=== PATIENT | female | born 1950 | race Caucasian/White ===

== ENCOUNTER 2024-12-21 11:19 | Inpatient (IN) | payer MEDICARE, OTHER, SELFPAY ==
[2024-12-21] VITALS (7 sets, daily range): BP systolic 125–137; BP diastolic 61–104; PULSE 77
--- NOTE | 2024-12-21 11:45 | PTCARENOTE ---
Received the patient from [facility] in a stretcher. The patient is aaox3. However, her responses are slow with mild aphasia noted. Afib is noted on the monitor, HR 70. Transferred the patient to her bed by slide sheet x 3 assist. Lungs are clear with a
barrel chest. HR is irregular with a murmur. Left leg has a +1-2 non pitting edema and a bandaid is note at the lateral left knee. A small scab is noted on her lutz and measures 0.7 cm round. Her leg BL are brown in color. NIHSS is scored a 7 due to
mild aphasia, mild dysarthria, left arm weakness, and right leg weakness. I removed her left wrist IV due to redness and tenderness at the site. She has a left midline in place.
--- NOTE | 2024-12-21 12:27 | HPS.HSE ---
Family Physician
-
Family Physician: Cady Sherwood
Chief Complaint
-
Change in mental status
History of Present Illness
74-year-old female, followed by Dr. Bharath Michele (PCP) for aortic stenosis (severe per recent office visit note) was admitted to [facility] on 12/17/2024 with confusion, lethargy, headache, and chills. EMS was notified by
patient's son who found the patient on floor when she had not showed up for work that morning. Patient is completely independent with ADLs and continues to work and had been in good health up until this event. Patient febrile on admission (Tmax
101.8F) and able to move all extremities.
Noncontrast CT of head on 12/17 reported 2 foci of decreased density in the right cerebral hemisphere consistent with acute infarct, 1 in the cerebellum and 1 in the high frontal lobe. CT of the chest, abdomen and pelvis revealed no significant
abnormality.
CTA head/neck on 12/17/24 reported no evidence of large vessel occlusion, critical stenosis, or aneurysm.
Urinalysis is unremarkable. Blood cultures identified MSSA and the patient was started on Cefepime. Seen by cardiology for new onset atrial fibrillation with rapid ventricular response which was treated with IV heparin and amiodarone.
TTE on 12/18 reported an EF of 55 to 60%, concentric remodeling of left ventricle, normal RV size and function. Severely dilated left atrium and normal right atrium. Moderate to severe aortic stenosis with trace AI. AV gradients 52/32 mmHg. Severe
MAC with severe mitral regurgitation mild tricuspid regurgitation. Rapid response was called on 12/19/2024 for new right facial droop and right upper/right lower extremity weakness.
CT head on 12/19 reported less than 50% bilateral ICA stenosis. No large vessel occlusion or dissection. Patient was seen by orthopedic surgery for complaint of left knee pain and area aspirated on 12/20 and the final report is pending. Patient was
cleared for regular diet and medications with thin liquids. 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
Patient is awake, alert, and oriented on exam. She has mild expressive aphasia with word finding difficulty and has good bilateral handgrips and able to bend legs at the knee. Her only complaint is some left knee pain.
Medical History
Past Medical History
Past Medical History: Reports Hypothyroidism and Other (lupus, class I obesity)
Past Surgical History: Reports Other (Thyroidectomy)
Social History
Tobacco: Former Smoker (Quit 40 years ago)
Alcohol: Occasional
Drug: None
Personal:
Living: Alone
Employment: Employed
Family History
Family History: Not pertinent
Allergies / Home Medications
Allergies
Allergy/AdvReac Type Severity Reaction Status Date / Time
No Known Allergies Allergy Verified 12/21/24 13:23
Allergy/Medication List:
Allergies
Allergy/AdvReac Type Severity Reaction Status Date / Time
No Known Allergies Allergy Verified 12/21/24 13:23
Review of Systems
-
History Source: Patient and Transfer Record
Constitutional: Reports See HPI
EENT: Reports See HPI
Respiratory: Reports See HPI
Cardiac: Reports See HPI
Abdomen/GI: Reports No Symptoms
: Reports Incontinence (diaper soaked on admission)
Musculoskeletal: Reports Joint Pain (left knee pain)
Skin: Reports No Symptoms
Neurological: Reports Other (expressive aphasia)
Endocrine: Reports No Symptoms
Hematologic/Lymphatic: Reports No Symptoms
Psych: Reports No Symptoms
Physical Exam
Vital Signs
Vital Signs
Temp Pulse Resp BP Pulse Ox
98.6 F 70 24 131/86 94
12/21/24 11:29 12/21/24 11:30 12/21/24 11:29 12/21/24 11:30 12/21/24 11:29
Physical Exam
General: Obese
HEENT: NormoCephalic, Anicteric, Moist mucous membranes and PERRLA
Respiratory: Clear
Cardiac: S1/S2, Regular Rhythm (currently SR on telemetry) and Murmur (II/ crescendo-decrescendo murmur right sternal border second intercostal space and radiates throughout precordium. II/ holosystolic murmur left sternal border right ICS
radiates to axilla)
GI: Normal Bowel Sounds and No Hepatosplenomegaly
Rectal: Deferred by Provider
Genito-urinary: Other (Diapered and incontinent on admission)
Musculoskeletal: No Clubbing, No Cyanosis and No Edema
Skin: Warm, Dry and Other (Bilateral lower extremity PVD discoloration)
Neuro: AO x 3 and Other (Expressive aphasia, word finding difficulty)
Hematologic/Lymphatic: No Lymphadenopathy
Psych: Calm
Data Reviewed
-
Diagnostic Radiology: Report Reviewed by me and Discussed with Physician
CT Scan: Report Reviewed by me and Discussed with Physician
Ultrasound: Report Reviewed by me and Discussed with Physician
Lab Data: Labs Reviewed by me and Discussed with Physician
Impression/Plan
-
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
PLAN:
# MSSA bacteremia with /MR and suspected endocarditis
- Consult to [facility] cardiology, infectious disease
- continue Cefepime
- Blood cultures x 2
- MARY per cardiology discretion
# embolic CVA (cerebellar/frontal) with expressive aphasia
- consult neurology, PT/OT, speech therapy
- Aspirin only as anticoagulant per [place] notes
# left knee pain
- Follow-up on left knee aspirate culture from [facility]
# Reji AF
- currently SR on telemetry
- convert Amio infusion (since 12/17) to Amio 200mg BID
# Hx hypothyroidism
-continue home Levothyroxine 250mcg daily
- TSH 2.2 @ [facility]
# Lupus
- continue hydroxychloroquine 200mg alternating with 400mg daily
--- NOTE | 2024-12-21 12:49 | CON.CAR ---
Addendum entered and electronically signed by Foreign Benavides MD 12/21/24 16:39:
Primary manpower development manager Dr. Michele
Patient presents as transfer from [facility]
I saw and examined the patient.
The [employer] ANDRO[employer] DEVELOPER's note was reviewed and I agree with the note.
74-year-old woman with a history of severe aortic stenosis, lupus, thyroid disease who presented with confusion on 12/17/2024 after being found on the floor by her son. Patient with MSSA bacteremia. A-fib diagnosed during hospitalization initially
treated with IV heparin and amiodarone. Echo with ejection fraction 45%, moderate to severe aortic stenosis and moderate mitral regurgitation. Patient is also diagnosed with CVA during her hospitalization. In addition patient had pain of left
knee and underwent aspiration. Concern raised for endocarditis. Patient now transferred to [facility].
-MSSA - bacteremia
- suspected endocarditis
- continue abx
- monitor cultures
=MARY
.
afib - noted at [facility]. Currently in sinus
- not on anticoaguation with recent CVA and concern for endocarditis
- ID consult
.
mod to severe - mean gradient 32mmHg with EF 45%
CM - EF 45%. Montior for HF
- CXR
Original Note:
Consultation
Consultation Request
Date/Time Consultation Requested: 12/21/2024 11:00
Date/Time Consultation Performed: 12/21/2024 12:50
Requesting Provider: ISRAEL Ny
Performing Provider: ISRAEL Abarca for Dr. Benavides
Reason for Consultation: Endocarditis, new
Medical History
-
Chief Complaint: MSSA endocarditis
History of Present Illness:
Yazmin Montana is a 74-year-old female (known to Dr. Peguero) transferred from [facility] for cardiac surgery evaluation. Ms. Montana has a past medical history of severe aortic stenosis, hypothyroidism, lupus, and former smoker. She presents from
[facility] for cardiac surgery evaluation. Cardiology has been consulted for atrial fibrillation which she developed at [facility]. She has no chest pain. She is not sure if she is short of breath.
[facility] summary: Yazmin was admitted 12/17/2024 with confusion. She was found on the floor by her son after she did not show up for work. 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 She presented febrile. Blood cultures demonstrated MSSA and she
was started on cefepime. CT of chest/abdomen/pelvis did not show definitive source. She was found to be in atrial fibrillation with rapid ventricular response with incomplete right bundle branch block. She was started on intravenous heparin and
amiodarone. On 12/19/2024 a stroke alert was called for right sided facial droop in addition to right upper and lower extremity weakness. Her heparin drip was stopped due to concern for stroke. CT noncontrast on admission showed 2 foci of decreased
density in the right cerebral hemisphere consistent with acute infarct, one in the cerebellum and one in the high frontal lobe. MRI was pending and not completed prior to transfer. She was found to have pain and erythema of the left knee. On
12/21/2024 orthopedic surgery aspirated her knee. Notable labs during her admission included D-dimer of 16.3, HgbA1c 5.0%, troponin T fifth GEN peaked at 315, and CPK 1191.
Past Medical History
Past Medical History: Hypothyroidism and Other (Lupus)
Social History
Tobacco: Former Smoker
Alcohol: Occasional
Drug: None
Personal:
Living: Alone
Employment: Employed
Family History
Family History: Reviewed & Not Pertinent
Allergies / Home Medications
�Medication �Instructions �Recorded �Confirmed �Type
gabapentin 300 mg PO HS 12/21/24 12/21/24 History
hydroxychloroquine 200 mg PO Q OTHER DAY 12/21/24 History
levothyroxine 250 mcg DAILY 12/21/24 12/21/24 History
Review of Systems
-
History Source: Patient
All other systems: Negative unless noted
Constitutional: Fatigue
EENT: No Symptoms
Respiratory: No Symptoms
Cardiac: No Symptoms
Abdomen/GI: No Symptoms
: No Symptoms
Musculoskeletal: Joint Pain (left knee)
Skin: No Symptoms
Neurological: Weakness
Endocrine: No Symptoms
Hematologic/Lymphatic: No Symptoms
Physical Exam
Vital Signs
Temp Pulse Resp BP Pulse Ox
98.6 F 70 24 131/86 94
12/21/24 11:29 12/21/24 11:30 12/21/24 11:29 12/21/24 11:30 12/21/24 11:29
Physical Exam
General: Well Developed, Well Nourished, No Apparent Distress and Comfortable
HEENT: Normocephalic, Anicteric and Moist Mucous Membranes
Respiratory: Clear and Non Labored Respirations
Cardiac: S1/S2, Regular Rhythm and Murmur (12/16)
Breast: Deferred by me
GI: Soft, Non Tender, Non Distended and Normal Bowel Sounds
Rectal: Deferred by Provider
Musculoskeletal: No Clubbing and No Cyanosis
Skin: Warm and Dry
Neuro: AO x 3
Hematologic/Lymphatic: No Lymphadenopathy
Psych: Calm
Impression / Plan
-
I/P: 74F with severe aortic stenosis hypothyroidism, lupus, and former smoker. She presents from [facility] for cardiac surgery evaluation. Cardiology has been consulted for atrial fibrillation which she presented with at [facility].
Primary manpower development manager: Yunior Peguero
MSSA bacteremia
-Blood cultures + 12/17/2024 and 12/18/2024, NGTD from 12/19/2024
-Knee aspiration is pending
-Suspected aortic and mitral valve endocarditis
-Aortic valve gradients 52/32 mmHg with severe MAC and severe MR (severe precedes bacteremia)
-Evaluation per CT surgery
-MARY in a.m, NPO after midnight
CVA, embolic versus septic
-Expressive aphasia and word finding difficulty on exam, oriented
Paroxysmal atrial fibrillation
-New diagnosis at [facility], started on amiodarone, converted to PO
-Maintaining sinus rhythm
-Oral Anticoagulation: None [employer] MEMBER
-[id number]: Score at least 4 prior to CVA (HTN, age 75 or more, female gender)
Thrombocytopenia, platelets 98 this morning, labs pending
Hypothyroidism, on levothyroxine
Lupus
Former smoker, continued cessation recommended
SUBJECTIVE:
As above.
BACKGROUND:
Yazmin was admitted 12/17/2024 with confusion. She was found on the floor by her son after she did not show up for work. 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 She presented febrile. Blood cultures demonstrated MSSA and she was started on
cefepime. CT of chest/abdomen/pelvis did not show definitive source. She was found to be in atrial fibrillation with rapid ventricular response with incomplete right bundle branch block. She was started on intravenous heparin and amiodarone. On
12/19/2024 a stroke alert was called for right sided facial droop in addition to right upper and lower extremity weakness. Her heparin drip was stopped due to concern for stroke. CT noncontrast on admission showed 2 foci of decreased density in the
right cerebral hemisphere consistent with acute infarct, one in the cerebellum and one in the high frontal lobe. MRI was pending and not completed prior to transfer. She was found to have pain and erythema of the left knee. On 12/20/2024
orthopedic surgery aspirated her knee. Notable labs during her admission included D-dimer of 16.3, HgbA1c 5.0%, troponin T fifth GEN peaked at 315, and CPK 1191.
DATA:
Transthoracic echocardiogram, 12/18/2024 ([facility]):
LVEF 45%. Severely dilated LA. Moderate to severe aortic stenosis (peak/mean 52.6/32.3 mmHg).
Severe thickening of the anterior and posterior leaflets of the mitral valve.
Severe mitral annular calcification. Moderate mitral valve regurgitation with centrally directed jet.
Data Reviewed
-
Old Records: Requested and Reviewed
--- NOTE | 2024-12-21 13:04 | CON.ID ---
Consultation
-
Date/Time Consultation Requested: 12/21/24 11:47
Date/Time Consultation Performed: 12/21/24 13:07
Requesting Provider: Aroldo LANCE
Performing Provider: Dr Toney
Reason for Consultation: Aortic and mitral valve endocarditis s/p CVA
Chief Complaint / Past History
Chief Complaint
transferred for endocarditis
History of Present Illness
Ms Montana is a 74 year old female with history of lupus on plaquenil, severe who was admitted to [facility] on 12/17/2024 with confusion, lethargy, headache, fever (101.8) and chills after she was found down by son when she did not
attend work that morning, she was last seen well at about 11am the day before. She was hypotensive at that time. 12/[address] of head significant for 2 suspected acute infarction, 1 in the cerebellum and 1 in the right frontal lobe. CTA
head/neck on 12/17/24 reported no evidence of large vessel occlusion, critical stenosis, or aneurysm. CK was 519. examining providers noted rigors. She was initially started on cefepime then when blood cultures resulted with cefazolin she was
transitioned to vancomycin, cefepime and metronidazole. TTE on 12/18 EF of 55 to 60%, and moderate to severe aortic stenosis with trace AI, no definitive vegetation seen. Then 12/19 a Rapid response was called for new right facial droop & right
upper/right lower extremity weakness. CT head same day Additionally she was was seen by orthopedic surgery for left knee pain, swelling and decreased range of motion and underwent arthrocentesis on 12/20 15 ccs of bloody fluid aspirated, specimen
sent for culture, the procedure report does not indicate samples being sent for cell count, differential or crystals . 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 MARY
was planned but not yet done, it will be done here tomorrow. She does complain of increased thoracic spinal pain from her baseline, no changes in vision. Beyond the L knee, no other joint swelling.
Since arrival here she has been afebrile, bp stable, wbc 7.1, hgb 14, plt 129, L shift is noted, na 130, cr 0.6, K 3.1, t bili 0.4, ast 54, alt 31, alk phos 67, a single blood culture has been done thus far,
Past History
Additional Past Medical History:
hypothyrodism
lupus
Additional Past Surgical History:
thyroidectomy
Allergy History:
No Known Allergies Allergy (Unverified 12/21/24 12:59)
Medications Reviewed: Yes
Social History
Tobacco: Former Smoker
Alcohol: Occasional
Drug: None
Family History
Family History: Not Pertinent
Review of Systems
Review of Systems
General: Fever and Chills
All systems: All other systems were reviewed and were negative
Vital Signs
Temp Pulse Resp BP Pulse Ox
98.6 F 70 24 131/86 94
12/21/24 11:29 12/21/24 11:30 12/21/24 11:29 12/21/24 11:30 12/21/24 11:29
Physical Exam
Physical Exam
Constitutional: No Acute Distress
Cardiovascular: Regular Rate and S1/S2; Negative Murmur or Rub
Pulmonary: Clear and Symmetric; Negative Wheezes, Rales or Rhonchi
Gastrointestinal: Soft, Non Tender, Non Distended and Normal Bowel Sounds
Musculoskeletal: Joint Effusion (L knee swollen, warm, quite tender), Spinal Tenderness (thoracic spine) and Other (L knee is warm swollen and quite tender)
Skin: Warm and Dry; Negative Rash or Jaundice
Microbiology Results
Micro:
12/21/24 12:56 Blood Culture - Pending
Blood/Venous
Assessment / Plan
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
MSSA bacteremia
CVA possible septic infarctions
- MSSA bacteremia at [facility] 12/17 and 12/18; 12/19 cultures at [facility] no growth to date
- repeat blood cultures x2 now and q48 hours until persistently clear
- L knee arthrocentesis culture: NGTD; I did not see results for cell count, culture or crystals in the provided documentation]
- will follow up with lab periodically
- follow up MARY planned for tomorrow
- restart cefazolin
Possible septic joint - L Knee
- left knee quite tender, remains swollen and warm
- L knee arthrocentesis culture at [facility]: NGTD; I did not see results for cell count, culture or crystals in the provided documentation
- will follow up with lab periodically
- will consult orthopedics in the AM, serial arthrocenteses may be a consideration
[2024-12-21 14:01] LABS: % Basophils 0.4 % (0-2); % Eosinophils 0.8 % (0-6); % Immature Granulocytes 1.5 % (0-0.5); % Lymphocytes 8.9 % (20.5-51.1); % Monocytes 9.3 % (1.7-9.3); % Neutrophils 79.1 % (42.2-75.2); Absolute Eosinophils 0.1 10^3/uL (0-0.7); Absolute Immature Granulocytes 0.1 10^3/uL (0-0.05); Absolute Lymphocytes 0.6 10^3/uL (1.2-3.4); Absolute Monocytes 0.7 10^3/uL (0.1-0.6); Absolute Neutrophils 5.6 10^3/uL (1.4-6.5); Hematocrit 39.7 % (37.0-47.0); Mean Corp Hgb Conc. 35.3 g/dL (33.0-37.0); Mean Corpuscular Hgb 29.5 pg (27.0-31.0); Mean Corpuscular Volume 83.6 fL (81.0-99.0); Mean Platelet Volume 10.7 fL (7.4-10.4); Nucleated Red Blood Cells % 0 %; Platelet Count 129 10^3/uL (130-400); Red Blood Cell Count 4.75 10^6/uL (4.20-5.40); Red Cell Dist. Width 13.4 % (11.5-14.5); White Blood Cell Count 7.1 10^3/uL (4.8-10.8)
[2024-12-21 14:10] LABS: ALT (SGPT) 31 U/L (0-35); AST (SGOT) 54 U/L (14-36); Albumin 2.5 g/dl (3.5-5.0); Alkaline Phosphatase 67 U/L (38-126); Blood Urea Nitrogen 8 mg/dl (7-17); Calcium 7.8 mg/dl (8.4-10.2); Carbon Dioxide 24 mmol/L (22-30); Chloride 102 mmol/L (98-107); Glucose 98 mg/dl (70-99); Potassium 3.1 mmol/L (3.5-5.1); Sodium 130 mmol/L (135-145); Total Bilirubin 0.4 mg/dl (0.2-1.3); Total Protein 5.3 g/dl (6.3-8.2); eGFR > 60.00
[2024-12-21] MEDS: ANCEF 10 IV ×2 (14:41→22:04)
--- NOTE | 2024-12-21 16:37 | CON.NEURO ---
Neuro Assessment/Plan
Assessment
septic emboli - Head CT images reviewed with patient. 2 small strokes left frontal; one in the right frontal; and a moderate sized wedge in the right cerebellum
thankfully the strokes are relatively small there is no cortical involvement, so less prone to hemorrhagic transformation. ok for blood thinners if needed;
I'm hopeful for a good recovery, but nothing I can do about this.
Consultation
Order
Date of Consultation: 12/21/24
Requesting Provider: Chloe Kendrick
Reason for Consult: stroke
Subjective/Objective
Subjective Data
Date of Service: December 21, 2024
She is a 74 year old woman admitted to [facility] on 12/17/2024 with confusion, lethargy, headache, and chills. Patient is completely independent with ADLs and continues to work and had been in good health up until this event. Patient
febrile on admission (Tmax 101.8F) and able to move all extremities.
CTA head/neck on 12/17/24 reported no evidence of large vessel occlusion, critical stenosis, or aneurysm.
Found to have MSSA bacteremia, endocarditis, started on cefepime. Seen by cardiology for new onset atrial fibrillation with rapid ventricular response which was treated with IV heparin and amiodarone.
Objective Data
Vital Signs
Temp Pulse Resp BP Pulse Ox
37.0 C 70 24 131/86 94
12/21/24 11:29 12/21/24 11:30 12/21/24 11:29 12/21/24 11:30 12/21/24 12:15
Lab Results
12/21/24 13:36
12/21/24 13:36
Sodium 130 mmol/L (135-145) L 12/21/24 13:36
Potassium 3.1 mmol/L (3.5-5.1) L 12/21/24 13:36
BUN 8 mg/dl (7-17) 12/21/24 13:36
Glucose 98 mg/dl (70-99) 12/21/24 13:36
Calcium 7.8 mg/dl (8.4-10.2) L 12/21/24 13:36
Patient Allergies
No Known Allergies Allergy (Verified 12/21/24 13:23)
Physical Exam
-
AAOx3, speech clear, mild expressive aphasia
VFF, EOMI, left nasolabial flattening
RUE full strength, LUE 4/5, b/l LE 3-/5 some effort against gravity
Medications
-
Active Medications
Generic Name Dose Route Start Last Admin
Trade Name Freq PRN Reason Stop Dose Admin
Amiodarone HCl 200 mg 12/21/24 20:00
Amiodarone 200 Mg Tablet PO 01/18/25 19:59
BID OLEG
Aspirin 81 mg 12/22/24 08:00
Aspirin 81 Mg Chewable Tablet PO 01/19/25 07:59
DAILY OLEG
Atorvastatin Calcium 40 mg 12/21/24 18:00
Atorvastatin (Lipitor) 40 Mg Tablet PO 01/18/25 17:59
QPM OLEG
Bisacodyl 10 mg 12/21/24 10:47
Bisacodyl 10 Mg Rectal Suppository RECTAL 01/18/25 10:46
[id number] PRN
constipation
Gabapentin 300 mg 12/21/24 22:00
Gabapentin 300 Mg Capsule PO 01/18/25 21:59
HS OLEG
Hydroxychloroquine Sulfate 200 mg 12/22/24 08:00
Hydroxychloroquine 200 Mg Tablet PO 01/19/25 07:59
Q48H OLEG
Hydroxychloroquine Sulfate 400 mg 12/23/24 08:00
Hydroxychloroquine 200 Mg Tablet PO 01/20/25 07:59
Q48H OLEG
Cefazolin Sodium 2 grams in 10 mls @ 120 mls/hr 12/21/24 14:00 12/21/24 14:41
Ancef IV 10 mls
Q8H OLEG Administration
Levothyroxine Sodium 250 mcg 12/22/24 06:00
Levothyroxine 125 Mcg Tablet PO 01/19/25 05:59
DAILY @ 0600 OLEG
Polyethylene Glycol 17 grams 12/21/24 10:47
Polyethylene Glycol Powder 17 Grams Packet PO 01/18/25 10:46
DAILYPRN PRN
constipation
Senna/Docusate Sodium 1 tablet 12/21/24 10:47
Docusate W/Senna (Kaylan-Colace) Tablet PO 01/18/25 10:46
BIDPRN PRN
constipation
Home Medications
�Medication �Instructions �Recorded
gabapentin 300 mg PO HS 12/21/24
hydroxychloroquine 200 mg PO Q OTHER DAY 12/21/24
hydroxychloroquine 400 mg PO Q OTHER DAY 12/21/24
levothyroxine 250 mcg DAILY 12/21/24
--- NOTE | 2024-12-21 16:56 | CM ---
spoke to pt in room, shelives alone in a 1 story home with a ramp to enter. she denies dme's. she has new expressive aphasia which she says is improving. she is being eval for ct surgery/endocarditis. cm to follow for dc planning needs.
--- NOTE | 2024-12-21 16:57 | PTCARENOTE ---
The patient passed her swallowing exam. She had a chopped diet at [facility]. I observed the patient eating her lunch of a burger and mash potatoes. The patient feed herself with no aspiration was noted.
[2024-12-21] MEDS: LIPITOR 40 MG PO (17:20)
[2024-12-21] MEDS: KCL 40 MEQ PO (20:04)
[2024-12-21] MEDS: PACERONE 200 MG PO (20:05)
--- NOTE | 2024-12-21 21:44 | PTCARENOTE ---
Received patient at change of shift. A&Ox3. Sitting with family bedside. Vitals stable. Neuro check stable. Discussed plan of care. Understands NPO @ midnight. Patient verbalized understanding. Call garay within reach.
[2024-12-21] MEDS: NEURONTIN 300 MG PO (22:04)
[2024-12-22 04:16] VITALS: BP 126/78
[2024-12-22 05:03] LABS: APTT 31.6 Sec (23.4-35.0); PT 18.3 Sec (11.4-14.6)
[2024-12-22 05:14] LABS: ALT (SGPT) 32 U/L (0-35); AST (SGOT) 59 U/L (14-36); Albumin 2.4 g/dl (3.5-5.0); Alkaline Phosphatase 71 U/L (38-126); Blood Urea Nitrogen 11 mg/dl (7-17); Calcium 7.7 mg/dl (8.4-10.2); Carbon Dioxide 22 mmol/L (22-30); Chloride 103 mmol/L (98-107); Glucose 93 mg/dl (70-99); Magnesium 1.8 mg/dl (1.6-2.3); Potassium 3.4 mmol/L (3.5-5.1); Sodium 131 mmol/L (135-145); Total Bilirubin 0.6 mg/dl (0.2-1.3); Total Protein 5.2 g/dl (6.3-8.2); eGFR > 60.00
[2024-12-22] MEDS: ANCEF 10 IV ×3 (05:32→21:40)
[2024-12-22] MEDS: SYNTHROID PO (05:44)
[2024-12-22 07:26] VITALS: BP 125/82
--- NOTE | 2024-12-22 08:47 | CON.HOSP ---
Family Physician
-
Family Physician: Cady Sherwood
Chief Complaint
-
Transfer to medicine service
History of Present Illness
74-year-old female with past medical history of hypothyroidism, aortic stenosis, and lupus on Plaquenil who was transferred from [facility] on 12/21/2024 to the CTS service for concerns of bacterial endocarditis with vegetations requiring
surgical intervention. Patient initially presented to [facility] on 12/21/2024 with fever, and confusion. Workup at [facility] showed MSSA bacteremia and new onset rapid atrial fibrillation. She also was found to have acute stroke,
from septic emboli.
Currently, she feels tired. She denies chest pain, shortness of breath, palpitations. No fever, no headache. No nausea, no vomiting. She does have a cough.
Medical History
Past Medical History
Past Medical History: Reports Other
Additional Past Medical History:
Aortic stenosis, hypothyroidism, lupus, atrial fibrillation, stroke from septic emboli, endocarditis, bacteremia
Past Surgical History: Reports Other
Additional Past Surgical History:
Thyroidectomy
Social History
Tobacco: Former Smoker
Alcohol: Occasional
Drug: None
Family History
Family History: Reviewed & Not Pertinent
Allergies / Home Medications
Allergies reflects when Allergies were last updated in [facility].
Home Medications with original date entered in [facility]
Allergy/Medication List:
Allergies
Allergy/AdvReac Type Severity Reaction Status Date / Time
No Known Allergies Allergy Verified 12/21/24 13:23
Home Medications Table - record
�Medication �Instructions �Recorded �Confirmed
gabapentin 300 mg PO HS 12/21/24 12/21/24
hydroxychloroquine 200 mg PO Q OTHER DAY 12/21/24 12/21/24
hydroxychloroquine 400 mg PO Q OTHER DAY 12/21/24 12/21/24
levothyroxine 250 mcg DAILY 12/21/24 12/21/24
Review of Systems
-
A 12 point Review of Systems was completed except as noted: Yes
Physical Exam
Vital Signs
Vital Signs
Temp Pulse Resp BP Pulse Ox
98.4 F 71 20 126/78 93
12/22/24 04:19 12/22/24 05:00 12/22/24 04:19 12/22/24 04:16 12/22/24 04:19
Physical Exam
General: No Apparent Distress
HEENT: Normocephalic, Anicteric and Moist Mucous Membranes
Respiratory: Clear
Cardiac: Regular Rhythm and Murmur
GI: Soft, Non Tender, Non Distended and Normal Bowel Sounds
Musculoskeletal: No Clubbing, No Cyanosis and No Edema
Neuro: Awake, Alert and Oriented
Psych: Calm
Laboratory Results
-
Laboratory Results
12/21/24 13:36
12/22/24 04:26
PT 18.3 Sec (11.4-14.6) H 12/22/24 04:26
INR 1.50 12/22/24 04:26
APTT 31.6 Sec (23.4-35.0) 12/22/24 04:26
Total Bilirubin 0.6 mg/dl (0.2-1.3) 12/22/24 04:26
AST 59 U/L (14-36) H 12/22/24 04:26
ALT 32 U/L (0-35) 12/22/24 04:26
Alkaline Phosphatase 71 U/L (38-126) 12/22/24 04:26
Impression / Plan
-
74-year-old female with past medical history of hypothyroidism, aortic stenosis, and lupus on Plaquenil who was transferred from [facility] on 12/21/2024 to the CTS service for concerns of bacterial endocarditis with vegetations requiring
surgical intervention. Patient initially presented to [facility] on 12/21/2024 with fever, and confusion. Workup at [facility] showed MSSA bacteremia and new onset rapid atrial fibrillation. She also was found to have acute stroke,
from septic emboli.
#Aortic and mitral valve endocarditis
#MSSA bacteremia
12/22 MARY with large mobile vegetations on mitral valve, also with severe aortic stenosis. No thrombus detected
Appreciate cardiology and CT surgery input, patient will need surgical intervention. Cardiac catheterization planned for 12/23
Appreciate ID input, continue IV Ancef, vancomycin restarted
12/19 blood cultures at [facility] remain no growth to date
#Paroxysmal atrial fibrillation
Appreciate cardiology input, continue amiodarone
#Stroke from septic emboli
Appreciate neurology input, strokes are small, no cortical involvement
Neurology states okay for blood thinners if needed
#Hypothyroidism
TSH 14.6
Would continue current dose of levothyroxine 250 mcg daily, repeat thyroid function test in 4-6 weeks
#Lupus
Continue Plaquenil
#Left knee effusion
X-rays show small joint effusion, degenerative joint disease
Appreciate orthopedic surgery input, status post aspiration 12/22, follow-up on fluid cultures
#Hypokalemia
Replete, recheck a.m. labs
DVT prophylaxis�subcu Lovenox
Full code
Thank you for the consult. We will accept the patient onto the hospitalist service.
Total time spent to see the patient on the floor, examine the patient, review data and lab results, discuss treatment plan with patient, nursing staff around 78 minutes.
--- NOTE | 2024-12-22 09:20 | W.PN.ID1 ---
Date of Service
Date of Service: December 22, 2024
Today's Communication
- MARY with large, mobile vegetations on MV, also with severe ; jim with Dr Ramírez's recommendation for valve replacements PHILIP
- c/w cefazolin - will continue until bacteremia definitively cleared
- restart vancomycin
- requested orthopedics consultation with consideration for serial aspirations, and that cell count/crystals be done today.
Assessment / Plan
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
MSSA bacteremia
CVA possible septic infarctions
- MSSA bacteremia at [facility] 12/17 and 12/18; 12/19 blood cultures at [facility] remain no growth to date - discussed with their lab today 12/22
- will follow up with lab periodically
- repeat blood cultures x2 done on 12/21 and q48 hours until persistently clear
- L knee arthrocentesis culture 12/19: NGTD; I did not see results for cell count, culture or crystals in the provided documentation - spoke with [facility] lab 12/22 and they confirmed these tests were not done
- MARY with large, mobile vegetations on MV, also with severe ; jim with Dr Ramírez's recommendation for valve replacements PHILIP
- routine MRI of the thoracic spine (where she is also quite tender) when feasible
- c/w cefazolin - will continue until bacteremia definitively cleared
- restart vancomycin
Possible septic joint - L Knee
- left knee quite tender, remains swollen and warm with decreased range of motion
- L knee arthrocentesis culture at [facility]: NGTD; I did not see results for cell count, culture or crystals in the provided documentation and [facility] lab confirms they were not done.
- will follow up with lab periodically
- requested orthopedics consultation with consideration for serial aspirations, and that cell count/crystals be done today.
Chief Complaint
-: Bacteremia and Other (endocarditis, cva)
Subjective / Review of Systems
afebrile
bp stable
no events overnight
MARY with large aortic vegetation
less L knee pain post arthrocentesis
Vital Signs / Physical Exam
Vital Signs
Vital Signs
Temp Pulse Resp BP Pulse Ox
98.4 F 71 20 126/78 93
12/22/24 04:19 12/22/24 05:00 12/22/24 04:19 12/22/24 04:16 12/22/24 04:19
Physical Exam
Constitutional: No Acute Distress
Cardiovascular: Regular Rate and S1/S2; Negative Murmur or Rub
Pulmonary: Clear and Symmetric; Negative Wheezes or Rales
Gastrointestinal: Soft, Non Tender, Non Distended and Normal Bowel Sounds
Musculoskeletal: Joint Effusion (L knee, warmth; much less swollen and tender post arthrocentesis)
Skin: Warm and Dry; Negative Rash or Jaundice
Objective Data
Lab Data
Lab Results
12/21/24 13:36
12/22/24 04:26
PT 18.3 Sec (11.4-14.6) H 12/22/24 04:26
INR 1.50 12/22/24 04:26
APTT 31.6 Sec (23.4-35.0) 12/22/24 04:26
Total Bilirubin 0.6 mg/dl (0.2-1.3) 12/22/24 04:26
AST 59 U/L (14-36) H 12/22/24 04:26
ALT 32 U/L (0-35) 12/22/24 04:26
Alkaline Phosphatase 71 U/L (38-126) 12/22/24 04:26
Most recent labs reviewed.
Micro Results:
12/21/24 18:00 Blood Culture - Pending
Blood/Venous
12/21/24 17:55 MRSA Screen - Pending
Nose
12/21/24 12:56 Blood Culture - Pending
Blood/Venous
Care Review
Plan reviewed with: Physician (Dr Mak - possible septic joint)
[2024-12-22] MEDS: PACERONE 200 MG PO ×2 (09:27→19:53)
[2024-12-22] MEDS: LOW STRENGTH ASPIRIN 81 MG PO (09:28)
--- NOTE | 2024-12-22 11:13 | W.PN.CD ---
Today's Communication / Plan
-
-Large vegetation (~1.5 x 2.5 cm) on mitral valve on MARY this a.m. with at least moderate mitral regurgitation; smaller vegetation(s) noted as well.
-CT Surgery made aware.
-Patient will undergo cardiac catheterization tomorrow for coronary assessment.
-Made NPO after MN.
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
-No thrombus detected in PAMELA appendage; good velocities.
Impression / Plan
-
I/P: 74F with severe aortic stenosis hypothyroidism, lupus, and former smoker. She presents from [facility] for cardiac surgery evaluation. Cardiology has been consulted for atrial fibrillation which she presented with at [facility].
Primary bulk sealer: Yunior Peguero
MSSA bacteremia
-Blood cultures + 12/17/2024 and 12/18/2024, NGTD from 12/19/2024
-Knee aspiration is pending
-Large vegetation (~1.5 x 2.5 cm) on mitral valve on MARY this a.m. with at least moderate mitral regurgitation; smaller vegetation(s) noted as well.
-TTE: Aortic valve gradients 52/32 mmHg with severe MAC and severe MR (severe precedes bacteremia)
-CT Surgery made aware.
-Patient will undergo cardiac catheterization tomorrow for coronary assessment.
-Made NPO after MN.
CVA, embolic versus septic
-Expressive aphasia and word finding difficulty on exam, oriented
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
Paroxysmal atrial fibrillation
-New diagnosis at [facility], started on amiodarone, converted to PO
-Maintaining sinus rhythm
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
-[id number]: Score at least 4 prior to CVA (HTN, age 75 or more, female gender)
-No thrombus detected in PAMELA appendage; good velocities.
Thrombocytopenia - platelets relatively stable at 129.
Hypothyroidism, on levothyroxine; TSH = 14.6.
-Management as per primary team.
Lupus
Former smoker, continued cessation recommended
BACKGROUND:
Yazmin was admitted 12/17/2024 with confusion. She was found on the floor by her son after she did not show up for work. 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 She presented febrile. Blood cultures demonstrated MSSA and she was started on
cefepime. CT of chest/abdomen/pelvis did not show definitive source. She was found to be in atrial fibrillation with rapid ventricular response with incomplete right bundle branch block. She was started on intravenous heparin and amiodarone. On
12/19/2024 a stroke alert was called for right sided facial droop in addition to right upper and lower extremity weakness. Her heparin drip was stopped due to concern for stroke. CT noncontrast on admission showed 2 foci of decreased density in the
right cerebral hemisphere consistent with acute infarct, one in the cerebellum and one in the high frontal lobe. MRI was pending and not completed prior to transfer. She was found to have pain and erythema of the left knee. On 12/20/2024
orthopedic surgery aspirated her knee. Notable labs during her admission included D-dimer of 16.3, HgbA1c 5.0%, troponin T fifth GEN peaked at 315, and CPK 1191.
DATA:
Transthoracic echocardiogram, 12/18/2024 ([facility]):
LVEF 45%. Severely dilated LA. Moderate to severe aortic stenosis (peak/mean 52.6/32.3 mmHg).
Severe thickening of the anterior and posterior leaflets of the mitral valve.
Severe mitral annular calcification. Moderate mitral valve regurgitation with centrally directed jet.
Physical Exam
Vital Signs/Labs
Vital Signs
Temp Pulse Resp BP Pulse Ox
98.2 F 79 16 125/82 97
12/22/24 07:30 12/22/24 09:16 12/22/24 07:30 12/22/24 07:26 12/22/24 08:00
12/21/24 13:36
12/22/24 04:26
PT 18.3 Sec (11.4-14.6) H 12/22/24 04:26
INR 1.50 12/22/24 04:26
APTT 31.6 Sec (23.4-35.0) 12/22/24 04:26
Magnesium 1.8 mg/dl (1.6-2.3) 12/22/24 04:26
TSH 14.60 uIU/ml (0.47-4.68) H 12/22/24 04:26
Physical Exam
Constitutional: No acute distress and Comfortable
EENT: Anicteric
Cardiovascular: Rhythm & rate is regular, Pedal edema is absent, Systolic murmur present (2/) and S1S2 is normal
Respiratory: Respiratory effort normal and Rhonchi Present (bibasilar)
GI: Soft
Neuro/Psych: AO x 3
Other: Skin (warm)
Data Reviewed
-
Date of Service: December 22, 2024
Echo: Tracing Personally Visualized and interpreted (MARY: Large mitral valve vegetation)
Medical Tests (PFT, Pathology etc): Discussed with Physician (CT Surgery team, ID, Neurology) and Discussed with Patient
Labs: Labs Reviewed by me
Old Records: Reviewed
[2024-12-22] MEDS: PLAQUENIL 200 MG PO (12:45)
[2024-12-22 12:50] VITALS: BMI 32.3
[2024-12-22] MEDS: LASIX 40 MG IV (12:52)
--- NOTE | 2024-12-22 13:18 | CON.ORTHO ---
Consultation
-
Date/Time Consultation Requested: 12/22/2024; time unknown
Date/Time Consultation Performed: 12/22/2024; 1230
Requesting Provider: Unknown
Performing Provider: Danni Parker PA-C for Dr. Jacob Mak
Reason for Consultation: Left knee pain and swelling
Consultation - Orthopedics
History
Ms. Montana is a 74-year-old woman with a history of severe aortic stenosis, lupus, thyroid disease who presented with confusion on 12/17/2024 after being found on the floor by her son. She was initially being treated at [facility], but
was transferred to [facility] yesterday for continued management. She was found to have MSSA bacteremia. She also was found to have left knee pain and swelling. Cultures from knee aspirate at [place] are negative to date. She had been
started on antibiotics prior to aspiration of her knee. She denies any pain in the knee at rest, but does endorse some tenderness about the knee. She has not needed any medications for pain control of her knee. She reports a history of pain in her
knee, she is unsure of any diagnosis, but she did utilize a knee brace for a time. She also reports a history of Lupus associated with polyarthralgia.
Allergies / Home Medications
Allergy/AdvReac Type Severity Reaction Status Date / Time
No Known Allergies Allergy Verified 12/21/24 13:23
�Medication �Instructions �Recorded
gabapentin 300 mg PO HS Neurological Condition 12/21/24
hydroxychloroquine 200 mg PO Q OTHER DAY Autoimmune 12/21/24
Disorder
hydroxychloroquine 400 mg PO Q OTHER DAY Autoimmune 12/21/24
Disorder
levothyroxine 250 mcg DAILY Thyroid 12/21/24
Vital Signs / Lab Results
Temp Pulse Resp BP Pulse Ox
98.2 F 79 16 125/82 97
12/22/24 07:30 12/22/24 09:16 12/22/24 07:30 12/22/24 07:26 12/22/24 08:00
12/21/24 13:36
12/22/24 04:26
ESR and CRP pending.
2 views of the left knee taken today and independently interpreted by me reveal no signs of fracture, dislocation or lesions. Minimal degenerative changes.
Directed exam of the left knee reveals mild effusion about the left knee. No significant erythema about the knee today, but there is some ecchymosis around prior aspiration site. Tenderness along the medial joint line. No pain with passive ROM of
the knee. Neurovascularly intact distally.
Assessment / Plan
Left knee pain and swelling
--Yazmin has experienced several days of left knee pain and swelling in the setting of MSSA bacteremia. She does have an effusion on exam today, but there is no significant erythema or pain with ROM of the knee. This lowers my suspicion for septic
joint, but this is difficult to assess given her treatment with antibiotics. I did aspirate the knee at the bedside today for 9 cc of bloody fluid. This was not obviously purulent. This was sent to the lab for further testing. I requested cell
count, crystals, gram stain and culture. Will continue to follow.
--Patient may be weight bearing as tolerated. Assistive device may be indicated once patient well enough to ambulate. May perform ROM as tolerated.
--Pain control prn.
--- NOTE | 2024-12-22 13:22 | PHA.VAN.IN ---
Assessment
- Assessment
Renal Function: Appears similar to baseline
Concomitant Antimicrobials: cefazolin
AUC Dosing Plan
- Dosing Variables
Dosing Weight (kg): 88
Dosing CrCl (ml/min): 89
Vd coefficient (L/kg): 0.7
- Empiric Dosing
Initial / Loading Dose: 1500mg - administration pending
Maintenance Regimen: Vanc 1250mg Q12H starting 12/23 599
Estimated AUC (mcg*h/mL): 549
Estimated Peak (mcg*h/mL): 33.3
Estimated Trough (mcg/ml): 14.6
Estimated Half Life (H): 8.9
Patient reportedly received vanco at [place] but unclear of last dosing or any levels. Will give partial load.
Patient did not receive 1g dose this AM - order cancelled and changed to 1500mg load
Will defer starting scheduled dose until 12/23 599
- Monitoring
No levels ordered at this time: consider levels in next few days
Pharmacokinetics Vancomycin I
- -
Patient Age: 74
Patient Sex: Female
Vancomycin Day #: 1
Indication: Sodium Chlorite Operator Infection
Requesting Provider: Dr. Toney
Pertinent Antimicrobial Allergies:
NKDA
Height / Weight:
Height 5 ft 5 in
Actual Weight 88 kg
Pertinent Past Medical History: BMI ~32
- Vital Signs / Lab Results
Temp Pulse Resp BP Pulse Ox
98.2 F 79 16 125/82 97
12/22/24 07:30 12/22/24 09:16 12/22/24 07:30 12/22/24 07:26 12/22/24 08:00
Lab Results - Hematology
12/21/24
13:36
WBC 7.1
Lab Results - Chemistry
12/21/24 12/22/24
13:36 04:26
BUN 8 11
Creatinine 0.6 0.6
Albumin 2.5 L 2.4 L
Microbiology Results
12/21/24 12:56 Blood Culture - Preliminary
Blood/Venous No Growth in 24 hours- Final report to follow
[2024-12-22] MEDS: VANCOCIN 530 MG IV (14:16)
[2024-12-22] MEDS: KCL 40 MEQ PO ×2 (14:26→21:24)
[2024-12-22 14:31] LABS: Erythrocyte Sed Rate 25 mm/hour (0-20)
--- NOTE | 2024-12-22 14:44 | CM ---
Addendum entered by HOLDEN Villanueva 12/22/24 16:14:
Met w/ patient at bedside.
Pt. is anticipating CT Surg on 12/24.
Will plan to meet w/ patient on 12/23 for pre-op teaching.
Will follow.
Original Note:
CM following for DC planning needs.
Attempted to meet w/ patient at bedside but patient was not in her room.
Reviewed initial assessment. Pt. resides alone in a private, 1 story home w/ ramp access.
Pt. is functionally indep. at baseline w/ ADLs, mobility.
Goal is for home once stable for DC.
CM will cont. to follow.
[2024-12-22 15:21] LABS: Body Fluid Mononuclear 21.3 %; Body Fluid Polymorphonuclear 78.7 %; Body Fluid WBC 3881 /CUMM
[2024-12-22 15:24] VITALS: BP 123/71
[2024-12-22 15:40] LABS: Body Fluid Second Tech EYM
--- NOTE | 2024-12-22 16:47 | PTCARENOTE ---
Pt received this am alert and oriented. Mild expressive aphasia noted.Denies any pain or discomfort. Pt sent for MARY, MRI and xray of left knee today. Room air sat 97%. SR, rate in the 70's to 80's.
--- NOTE | 2024-12-22 16:51 | PTOTSP ---
SULFURIC ACID PLANT SUPERVISOR Evaluations
Quick Aphasia Battery Form 1 QAB overall = 7.96, mild range, mixed expressive/receptive aphasia.
Mild dysphonia and dysarthria.
No dysphagia.
Recommendations:
1. Regular, Thin Liquids
2. Medications as best tolerated
3. General aspiration precautions
4. SULFURIC AC[employer] PLANT SUPERVISOR f/u at the acute care level and after D/C for speech/language/cognitive evaluation/tx.
[2024-12-22] MEDS: LIPITOR 40 MG PO (17:02)
[2024-12-22] MEDS: LOVENOX 40 MG SC (17:08)
--- NOTE | 2024-12-22 17:40 | W.PN.UPDATE ---
Update Note
Progress Note Update
I met with Mrs. Montana at the bedside and also reviewed all of her studies. She has severe MAC and heavy calcification of the aorta into the aortomitral curtain. In additional, her CT chest revealed severe LM calcification and RCA disease...I
would not be surprised if she had significant CAD on [facility] tomorrow requiring revascularization. She also has concomitant Mv endocarditis with a very large mobile vegetation and recent embolic strokes. We discussed her surgical plan, which would be
AVR (bio), MVR (bio), MAZE, PAMELA Clip, likely CABG. The extent of her surgery is massive and I quoted her a 10-15% mortality risk, particularly with her MAC. I will re-visit her again tomorrow to discuss and make sure she understands the magnitude of
her intervention. With her infection, there really is not suitable transcatheter procedure to offer.
[2024-12-22 18:40] LABS: Blood Urea Nitrogen 11 mg/dl (7-17); Calcium 7.9 mg/dl (8.4-10.2); Carbon Dioxide 26 mmol/L (22-30); Chloride 99 mmol/L (98-107); Estimated Creatinine Clearance 89 ml/min; Glucose 153 mg/dl (70-99); Potassium 3.2 mmol/L (3.5-5.1); Sodium 132 mmol/L (135-145); eGFR > 60.00
[2024-12-22 19:52] VITALS: BP 116/67
[2024-12-22] MEDS: NEURONTIN 300 MG PO (21:24)
[2024-12-22] MEDS: FLUSH (NSS) 1 FLUSH IV (21:40)
[2024-12-22 22:41] VITALS: BP 115/75
[2024-12-23] VITALS (16 sets, daily range): BP systolic 115–153; BP diastolic 54–79; BMI 31.4
--- NOTE | 2024-12-23 01:27 | PTCARENOTE ---
Received patient at change of shift. A&Ox3. Family bedside. Vitals stable. Discussed being NPO @ midnight. Pt verbalized understanding. Call garay within reach.
--- NOTE | 2024-12-23 02:00 | PTCARENOTE ---
When administering Pt's IV ancef-- pt complained of pain in forearm lower to midline. Forearm red and tender to touch. Notified IV team-- ICU nurse was unable to remove midline. Placed new peripheral line until IV team can assess in morning.
[2024-12-23 05:01] LABS: Blood Urea Nitrogen 12 mg/dl (7-17); Calcium 7.7 mg/dl (8.4-10.2); Carbon Dioxide 25 mmol/L (22-30); Chloride 102 mmol/L (98-107); Estimated Creatinine Clearance 88 ml/min; Glucose 92 mg/dl (70-99); Hematocrit 37.1 % (37.0-47.0); Mean Corpuscular Hgb 29.4 pg (27.0-31.0); Mean Corpuscular Volume 83.9 fL (81.0-99.0); Mean Platelet Volume 10.4 fL (7.4-10.4); Platelet Count 229 10^3/uL (130-400); Potassium 4.3 mmol/L (3.5-5.1); Red Blood Cell Count 4.42 10^6/uL (4.20-5.40); Red Cell Dist. Width 13.5 % (11.5-14.5); Sodium 133 mmol/L (135-145); White Blood Cell Count 6.4 10^3/uL (4.8-10.8); eGFR > 60.00
[2024-12-23] MEDS: SYNTHROID 250 MCG PO (05:33)
[2024-12-23] MEDS: ANCEF 10 IV ×3 (05:33→21:30)
[2024-12-23] MEDS: VANCOCIN 275 MG IV (05:34)
--- NOTE | 2024-12-23 08:06 | W.PN.UPDATE ---
Update Note
Progress Note Update
Orthopedic follow-up:
Dx: Left knee pain
Plan: Patient this morning says that her left knee pain is about the same. Low-grade temp noted. Left knee trace effusion. Generalized warmth about the knee. Passive motion 0-90 degrees without pain. No gross signs of instability.
Tenderness primarily over the medial tibial plateau. Cell count from yesterday's knee aspiration showed WBCs 3881, polys 78.7, no crystals, Gram stain with few WBCs and no bacteria and culture no growth preliminarily. Orthopedics will continue to
follow.
[2024-12-23] MEDS: LOW STRENGTH ASPIRIN 81 MG PO (08:54)
[2024-12-23] MEDS: PACERONE 200 MG PO ×2 (08:54→21:31)
--- NOTE | 2024-12-23 09:16 | W.PN.CD ---
Today's Communication / Plan
-
Cardiac catheterization today.
Impression / Plan
-
Impression/Plan: 74F with severe aortic stenosis hypothyroidism, lupus, and former smoker transferred from [facility] after being admitted for sepsis/MSSA bacteremia, new atrial fibrillation and CVA during that hospitalization, found to have infectious
mitral valve endocarditis.
#MSSA infectious endoarditis
-Acute.
-Blood cultures + on 12/17/2024 and 12/18/2024, NGTD from 12/19/2024.
-Knee aspiration is shows inflammatory substrate, Cx shows NGTD.
-MARY shows large vegetation (~1.5 x 2.5 cm) on mitral valve with at least moderate mitral regurgitation; smaller vegetation(s) noted as well.
-TTE: Aortic valve gradients 52/32 mmHg with severe MAC and severe MR (severe precedes bacteremia).
-CT surgery consulted.
-Cardiac catheterization today as a preamble to AVR/MVR - presumably tomorrow.
#CVA
-Acute, embolic versus septic.
-Expressive aphasia and word finding difficulty on exam, oriented.
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
-Anticoagulation on hold.
#Paroxysmal atrial fibrillation
-New diagnosis at [facility]
-Rate/rhythm control on amiodarone, converted to PO.
-Maintaining sinus rhythm.
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
-[id number]: Score at least 4 prior to CVA (HTN, age 75 or more, female gender).
-No thrombus detected in PAMELA appendage; good velocities.
#Left knee effusion
-Acute.
-Aspirated by orthopedics.
-Cytology is inflammatory.
-Cx data negative to date, but patient has been on antibiotics.
#Thrombocytopenia
-New diagnosis.
-Platelets improved to 250k.
#Hypothyroidism
-Chronic.
-On levothyroxine; TSH = 14.6.
-Management as per primary team.
#Lupus
#Former smoker,
Primary actionscript developer: Yunior Peguero
Subjective/Interval History:
No acute events.
CT surgery consulted.
DATA:
Transthoracic echocardiogram, 12/18/2024 ([facility]):
LVEF 45%. Severely dilated LA. Moderate to severe aortic stenosis (peak/mean 52.6/32.3 mmHg).
Severe thickening of the anterior and posterior leaflets of the mitral valve.
Severe mitral annular calcification. Moderate mitral valve regurgitation with centrally directed jet.
Transesophageal Echocardiogram, 12/22/2024:
CONCLUSIONS
-Left ventricular ejection fraction is 60-65%. Normal regional wall motion.
-Normal right ventricular size and function.
-No thrombus detected in the left atrial appendage.
-Thickened mitral valve leaflets and mitral annular calcification with a large,
partially mobile vegetation on the P3 segment of the posterior mitral valve
leaflet measuring approximately 1.5 x 2.5 cm (see below images). There was also
a smaller, highly mobile vegetation on the P1 segment of the mitral valve
leaflet. There also appears to be a small vegetation in the annular region of
the anterior mitral valve leaflet. Mitral valve opens normally.
-Moderate mitral regurgitation (multiple jets).
-Thickened/calcified trileaflet aortic valve with severely reduced leaflet
excursion. Likely severe aortic stenosis; gradients were not obtained.
BACKGROUND:
Yazmin was admitted 12/17/2024 with confusion. She was found on the floor by her son after she did not show up for work. 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 She presented febrile. Blood cultures demonstrated MSSA and she was started on
cefepime. CT of chest/abdomen/pelvis did not show definitive source. She was found to be in atrial fibrillation with rapid ventricular response with incomplete right bundle branch block. She was started on intravenous heparin and amiodarone. On
12/19/2024 a stroke alert was called for right sided facial droop in addition to right upper and lower extremity weakness. Her heparin drip was stopped due to concern for stroke. CT noncontrast on admission showed 2 foci of decreased density in the
right cerebral hemisphere consistent with acute infarct, one in the cerebellum and one in the high frontal lobe. MRI was pending and not completed prior to transfer. She was found to have pain and erythema of the left knee. On 12/20/2024
orthopedic surgery aspirated her knee. Notable labs during her admission included D-dimer of 16.3, HgbA1c 5.0%, troponin T fifth GEN peaked at 315, and CPK 1191.
Physical Exam
Vital Signs/Labs
Vital Signs
Temp Pulse Resp BP Pulse Ox
37.2 C 80 20 122/70 93
12/23/24 07:51 12/23/24 08:54 12/23/24 07:51 12/23/24 08:54 12/23/24 07:51
12/21/24 12/22/24 12/23/24
11:59 11:59 11:59
Actual Weight 85.6 kg
12/23/24 03:54
12/23/24 03:54
PT 18.3 Sec (11.4-14.6) H 12/22/24 04:26
INR 1.50 12/22/24 04:26
APTT 31.6 Sec (23.4-35.0) 12/22/24 04:26
Magnesium 1.8 mg/dl (1.6-2.3) 12/22/24 04:26
TSH 14.60 uIU/ml (0.47-4.68) H 12/22/24 04:26
Physical Exam
Constitutional: No acute distress and Comfortable
EENT: Anicteric and Moist mucous membranes
Cardiovascular: Rhythm & rate is regular, Pedal edema is absent, JVD pressure is normal, Systolic murmur present and S1S2 is normal
Respiratory: Respiratory effort normal, Lungs clear to auscul., Wheeze Absent, Crackles Absent and Rhonchi Absent
GI: Soft, Distention absent, Flat, Non tender and Normal bowel sounds
Neuro/Psych: AO x 3
Data Reviewed
-
Date of Service: December 23, 2024
Medical Decision Making: Reviewed Test Results, Independent Historian Assessment, Test Interpretation and Review of Case with other Provider
EKG: Tracing Personally Visualized and interpreted and Report Reviewed by me
Echo: Tracing Personally Visualized and interpreted and Report Reviewed by me
X-Ray/CT/US/MRI/NUC/PET: Image Personally Visualized and interpreted and Report Reviewed by me
Labs: Labs Reviewed by me
Old Records: Reviewed
[2024-12-23 09:20] LABS: Glycohemoglobin (HgbA1c) 5.2 % (4.0-5.6)
--- NOTE | 2024-12-23 09:46 | W.PN.ID1 ---
Date of Service
Date of Service: December 23, 2024
Today's Communication
- c/w cefazolin - increased dose to 2gm q6 hrs for BD SPECIAL EDUCATION TEACHER
Assessment / Plan
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
MSSA bacteremia -sustained
CVA possible septic infarctions
- MSSA bacteremia at [facility] 12/17 and 12/18; 12/19 blood cultures at [facility] in progress
- will follow up with lab periodically
- repeat blood cultures x2 done here on 12/21 are no growth to date
- MARY with large, mobile vegetations on MV, also with severe
- for LHC today and possible AVR (bio), MVR (bio), MAZE, PAMELA Clip, likely CABG the next day
- c/w cefazolin - increased dose to 2gm q6 hrs for BD SPECIAL EDUCATION TEACHER
Ruled Out Septic Joint
- L knee arthrocentesis culture 12/19 at [facility] - will follow up periodically
- out cell count and gram stain from 12/22 are not consistent with septic joint, 12/22 culture no growth to date
Chief Complaint
-: Bacteremia and Other (endocarditis, cva)
Subjective / Review of Systems
afebrile
bp stable
Vital Signs / Physical Exam
Vital Signs
Vital Signs
Temp Pulse Resp BP Pulse Ox
99 F 80 20 122/70 93
12/23/24 07:51 12/23/24 08:54 12/23/24 07:51 12/23/24 08:54 12/23/24 07:51
Physical Exam
Constitutional: Non-toxic
Cardiovascular: Regular Rate and S1/S2; Negative Murmur or Rub
Pulmonary: Clear and Symmetric; Negative Wheezes or Rales
Gastrointestinal: Soft, Non Tender, Non Distended and Normal Bowel Sounds
Skin: Warm and Dry; Negative Rash or Jaundice
Objective Data
Lab Data
Lab Results
12/23/24 03:54
12/23/24 03:54
ESR 25 mm/hour (0-20) H 12/22/24 13:18
PT 18.3 Sec (11.4-14.6) H 12/22/24 04:26
INR 1.50 12/22/24 04:26
APTT 31.6 Sec (23.4-35.0) 12/22/24 04:26
Estimated Creat Clear 88 ml/min 12/23/24 03:54
Total Bilirubin 0.6 mg/dl (0.2-1.3) 12/22/24 04:26
AST 59 U/L (14-36) H 12/22/24 04:26
ALT 32 U/L (0-35) 12/22/24 04:26
Alkaline Phosphatase 71 U/L (38-126) 12/22/24 04:26
C-Reactive Protein 133.00 mg/L (0.0-10.00) H 12/22/24 13:18
Most recent labs reviewed.
Micro Results:
12/21/24 17:55 MRSA Screen - Final
Nose No Methicillin Resistant Staphylococcus aureus isolated.
12/22/24 12:50 Wound Culture - Preliminary
Knee - Left No growth
Gram Stain - Preliminary
12/23/24 04:29 Blood Culture - Pending
Blood/Venous
12/23/24 03:54 Blood Culture - Pending
Blood/Venous
12/21/24 18:00 Blood Culture - Preliminary
Blood/Venous No Growth in 24 hours- Final report to follow
12/21/24 12:56 Blood Culture - Preliminary
Blood/Venous No Growth in 24 hours- Final report to follow
Care Review
Plan reviewed with: Physician (Dr Bullock - surgery plans) and Other (clinical pharmacist - Vernon Chaves)
--- NOTE | 2024-12-23 11:02 | ITS.CL.CATH ---
Cofounder - Catheterization
Cardiac Catheterization
Procedure Report:
CARDIAC CATHETERIZATION REPORT
Date of Procedure: 12/23/2024
Referring: Jignesh Ramírez M.D.
INDICATION: Bacterial endocarditis, multi valvular disease, preoperative assessment.
PROCEDURE:
1. Coronary angiography.
A total of 17 minutes of procedural/moderate sedation was utilized. An independent biomedical technician was present to assist with and help manage the patient's level of consciousness and physiologic status.
ACCESS:
1. 6 [place] right rate artery using a modified Seldinger technique.
CATHETERS:
1. 5 [place] JR4.
2. 5 [place] JL 3.5.
HEMODYNAMIC DATA
Weight (kg): 85.3
AO (s/d/x, mmHg): 107/69/87
LV (s/x mmHg): Not obtained.
LEFT VENTRICULOGRAPHY: Not performed.
CORONARY ANGIOGRAPHY
Dominance: Right.
Left Main: Normal size, trifurcating vessel. There is no coronary artery disease.
LAD: Normal size vessel giving rise to 2 significant diagonals. There is dense external calcification with minor luminal irregularities in the body of the vessel.
Ramus: Medium size vessel supplying a significant portion of the anterolateral wall. There is no coronary artery disease.
Circumflex: Large size, nondominant vessel giving rise to 1 medium sized obtuse marginal before terminating as a large left posterolateral branch. There is no coronary artery disease.
RCA: Normal size, dominant vessel. There is no coronary artery disease.
INTERVENTION(S)
None
Closure Device: Vascular band.
Radiation (mGy): 367.62
DAP (cm2.Gy): 22.7613
Fluoroscopy time (minutes): 2.0
CONCLUSIONS
1. Right dominant circulation with dense external calcification of the proximal LAD but luminal irregularities of the vessel lumen.
2. Known infectious endocarditis of the mitral valve and moderate to severe aortic valve stenosis.
RECOMMENDATIONS:
1. Expectant management after cardiac catheterization via right radial approach.
2. Limited weight bearing on the right wrist for one week.
3. Continue preoperative evaluation. No role for coronary revascularization.
Copy to: Valdez Bullock M.D., Jignesh Ramírez M.D., Foreign Benavides M.D., Cady Sherwood M.D., PhD
Toan Kellogg DO, FACC, FACP
[2024-12-23] MEDS: PLAQUENIL 400 MG PO (11:19)
--- NOTE | 2024-12-23 12:03 | VATNOTE ---
Called by pt's primary RN to assess L arm midline. Midline was placed at [facility] and no prior measurements to compare her arm now to what it was measuring before the midline. L arm slightly swollen and pt c/o of pain in L arm overnight. Spoke to
hospitalist and U/S ordered. Will continue to monitor.
--- NOTE | 2024-12-23 12:30 | PTCARENOTE ---
Rec'd pt from environmental laboratory technician. R wrist w/ hemostasis band on. No bleeding/hematoma noted. Reviewed activity restrictions w/ pt. Verbalizes understanding. VSS. On assessment, L arm w/ midline noted to be red and warm. Pt reports having pain overnight in L
arm. IV team called and at bedside. Dr. Aragon aware and order for upper extremity ultrasound placed. Updated pt and son on plan of care. Currently in bed; call tanisha w/in reach.
--- NOTE | 2024-12-23 12:46 | W.PN.HOSP.TC ---
Today's Communication/Plan
-
see bold
Assessment / Plan
Assessment / Plan
74-year-old female with past medical history of hypothyroidism, aortic stenosis, and lupus on Plaquenil who was transferred from [facility] on 12/21/2024 to the CTS service for concerns of bacterial endocarditis with vegetations requiring
surgical intervention. Patient initially presented to [facility] on 12/21/2024 with fever, and confusion. Workup at [facility] showed MSSA bacteremia and new onset rapid atrial fibrillation. She also was found to have acute stroke,
from septic emboli.
#Aortic and mitral valve endocarditis
#MSSA bacteremia
12/22 MARY with large mobile vegetations on mitral valve, also with severe aortic stenosis. No thrombus detected
12/23 Cardiac catheterization external calcification of the LAD, no coronary revascularization needed
Appreciate cardiology and CT surgery input, patient will need surgical intervention - possibly 12/24
Appreciate ID input, continue IV Ancef
12/19 blood cultures at [facility] remain no growth to date
#Paroxysmal atrial fibrillation
Currently in normal sinus rhythm
Appreciate cardiology input, continue amiodarone and aspirin
#Stroke from septic emboli
Appreciate neurology input, strokes are small, no cortical involvement
Neurology states okay for blood thinners if needed
#Hyponatremia
Continue fluid restriction, trend sodium
#Hypothyroidism
TSH 14.6
Would continue current dose of levothyroxine 250 mcg daily, repeat thyroid function test in 4-6 weeks
#Lupus
Continue Plaquenil
#Left knee effusion
X-rays show small joint effusion, degenerative joint disease
Appreciate orthopedic surgery input, status post aspiration 12/22, Gram stain shows few white blood cells, no organisms, culture negative to date
#Hypokalemia
Repleted and resolved
#Obesity due to excess calories
Affects all aspects of care
DVT prophylaxis�subcu Lovenox
Full code
Total time spent to see the patient on the floor, examine the patient, review data and lab results, discuss treatment plan with patient, nursing staff around 50 minutes.
Physical Exam
General: Obese, no acute distress
HEENT: Normocephalic, Atraumatic, EOMI, MMM
Respiratory: Clear to Auscultation bilaterally
Cardiac: Normal S1/S2, Regular Rate and Rhythm
GI: Soft, Nontender, Nondistended, Normal Bowel Sounds
Extremities: No Clubbing, Cyanosis
Neuro: Nonfocal/Grossly Intact
Anticipated Discharge: > 48 hours
Subjective/Interval History
-
Date of Service: December 23, 2024
Patient denies left knee pain without palpation. Does report some left knee tenderness with palpation. No chest pain, no shortness of breath. No fever, no vomiting.
Objective Data
-
Labs:
Laboratory Results
12/23/24
03:54
WBC 6.4
Hgb 13.0
Hct 37.1
Plt Count 229 D
Sodium 133 L
Potassium 4.3 D
Chloride 102
Carbon Dioxide 25
BUN 12
Creatinine 0.5 L
Glucose 92
Calcium 7.7 L
Vital Signs:
Vital Signs
Temp Pulse Resp BP Pulse Ox
99 F 84 20 116/73 93
12/23/24 07:51 12/23/24 04:00 12/23/24 07:51 12/23/24 03:39 12/23/24 07:51
I&O
12/22/24 12/23/24 12/24/24
06:59 06:59 06:59
Output Total 1800 / 1800
Balance -1800 / -1800
--- NOTE | 2024-12-23 13:42 | PHA.VAN.FU ---
Vancomycin Assessment / Plan
- Assessment
Renal Function: Stable
WBC's are: WNL
In the past 24 hrs, patient has been: Afebrile
Concomitant Antimicrobials: cefazolin
- Dosing Plan
Continue: Vanc 1250mg Q12H
- Monitoring Plan
No level(s) ordered at this time: consider levels in next few days
Monitoring Comments: CVOR scheduled for tomorrow
- Follow Up
Pharmacy will continue to follow.
Vancomycin Follow UP
- -
Patient Age: 74
Patient Sex: Female
Vancomycin Day #: 2
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
Requesting Provider: Dr. Toney
Pertinent Antimicrobial Allergies:
NKDA
Height / Weight:
Height 5 ft 5 in
Actual Weight 85.6 kg
Pertinent Past Medical History: BMI ~32
- Vital Signs / Lab Results
Temp Pulse Resp BP Pulse Ox
97.7 F 80 18 149/75 96
12/23/24 11:00 12/23/24 12:30 12/23/24 11:00 12/23/24 12:30 12/23/24 11:00
Lab Results - Hematology
12/21/24 12/23/24
13:36 03:54
WBC 7.1 6.4
Lab Results - Chemistry
12/21/24 12/22/24 12/22/24
13:36 04:26 18:11
BUN 8 11 11
Creatinine 0.6 0.6 0.6
Estimated Creat Clear 89
Albumin 2.5 L 2.4 L
12/23/24
03:54
BUN 12
Creatinine 0.5 L
Estimated Creat Clear 88
Albumin
Microbiology Results
12/21/24 12:56 Blood Culture - Preliminary
Blood/Venous No Growth in 48 hours- Final report to follow
12/21/24 17:55 MRSA Screen - Final
Nose No Methicillin Resistant Staphylococcus aureus isolated.
12/22/24 12:50 Wound Culture - Preliminary
Knee - Left No growth
Gram Stain - Preliminary
12/21/24 18:00 Blood Culture - Preliminary
Blood/Venous No Growth in 24 hours- Final report to follow
Therapeutic Drug Monitoring
Random Vancomycin Cancelled 12/22/24 09:39
--- NOTE | 2024-12-23 14:08 | PN.CDI ---
CDI
- -
CDI:
Physician Documentation Request
Admit Date: 12/21/24 11:19
Dear Doctor Do,
Please review the following and provide your response in the progress notes.
Clinical Indicators:
Pt admitted with endocarditis and CVA.
Laboratory Tests
12/21/24 12/22/24 12/22/24
13:36 04:26 18:11
Sodium 130 L 131 L 132 L
Based on the above, could you clarify in the progress notes, the appropriate diagnosis, if significant, that supports the above abnormalities and additional evaluation, monitoring and/or treatment rendered:
Hyponatremia
Insignificant abnormal lab values
Other
Use of terms such as suspected, likely, concern for, or probable (associated with a specific diagnosis that is being evaluated, monitored, or treated as if it exists) are acceptable and can be coded in the inpatient setting, when documented at the
time of discharge.
Thank you,
Claire Waddell RN, BSN
CDI Specialist
[place] [facility]
Please use your independent medical judgment in providing your response.
--- NOTE | 2024-12-23 14:30 | W.CVOR.SURPR ---
CVOR Surgeon Immed Pre Op
-
I have examined this patient prior to performance of the scheduled procedure.
The patient's condition is unchanged from the time of the dictated/written History and
Physical and the patient is able to undergo the scheduled procedure.
I had a long discussion with Mrs. Montana and her son present. We discussed her pathology and the plan of care. I quoted them a 10-15% mortality risk given the extensive MAC and root calcification. Plan will be to perform AVR/MVR/MAZE/PAMELA Clip,
possible Commando procedure. There is real risk for AV groove disruption here, and both the patient and son understand that this is possibly fatal. All questions were answered to the best of my abilities. Mrs. Montana has decided to move forward.
--- NOTE | 2024-12-23 15:01 | CM ---
CM following for DC planning needs.
Met w/ patient and son, Ed at bedside (c: [phone]) to complete pre-op teaching.
Confirmed initial assessment. Pt. resides in a private, 1 st home w/ ramp access. She resides alone. Pt. is functionally indep. at baseline w/ ADLs, mobility.
Pt. has sons, who reside closeby. Post operatively, son is planning to reside w/ her temporarily.
We reviewed pre and post op routines.
Provided Cardiac Surgery booklet.
We reviewed post op MD appointments, Cardiac Rehab and visit from CT Transitional Care RN. Pt. agreeable to this.
We discussed post op restrictions to include lifting, driving, flying and sternal precautions.
Goal for DC plan is for home w/ CT Transitional Care RN; son will stay with her temporarily.
Will need to assess mobility status post operatively, however, for necessity of rehab stay. Goal is home.
--- NOTE | 2024-12-23 17:35 | W.PN.UPDATE ---
Update Note
Progress Note Update
Patient seen and examined. Agree with orthopedic notes prior. Aspiration negative for organisms. Knee without effusion. Tender over medial tibial plateau. No increased warmth of the knee. Nontender ROM. No erythema. Xray with osteopenia.
Patient did sustain a fall in the recent past. Possible stress fracture medial tibial plateau but low index of suspicion for septic knee joint. MRI ordered to rule out stress fracture if it can be sone prior to cardiac surgery. Will follow.
[2024-12-23] MEDS: LOVENOX 40 MG SC (18:05)
[2024-12-23] MEDS: LIPITOR 40 MG PO (18:05)
--- NOTE | 2024-12-23 18:37 | PTCARENOTE ---
Aubree CARMONA at bedside and orders placed for MRI of L knee. Dr. Moo CARMONA aware of need to come off school bus monitor for MRI and gave OK to come off monitor for duration of MRI via TT.
[2024-12-23] MEDS: NEURONTIN 300 MG PO (21:30)
[2024-12-24] VITALS (20 sets, daily range): BP systolic 96–129; BP diastolic 60–74; BMI 30.4
[2024-12-24] MEDS: ANCEF 10 IV ×5 (02:37→20:44)
[2024-12-24 05:23] LABS: Hematocrit 37.5 % (37.0-47.0); Hemoglobin 13.1 g/dL (12.0-16.0); Mean Corp Hgb Conc. 34.9 g/dL (33.0-37.0); Mean Corpuscular Hgb 29.4 pg (27.0-31.0); Mean Corpuscular Volume 84.3 fL (81.0-99.0); Mean Platelet Volume 9.5 fL (7.4-10.4); Platelet Count 255 10^3/uL (130-400); Red Blood Cell Count 4.45 10^6/uL (4.20-5.40); Red Cell Dist. Width 13.6 % (11.5-14.5)
[2024-12-24 05:46] LABS: Blood Urea Nitrogen 9 mg/dl (7-17); Calcium 7.9 mg/dl (8.4-10.2); Carbon Dioxide 24 mmol/L (22-30); Chloride 101 mmol/L (98-107); Estimated Creatinine Clearance 86 ml/min; Glucose 83 mg/dl (70-99); Potassium 3.7 mmol/L (3.5-5.1); Sodium 132 mmol/L (135-145); eGFR > 60.00
[2024-12-24] MEDS: SYNTHROID 250 MCG PO (06:01)
[2024-12-24] MEDS: BACTROBAN 2% OINTMENT 1 APPLIC NASAL ×2 (06:01→20:35)
[2024-12-24] MEDS: MAGNESIUM OXIDE 500 MG PO (06:01)
[2024-12-24] MEDS: LOPRESSOR 25 MG PO (06:02)
[2024-12-24] MEDS: PROTONIX 40 MG PO (06:02)
[2024-12-24 07:32] LABS: ACT+ - POC 129 Seconds (82-134)
[2024-12-24 08:20] LABS: ACT+ - POC 506 Seconds (82-134)
[2024-12-24 08:32] LABS: Urine Albumin Negative (Neg - Trace); Urine Bilirubin Negative (Negative); Urine Character Clear (Clear); Urine Color Yellow; Urine Glucose Negative (Negative); Urine Ketone 1+ (Negative); Urine Leukocyte Negative (Negative); Urine Nitrite Negative (Negative); Urine Occult Blood Negative (Negative); Urine Urobilinogen Negative (Neg - 1+)
[2024-12-24 08:36] LABS: B.E. - POC 1.1 mmol/L; Glucose - POC 84 mg/dl (70-99); HCO3 - POC 24 mmol/L (21-28); Hematocrit - POC 34 % PCV (37-47); Hemodilution- POC No; Hemoglobin Calculated - POC 11.7; Ionized Calcium - POC 1.07 mmol/L (1.15-1.33); Lactate - POC 0.56 mmol/L (0.36-0.75); O2 Saturation %Calculated-POC 99.7 % (94-98); PCO2 - POC 31 mmHg (35-48); PO2 - POC 176 mmHg (83-108); Potassium - POC 3.4 mmol/L (3.5-5.1); Sodium - POC 137 mmol/L (136-145); Specimen Type - POC Arterial; pH - POC 7.49 (7.35-7.45)
[2024-12-24 08:51] LABS: ACT+ - POC 723 Seconds (82-134)
[2024-12-24 09:19] LABS: ACT+ - POC 482 Seconds (82-134)
[2024-12-24 09:41] LABS: B.E. - POC 0.9 mmol/L; Glucose - POC 112 mg/dl (70-99); HCO3 - POC 27 mmol/L (21-28); Hematocrit - POC 30 % PCV (37-47); Hemodilution- POC Yes; Hemoglobin Calculated - POC 10.3; Lactate - POC 0.31 mmol/L (0.36-0.75); O2 Saturation %Calculated-POC 99.9 % (94-98); PCO2 - POC 46 mmHg (35-48); PO2 - POC 295 mmHg (83-108); Potassium - POC 3.9 mmol/L (3.5-5.1); Sodium - POC 137 mmol/L (136-145); Specimen Type - POC Arterial; pH - POC 7.37 (7.35-7.45)
[2024-12-24 09:58] LABS: ACT+ - POC 764 Seconds (82-134)
[2024-12-24 10:10] LABS: B.E. - POC 2.4 mmol/L; Glucose - POC 79 mg/dl (70-99); HCO3 - POC 25 mmol/L (21-28); Hematocrit - POC 28 % PCV (37-47); Hemodilution- POC Yes; Hemoglobin Calculated - POC 9.6; Ionized Calcium - POC 0.88 mmol/L (1.15-1.33); Lactate - POC < 0.30 mmol/L (0.36-0.75); PCO2 - POC 32 mmHg (35-48); PO2 - POC 426 mmHg (83-108); Potassium - POC 4.3 mmol/L (3.5-5.1); Sodium - POC 136 mmol/L (136-145); Specimen Type - POC Arterial; pH - POC 7.51 (7.35-7.45)
[2024-12-24 10:16] LABS: B.E. - POC 2.5 mmol/L; Glucose - POC 123 mg/dl (70-99); HCO3 - POC 28 mmol/L (21-28); Hematocrit - POC 32 % PCV (37-47); Hemodilution- POC Yes; Hemoglobin Calculated - POC 10.9; Ionized Calcium - POC 1.02 mmol/L (1.15-1.33); Lactate - POC 0.43 mmol/L (0.36-0.75); O2 Saturation %Calculated-POC 99.9 % (94-98); PCO2 - POC 47 mmHg (35-48); PO2 - POC 264 mmHg (83-108); Potassium - POC 3.8 mmol/L (3.5-5.1); Sodium - POC 137 mmol/L (136-145); Specimen Type - POC Arterial; pH - POC 7.38 (7.35-7.45)
[2024-12-24 10:29] LABS: ACT+ - POC 672 Seconds (82-134)
--- NOTE | 2024-12-24 10:36 | W.PN.ID1 ---
Date of Service
Date of Service: December 24, 2024
Today's Communication
- c/w cefazolin - 2gm q6 hrs for CARD LACER
Assessment / Plan
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
MSSA bacteremia - sustained
CVA possible septic infarctions
- POD0 s/p MAZE, L atrial appendage, AVR, MVR, temp AV pacing wires
- MSSA bacteremia at [facility] 12/17 and 12/18; 12/19 blood cultures at [facility] in progress
- will follow up with lab periodically
- repeat blood cultures x2 done here on 12/21 are no growth to date
- c/w cefazolin - 2gm q6 hrs for CARD LACER- plan 6 week course
- requested finalized report from [facility] on the blood and knee cultures
Ruled Out Septic Joint
- L knee arthrocentesis culture 12/19 at [facility] - will follow up periodically
- out cell count and gram stain from 12/22 are not consistent with septic joint, 12/22 culture no growth to date
patient is critically ill on pressors
Chief Complaint
-: Bacteremia and Other (endocarditis, cva)
Subjective / Review of Systems
afebrile
bp stable
seen post operatively
Vital Signs / Physical Exam
Vital Signs
Vital Signs
Temp Pulse Resp BP Pulse Ox
98.1 F 85 20 129/74 94
12/24/24 05:16 12/24/24 05:12 12/24/24 05:16 12/24/24 05:12 12/24/24 05:16
Physical Exam
Constitutional: No Acute Distress and Other (mildly sedated)
Cardiovascular: Regular Rate and S1/S2; Negative Murmur or Rub
Pulmonary: Clear and Symmetric; Negative Wheezes or Rales
Gastrointestinal: Soft, Non Tender, Non Distended and Normal Bowel Sounds
Skin: Warm and Dry; Negative Rash or Jaundice
Wound: Other (surgical site clean, dry, intact)
Objective Data
Lab Data
Lab Results
12/24/24 05:09
12/24/24 05:09
ESR 25 mm/hour (0-20) H 12/22/24 13:18
PT 18.3 Sec (11.4-14.6) H 12/22/24 04:26
INR 1.50 12/22/24 04:26
APTT 31.6 Sec (23.4-35.0) 12/22/24 04:26
Estimated Creat Clear 86 ml/min 12/24/24 05:09
Total Bilirubin 0.6 mg/dl (0.2-1.3) 12/22/24 04:26
AST 59 U/L (14-36) H 12/22/24 04:26
ALT 32 U/L (0-35) 12/22/24 04:26
Alkaline Phosphatase 71 U/L (38-126) 12/22/24 04:26
C-Reactive Protein 133.00 mg/L (0.0-10.00) H 12/22/24 13:18
Most recent labs reviewed.
MRI: Image Reviewed and Report Reviewed ( OSTEOPOROTIC INSUFFICIENCY FRACTURE extending vertically through the ANTERIOR TIBIAL PLATEAU surrounded by moderate bone marrow edema, meniscus tear, small/mod joint effusion)
Micro Results:
12/23/24 04:29 Blood Culture - Preliminary
Blood/Venous No Growth in 24 hours- Final report to follow
12/23/24 03:54 Blood Culture - Preliminary
Blood/Venous No Growth in 24 hours- Final report to follow
12/21/24 18:00 Blood Culture - Preliminary
Blood/Venous No Growth in 48 hours- Final report to follow
12/21/24 12:56 Blood Culture - Preliminary
Blood/Venous No Growth in 48 hours- Final report to follow
12/21/24 17:55 MRSA Screen - Final
Nose No Methicillin Resistant Staphylococcus aureus isolated.
12/22/24 12:50 Wound Culture - Preliminary
Knee - Left No growth
Gram Stain - Preliminary
[2024-12-24 10:53] LABS: B.E. - POC -0.2 mmol/L; Glucose - POC 125 mg/dl (70-99); HCO3 - POC 25 mmol/L (21-28); Hematocrit - POC 32 % PCV (37-47); Hemodilution- POC Yes; Hemoglobin Calculated - POC 10.9; Ionized Calcium - POC 1.05 mmol/L (1.15-1.33); Lactate - POC 0.44 mmol/L (0.36-0.75); O2 Saturation %Calculated-POC 99.9 % (94-98); PCO2 - POC 44 mmHg (35-48); PO2 - POC 294 mmHg (83-108); Sodium - POC 139 mmol/L (136-145); Specimen Type - POC Arterial; pH - POC 7.37 (7.35-7.45)
[2024-12-24 11:32] LABS: B.E. - POC -2.4 mmol/L; Glucose - POC 116 mg/dl (70-99); HCO3 - POC 22 mmol/L (21-28); Hematocrit - POC 29 % PCV (37-47); Hemodilution- POC Yes; Hemoglobin Calculated - POC 9.8; Ionized Calcium - POC 1.22 mmol/L (1.15-1.33); Lactate - POC 1.33 mmol/L (0.36-0.75); O2 Saturation %Calculated-POC 99.3 % (94-98); PCO2 - POC 34 mmHg (35-48); PO2 - POC 147 mmHg (83-108); Potassium - POC 3.8 mmol/L (3.5-5.1); Sodium - POC 140 mmol/L (136-145); Specimen Type - POC Arterial; pH - POC 7.41 (7.35-7.45)
--- NOTE | 2024-12-24 11:35 | W.PN.UPDATE ---
Update Note
Progress Note Update
IV fluids: 1200
U.O.: 675
UF: 1400
Blood: None
Wires: A+V
Inotropes: Dobutamine
Pressors: levophed
Sedatives: precedex
NEURO: sedated on precedex, pupils +2mm B/L
RESP: #8OT @20cm> 14/500/40/5 Lungs clear B/L. 2 mediastinal (0cc on arrival) and L pleural (10cc on arrival) chest tubes to -20cm suction. Sanguineous drainage
CV: RRR +S1, S2, no S3, no rub, no murmur. Dermabond to median sternotomy. RIJ w/Balmorhea locked @ 50 ; CVP 6; CI 1.6
ABD: round, soft, no BS
EXT: no edema, +2/4 DP pulses B/L, no femoral bruit, left radial A-line intact
: Tran with clear yellow urine
A/P: POD #0 s/p Surgical aortic valve replacement [25 mm prosthesis] and Mitral valve replacement with [place] cord replacement for reinforcement [29 mm bioprosthesis]
MARY: EF was 60 to 65% with no new regional wall motion abnormalities
- wean and extubate
- Monitor CT and urine output
- Follow up labs and CXR
- Wean levophed for maps >65/SBP goal 90-110
- Will start ASA tonight
-Okay to wean dobutamine from 3-5 if index remains stable
- EKG pending and will send to cards
- Cards consulted
- will need instruction regarding antibiotic prophylaxis for dental and invasive procedures
# acute surgical blood loss anemia-expected
- trend CBC
#Endocarditis
Continue Ancef every 6 hours
ID consulted
#Lupus
-hold Plaquenil x 7 days
#Hypothyroidism
-TSH 14
-Continue levothyroxine at 250 mcg daily
# Hyperlipidemia
- resume statin when tolerating PO
--- NOTE | 2024-12-24 11:36 | CON.INTV ---
Consultation
Consultation Request
Date/Time Consultation Requested: 12/24/2024 - 1107
Date/Time Consultation Performed: 12/24/2024 - 1131
Requesting Provider: ISRAEL Almaraz
Performing Provider: Dr. Sanchez
Reason for Consultation: s/p SAVR, MV-replacement + PAMELA-exclusion
Medical History
-
Chief Complaint: Altered mental status
History of Present Illness:
74-year-old female former tobacco smoker with a past medical history of SLE, aortic stenosis, and hypothyroidism who presented from outside hospital ([facility]) after initially presenting with AMS. HPI mainly obtained from documentation here on [facility]
as patient came from an outside hospital. She presented to [facility] on 12/17/2024 with confusion, lethargy, FLOYD + chills. The son found the patient on the floor after not showing up for work that day. Normally the patient is independent with her ADLs.
She was in normal health up until this event. She was febrile on admission to [facility] and able to move all [address] head showed 2 foci of reduced density in the right cerebral hemisphere consistent with an acute infarct, also with infarction
in the cerebellum + frontal lobe. Initial CT chest, abdomen, pelvis showed no acute abnormality. CTA head/neck on 12/17/2024 showed no LVO, stenosis or aneurysm. Blood cultures were positive for MSSA and patient was initially started on cefepime.
She also had A-fib with RVR (new onset A-fib), and seen by cardiology and treated with amiodarone + IV heparin. Echo on 12/18/2024 showed preserved LVEF at 55-60% with concentric LV remodeling and normal RV size/function. Also moderate�severe aortic
stenosis with trace AI with AV gradients 52/32 mmHg, with severe MAC with severe mitral regurgitation and mild TR. Rapid response was called on 12/19 due to new facial droop on the right and right upper/lower extremity weakness. CT head on 12/19/2024
reported <50% bilateral ICA stenosis with no LVO or dissection. Patient also had left knee pain and orthopedic surgery aspirated fluid on 12/20 (fluid studies pending). She was transferred to [facility] on 12/21 for surgical evaluation of
her MSSA [place] mitral and aortic valve endocarditis. Once patient arrived here, ID, neurology and cardiology were consulted. MARY on 12/22/2024 showed preserved biventricular function with normal regional wall motion of the LV. There was no
thrombus in the PAEMLA, and there was a large, partially mobile vegetation on the P3 segment of the posterior mitral valve leaflet measuring 1.5 x 2.5 cm, with a smaller, highly mobile vegetation on the P1 segment of the mitral valve leaflet. Also a
small vegetation in the annular region of the anterior mitral valve leaflet. The MV was opening normally. Also moderate MR with multiple jets. And thickened/calcified trileaflet aortic valve with severely reduced leaflet excursion with suspected
severe aortic stenosis. Of note, on 12/22, orthopedic surgery aspirated 9 cc of bloody fluid from her left knee due to pain and swelling. Suspicion for septic joint was low given no erythema or pain with ROM of the knee. This fluid showed 3881 WBC
which was PMN predominant and no crystals were seen. Patient underwent a left heart catheterization on 12/23/2024 showing dense calcification of the proximal LAD. Given her aortic + mitral valve endocarditis with septic embolic stroke,
cardiothoracic surgical intervention was recommended and patient agreed to this procedure. Today, patient underwent surgical aortic valve replacement, mitral valve replacement, extensive debridement of the mitral annular calcification and patch of
the mitral valve annulus using bovine pericardium, drainage of a right-sided pleural effusion (drained 300 cc) and a left atrial appendage exclusion. Patient tolerated the procedure well with no immediate complications, and was transferred to the
CVICU postoperatively for further care with top lift cutter services consulted for additional management/recommendations.
When I saw the patient, she was resting in bed, intubated on SIMV at 14/500/40%/5, PSV: 5. PIP was 22 cmH2O, VTe 443 mL and breathing at 14 breaths/min. Heart rate 80, BP via left radial A-line: 96/50, PAP 26/13, CO/CI: 3.24/1.71, BP via NIBP:
98/63 and saturating 100%. Currently on dobutamine at 5 mcg/kg/min, Precedex at 0.2 mcg/kg/hr, Levophed at 5 mcg/min and insulin drip at 3 units/hr.
PMHx: Severe aortic stenosis, history of lupus, obesity, former tobacco use and hypothyroidism
PSHx: Thyroidectomy
Past Medical History
Past Medical History: Other (Above as per HPI)
Past Surgical History: Other (Above as per HPI)
Social History
Tobacco: Former Smoker (Quit approximately 40 years ago)
Alcohol: Occasional
Drug: None
Personal:
Living: Alone
Employment: Employed
Family History
Family History: Reviewed & Not Pertinent
Allergies / Home Medications
Allergies
Allergy/AdvReac Type Severity Reaction Status Date / Time
No Known Allergies Allergy Verified 12/21/24 13:23
Home Medications
�Medication �Instructions �Recorded �Confirmed �Last Taken �Type
gabapentin 300 mg PO HS Neurological Condition 12/21/24 12/21/24 12/20/24 21:00 History
hydroxychloroquine 200 mg PO Q OTHER DAY Autoimmune 12/21/24 12/21/24 12/21/24 09:00 History
Disorder
hydroxychloroquine 400 mg PO Q OTHER DAY Autoimmune 12/21/24 12/21/24 12/20/24 09:00 History
Disorder
levothyroxine 250 mcg DAILY Thyroid 12/21/24 12/21/24 12/21/24 History
Review of Systems
-
Unable to Obtain full review of systems at this time due to: Patient Intubation
Vitals / Labs / Diagnostic Testing
Vital Signs
Temp Pulse Resp BP Pulse Ox
97.4 F 80 14 129/74 100
12/24/24 12:59 12/24/24 12:59 12/24/24 12:59 12/24/24 05:12 12/24/24 12:59
Lab Data
12/24/24 11:54
Laboratory Results
12/24/24
11:54
PT 33.1 H
INR 3.26
APTT 37.3 H
pH 7.41
pCO2 35
pO2 97
HCO3 22.2
O2 Delivery Level
Microbiology
12/21/24 12:56 Blood/Venous Blood Culture - Preliminary
No Growth in 72 hours- Final report to follow
12/22/24 12:50 Knee - Left Wound Culture - Final
No growth
12/22/24 12:50 Knee - Left Gram Stain - Final
12/23/24 04:29 Blood/Venous Blood Culture - Preliminary
No Growth in 24 hours- Final report to follow
12/23/24 03:54 Blood/Venous Blood Culture - Preliminary
No Growth in 24 hours- Final report to follow
12/21/24 18:00 Blood/Venous Blood Culture - Preliminary
No Growth in 48 hours- Final report to follow
12/21/24 17:55 Nose MRSA Screen - Final
No Methicillin Resistant Staphylococcus aureus isolated.
Diagnostic Testing:
Physical Exam
-
HEENT: Normocephalic, Anicteric and Other (ETT in place)
Cardiovascular: S1/S2 and Peripheral Edema (Trace lower extremity edema bilaterally)
Respiratory: Wheeze (negative), Rales (negative), Rhonchi (negative), Non-Labored Respirations, Other (Mechanical breath sounds heard bilaterally) and Other (Chest tubes: Right pleural chest tube + mediastinal chest tubes x 2)
GI: Soft, Non Distended, Non Tender and Normal Bowel Sounds
Neurology: Tremors (negative) and Other (Sedated)
Skin: Warm and Dry
General: Respiratory Distress (negative), Comfortable, Fever (negative) and Chills (negative)
Assessment
-
Assessment: 74-year-old female former tobacco smoker with a past medical history of SLE, aortic stenosis, and hypothyroidism who presented from outside hospital ([facility]) after initially presenting with AMS. Patient presented to [facility] on 12/17/2024 with
confusion, lethargy, FLOYD + chills. Initial CT imaging showed multiple foci of ischemia with concern for embolic CVA. Blood cultures became positive for MSSA and she also developed new onset A-fib with RVR, requiring amiodarone + IV heparin. Echo
showed moderate to severe aortic stenosis with severe MAC and severe MR. She developed new right-sided facial droop on 12/19 and rapid response was called. CT head showed no significant findings. Patient transferred to [facility] on
12/21/2024 for surgical evaluation of her MSSA [place] mitral and aortic valve endocarditis. On 12/22, orthopedic surgery aspirated 9 cc of bloody fluid from her left knee due to pain and swelling, and there were no crystals seen and cultures have
shown NGTD. Left heart catheterization on 12/23/2024 showed dense calcification of the proximal LAD. Given her aortic + mitral valve endocarditis with septic embolic stroke, cardiothoracic surgical intervention was recommended and patient agreed to
this procedure. On 12/24/2024, patient underwent surgical aortic valve replacement, mitral valve replacement, extensive debridement of the mitral annular calcification and patch of the mitral valve annulus using bovine pericardium, drainage of a
right-sided pleural effusion (drained 300 cc) and a left atrial appendage exclusion. Patient tolerated the procedure well with no immediate complications, and was transferred to the CVICU postoperatively for further care with top lift cutter services
consulted for additional management/recommendations.
Chronic conditions [employer]: Severe aortic stenosis, history of lupus, obesity, former tobacco use and hypothyroidism
Impression:
#Bacterial endocarditis of mitral valve with severe aortic valve stenosis, septic emboli with CVA and new onset A-fib with RVR s/p SAVR with 25 mm prosthesis, mitral valve replacement with 29 mm bioprosthesis, extensive debridement of the mitral
annular calcification and patch of the MV annulus using bovine pericardium + left atrial appendage exclusion with 35mm device (POD #0)
#Acute anemia due to above
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
#Paroxysmal A-fib
#Severe aortic valve stenosis
#Mitral valve stenosis with severe mitral annular calcification
#History of SLE
#Former tobacco smoker (quit approximately 40 years ago)
Plan:
Ventilator settings reviewed
FiO2 will be weaned to maintain SpO2 >90-94%
Minute ventilation will be adjusted
Arterial blood gases will be monitored
Spontaneous breathing trial will be attempted with hopeful extubation after anesthesia/sedation wear off
prn nebulized bronchodilators - not currently bronchospastic
Pulmonary artery catheter parameters will be followed
Pressors/antihypertensive/inotropes/diuretics will be provided as needed
Maintain MAP>65
Replete electrolytes with K>4, Mg>2
Follow-up pathology + cultures obtained from the OR today
Also control pain from the patient's left knee which was drained on 12/22/2024 with cultures thus far showing NGTD; also knee joint fluid was negative for crystals
Monitor chest tube output (right pleural chest tube x1 and mediastinal chest tubes x 2)
Monitor hemoglobin
Monitor platelet count and coags
Transfuse blood products as needed to maintain Hb>7g/dL, plt>50k (given post-operative status)
CT surgery managing chest tubes
Monitor blood sugar to maintain euglycemia with goal BG 110-140
Insulin drip per protocol
Aspiration precautions
VAP prevention protocol
DVT prophylaxis
Early nutrition
Early mobilization
Critical care statement: A total of 38 minutes of critical care time was provided for this patient today. This includes management of ventilator, spontaneous breathing trial, arterial blood gases, pressors, of unstable vital signs, evaluation of the
patient at bedside, reviewing the patient's pertinent medical records including radiographs, microbiology, laboratory evaluations, and discussion with primary team and critical care nursing.
--- NOTE | 2024-12-24 11:37 | W.PN.CT.SURG ---
CT Surgery Operative Note
-
CARDIAC SURGERY OPERATIVE REPORT
Preoperative Diagnosis: Bacterial endocarditis of the mitral valve, severe aortic valve stenosis, septic embolic stroke, new onset atrial fibrillation with RVR
Postoperative Diagnosis: Same
Procedure(s) Performed:
1. Standard sternotomy with aortic and bicaval cannulation
2. Modified open surgical left atrial maze (encompass RF ablation and cryo ablation)
3. Left atrial appendage exclusion [35 mm device]
4. Surgical aortic valve replacement [25 mm prosthesis]
5. Mitral valve replacement with [place] cord replacement for reinforcement [29 mm bioprosthesis]
6. Extensive debridement of mitral annular calcification and patch of the mitral valve annulus using bovine pericardium
7. Placement of temporary atrial ventricular pacing wires
8. Transesophageal echocardiography
9. Drainage of right pleural effusion [300 cc]
Date of Surgery: 12/24/2024
Comorbidities:
1. 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
2. 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
3. Paroxysmal atrial fibrillation
4. Severe aortic valve stenosis
5. Mitral valve stenosis with severe mitral annular calcification
6. MRSA
7. Systemic Lupus Erythematosus
Attending Surgeon: Valdez Bullock MD, MS
Assistants: Valdez Strickland PA-C (present and necessary to pharmacy assistant, retraction, suction, exposure, suture management, and wound closure under my direction)
Anesthesiology: Piter Hurtado MD and Obed Alonso CRNA
Scrub and Circulating RNs: Loni Lu, RN, Nataliia Brown, RN and Latoya Robbins RN
Systems Software Specialist: Georgi Car CCP
Anesthesia: GETA
EBL: per perfusion records
Products: None
CPB Time: 141 minutes
Aortic Cross Clamp Time: 125 minutes
Indication(s) for Procedures: This is a 74-year-old female who was reportedly doing well up to last week where she was found to be septic and later suffered a embolic stroke x 2. As part of her workup she underwent echocardiography which determined
that she had known severe aortic valve stenosis and positive vegetations on her mitral valve with underlying severe mitral annular calcification. She was transferred over to our facility for further workup. A MARY was performed which demonstrated a
3 cm mobile mass consistent with a vegetation on her mitral valve with smaller areas of infected anterior leaflet. Given her embolic stroke, size of the mass and its mobility, she was offered expedited surgical intervention in the form of double
valve replacement, maze, clip given her new paroxysmal atrial fibrillation. A mortality was quoted to be 10 to 15% given the severe mitral annular calcification, both she and her family accepted the risks and so we proceeded.
Aortic Valve Description: Heavily calcified, trileaflet, calcium infiltrated down towards the level of the annulus, left and right coronary ostia were in the normal anatomic positions and well above the annular plane.
Mitral Valve Description: Thickened anterior and posterior leaflets, significantly large vegetation located on the P3 P2 aspect of the mitral valve with infiltration into the annulus. There was dense mitral valve annular calcification along the
posterior annulus. On the underside of the annulus there was also evidence of vegetation and calcification.
Findings: Her left ventricular ejection fraction preoperatively was 55% with no significant regional wall motion abnormalities. Following surgery EF was 60 to 65% with no new regional wall motion abnormalities. On induction with anesthesia, she
did become hemodynamically unstable with low blood pressure requiring significant amounts of Levophed and dobutamine. Her aortic valve was first debrided through an aortotomy and a CUSA ultrasonic debridement device was used in order to get as much
of the calcium off of the annular plane without significant tissue damage. Next, the mitral valve was accessed via Sondergaard's groove and the vegetation was sent off for cultures. Much of the P3 and P2 aspect of the valve was destroyed and so
this was debrided. The annulus was also debrided of calcium using the ultrasonic device. Pledgeted sutures were placed circumferentially around the valve with bovine pericardium sandwiching the annulus into place and also serving as a gasket. As
most of her cords were resected as part of the debridement, 2 sets of CV 3 [place] cords were placed to the anterior lateral and posterior medial papillary muscle head to support the left ventricle. These were also pulled up through the bovine
pericardial patch and annulus and then secured to the valve with core knots. A total of 13 pledgeted 2 Ethibond sutures were used to secure a [address] with core knots. I then turned my attention back to the aortic valve and
this was replaced with a total of 13 nonpledgeted 2 Ethibond sutures securing a [address] with core knots. There was an area underneath the left coronary cusp that was heavily calcified and so bovine pericardium was used here
as a gasket. A full left atrial maze was performed using a combination of encompass RF ablation and then cryo to complete the lines. Left atrial appendage was verified to be free of any thrombus or debris preoperatively and found to be totally
occlusive postoperatively with a 35mm device. Coming off of cardiopulmonary bypass, she had no paravalvular intra valvular leaks of her mitral valve or aortic valve, the mean gradient across the mitral valve was 4 mmHg while on 5 dobutamine and the
aortic valve had a mean gradient of 5 mmHg. Cardiac index was 2.0 at this time, she was being AV paced. No blood products were required.
Ablation Lines:
1. Box lesion to posterior LA wall
2. PAMELA lesion + PAMELA Exclusion + Division of Ligament of Ivan
3. Coronary sinus lesion
4. Posterior mitral annular line toward P2/P3
Specimen(s):
Aortic valve leaflets
Mitral valve leaflets
Cultures of both AV and MV
Prosthesis:
1. 35 mm left atrial appendage clip, serial #[id number]
2. 29 mm [place] Mitris resilia MVR, serial #[id number]
3. 25 mm [place] Inspiriss Resilia AVR, serial #[id number]
4. Bovine pericardium, serial number [id number]
5. 2 CV 3 [place] sutures
Description of Procedure: The patient was taken to the operating room. Their identity and procedure to be performed were verified and they were positioned supine on the operating table. Induction via general anesthesia with endotracheal intubation
was performed and central venous access and arterial monitoring were inserted. A preoperative transesophageal echocardiogram was performed to assess cardiac function and valvular function. The patient was then prepped and draped from chin to feet in
a sterile fashion. A preoperative time-out was performed with all members of the team present. A midline chest incision was performed along with median sternotomy. The innominate vein was isolated. Full heparinization was given (a total of 50,000
units). We created a pericardial well. The aortic cannulation site was chosen where it was soft, pliable, and free of calcium. Cannulation was performed with an arterial cannula in the ascending aorta, angled metal tip cannular in the superior vena
cava and straight bendable cannula in the inferior vena cava. The arterial cannula line had an appropriate bounce and correlating pressures. Next, a root vent/antegrade cannula was inserted into the ascending aorta. The ACT was confirmed to be over
400 and retrograde autologous priming was performed before commencing cardiopulmonary bypass. The SVC was then dissected away from the RPA and the oblique sinus were developed. The encompass clamp was then passed across the transverse and oblique
sinuses underneath the SVC and IVC and 3 successful pairs of ablation were performed. The pulmonary artery was away from the aorta to facilitate a clamp site. Sondergaard�s groove was developed after creating the oblique sinus. The aortic
cross-clamp was placed after decreasing the flow on the bypass and mean arterial pressure. A total of 1.2L initial dose of antegrade Del-Nido cardioplegia solution was given and planned for re-dosing every 75 minutes as necessary. There was rapid
electro-mechanical arrest of the heart at 250 cc of cardioplegia. The left ventricle was observed for distention on echocardiogram and manual palpation. Cold slush was placed into a lap on the RV and we systemically cooled to 34 degrees centigrade.
Once the heart was fully arrested and the cardioplegia was complete, it was rotated medially and the ligament of Ivan was divided. The tip of the left atrial appendage was cut open and the encompass clamp was then passed down into the left
superior pulmonary vein into successful pairs of ablation were performed here. The appendage was then ligated with a 35 mm clip.
Carbon dioxide was used to flood the field. We manually identified the location of the right coronary take off. An aortotomy was made approximately 2cm above the sinotubular junction. The location of both left and right coronary vessels were
visualized in the root.The leaflets were excised and sent for pathological assessment. The annulus was debrided of any calcium being mindful of the annulus and membranous septum. The root and left ventricular outflow tract were thoroughly irrigated
to remove any debris.
Next, the mitral valve was accessed via the left atrium followed by valve analysis. 2 overlapping cryo lines were performed here at the coronary sinus and the annular lines via the incision. The mitral valve was replaced as described above. The
left ventricular vent was repositioned across the mitral valve into the left ventricular and the left atrium was closed with a 3-0 prolene.
I turned my attention back toward the root. A total of 13 Non-pledgeted 2-0 ethibond inverted annular sutures were placed [id number] circumferentially. These were brought through the sewing cuff of the prosthetic valve which as then parachuted
into place. The left and right coronary ostia were visualized and were unobstructed by the valve. A Cor-Knot device was used to secure the annular sutures. The valve was inspected and was well seated. The aortotomy was approximated with 4-0 prolene
in two layers.
De-airing maneuvers were performed and temporary atrial and ventricular pacing wires were placed at the SVC/RA junction and base of the right ventricle, respectively. The patient was placed in a Trendelenburg position and flows on bypass were
lowered. The aortic cross clamp was removed and flows were slowly brought back up. Once the heart was ejecting, the LV vent was removed and the left atrial suture line tied and appeared hemostatic. Transesophageal echocardiography revealed no
evidence paravalvular leaks of either aortic or mitral valves with normal leaflet excursion and ventricular function was normal. Once de-airing was satisfactory the root vent was removed. After verifying acceptable parameters, we initiated weaning
from cardiopulmonary bypass. Once we were off cardiopulmonary bypass, the venous cannulas was clamped and removed sequentially. A test dose of protamine was administered and the patient was monitored for any adverse reaction before resuming
protamine. Once half of the protamine dose was delivered, pump suckers were turned off and the systolic blood pressure was lowered for aortic decannulation. The aortic cannula was removed and purse strings were tied down. All cannulation sites were
oversewn with a 4-0 prolene. The left atrial suture line was inspected and hemostasis was confirmed. Mediastinal hemostasis was obtained. Two #24 Lupillo drains were placed within the pericardium with a single #19 Lupillo drain to the right chest after
draining a pleural effusion. The sternum was approximated with 4 #7 single and 3 #8 double stainless steel wires. Fascia was approximated with #1 vicryl suture. The subcutaneous, dermis and epidermis were closed in layers in a running fashion. The
skin wound was cleansed and dressed.
All instrument, sponge, and needle counts were confirmed to be correct x 2 at the end of the operation. The patient was transferred to the cardiac intensive care unit in critical but stable condition.
I, Dr. Valdez Bullock, was present, scrubbed for, and performed all critical elements of this procedure.
Valdez Bullock MD, MS
Cardiothoracic Surgeon
[facility]
This dictation was created using the [employer]by dictation system. Please excuse any grammatical, typographical, or 'sound alike' errors
[2024-12-24 12:01] LABS: Glucose - Point of Care 136 mg/dl (70-99)
[2024-12-24 12:08] LABS: Mixed Venous O2 Saturation 64.5 %
[2024-12-24 12:10] LABS: HCO3 22.2 mmol/L (21-28); Ionized Calcium 1.16 mMOL/L (1.15-1.33); PCO2 35 mmHg (32-35); PO2 97 mmHg (83-108); Platelet Count 216 10^3/uL (130-400); Potassium 3.8 mMOL/L (3.5-5.1); Sodium 132 mMOL/L (136-145); pH 7.41 (7.35-7.45)
[2024-12-24 12:23] LABS: INR 3.26; PT 33.1 Sec (11.4-14.6)
[2024-12-24 12:24] LABS: APTT 37.3 Sec (23.4-35.0)
[2024-12-24] MEDS: KCL 50 IV ×2 (12:25→13:30)
[2024-12-24] MEDS: ALBUMIN 5% 250 IV ×2 (12:25→13:39)
[2024-12-24 12:26] LABS: Blood Urea Nitrogen 12 mg/dl (7-17); Estimated Creatinine Clearance 86 ml/min; Glucose 136 mg/dl (70-99); Magnesium 2.5 mg/dl (1.6-2.3)
[2024-12-24] MEDS: NSS 500 IV (12:26)
[2024-12-24] MEDS: PLAQUENIL PO (12:27)
[2024-12-24] MEDS: NEURONTIN PO ×2 (12:27→14:17)
--- NOTE | 2024-12-24 12:42 | W.PN.CD ---
Addendum entered and electronically signed by Foreign Benavides MD 12/24/24 17:17:
I saw and examined the patient.
The SHANK SORTER's note was reviewed and I agree with the note.
Patient post AVR and MVR with PAMELA clip by Dr. Bullock 12/24/2024. Patient with mitral valve endocarditis and moderate to severe severe aortic stenosis preoperatively.
Extubated postop awake and alert. Remains on low-dose dobutamine and levo. Patient currently paced
-Continue to assess rhythm and need for pacing as patient recovers.
-Monitor for recurrence of A-fib. Note patient was found to have atrial fibrillation during admission at [facility]. Since patient had preoperative atrial fibrillation would consider postoperative anticoagulation after additional recovery.
Original Note:
Today's Communication / Plan
-
Follow telemetry
Postoperative management per CT surgery
Impression / Plan
-
Impression/Plan: 74F with severe aortic stenosis hypothyroidism, lupus, and former smoker transferred from [facility] after being admitted for sepsis/MSSA bacteremia, new atrial fibrillation and CVA during that hospitalization, found to have infectious
mitral valve endocarditis.
#MSSA infectious endocarditis (acute) S/P AVR & MVR with PAMELA clip by Dr. Bullock 12/24/2024
-With induction of anesthesia, she became hemodynamically unstable with hypotension requiring significant amounts of Levophed and dobutamine
-Post: MV MG 4 mmHg on 5 of dobutamine and AV MG 5 mmHg with CI of 2.0 while AV paced
-V paced, follow telemetry
-Post LVEF 60-65%
-Cardiac catheterization demonstrated nonobstructive coronary arteries 12/23/2024
-Blood cultures + on 12/17/2024 and 12/18/2024, NGTD from 12/19/2024.
-MARY shows large vegetation (~1.5 x 2.5 cm) on mitral valve with at least moderate mitral regurgitation; smaller vegetation(s) noted as well.
-TTE: Aortic valve gradients 52/32 mmHg with severe MAC and severe MR (severe precedes bacteremia).
#CVA
-Acute, embolic versus septic.
-Expressive aphasia and word finding difficulty on exam, oriented.
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
-Anticoagulation on hold.
#Paroxysmal atrial fibrillation
-New diagnosis at [facility]
-Rate/rhythm control on amiodarone, converted to PO.
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
-[id number]: Score at least 4 prior to CVA (HTN, age 75 or more, female gender).
-No thrombus detected in PAMELA appendage; good velocities.
#Left knee effusion
-Acute.
-Aspirated by orthopedics.
-Cytology is inflammatory.
-Cx data negative to date, but patient has been on antibiotics.
#Thrombocytopenia - resolved
#Hypothyroidism
-Chronic.
-On levothyroxine; TSH = 14.6.
-Management as per primary team.
#Lupus
#Former smoker
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
Subjective/Interval History:
Surgical report reviewed.
Intubated and sedated on mechanical ventilation.
DATA:
Transthoracic echocardiogram, 12/18/2024 ([facility]):
LVEF 45%. Severely dilated LA. Moderate to severe aortic stenosis (peak/mean 52.6/32.3 mmHg).
Severe thickening of the anterior and posterior leaflets of the mitral valve.
Severe mitral annular calcification. Moderate mitral valve regurgitation with centrally directed jet.
Transesophageal Echocardiogram, 12/22/2024:
CONCLUSIONS
-Left ventricular ejection fraction is 60-65%. Normal regional wall motion.
-Normal right ventricular size and function.
-No thrombus detected in the left atrial appendage.
-Thickened mitral valve leaflets and mitral annular calcification with a large,
partially mobile vegetation on the P3 segment of the posterior mitral valve
leaflet measuring approximately 1.5 x 2.5 cm (see below images). There was also
a smaller, highly mobile vegetation on the P1 segment of the mitral valve
leaflet. There also appears to be a small vegetation in the annular region of
the anterior mitral valve leaflet. Mitral valve opens normally.
-Moderate mitral regurgitation (multiple jets).
-Thickened/calcified trileaflet aortic valve with severely reduced leaflet
excursion. Likely severe aortic stenosis; gradients were not obtained.
BACKGROUND:
Yazmin was admitted 12/17/2024 with confusion. She was found on the floor by her son after she did not show up for work. 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 She presented febrile. Blood cultures demonstrated MSSA and she was started on
cefepime. CT of chest/abdomen/pelvis did not show definitive source. She was found to be in atrial fibrillation with rapid ventricular response with incomplete right bundle branch block. She was started on intravenous heparin and amiodarone. On
12/19/2024 a stroke alert was called for right sided facial droop in addition to right upper and lower extremity weakness. Her heparin drip was stopped due to concern for stroke. CT noncontrast on admission showed 2 foci of decreased density in the
right cerebral hemisphere consistent with acute infarct, one in the cerebellum and one in the high frontal lobe. MRI was pending and not completed prior to transfer. She was found to have pain and erythema of the left knee. On 12/20/2024
orthopedic surgery aspirated her knee. Notable labs during her admission included D-dimer of 16.3, HgbA1c 5.0%, troponin T fifth GEN peaked at 315, and CPK 1191.
Physical Exam
Vital Signs/Labs
Vital Signs
Temp Pulse Resp BP Pulse Ox
97.1 F 80 14 129/74 99
12/24/24 12:03 12/24/24 12:03 12/24/24 12:03 12/24/24 05:12 12/24/24 12:38
12/23/24 12/24/24 12/25/24
06:59 06:59 06:59
Actual Weight 85.6 kg 82.9 kg
12/24/24 11:54
PT 33.1 Sec (11.4-14.6) H 12/24/24 11:54
INR 3.26 12/24/24 11:54
APTT 37.3 Sec (23.4-35.0) H 12/24/24 11:54
Magnesium 2.5 mg/dl (1.6-2.3) H 12/24/24 11:54
TSH 14.60 uIU/ml (0.47-4.68) H 12/22/24 04:26
Physical Exam
Constitutional: No acute distress and Comfortable
EENT: Anicteric and Moist mucous membranes
Cardiovascular: Rhythm & rate is regular (paced), Pedal edema is absent and S1S2 is normal
Respiratory: Lungs clear to auscul. and Other (Mechanical ventilation)
GI: Soft and Flat
Neuro/Psych: Other (Sedated)
Other: Skin (Warm and dry without edema)
Data Reviewed
-
Date of Service: December 24, 2024
EKG: Report Reviewed by me
Labs: Labs Reviewed by me
--- NOTE | 2024-12-24 12:48 | PTCARENOTE ---
Received pt from CVOR team, Intubated and sedated #8 ETT at 20 cm, Vent per anesthesia. SIMV 40% rate 14 tv 500 psv 5 peep 5 100%. AV paced 80 via epicardial wires. Rt IJ cordis with swan floated to 43 cm. Lt radial A line transducing. Lines
leveled , recalibrated and flushed. Drips infusing on arrival, dobutamine, insulin, levophed and precedex. See flow sheet for totals/titrations. Chest tubes x 3 to - 20 cm. No air leak or crepitus noted. Tran draining clear yellow urine.
Bilateral lower extremities brown with weak dp pulses. Sternal incision well approximated. Plan discussed with CT team.
--- NOTE | 2024-12-24 12:52 | W.PN.UPDATE ---
Update Note
Progress Note Update
pt was not in her room at time of AM rounds;
-MRI shows insuffieincy fracture with multiple degenerative changes
-recommend TTWB to affected extremity with PT consultation
-ROM okay and strengthening exercises to prevent disuse atrophy okay
Will try to engage with pt as was not in the room before signing off.
[2024-12-24 13:01] LABS: Glucose - Point of Care 135 mg/dl (70-99)
[2024-12-24] MEDS: LR 250 ML IV ×2 (13:09→13:12)
[2024-12-24] MEDS: LOW STRENGTH ASPIRIN PO (13:11)
[2024-12-24] MEDS: CALCIUM GLUCONATE 100 IV ×2 (13:12→22:29)
[2024-12-24] MEDS: PACERONE PO (13:12)
--- NOTE | 2024-12-24 13:15 | SUR.OPER ---
CI remains low, addition 250 LR given, discussed with CT TICKET COLLECTOR OR USHER, 250 ml 5 % Albumin administered.
[2024-12-24] MEDS: ANCEF IV (13:28)
[2024-12-24] MEDS: FLEXBUMIN IV (13:32)
[2024-12-24] MEDS: TYLENOL PO (13:32)
[2024-12-24] MEDS: FLEXBUMIN 100 IV ×2 (13:40→22:30)
[2024-12-24 14:01] LABS: Glucose - Point of Care 103 mg/dl (70-99)
--- NOTE | 2024-12-24 14:03 | PTCARENOTE ---
Awakening spontaneously, follows commands, however too sleepy at present to CPAP
--- NOTE | 2024-12-24 14:04 | CM ---
Chart reviewed. Patient is in the OR today. Patient is independent of ADLS, lives alone in a [address], ramp access, 0 DME. Patient's son will stay with her when she is medically stable for discharge. Plan is for the patient to return home with CT
Transitional RN. CM to follow
[2024-12-24 15:00] LABS: Glucose - Point of Care 119 mg/dl (70-99)
--- NOTE | 2024-12-24 15:14 | PTCARENOTE ---
Awake and following commands, over breathing vent. CPAP trial initiated. Washed with CHG wipes, oral care preformed. Will follow
[2024-12-24] MEDS: OFIRMEV 100 IV (15:26)
[2024-12-24] MEDS: LIPITOR PO (15:28)
[2024-12-24 15:45] LABS: B.E. - POC -1.3 mmol/L; Blood Urea Nitrogen - POC 13 mg/dl (3-120); Chloride - POC 103 mmol/L (96-111); Creatinine - POC 0.69 mg/dl (0.3-1.0); Glucose - POC 124 mg/dl (70-99); HCO3 - POC 23 mmol/L (21-28); Hematocrit - POC 28 % PCV (37-47); Hemodilution- POC Yes; Hemoglobin Calculated - POC 9.6; Ionized Calcium - POC 1.23 mmol/L (1.15-1.33); Lactate - POC 0.84 mmol/L (0.36-0.75); O2 Saturation %Calculated-POC 99.5 % (94-98); PCO2 - POC 39 mmHg (35-48); PO2 - POC 165 mmHg (83-108); Potassium - POC 4.6 mmol/L (3.5-5.1); Sodium - POC 138 mmol/L (136-145); Specimen Type - POC Arterial; pH - POC 7.39 (7.35-7.45)
[2024-12-24 15:55] LABS: Glucose - Point of Care 111 mg/dl (70-99)
--- NOTE | 2024-12-24 15:56 | PTCARENOTE ---
Extubated to 6 L NC at 1555. Levophed weaned as tolerated.
[2024-12-24 16:01] LABS: B.E. -2.3 mmol/L; HCO3 22.4 mmol/L (21-28); Ionized Calcium 1.26 mMOL/L (1.15-1.33); O2 Saturation % 99.7 % (94-98); PCO2 37 mmHg (32-35); PO2 173 mmHg (83-108); Potassium 4.7 mMOL/L (3.5-5.1); pH 7.39 (7.35-7.45)
[2024-12-24 16:11] LABS: INR 3.47; PT 34.6 Sec (11.4-14.6)
[2024-12-24 16:15] LABS: Hematocrit 27.4 % (37.0-47.0); Hemoglobin 9.2 g/dL (12.0-16.0); Platelet Count 167 10^3/uL (130-400)
[2024-12-24] MEDS: LOW STRENGTH ASPIRIN 81 MG PO (16:58)
[2024-12-24 17:11] LABS: Glucose - Point of Care 123 mg/dl (70-99)
[2024-12-24 18:43] LABS: Glucose - Point of Care 111 mg/dl (70-99)
[2024-12-24] MEDS: SODIUM BICARBONATE 50 MEQ IV (20:35)
[2024-12-24] MEDS: SENOKOT-S 1 TABLET PO (20:43)
[2024-12-24 21:11] LABS: Glucose - Point of Care 96 mg/dl (70-99)
--- NOTE | 2024-12-24 21:28 | PTCARENOTE ---
Report from Lois HENDRIX. Walking rounds done. Pt assessed. 1 amp of NaHCO3 (50 meQ) given IV per order. Ed, P in to assess pt. Intrinsic rhythm checked. Pt in SR 60-70's. AV wires remain attached to temp PM. rate 50/mA 16 A, mA 20-V. Levo gtt down to 1
mcg/min. Goal SBP 90-110 mm HG. CI done: 2.16. Dobut at 5 mcg/kg/min. Pt awake. alert, oriented x 4. Equal strength to all extremities. Generalized weakness. Edentulous. No facial asymmetry. Pt on 3L/NC. Sats 98-98%. BBS present. Decreased t/o.
Audible heart tones. + 2 palpable pulses to B radial and B DP pulses. L radial A line and [place] with PA/CVP lines-all with pulsatile waveforms. CT x 3 to -20 sxn. q1 hr outputs and prn. Belly soft, nontender. Hypoactive bs x 4. Pt able to swallow
water w/o aspiration. Tran draining clear, yellow urine. Hourly UO. Glycemic protocol maintained. Ongoing plan of care.
[2024-12-24] MEDS: TYLENOL 1000 MG PO (22:31)
[2024-12-24] MEDS: NEURONTIN 100 MG PO (22:31)
[2024-12-24 23:10] LABS: Glucose - Point of Care 106 mg/dl (70-99)
--- NOTE | 2024-12-24 23:46 | W.PN.CT ---
Assessment / Plan
-
Assessment:
-S/P Standard sternotomy/Surgical aortic valve replacement [25 mm prosthesis]/Mitral valve replacement with [place] cord replacement for reinforcement [29 mm bioprosthesis]/ Extensive debridement of mitral annular calcification and patch of the
mitral valve annulus using bovine pericardium/Modified open surgical left atrial maze (encompass RF ablation and cryo ablation)/Left atrial appendage exclusion [35 mm device]/Drainage of right pleural effusion [300 cc], by Dr. Bullock, 12/24/24, pod#1
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
-Paroxysmal atrial fibrillation, new onset
-Severe aortic valve stenosis
-Mitral valve stenosis with severe mitral annular calcification
-LVEF 60-65%
-MRSA
-Class 1 obesity (BMI 30.4)
-Fomer tobacco use (quit 40 years ago)
-Systemic Lupus Erythematosus
-Preop hypokalemia
-Preop thrombocytopenia
-Hypothyroidism
-S/P Thyroidectomy
-Acute postop blood loss/Anemia (stable without transfusion)
-Acute postop atelectasis
-Acute postop hypovolemia with subsequent hypervolemia
-Acute postop temporary pacer dependence d/t bradycardia
Plan:
-No major issues overnight. Hemodynamically and neurologically stable
-Successfully extubated yesterday 12/24/24 @ 1545
-On Dobutamine @ 5, and Insulin gtt per protocol. D/C'd Levophed gtt was weaned off overnight
-Last CI 2., MVO2 %, U/O mL since OR
-Current rhythm is NSR @ 70 bpm. Was pacer dependent immediately postop d/t bradycardia and was A/V paced @ 80 bpm
-Monitor chest tube output: 2meds , R pl 5/. CXR this AM looks clear with mild atelectasis on my review. F/U official report
-Cont. current meds (ASA, Synthroid, Plaquenil, Lipitor; Amiodarone and Lopressor placed on hold while on dobutamine gtt)
-Wean dobutamine as tolerated
-D/C'd swan and a-line when off dobutamine
-D/C kaplan when off dobutamine
-Will transition to tele phase once off dobutamine and insulin drip
-Maintain cordis
-Maintain temporary PW (will pull in 1-2 days)
-Encourage use of IS
-Wean off of O2 as tolerated
-OOB into chair/Ambulate
Subjective
-
Date of Service: December 24, 2024
Objective Data
-
Lab Results
12/24/24 15:50
12/24/24 11:54
PT 34.6 Sec (11.4-14.6) H 12/24/24 15:50
INR 3.47 12/24/24 15:50
APTT 37.3 Sec (23.4-35.0) H 12/24/24 11:54
Vital Signs
Vital Signs
Temp Pulse Resp BP Pulse Ox
97.7 F 65 21 106/64 96
12/24/24 23:00 12/24/24 23:00 12/24/24 23:00 12/24/24 23:00 12/24/24 23:00
CT Intake/Output/Weight
12/24/24 12/24/24 12/25/24
06:59 18:59 06:59
Intake Total 120 / 520 1947.0 / 2397.6 450.6 / 2397.6
Output Total 550 / 2225 790 / 1055 265 / 1055
Balance -430 / -1705 1157.0 / 1342.6 185.6 / 1342.6
SaO2: 96
[2024-12-25] VITALS (41 sets, daily range): BP systolic 92–136; BP diastolic 46–67; BMI 32.2
--- NOTE | 2024-12-25 01:20 | PTCARENOTE ---
CI at MN and ~ 0100 was 2 and 2.1. PA aware. Dobut remains at 5 mcg/min. Levo gtt off at 2245. Order to go by cuff BP. Pt remains in SR. Sats 96-97% on 3L/NC.
[2024-12-25 01:50] LABS: Glucose - Point of Care 87 mg/dl (70-99)
[2024-12-25] MEDS: ANCEF 10 IV (02:06)
[2024-12-25] MEDS: DILAUDID 0.25 MG IV (02:33)
--- NOTE | 2024-12-25 03:19 | W.PN.CT ---
Today's Communication / Plan
-
Plan:
-No major issues overnight. Hemodynamically and neurologically stable
-Successfully extubated yesterday 12/24/24 @ 1545
-On Dobutamine @ 5, and Insulin gtt per protocol. D/C'd Levophed gtt was weaned off overnight
-Last CI 2.14, MVO2 64.1%, U/O 990mL since OR
-Current rhythm is NSR @ 70 bpm with RBBB. Was pacer dependent immediately postop d/t bradycardia and was A/V paced @ 80 bpm
-Monitor chest tube output: 2meds 145/265, R pl 45/115. CXR this AM looks clear with mild atelectasis on my review. F/U official report
-Monitor INR 5.61, was 3.47 yesterday
-Consider 1u PRBC for h/h 8.2/24.5, down from 9.2/27.4 yesterday. May be partly hemodiluted from 25% Albumin given yesterday
-Cont. current meds (ASA, Synthroid, Plaquenil, Lipitor; Amiodarone and Lopressor placed on hold while on dobutamine gtt)
-Wean dobutamine as tolerated
-D/C swan and a-line when off dobutamine
-D/C kaplan when off dobutamine
-Will transition to tele phase once off dobutamine and insulin drip
-Maintain cordis
-Maintain temporary PW (will pull in 1-2 days)
-Encourage use of IS
-Wean off of O2 as tolerated
-OOB into chair/Ambulate
Assessment / Plan
-
Assessment:
-S/P Standard sternotomy/Surgical aortic valve replacement [25 mm prosthesis]/Mitral valve replacement with [place]on cord replacement for reinforcement [29 mm bioprosthesis]/ Extensive debridement of mitral annular calcification and patch of the
mitral valve annulus using bovine pericardium/Modified open surgical left atrial maze (encompass RF ablation and cryo ablation)/Left atrial appendage exclusion [35 mm device]/Drainage of right pleural effusion [300 cc], by Dr. Bullock, 12/24/24, pod#1
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
-Paroxysmal atrial fibrillation, new onset
-Severe aortic valve stenosis
-Mitral valve stenosis with severe mitral annular calcification
-LVEF 60-65%
-MRSA
-Class 1 obesity (BMI 30.4)
-Fomer tobacco use (quit 40 years ago)
-Systemic Lupus Erythematosus
-Preop hypokalemia
-Preop thrombocytopenia
-Hypothyroidism
-S/P Thyroidectomy
-Acute postop blood loss/Anemia (stable without transfusion)
-Acute postop atelectasis
-Acute postop hypovolemia with subsequent hypervolemia
-Acute postop temporary pacer dependence d/t bradycardia
-Acute postop RBBB
-Acute postop elevated INR 5.61
Discussed patient care with: Cardiology, Nursing, Respiratory Therapy, Pharmacy and Care Team
Subjective
Procedure
-S/P Standard sternotomy/Surgical aortic valve replacement [25 mm prosthesis]/Mitral valve replacement with [place] cord replacement for reinforcement [29 mm bioprosthesis]/ Extensive debridement of mitral annular calcification and patch of the
mitral valve annulus using bovine pericardium/Modified open surgical left atrial maze (encompass RF ablation and cryo ablation)/Left atrial appendage exclusion [35 mm device]/Drainage of right pleural effusion [300 cc], by Dr. Bullock, 12/24/24
-
Date of Service: December 25, 2024
Pt c/o incisional pain, otherwise feels well
Objective Data
-
PT 34.6 Sec (11.4-14.6) H 12/24/24 15:50
INR 3.47 12/24/24 15:50
APTT 37.3 Sec (23.4-35.0) H 12/24/24 11:54
Vital Signs
Vital Signs
Temp Pulse Resp BP Pulse Ox
98 F 66 28 108/57 97
12/25/24 01:47 12/25/24 03:00 12/25/24 03:00 12/25/24 03:00 12/25/24 03:00
CT Intake/Output/Weight
12/24/24 12/24/24 12/25/24
06:59 18:59 06:59
Intake Total 120 / 520 1947.0 / 2559.2 612.2 / 2559.2
Output Total 550 / 2225 790 / 1183 393 / 1183
Balance -430 / -1705 1157.0 / 1376.2 219.2 / 1376.2
SaO2: 97 (2L)
Physical Exam
-
General: Awake, Oriented and AOx3
Cardiovascular: Regular rate & rhythm, No Murmurs, No Rub and No Gallop
Respiratory: Decreased Breath Sounds (at bases, otherwise clear)
Sternum: Stable
Incision: Clean, Dry, Intact and Dressing Intact
Extremities: Other (+trace edema)
Data Reviewed
-
Lab Results: Results Reviewed
Medications: Active Meds Reviewed
Chest X-Ray: Report Reviewed and Image Reviewed
ECG: Report Reviewed and Image Reviewed
[2024-12-25] MEDS: DOBUTREX 500 MG 250 IV (04:08)
[2024-12-25 04:28] LABS: Glucose - Point of Care 98 mg/dl (70-99)
[2024-12-25 05:02] LABS: Mixed Venous O2 Saturation 64.1 %
[2024-12-25 05:05] LABS: Hematocrit 24.5 % (37.0-47.0); Hemoglobin 8.2 g/dL (12.0-16.0); Mean Corp Hgb Conc. 33.5 g/dL (33.0-37.0); Mean Corpuscular Hgb 29.6 pg (27.0-31.0); Mean Corpuscular Volume 88.4 fL (81.0-99.0); Mean Platelet Volume 10.1 fL (7.4-10.4); Platelet Count 141 10^3/uL (130-400); Red Blood Cell Count 2.77 10^6/uL (4.20-5.40); Red Cell Dist. Width 13.9 % (11.5-14.5); White Blood Cell Count 8.6 10^3/uL (4.8-10.8)
[2024-12-25 05:21] LABS: PT 49.9 Sec (11.4-14.6)
[2024-12-25 05:23] LABS: ALT (SGPT) 14 U/L (0-35); AST (SGOT) 83 U/L (14-36); Albumin 2.9 g/dl (3.5-5.0); Alkaline Phosphatase 48 U/L (38-126); Blood Urea Nitrogen 16 mg/dl (7-17); Calcium 8.7 mg/dl (8.4-10.2); Carbon Dioxide 24 mmol/L (22-30); Chloride 105 mmol/L (98-107); Direct Bilirubin 0.1 mg/dl (0.0-0.4); Estimated Creatinine Clearance 89 ml/min; Glucose 93 mg/dl (70-99); Magnesium 2.3 mg/dl (1.6-2.3); Potassium 4.3 mmol/L (3.5-5.1); Sodium 135 mmol/L (135-145); Total Bilirubin 0.4 mg/dl (0.2-1.3); eGFR > 60.00
[2024-12-25 05:27] LABS: INR 5.61
[2024-12-25] MEDS: SYNTHROID 250 MCG PO (05:29)
[2024-12-25] MEDS: TYLENOL 1000 MG PO ×2 (05:34→13:59)
[2024-12-25 05:41] LABS: Glucose - Point of Care 99 mg/dl (70-99)
--- NOTE | 2024-12-25 05:44 | PTCARENOTE ---
Labs drawn and sent. EKG and CXR done. Bed weight obtained. PA with critical INR this am. CI checked: 2.14 on Dobut 5 mcg/kg/min.
[2024-12-25] MEDS: FLEXBUMIN 100 IV (05:50)
[2024-12-25] MEDS: MEPHYTON 5 MG PO (07:20)
[2024-12-25 07:29] LABS: Glucose - Point of Care 103 mg/dl (70-99)
--- NOTE | 2024-12-25 07:30 | PTCARENOTE ---
Assumed care of patient from cage shift manager RN. AAO x 3, flat affect but neuro exam intact. SR w/ BBB on monitor. AV wires to back up of VVI 50. Rt IJ cordis with swan at 43 cm. Lt radial A line transducing. Lines leveled, recalibrated and
flushed. Drips infusion gas follows: Insulin, and dobutamine. See flow sheet for totals/ titrations. Chest tubes x 3 to - 20 cm suction. No air leak or crepitus noted. Sternal incision well approximated. General plus one anasarca appreciated.
Pulses weakly palpable. Plan for day discussed.
--- NOTE | 2024-12-25 07:50 | W.PN.ANS.POP ---
Anesthesia Post Operative
- Anesthesia Post Op Note
Vital Signs Stable-See Nursing Note: Yes
Airway Patent: Yes
Adequate Pain Control: Yes
Change in Mental Status: No
Current Postoperative Nausea & Vomiting: No
Anesthesia Complications: No
General Anesthetic Recall: No
Unplanned Admission: No
Post Op Hydration Adequate: Yes
--- NOTE | 2024-12-25 08:25 | W.PN.INTV ---
Today's Communication / Plan
Recommendations
Continue dobutamine and wean off as per protocol while trending MVO2 with goal >60�70
Wean down insulin drip as per protocol
Goal BG 110�140
Maintain MAP >65
Pain control
Wean down supplemental O2 as tolerated while keeping SpO2 >90-94%
Follow-up cultures + pathology from [facility] on 12/24/2024
[employer] services will continue to follow along while patient remains in the CVICU.
Assessment
-
Assessment: 74-year-old female former tobacco smoker with a past medical history of SLE, aortic stenosis, and hypothyroidism who presented from outside hospital ([facility]) after initially presenting with AMS. Patient presented to [facility] on 12/17/2024 with
confusion, lethargy, FLOYD + chills. Initial CT imaging showed multiple foci of ischemia with concern for embolic CVA. Blood cultures became positive for MSSA and she also developed new onset A-fib with RVR, requiring amiodarone + IV heparin. Echo
showed moderate to severe aortic stenosis with severe MAC and severe MR. She developed new right-sided facial droop on 12/19 and rapid response was called. CT head showed no significant findings. Patient transferred to [facility] on
12/21/2024 for surgical evaluation of her MSSA [place] mitral and aortic valve endocarditis. On 12/22, orthopedic surgery aspirated 9 cc of bloody fluid from her left knee due to pain and swelling, and there were no crystals seen and cultures have
shown NGTD. Left heart catheterization on 12/23/2024 showed dense calcification of the proximal LAD. Given her aortic + mitral valve endocarditis with septic embolic stroke, cardiothoracic surgical intervention was recommended and patient agreed to
this procedure. On 12/24/2024, patient underwent surgical aortic valve replacement, mitral valve replacement, extensive debridement of the mitral annular calcification and patch of the mitral valve annulus using bovine pericardium, drainage of a
right-sided pleural effusion (drained 300 cc) and a left atrial appendage exclusion. Patient tolerated the procedure well with no immediate complications, and was transferred to the CVICU postoperatively for further care with mortgage loan [employer] services
consulted for additional management/recommendations.
Chronic conditions [employer]: Severe aortic stenosis, history of lupus, obesity, former tobacco use and hypothyroidism
Impression:
#Bacterial endocarditis of mitral valve with severe aortic valve stenosis, septic emboli with CVA and new onset A-fib with RVR s/p SAVR with 25 mm prosthesis, mitral valve replacement with 29 mm bioprosthesis, extensive debridement of the mitral
annular calcification and patch of the MV annulus using bovine pericardium + left atrial appendage exclusion with 35mm device (POD #1)
#Acute anemia due to above
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
#Paroxysmal A-fib
#Severe aortic valve stenosis
#Mitral valve stenosis with severe mitral annular calcification
#History of SLE
#Former tobacco smoker (quit approximately 40 years ago)
Plan:
Patient successfully extubated on 12/24/2024, and is currently breathing comfortably on 2 L/min saturating 95%
Maintain SpO2 >90-94%
prn nebulized bronchodilators - not currently bronchospastic
If patient strong enough, would encourage incentive spirometer use q1hr while awake
Pulmonary artery catheter parameters will be followed
Pressors/antihypertensive/inotropes/diuretics will be provided as needed --> currently on dobutamine at 4 mcg/kg/min
Maintain MAP>65
Replete electrolytes with K>4, Mg>2
Follow-up pathology + cultures obtained from the OR on 12/24/2024
Also pain control from the patient's left knee which was drained on 12/22/2024 with cultures thus far showing NGTD; knee joint fluid was negative for crystals
Monitor chest tube output (right pleural chest tube x1 and mediastinal chest tubes x 2)
Monitor hemoglobin
Monitor platelet count and coags
Transfuse blood products as needed to maintain Hb>7g/dL, plt>50k (given post-operative status)
CT surgery managing chest tubes
Monitor blood sugar to maintain euglycemia with goal BG 110-140
Insulin drip per protocol
Aspiration precautions
DVT prophylaxis
Early nutrition
Early mobilization
[employer] services will continue to follow along while patient remains in the CVICU.
Critical care statement: A total of 40 minutes of critical care time was provided for this patient today. This includes management of ventilator, spontaneous breathing trial, arterial blood gases, pressors, of unstable vital signs, evaluation of the
patient at bedside, reviewing the patient's pertinent medical records including radiographs, microbiology, laboratory evaluations, and discussion with primary team and critical care nursing.
Subjective Dataa
Subjective Data
Date of Service:
Date of Service: December 25, 2024
Chief Complaint: Lead Printer Follow Up
Subjective:
Patient was seen and evaluated today at bedside. She remains very tired. Currently on insulin drip at 1 unit/hr and dobutamine drip at 4 mcg/kg/min. Heart rate 70, BP via A-line: 116/46, PAP 35/16, CO/CI: 3.88/2.04 and saturating 95%. She is
currently on 2 L/min nasal cannula. BP via NIBP: 104/54. She has no complaints, denying SOB, chest pain, abdominal pain, nausea, fevers or chills.
Review of Systems
General: Other (Negative unless mentioned above)
Objective Data
Data Reviewed
Vital Signs / I&O / Oxygen:
Vital Signs
Temp Pulse Resp BP Pulse Ox
98.2 F 69 12 111/56 97
12/25/24 08:49 12/25/24 08:49 12/25/24 08:49 12/25/24 08:30 12/25/24 08:49
Intake and Output
12/24/24 12/25/24 12/26/24
06:59 06:59 06:59
Intake Total 520 / 520 2821.3 / 2821.3 243.8 / 243.8
Output Total 2225 / 2225 1368 / 1368 100 / 100
Balance -1705 / -1705 1453.3 / 1453.3 143.8 / 143.8
SaO2 [SIMV] 94
SaO2 97
Nasal Cannula flow liters per 3
minute
Physical Exam
General: Respiratory Distress (negative), Chills (negative) and Sweats (negative)
HEENT: Normocephalic and Anicteric
Cardiovascular: S1-S2 and Peripheral Edema (negative)
Respiratory: Wheeze (negative), Crackles (Bibasilar), Rhonchi (negative), Accessory Resp Muscle Use (negative), Stridor (negative) and Chest Tube (Mediastinal chest tubes x 2)
GI: Soft, Non Distended, Non Tender and Normal Bowel Sounds
Neurology: Tremors (negative) and Lethargic (Answer my questions appropriately but appears lethargic/physically deconditioned)
Skin: Warm, Dry, Cyanosis (negative) and Jaundice (negative)
Labs/Micro/Reports
Lab Data
12/25/24 04:51
12/25/24 04:51
Laboratory Results
12/24/24 12/24/24 12/25/24
11:54 15:50 01:00
PT 33.1 H 34.6 H Cancelled
INR 3.26 3.47 Cancelled
APTT 37.3 H
pH 7.41 7.39
pCO2 35 37 H
pO2 97 173 H
HCO3 22.2 22.4
O2 Delivery Level
12/25/24
04:51
PT 49.9 H
INR 5.61 H* D
APTT
pH
pCO2
pO2
HCO3
O2 Delivery Level
Microbiology
12/24/24 09:00 Heart Anaerobic Culture - Preliminary
Culture pending. Anaerobic cultures are examined after 3
days incubation. Additional information to follow.
12/24/24 09:00 Heart Tissue Culture - Preliminary
No Growth After 18-24 Hours
12/24/24 09:00 Heart Gram Stain - Preliminary
12/24/24 09:00 Heart Anaerobic Culture - Preliminary
Culture pending. Anaerobic cultures are examined after 3
days incubation. Additional information to follow.
12/24/24 09:00 Heart Tissue Culture - Preliminary
No Growth After 18-24 Hours
12/24/24 09:00 Heart Gram Stain - Preliminary
12/23/24 04:29 Blood/Venous Blood Culture - Preliminary
No Growth in 48 hours- Final report to follow
12/23/24 03:54 Blood/Venous Blood Culture - Preliminary
No Growth in 48 hours- Final report to follow
12/21/24 18:00 Blood/Venous Blood Culture - Preliminary
No Growth in 72 hours- Final report to follow
12/21/24 12:56 Blood/Venous Blood Culture - Preliminary
No Growth in 72 hours- Final report to follow
12/22/24 12:50 Knee - Left Wound Culture - Final
No growth
12/22/24 12:50 Knee - Left Gram Stain - Final
12/21/24 17:55 Nose MRSA Screen - Final
No Methicillin Resistant Staphylococcus aureus isolated.
[2024-12-25] MEDS: FLEXERIL 5 MG PO (08:40)
[2024-12-25] MEDS: SENOKOT-S 1 TABLET PO ×2 (08:41→19:29)
[2024-12-25] MEDS: PROTONIX 40 MG PO (08:41)
[2024-12-25] MEDS: LIDOCAINE 4% PATCH 1 PATCH TOPICAL (08:41)
[2024-12-25] MEDS: MAGNESIUM OXIDE 500 MG PO ×2 (08:41→19:29)
[2024-12-25] MEDS: NEURONTIN 100 MG PO ×2 (08:41→17:07)
[2024-12-25] MEDS: LOW STRENGTH ASPIRIN 81 MG PO (08:42)
[2024-12-25] MEDS: BACTROBAN 2% OINTMENT 1 APPLIC NASAL ×2 (08:42→19:29)
[2024-12-25] MEDS: LASIX 20 MG IV ×2 (08:47→22:00)
[2024-12-25 08:50] LABS: Glucose - Point of Care 97 mg/dl (70-99)
--- NOTE | 2024-12-25 09:02 | W.PN.ID1 ---
Date of Service
Date of Service: December 25, 2024
Today's Communication
- given increasing INR switched to nafcillin
Assessment / Plan
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
MSSA bacteremia - sustained
CVA possible septic infarctions
- POD1 s/p MAZE, L atrial appendage, AVR, MVR, temp AV pacing wires
- MSSA bacteremia at [facility] 12/17 and 12/18; 12/19 blood cultures at [facility] x2 are both finalized negative
- repeat blood cultures x2 done here on 12/21 are no growth to date
- given increasing INR switched to nafcillin
Ruled Out Septic Joint
- L knee arthrocentesis culture 12/19 at [facility] - finalized negative
- out cell count and gram stain from 12/22 are not consistent with septic joint, 12/22 culture no growth to date at 4 days
patient is critically ill on pressors with interval improvement
Chief Complaint
-: Bacteremia and Other (endocarditis, cva)
Subjective / Review of Systems
afebrile
remains on pressors, overall weaning
extubated
alert
no complaints
Vital Signs / Physical Exam
Vital Signs
Vital Signs
Temp Pulse Resp BP Pulse Ox
98.2 F 69 12 111/56 97
12/25/24 08:49 12/25/24 08:49 12/25/24 08:49 12/25/24 08:30 12/25/24 08:49
Physical Exam
Constitutional: No Acute Distress
Cardiovascular: Regular Rate and S1/S2; Negative Murmur or Rub
Pulmonary: Clear and Symmetric; Negative Wheezes or Rales
Gastrointestinal: Soft, Non Tender, Non Distended and Normal Bowel Sounds
Skin: Warm and Dry; Negative Rash or Jaundice
Wound: Other (surgical sites no erythema, warmth tenderness, dehiscence or drainage)
Lines: Other (chest tubes, lines)
Objective Data
Lab Data
Lab Results
12/25/24 04:51
12/25/24 04:51
ESR 25 mm/hour (0-20) H 12/22/24 13:18
PT 49.9 Sec (11.4-14.6) H 12/25/24 04:51
INR 5.61 H* D 12/25/24 04:51
APTT 37.3 Sec (23.4-35.0) H 12/24/24 11:54
Estimated Creat Clear 89 ml/min 12/25/24 04:51
Total Bilirubin 0.4 mg/dl (0.2-1.3) 12/25/24 04:51
AST 83 U/L (14-36) H 12/25/24 04:51
ALT 14 U/L (0-35) 12/25/24 04:51
Alkaline Phosphatase 48 U/L (38-126) 12/25/24 04:51
C-Reactive Protein 133.00 mg/L (0.0-10.00) H 12/22/24 13:18
Most recent labs reviewed.
Micro Results:
12/23/24 04:29 Blood Culture - Preliminary
Blood/Venous No Growth in 48 hours- Final report to follow
12/23/24 03:54 Blood Culture - Preliminary
Blood/Venous No Growth in 48 hours- Final report to follow
12/21/24 18:00 Blood Culture - Preliminary
Blood/Venous No Growth in 72 hours- Final report to follow
12/24/24 09:00 Tissue Culture - Pending
Heart Gram Stain - Preliminary
12/24/24 09:00 Tissue Culture - Pending
Heart Gram Stain - Preliminary
12/21/24 12:56 Blood Culture - Preliminary
Blood/Venous No Growth in 72 hours- Final report to follow
12/22/24 12:50 Wound Culture - Final
Knee - Left No growth
Gram Stain - Final
12/24/24 09:00 Fungal Smear - Pending
Heart Fungal Culture - Pending
12/24/24 09:00 Acid Fast Bacilli Smear - Pending
Heart Acid Fast Bacilli Culture - Pending
12/24/24 09:00 Acid Fast Bacilli Smear - Pending
Heart Acid Fast Bacilli Culture - Pending
12/24/24 09:00 Anaerobic Culture - Pending
Heart
12/24/24 09:00 Fungal Smear - Pending
Heart Fungal Culture - Pending
12/24/24 09:00 Anaerobic Culture - Pending
Heart
12/21/24 17:55 MRSA Screen - Final
Nose No Methicillin Resistant Staphylococcus aureus isolated.
[2024-12-25] MEDS: ANCEF IV (09:06)
[2024-12-25 10:06] LABS: Glucose - Point of Care 107 mg/dl (70-99)
[2024-12-25] MEDS: NAFCIL 108 MG IV ×4 (10:09→21:44)
--- NOTE | 2024-12-25 10:17 | W.PN.UPDATE ---
Update Note
Progress Note Update
Patient seen this morning with minimal left knee pain but obviously this is least of her worries. This morning she is afebrile, trace effusion noted, point tenderness over medial tibial plateau, generalized pain throughout the remainder of the knee
and passive range of motion 0 to 90 degrees without significant pain or instability. Cultures from left knee aspiration remain negative so far. MRI left knee shows osteoporosis insufficiency fracture involving medial tibial plateau with bone
marrow edema, horizontal tear involving medial/lateral meniscus and tricompartmental osteoarthritis. Suggest conservative treatments for now with ice and Tylenol. She will be toe-touch weightbearing left lower extremity until fracture heals.
Physical therapy once medically stable. Return to orthopedic office 1 month for repeat x-ray and to check her progress. Orthopedics to sign off for now.
--- NOTE | 2024-12-25 10:50 | PTCARENOTE ---
Pleural chest tube removed, per order. Tolerated w/o issue. Turned and repositioned.
[2024-12-25] MEDS: NSS IV (11:27)
[2024-12-25 12:18] LABS: Glucose - Point of Care 94 mg/dl (70-99)
--- NOTE | 2024-12-25 12:24 | PTCARENOTE ---
Resting in bed, napping on and off. Pain well managed, VSS. Insulin drip discontinued per order. Assessment otherwise unchanged from prior.
[2024-12-25 12:29] LABS: Mixed Venous O2 Saturation 66.3 %
[2024-12-25 12:43] LABS: INR 2.62
[2024-12-25] MEDS: FERRLECIT 110 MG IV (13:58)
[2024-12-25] MEDS: MEPHYTON 2.5 MG PO (14:30)
[2024-12-25 14:39] LABS: ACT+ - POC 153 Seconds (82-134)
--- NOTE | 2024-12-25 14:53 | W.PN.CD ---
Today's Communication / Plan
-
Dobutamine down to 3. Wean as tolerated
Monitor postop anemia hemoglobin 8.2
Impression / Plan
-
Impression/Plan: 74F with severe aortic stenosis hypothyroidism, lupus, and former smoker transferred from [facility] after being admitted for sepsis/MSSA bacteremia, new atrial fibrillation and CVA during that hospitalization, found to have infectious
mitral valve endocarditis.
#MSSA infectious endocarditis (acute)
-Preoperatively large vegetations on mitral valve with associated mitral regurgitation and patient also with moderate to severe aortic stenosis
-S/P AVR & MVR with PAMELA clip by Dr. Bullock 12/24/2024
-Patient required pacing postop continue to monitor rhythms postop
-Wean dobutamine as tolerated
-Additional postop treatment as per CT surgery
-Antibiotics as directed by ID.
# Monitor postop. CT surgery assessing need for PRBC
.
#CVA
-Acute, embolic versus septic.
-Expressive aphasia and word finding difficulty on exam, oriented.
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
#Paroxysmal atrial fibrillation
-New diagnosis at [facility]
-Rate/rhythm control on amiodarone, converted to PO.
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 Since patient with endocarditis but now that patient had AVR MVR and had A-fib prior to hospitalization would consider anticoagulation postoperatively when okay from a postoperative standpoint and from a
neurostandpoint
-[id number]: Score at least 4 prior to CVA (HTN, age 74 or more, female gender).
-No thrombus detected in PAMELA appendage; good velocities.
#Left knee previous aspiration.. See Ortho note
#Hypothyroidism
-Chronic.
-On levothyroxine;
#Lupus
#Former smoker
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
Data
-MARY shows large vegetation (~1.5 x 2.5 cm) on mitral valve with at least moderate mitral regurgitation; smaller vegetation(s) noted as well.
-TTE: Aortic valve gradients 52/32 mmHg with severe MAC and severe MR (severe precedes bacteremia).
Subjective/Interval History:
Surgical report reviewed.
Intubated and sedated on mechanical ventilation.
DATA:
Transthoracic echocardiogram, 12/18/2024 ([facility]):
LVEF 45%. Severely dilated LA. Moderate to severe aortic stenosis (peak/mean 52.6/32.3 mmHg).
Severe thickening of the anterior and posterior leaflets of the mitral valve.
Severe mitral annular calcification. Moderate mitral valve regurgitation with centrally directed jet.
Transesophageal Echocardiogram, 12/22/2024:
CONCLUSIONS
-Left ventricular ejection fraction is 60-65%. Normal regional wall motion.
-Normal right ventricular size and function.
-No thrombus detected in the left atrial appendage.
-Thickened mitral valve leaflets and mitral annular calcification with a large,
partially mobile vegetation on the P3 segment of the posterior mitral valve
leaflet measuring approximately 1.5 x 2.5 cm (see below images). There was also
a smaller, highly mobile vegetation on the P1 segment of the mitral valve
leaflet. There also appears to be a small vegetation in the annular region of
the anterior mitral valve leaflet. Mitral valve opens normally.
-Moderate mitral regurgitation (multiple jets).
-Thickened/calcified trileaflet aortic valve with severely reduced leaflet
excursion. Likely severe aortic stenosis; gradients were not obtained.
BACKGROUND:
Yazmin was admitted 12/17/2024 with confusion. She was found on the floor by her son after she did not show up for work. Last seen normal greater than 24 hours MACHINE LOAD CLERK to ER. She presented febrile. Blood cultures demonstrated MSSA and she was started on
cefepime. CT of chest/abdomen/pelvis did not show definitive source. She was found to be in atrial fibrillation with rapid ventricular response with incomplete right bundle branch block. She was started on intravenous heparin and amiodarone. On
12/19/2024 a stroke alert was called for right sided facial droop in addition to right upper and lower extremity weakness. Her heparin drip was stopped due to concern for stroke. CT noncontrast on admission showed 2 foci of decreased density in the
right cerebral hemisphere consistent with acute infarct, one in the cerebellum and one in the high frontal lobe. MRI was pending and not completed prior to transfer. She was found to have pain and erythema of the left knee. On 12/20/2024
orthopedic surgery aspirated her knee. Notable labs during her admission included D-dimer of 16.3, HgbA1c 5.0%, troponin T fifth GEN peaked at 315, and CPK 1191.
Physical Exam
Vital Signs/Labs
Vital Signs
Temp Pulse Resp BP Pulse Ox
98.6 F 67 19 101/51 97
12/25/24 14:00 12/25/24 14:00 12/25/24 14:00 12/25/24 10:30 12/25/24 14:00
12/24/24 12/25/24 12/26/24
06:59 06:59 06:59
Actual Weight 82.9 kg 87.7 kg
12/25/24 04:51
12/25/24 04:51
PT 28.0 Sec (11.4-14.6) H 12/25/24 12:16
INR 2.62 D 12/25/24 12:16
APTT 37.3 Sec (23.4-35.0) H 12/24/24 11:54
Magnesium 2.3 mg/dl (1.6-2.3) 12/25/24 04:51
TSH 14.60 uIU/ml (0.47-4.68) H 12/22/24 04:26
Physical Exam
Constitutional: No acute distress and Other (Appears tired)
Cardiovascular: Rhythm & rate is regular
Respiratory: Rhonchi Absent
GI: Soft
Data Reviewed
-
Date of Service: December 25, 2024
Medical Decision Making: Reviewed Test Results
X-Ray/CT/US/MRI/NUC/PET: Report Reviewed by me
Medical Tests (PFT, Pathology etc): Report Reviewed by me
Labs: Labs Reviewed by me
[2024-12-25] MEDS: LIPITOR 40 MG PO (17:07)
[2024-12-25 17:23] LABS: Mixed Venous O2 Saturation 73.9 %
[2024-12-25 17:35] LABS: INR 1.83; PT 21.4 Sec (11.4-14.6)
--- NOTE | 2024-12-25 18:04 | PTCARENOTE ---
Urine output decreased over last 2 hours, CT PHONOGRAPH MECHANIC notified. Will continue to monitor.
--- NOTE | 2024-12-25 20:00 | PTCARENOTE ---
Received pt from [facility]. pt is POD 1 from AVR/MVR/PAMELA clip/Maze. pt is AAOx4, withdrawn, moves all extremities appropriately, denies pain at this time. NSR on monitor with prolonged QT, VSS. Heart sounds audible, radial and DP pulses palpable,
trace generalized edema, +1 right upper extremity edema, temp epicardial V-wires set to DDI, see work list for specific settings. lungs diminished throughout, spo2 98% on 2LNC. hypoactive BS x4 quadrants, abdomen is soft non tender. pt has decreased
urine output with kaplan catheter, urine is clear yellow. surgical sites maintained. right IJ cordis/swan @ 43cm, left radial A-line, and PIV all maintained, leveled, and zeroed. dobutamine gtt infusing. x1 PRBC started by jamal, will be completed
by this RN. call garay within reach. ongoing monitoring.
[2024-12-25] MEDS: TYLENOL PO (21:45)
[2024-12-25] MEDS: NEURONTIN PO (21:45)
[2024-12-26] VITALS (29 sets, daily range): BP systolic 91–134; BP diastolic 45–64; PULSE 65; O2SAT 95; BMI 32.7
--- NOTE | 2024-12-26 | PTCARENOTE ---
Patient received from previous shift resting in bed, sleepy but arousable and appropriate, affect flat. RIJ Cordis/[place], L radial arterial lines present - leveled, flushed, and calibrated w/good waveforms returned. Epicardial A+V wires to pulse
generator at back up rate 45bpm, no spikes noted. Mediastinal chest tubes x 2, Y-connected to one pleurevac - no air leak or crepitus noted on -20cm suction. Tran catheter to gravity. All procedural sites stable. Dobutamine infusing as ordered. See
work list for full assessment, interventions performed, and intravenous infusions and titrations.
[2024-12-26] MEDS: NAFCIL 108 MG IV ×6 (01:54→22:08)
--- NOTE | 2024-12-26 03:47 | W.PN.CT ---
Today's Communication / Plan
-
Plan:
-No major issues overnight. Hemodynamically and neurologically stable
-Dobutamine weaned to 2 mcg/kg/min
-Last CI 2.2, MVO2 70.2%, 24hrs U/O 1635mL
-Current rhythm is NSR @ 70 bpm. Was pacer dependent immediately postop d/t bradycardia and required A/V pacing @ 80 bpm
-Monitor remaining chest tube output for possible D/C: 2meds 80/190. CXR this AM looks clear with mild atelectasis on my review. F/U official report
-Received 1u PRBC for h/h 8.2/24.5 yesterday, h/h 9.1/26.9 today
-Holding Amiodarone and BB while on Dobutamine
-Wean dobutamine as tolerated
-Switched Ancef to Nafcillin, given rising INR on Ancef
-Received a total of 7.5 po vit K for INR of 5.6 yesterday, INR 1.36 today
-Cont. current meds (ASA, Synthroid, Plaquenil, Lipitor; Amiodarone and Lopressor placed on hold while on dobutamine gtt)
-Wean dobutamine as tolerated
-D/C swan and a-line when off dobutamine
-D/C kaplan when off dobutamine
-Will transition to tele phase once off dobutamine
-Maintain cordis, will eventually require PICC line for longterm antibiotic therapy
-Maintain temporary PW (may need to keep PW another day until rhythm is assessed off dobutamine)
-Encourage use of IS
-Wean off of O2 as tolerated
-OOB into chair/Ambulate/PT/OT f/u
-Encourage nutritional intake, pre-albumin is down @ 8.8
Assessment / Plan
-
Assessment:
-S/P Standard sternotomy/Surgical aortic valve replacement [25 mm prosthesis]/Mitral valve replacement with Burton-Triston cord replacement for reinforcement [29 mm bioprosthesis]/ Extensive debridement of mitral annular calcification and patch of the
mitral valve annulus using bovine pericardium/Modified open surgical left atrial maze (encompass RF ablation and cryo ablation)/Left atrial appendage exclusion [35 mm device]/Drainage of right pleural effusion [300 cc], by Dr. Bullock, 12/24/24, pod#1
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
-Paroxysmal atrial fibrillation, new onset
-Severe aortic valve stenosis
-Mitral valve stenosis with severe mitral annular calcification
-LVEF 60-65%
-MRSA
-Class 1 obesity (BMI 30.4)
-Osteoporosis with Left tibial plateau fx as well Left meniscus tear, per MRI 12/23/24
-Former tobacco use (quit 40 years ago)
-Systemic Lupus Erythematosus
-Preop hypokalemia
-Preop thrombocytopenia
-Hypothyroidism
-S/P Thyroidectomy
-Acute postop blood loss/Anemia (stable without transfusion)
-Acute postop atelectasis
-Acute postop hypovolemia with subsequent hypervolemia
-Acute postop temporary pacer dependence d/t bradycardia
-Acute postop RBBB
-Acute postop elevated INR 5.61
-Acute postop SEEMA, 1.4
Discussed patient care with: Cardiology, Nursing, Respiratory Therapy, Pharmacy and Care Team
Subjective
Procedure
-S/P Standard sternotomy/Surgical aortic valve replacement [25 mm prosthesis]/Mitral valve replacement with Burton-Triston cord replacement for reinforcement [29 mm bioprosthesis]/ Extensive debridement of mitral annular calcification and patch of the
mitral valve annulus using bovine pericardium/Modified open surgical left atrial maze (encompass RF ablation and cryo ablation)/Left atrial appendage exclusion [35 mm device]/Drainage of right pleural effusion [300 cc], by Dr. Bullock, 12/24/24
-
Date of Service: December 26, 2024
Pt c/o incisional pain, otherwise feels well. Affect appears flat
Objective Data
-
PT 21.4 Sec (11.4-14.6) H 12/25/24 17:12
INR 1.83 12/25/24 17:12
APTT 37.3 Sec (23.4-35.0) H 12/24/24 11:54
Vital Signs
Vital Signs
Temp Pulse Resp BP Pulse Ox
99.5 F 65 21 122/64 96
12/26/24 03:00 12/26/24 03:00 12/26/24 03:00 12/26/24 02:00 12/26/24 03:00
CT Intake/Output/Weight
12/25/24 12/25/24 12/26/24
06:59 18:59 06:59
Intake Total 874.3 / 2821.3 1223.8 / 2048.8 825 / 2048.8
Output Total 578 / 1368 680 / 1570 890 / 1570
Balance 296.3 / 1453.3 543.8 / 478.8 -65 / 478.8
SaO2: 96 (2L)
Physical Exam
-
General: Awake, Oriented and AOx3
Cardiovascular: Regular rate & rhythm, No Murmurs, No Rub and No Gallop
Respiratory: Decreased Breath Sounds (at bases)
Sternum: Stable
Incision: Clean, Dry, Intact and Dressing Intact
Extremities: Other (+trace edema)
Data Reviewed
-
Lab Results: Results Reviewed
Medications: Active Meds Reviewed
Chest X-Ray: Report Reviewed and Image Reviewed
ECG: Report Reviewed and Image Reviewed
[2024-12-26 04:29] LABS: Mixed Venous O2 Saturation 70.2 %
--- NOTE | 2024-12-26 04:29 | PTCARENOTE ---
VS obtained, assessment unchanged. Labs collected. Patient states pain controlled, dozing between care.
[2024-12-26 04:47] LABS: Hematocrit 26.9 % (37.0-47.0); Hemoglobin 9.1 g/dL (12.0-16.0); Mean Corp Hgb Conc. 33.8 g/dL (33.0-37.0); Mean Corpuscular Hgb 29.4 pg (27.0-31.0); Mean Corpuscular Volume 86.8 fL (81.0-99.0); Mean Platelet Volume 10.2 fL (7.4-10.4); Platelet Count 164 10^3/uL (130-400); Red Cell Dist. Width 14.3 % (11.5-14.5); White Blood Cell Count 10.7 10^3/uL (4.8-10.8)
[2024-12-26 04:52] LABS: Ionized Calcium 1.14 mMOL/L (1.15-1.33)
[2024-12-26 04:58] LABS: INR 1.37; PT 17.2 Sec (11.4-14.6)
[2024-12-26 04:59] LABS: Blood Urea Nitrogen 27 mg/dl (7-17); Calcium 8.1 mg/dl (8.4-10.2); Carbon Dioxide 24 mmol/L (22-30); Chloride 104 mmol/L (98-107); Estimated Creatinine Clearance 38 ml/min; Glucose 107 mg/dl (70-99); Magnesium 2.3 mg/dl (1.6-2.3); Sodium 136 mmol/L (135-145); eGFR 39.23
[2024-12-26 05:07] LABS: Prealbumin (Transthyretin) 8.8 mg/dl (17.6-36.0)
[2024-12-26] MEDS: CALCIUM GLUCONATE 130 MG IV (05:28)
[2024-12-26] MEDS: TYLENOL 1000 MG PO ×3 (05:50→22:07)
[2024-12-26] MEDS: SYNTHROID 250 MCG PO (05:50)
[2024-12-26] MEDS: SENOKOT-S 1 TABLET PO ×2 (07:54→20:04)
[2024-12-26] MEDS: PROTONIX 40 MG PO (07:54)
[2024-12-26] MEDS: LOW STRENGTH ASPIRIN 81 MG PO (07:54)
[2024-12-26] MEDS: MAGNESIUM OXIDE 500 MG PO ×2 (07:54→20:04)
[2024-12-26] MEDS: LIDOCAINE 4% PATCH 1 PATCH TOPICAL (07:54)
[2024-12-26] MEDS: NEURONTIN 100 MG PO ×3 (07:54→22:08)
[2024-12-26] MEDS: FLEXERIL 5 MG PO (07:54)
[2024-12-26] MEDS: BACTROBAN 2% OINTMENT 1 APPLIC NASAL ×2 (07:55→20:04)
[2024-12-26] MEDS: LACTATED RINGERS 250 IV (08:07)
--- NOTE | 2024-12-26 08:18 | PTCARENOTE ---
Assumed care of patient from security shift supervisor RN. AAO x 3, flat effect, Neuro intact, pt prefers tilting to right side but able to shift midline when asked. SR on monitor, AV wires to back up of DDI 45, no pacing noted. RT IJ swan at 43 cm, Lt radial
A line transducing. Lines leveled, recalibrated and flushed. Pulses palpable. Dobutamine infusing. Chest tubes x 2 to -20 cm suction , no crepitus or air leak noted. Abdomen obese non tender. bowel sounds active. Tran draining clear yellow
urine. plus one anasarca appreciated. pulses weak but palpable. Sternal incision well approximated.
--- NOTE | 2024-12-26 08:20 | W.PN.INTV ---
Today's Communication / Plan
Recommendations
Continue dobutamine and wean off as per protocol while trending MVO2 with goal >60�70
Goal BG 110�140
Maintain MAP >65
Pain control
Wean down supplemental O2 as tolerated while keeping SpO2 >90-94%
Follow-up cultures + pathology from [facility] on 12/24/2024
Regulator Pin Inserter services will continue to follow along while patient remains in the CVICU.
Assessment
-
Assessment: 74-year-old female former tobacco smoker with a past medical history of SLE, aortic stenosis, and hypothyroidism who presented from outside hospital ([facility]) after initially presenting with AMS. Patient presented to [facility] on 12/17/2024 with
confusion, lethargy, FLOYD + chills. Initial CT imaging showed multiple foci of ischemia with concern for embolic CVA. Blood cultures became positive for MSSA and she also developed new onset A-fib with RVR, requiring amiodarone + IV heparin. Echo
showed moderate to severe aortic stenosis with severe MAC and severe MR. She developed new right-sided facial droop on 12/19 and rapid response was called. CT head showed no significant findings. Patient transferred to [facility] on
12/21/2024 for surgical evaluation of her MSSA upper [place] mitral and aortic valve endocarditis. On 12/22, orthopedic surgery aspirated 9 cc of bloody fluid from her left knee due to pain and swelling, and there were no crystals seen and cultures have
shown NGTD. Left heart catheterization on 12/23/2024 showed dense calcification of the proximal LAD. Given her aortic + mitral valve endocarditis with septic embolic stroke, cardiothoracic surgical intervention was recommended and patient agreed to
this procedure. On 12/24/2024, patient underwent surgical aortic valve replacement, mitral valve replacement, extensive debridement of the mitral annular calcification and patch of the mitral valve annulus using bovine pericardium, drainage of a
right-sided pleural effusion (drained 300 cc) and a left atrial appendage exclusion. Patient tolerated the procedure well with no immediate complications, and was transferred to the CVICU postoperatively for further care with speech language assistant services
consulted for additional management/recommendations.
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
Impression:
#Bacterial endocarditis of mitral valve with severe aortic valve stenosis, septic emboli with CVA and new onset A-fib with RVR s/p SAVR with 25 mm prosthesis, mitral valve replacement with 29 mm bioprosthesis, extensive debridement of the mitral
annular calcification and patch of the MV annulus using bovine pericardium + left atrial appendage exclusion with 35mm device (POD #2)
#Acute anemia due to above
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
#Paroxysmal A-fib
#Severe aortic valve stenosis
#Mitral valve stenosis with severe mitral annular calcification
#History of SLE
#Former tobacco smoker (quit approximately 40 years ago)
Plan:
Patient successfully extubated on 12/24/2024, and is currently breathing comfortably on 2 L/min saturating 98%
Maintain SpO2 >90-94%
prn nebulized bronchodilators - not currently bronchospastic
If patient strong enough, would encourage incentive spirometer use q1hr while awake
Pulmonary artery catheter parameters will be followed
Pressors/antihypertensive/inotropes/diuretics will be provided as needed --> currently on dobutamine at 4 mcg/kg/min
Maintain MAP>65
Replete electrolytes with K>4, Mg>2
Follow-up pathology + cultures obtained from the OR on 12/24/2024
Also pain control from the patient's left knee which was drained on 12/22/2024 with cultures thus far showing NGTD; knee joint fluid was negative for crystals
Monitor chest tube output (mediastinal chest tubes x 2)
Monitor hemoglobin
Monitor platelet count and coags
Transfuse blood products as needed to maintain Hb>7g/dL, plt>50k (given post-operative status)
CT surgery managing chest tubes
Monitor blood sugar to maintain euglycemia with goal BG 110-140
Insulin drip is now off
Aspiration precautions
DVT prophylaxis
Early nutrition
Early mobilization
Regulator Pin Inserter services will continue to follow along while patient remains in the CVICU.
Critical care statement: A total of 38 minutes of critical care time was provided for this patient today. This includes management of ventilator, spontaneous breathing trial, arterial blood gases, pressors, of unstable vital signs, evaluation of the
patient at bedside, reviewing the patient's pertinent medical records including radiographs, microbiology, laboratory evaluations, and discussion with primary team and critical care nursing.
Subjective Dataa
Subjective Data
Date of Service:
Date of Service: December 26, 2024
Chief Complaint: Regulator Pin Inserter Follow Up
Subjective:
Patient seen this morning. She feels very tired. Patient's son, Prabhjot, at bedside. Current heart rate 64, BP via A-line: 128/43, PAP: 28/9, and saturating 98%. BP via NIBP: 120/57. Mediastinal chest tubes x [address] She is currently on 2
L/min breathing comfortably. Currently on dobutamine drip at 2 mcg/kg/min.
Review of Systems
General: Other (Negative unless mentioned above)
Objective Data
Data Reviewed
Vital Signs / I&O / Oxygen:
Vital Signs
Temp Pulse Resp BP Pulse Ox
98.9 F 59 24 118/59 97
12/26/24 08:58 12/26/24 08:58 12/26/24 08:58 12/26/24 08:00 12/26/24 09:04
Intake and Output
12/25/24 12/26/24 12/27/24
06:59 06:59 06:59
Intake Total 2821.3 / 2821.3 2413.8 / 2438.8 592.4 / 592.4
Output Total 1368 / 1368 1964 / 2064 200 / 200
Balance 1453.3 / 1453.3 448.8 / 373.8 392.4 / 392.4
SaO2 [SIMV] 94
SaO2 97
Nasal Cannula flow liters per 1
minute
Physical Exam
General: Respiratory Distress (negative), Comfortable, Chills (negative) and Sweats (negative)
HEENT: Normocephalic and Anicteric
Cardiovascular: S1-S2 and Peripheral Edema (Trace lower extremity edema bilaterally)
Respiratory: Wheeze (negative), Crackles (Bibasilar), Rhonchi (negative), Accessory Resp Muscle Use (negative), Stridor (negative) and Chest Tube (Mediastinal chest tubes x 2)
GI: Soft, Non Distended, Non Tender and Normal Bowel Sounds
Neurology: Tremors (negative) and Lethargic (Answers my questions appropriately but appears lethargic/physically deconditioned)
Skin: Warm, Dry, Cyanosis (negative) and Jaundice (negative)
Labs/Micro/Reports
Lab Data
12/26/24 04:20
Laboratory Results
12/25/24 12/25/24 12/26/24
12:16 17:12 04:19
PT 28.0 H 21.4 H 17.2 H
INR 2.62 D 1.83 1.37
Microbiology
12/23/24 04:29 Blood/Venous Blood Culture - Preliminary
No Growth in 72 hours- Final report to follow
12/23/24 03:54 Blood/Venous Blood Culture - Preliminary
No Growth in 72 hours- Final report to follow
12/21/24 18:00 Blood/Venous Blood Culture - Preliminary
No Growth in 4 days- Final report to follow
12/21/24 12:56 Blood/Venous Blood Culture - Preliminary
No Growth in 4 days- Final report to follow
12/24/24 09:00 Heart Anaerobic Culture - Preliminary
Culture pending. Anaerobic cultures are examined after 3
days incubation. Additional information to follow.
12/24/24 09:00 Heart Tissue Culture - Preliminary
No Growth After 18-24 Hours
12/24/24 09:00 Heart Gram Stain - Preliminary
12/24/24 09:00 Heart Anaerobic Culture - Preliminary
Culture pending. Anaerobic cultures are examined after 3
days incubation. Additional information to follow.
12/24/24 09:00 Heart Tissue Culture - Preliminary
No Growth After 18-24 Hours
12/24/24 09:00 Heart Gram Stain - Preliminary
12/22/24 12:50 Knee - Left Wound Culture - Final
No growth
12/22/24 12:50 Knee - Left Gram Stain - Final
12/21/24 17:55 Nose MRSA Screen - Final
No Methicillin Resistant Staphylococcus aureus isolated.
[2024-12-26] MEDS: DOBUTREX 500 MG 250 IV (08:57)
--- NOTE | 2024-12-26 09:10 | W.PN.ID1 ---
Date of Service
Date of Service: December 26, 2024
Today's Communication
- c/w nafcillin
Assessment / Plan
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
MSSA bacteremia - sustained
CVA possible septic infarctions
- s/p MAZE, L atrial appendage, AVR, MVR, temp AV pacing wires on 12/24
- MSSA bacteremia at [facility] 12/17 and 12/18; 12/19 blood cultures at [facility] x2 are both finalized negative
- repeat blood cultures x2 done here on 12/21 are no growth to date
- c/w nafcillin
Ruled Out Septic Joint
- L knee arthrocentesis culture 12/19 at [facility] - finalized negative
- our cell count and gram stain from 12/22 are not consistent with septic joint, 12/22 culture no growth to date at 4 days
- patient is critically ill on minimal pressors
Chief Complaint
-: Bacteremia and Other (endocarditis, cva due to MSSA)
Subjective / Review of Systems
afebrile
bp stable
nettie noted today
flat affect
Vital Signs / Physical Exam
Vital Signs
Vital Signs
Temp Pulse Resp BP Pulse Ox
98.9 F 59 24 118/59 97
12/26/24 08:58 12/26/24 08:58 12/26/24 08:58 12/26/24 08:00 12/26/24 09:04
Physical Exam
Constitutional: No Acute Distress
Cardiovascular: Regular Rate and S1/S2; Negative Murmur or Rub
Pulmonary: Clear and Symmetric; Negative Wheezes or Rales
Gastrointestinal: Soft, Non Tender, Non Distended and Normal Bowel Sounds
Skin: Warm and Dry; Negative Rash or Jaundice
Objective Data
Lab Data
Lab Results
12/26/24 04:20
ESR 25 mm/hour (0-20) H 12/22/24 13:18
PT 17.2 Sec (11.4-14.6) H 12/26/24 04:19
INR 1.37 12/26/24 04:19
APTT 37.3 Sec (23.4-35.0) H 12/24/24 11:54
Estimated Creat Clear 38 ml/min 12/26/24 04:19
Total Bilirubin 0.4 mg/dl (0.2-1.3) 12/25/24 04:51
AST 83 U/L (14-36) H 12/25/24 04:51
ALT 14 U/L (0-35) 12/25/24 04:51
Alkaline Phosphatase 48 U/L (38-126) 12/25/24 04:51
C-Reactive Protein 133.00 mg/L (0.0-10.00) H 12/22/24 13:18
Most recent labs reviewed.
Micro Results:
12/23/24 04:29 Blood Culture - Preliminary
Blood/Venous No Growth in 72 hours- Final report to follow
12/23/24 03:54 Blood Culture - Preliminary
Blood/Venous No Growth in 72 hours- Final report to follow
12/21/24 18:00 Blood Culture - Preliminary
Blood/Venous No Growth in 4 days- Final report to follow
12/21/24 12:56 Blood Culture - Preliminary
Blood/Venous No Growth in 4 days- Final report to follow
12/24/24 09:00 Anaerobic Culture - Preliminary
Heart Culture pending. Anaerobic cultures are examined after 3
days incubation. Additional information to follow.
12/24/24 09:00 Tissue Culture - Preliminary
Heart No Growth After 18-24 Hours
Gram Stain - few GPCs
12/24/24 09:00 Anaerobic Culture - Preliminary
Heart Culture pending. Anaerobic cultures are examined after 3
days incubation. Additional information to follow.
12/24/24 09:00 Tissue Culture - Preliminary
Heart No Growth After 18-24 Hours
Gram Stain - Preliminary
12/22/24 12:50 Wound Culture - Final
Knee - Left No growth
Gram Stain - Final
12/24/24 09:00 Fungal Smear - Pending
Heart Fungal Culture - Pending
12/24/24 09:00 Acid Fast Bacilli Smear - Pending
Heart Acid Fast Bacilli Culture - Pending
12/24/24 09:00 Acid Fast Bacilli Smear - Pending
Heart Acid Fast Bacilli Culture - Pending
12/24/24 09:00 Fungal Smear - Pending
Heart Fungal Culture - Pending
12/21/24 17:55 MRSA Screen - Final
Nose No Methicillin Resistant Staphylococcus aureus isolated.
--- NOTE | 2024-12-26 10:32 | CS.PSYCHR ---
Consult Summary - Psychiatry
-
Psychiatry consult for depression/failure to thrive. 74yo female with severe aortic stenosis hypothyroidism, lupus, and former smoker transferred from [facility] after being admitted on 12/21/24 for sepsis/MSSA bacteremia, new atrial fibrillation and CVA
during that hospitalization, found to have infectious mitral valve endocarditis. Per primary team, patient has been presenting withdrawn and unmotivated and they are concerned for depression. Patient denies feeling depressed at this time and denies
interest in psychiatric treatment.
MSE- sitting in chair. fair eye contact. impoverished hypophonic speech. denies depression. goal directed. denies SI/HI/AVH. no delusions. fully oriented.
Spoke with patient's son Ed who states patient has been scammed on the internet over the past three years and this has been a source of stress though she keeps giving money. they are trying to intervene to prevent this from continuing. Ed thinks she
is likely depressed but stubborn and unwilling to accept treatment. He states he will talk to her to see if she may change her mind.
12/25 qtc 504
12/22 TSH 14.6 continue synthroid 250 mcg and recheck TFTs in 4-6 weeks
PMH- see above
Social- , lives alone, sons are supportive
Past psych- denies
D&A- denies
Family history- sons with depression
A/P- 74 yo female with extensive medical history as noted above presenting with signs of depression. However, she denies feeling depressed and refuses treatment. Made her aware that team is available should she change her mind. Son is aware and
plans to discuss concerns with her. Psychiatry will sign off for now but please contact team if patient changes her min and decides to pursue treatment options.
--- NOTE | 2024-12-26 12:25 | W.PN.CD ---
Today's Communication / Plan
-
Patient with rising creatinine to 1.4 yesterday. Check follow-up labs are pending.
Additional IV fluids were given by CT surgery. PA diastolic appears to be about 11 will assess response with fluid.
Patient remains on dobutamine which has been slowly weaned.
Impression / Plan
-
Impression/Plan: 74F with severe aortic stenosis hypothyroidism, lupus, and former smoker transferred from [facility] after being admitted for sepsis/MSSA bacteremia, new atrial fibrillation and CVA during that hospitalization, found to have infectious
mitral valve endocarditis.
#MSSA infectious endocarditis (acute)
-Preoperatively large vegetations on mitral valve with associated mitral regurgitation and patient also with moderate to severe aortic stenosis
-S/P AVR & MVR with PAMELA clip by Dr. Bullock 12/24/2024
-Antibiotics as directed by ID.
.
-S/P AVR & MVR with PAMELA clip by Dr. Bullock 12/24/2024
-Patient required pacing postop continue to monitor rhythms postop
-Wean dobutamine as tolerated
-Additional postop treatment as per CT surgery
.
-SEEMA. Creatinine up to 1.4 yesterday. Today's labs pending.
-Patient given additional IV fluids. Will assess response.
-Continue to optimize hemodynamics. PAD was only 10 or 11 we will see response with fluid.
.
# Monitor postop. CT surgery assessing need for PRBC
.
#CVA
-Acute, embolic versus septic.
-Expressive aphasia and word finding difficulty on exam, oriented.
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
#Paroxysmal atrial fibrillation
-New diagnosis at [facility]
-Rate/rhythm control on amiodarone, converted to PO.
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 Since patient with endocarditis but now that patient had AVR MVR and had A-fib prior to hospitalization would consider anticoagulation postoperatively when okay from a postoperative standpoint and from a
neurostandpoint
-[id number]: Score at least 4 prior to CVA (HTN, age 75 or more, female gender).
-No thrombus detected in PAMELA appendage preoperatively. Postoperatively patient with left atrial appendage clip 12/24/2024
#Left knee previous aspiration.. See Ortho note
#Hypothyroidism
-Chronic.
-On levothyroxine;
#Lupus
#Former smoker
Primary display artist: Yunior Peguero
Data
-MARY shows large vegetation (~1.5 x 2.5 cm) on mitral valve with at least moderate mitral regurgitation; smaller vegetation(s) noted as well.
-TTE: Aortic valve gradients 52/32 mmHg with severe MAC and severe MR (severe precedes bacteremia).
Subjective/Interval History:
Surgical report reviewed.
Intubated and sedated on mechanical ventilation.
DATA:
Transthoracic echocardiogram, 12/18/2024 ([facility]):
LVEF 45%. Severely dilated LA. Moderate to severe aortic stenosis (peak/mean 52.6/32.3 mmHg).
Severe thickening of the anterior and posterior leaflets of the mitral valve.
Severe mitral annular calcification. Moderate mitral valve regurgitation with centrally directed jet.
Transesophageal Echocardiogram, 12/22/2024:
CONCLUSIONS
-Left ventricular ejection fraction is 60-65%. Normal regional wall motion.
-Normal right ventricular size and function.
-No thrombus detected in the left atrial appendage.
-Thickened mitral valve leaflets and mitral annular calcification with a large,
partially mobile vegetation on the P3 segment of the posterior mitral valve
leaflet measuring approximately 1.5 x 2.5 cm (see below images). There was also
a smaller, highly mobile vegetation on the P1 segment of the mitral valve
leaflet. There also appears to be a small vegetation in the annular region of
the anterior mitral valve leaflet. Mitral valve opens normally.
-Moderate mitral regurgitation (multiple jets).
-Thickened/calcified trileaflet aortic valve with severely reduced leaflet
excursion. Likely severe aortic stenosis; gradients were not obtained.
BACKGROUND:
Yazmin was admitted 12/17/2024 with confusion. She was found on the floor by her son after she did not show up for work. Last seen normal greater than 24 hours AUTISM MOTOR SPECIALIST to ER. She presented febrile. Blood cultures demonstrated MSSA and she was started on
cefepime. CT of chest/abdomen/pelvis did not show definitive source. She was found to be in atrial fibrillation with rapid ventricular response with incomplete right bundle branch block. She was started on intravenous heparin and amiodarone. On
12/19/2024 a stroke alert was called for right sided facial droop in addition to right upper and lower extremity weakness. Her heparin drip was stopped due to concern for stroke. CT noncontrast on admission showed 2 foci of decreased density in the
right cerebral hemisphere consistent with acute infarct, one in the cerebellum and one in the high frontal lobe. MRI was pending and not completed prior to transfer. She was found to have pain and erythema of the left knee. On 12/20/2024
orthopedic surgery aspirated her knee. Notable labs during her admission included D-dimer of 16.3, HgbA1c 5.0%, troponin T fifth GEN peaked at 315, and CPK 1191.
Physical Exam
Vital Signs/Labs
Vital Signs
Temp Pulse Resp BP Pulse Ox
98.9 F 64 16 120/57 99
12/26/24 12:09 12/26/24 11:00 12/26/24 12:09 12/26/24 12:00 12/26/24 12:09
12/25/24 12/26/24 12/27/24
06:59 06:59 06:59
Actual Weight 87.7 kg 89.1 kg
12/26/24 04:20
PT 17.2 Sec (11.4-14.6) H 12/26/24 04:19
INR 1.37 12/26/24 04:19
APTT 37.3 Sec (23.4-35.0) H 12/24/24 11:54
Magnesium 2.3 mg/dl (1.6-2.3) 12/26/24 04:19
TSH 14.60 uIU/ml (0.47-4.68) H 12/22/24 04:26
Physical Exam
Constitutional: No acute distress and Other (Appears fatigued)
Cardiovascular: Rhythm & rate is regular
Respiratory: Wheeze Absent and Rhonchi Absent
GI: Soft, Non tender and Normal bowel sounds
Neuro/Psych: Alert
Data Reviewed
-
Date of Service: December 26, 2024
Medical Decision Making: Reviewed Test Results
Echo: Report Reviewed by me
Medical Tests (PFT, Pathology etc): Report Reviewed by me
Labs: Labs Reviewed by me
[2024-12-26 12:35] LABS: ALT (SGPT) 11 U/L (0-35); AST (SGOT) 81 U/L (14-36); Albumin 2.7 g/dl (3.5-5.0); Alkaline Phosphatase 47 U/L (38-126); Blood Urea Nitrogen 31 mg/dl (7-17); Calcium 8.4 mg/dl (8.4-10.2); Carbon Dioxide 25 mmol/L (22-30); Chloride 104 mmol/L (98-107); Estimated Creatinine Clearance 36 ml/min; Glucose 104 mg/dl (70-99); Potassium 3.8 mmol/L (3.5-5.1); Sodium 135 mmol/L (135-145); Total Bilirubin 1.3 mg/dl (0.2-1.3); Total Protein 5.1 g/dl (6.3-8.2); eGFR 36.12
--- NOTE | 2024-12-26 12:58 | PTCARENOTE ---
pt assisted OOB to chair using Joanie lift, tolerated well. Dobutamine maintained at 2mcg.
[2024-12-26] MEDS: FERRLECIT 110 MG IV (14:21)
[2024-12-26] MEDS: NSS 500 IV (14:21)
[2024-12-26] MEDS: ALBUMIN 5% 250 IV ×2 (14:21→17:22)
--- NOTE | 2024-12-26 16:50 | PTCARENOTE ---
pt returned to bed, PM care provided.
[2024-12-26] MEDS: LIPITOR 40 MG PO (18:23)
--- NOTE | 2024-12-26 19:29 | PTCARENOTE ---
CTs removed as ordered.
--- NOTE | 2024-12-26 20:35 | PTCARENOTE ---
Addendum entered by Garrick Barakat RN 12/27/24 04:28:
In addition to being SR patient has prolonged QT and BBB
Original Note:
Assumed care of patient at 1900. Patient found in bed at time of assessment. Patient is AOx4, follows commands appropriately, moves all extremities pupils are 4mm equal and reactive to light. Patient has noticeably flat affect appears somewhat
withdrawn on general impression. Lung sounds are diminished throughout, respirations are shallow, IS 500, 99% saO2 on 1L via NC. Heart sounds are audible, patient is SR on the monitor, normal palpabe pulses, +1 BLE edema, AV wires present with
45/10/1.2/0.8. Patient has BS present in all four quadrants, kaplan draining clear yellow urine. There is a sternal incision approx with surg adhesive ASPHALT WORKER. There is a R IJ cordis with swan at 43cm, L radial ayden, 2xPIV. Patient is receiving
Cordis/VIP KVO and Dobut@2. Last CI 2.01. Call garay within reach.
[2024-12-26] MEDS: KCL 20 MEQ PO (22:12)
[2024-12-27] VITALS (28 sets, daily range): BP systolic 94–148; BP diastolic 47–66; PULSE 60–65; O2SAT 98; BMI 32.3
--- NOTE | 2024-12-27 00:32 | PTCARENOTE ---
Patient reassessed. VSS. No c/o pain. Patient given [address] HS [address] PA for 3.8 potassium in AM. Remains SR on the monitor. CI 1.96. Patient with low UOP CT PA aware. Call garay within reach.
[2024-12-27] MEDS: NAFCIL 108 MG IV ×2 (03:24→06:11)
[2024-12-27 03:45] LABS: Mixed Venous O2 Saturation 62.6 %
[2024-12-27 03:52] LABS: Hematocrit 25.7 % (37.0-47.0); Hemoglobin 8.7 g/dL (12.0-16.0); Mean Corp Hgb Conc. 33.9 g/dL (33.0-37.0); Mean Corpuscular Hgb 29.7 pg (27.0-31.0); Mean Corpuscular Volume 87.7 fL (81.0-99.0); Mean Platelet Volume 10.7 fL (7.4-10.4); Platelet Count 149 10^3/uL (130-400); Red Blood Cell Count 2.93 10^6/uL (4.20-5.40); Red Cell Dist. Width 14.5 % (11.5-14.5); White Blood Cell Count 9.4 10^3/uL (4.8-10.8)
[2024-12-27 03:56] LABS: Ionized Calcium 1.11 mMOL/L (1.15-1.33)
--- NOTE | 2024-12-27 04:04 | W.PN.CT ---
Today's Communication / Plan
-
Plan:
-No major issues overnight. Hemodynamically and neurologically stable
-Dobutamine weaned to 2 mcg/kg/min. Will likely slowly wean off by 0.5. Will wean to 1.5 @ 0500 and assess CI/MVO2 after
-CI and MVO2 with dobutamine @ 2: CI 2.26, MVO2 62.6%; 24hr u/o 1225 mL
-Current rhythm is NSR @ 62 bpm with PAC's. Was pacer dependent immediately postop d/t bradycardia and required A/V pacing @ 80 bpm
-Maintain temporary PW today, noted to be inappropriately pacing this AM, pacer rate and MA decreased from 45/10/10 to DDD 35/5/5
-Consider replacing Nafcillin given rising creatinine since started, as it's known to cause AIN and ATN, rising cr may also be d/t cardiorenal syndrome. ID following
-Consider 1u PRBC, as should help with perfusion if rising creatinine is d/t cardiorenal syndrome. Should also help with weaning off Dobutamine
-H/H 8.7/25.7 down from 9.1/26.9, although likely partly hemodilutional from 500 mL of Albumin received yesterday, pt's h/h was 13.1/37.5 preop
-Monitor SEEMA, cr 0.6->1.4->1.5->1.9
-Placed mag oxide on hold, mg 2.4 this AM
-Consider Lasix following 1u PRBC, pt does not appear to be dehydrated as lactic acid is 0.7 today
-Remaining mediastinal CT d/c'd yesterday 12/26
-Holding Amiodarone and BB while on Dobutamine
-Switched Ancef to Nafcillin on 12/25, given rising INR on Ancef
-Received a total of 7.5 po vit K for INR of 5.6 yesterday, INR 1.29 today
-Cont. current meds (ASA, Synthroid, Plaquenil, Lipitor; Amiodarone and Lopressor placed on hold while on dobutamine gtt)
-Wean dobutamine as tolerated
-D/C swan and a-line when off dobutamine
-D/C kaplan when off dobutamine
-Will transition to tele phase once off dobutamine
-Maintain cordis, will eventually require PICC line for senior living antibiotic therapy
-Maintain temporary PW (may need to keep PW another day until rhythm is assessed off dobutamine)
-Encourage use of IS
-Wean off of O2 as tolerated
-OOB into chair/Ambulate/PT/OT f/u
-Encourage nutritional intake, pre-albumin is down, 8.8->9.1
Assessment / Plan
-
Assessment:
-S/P Standard sternotomy/Surgical aortic valve replacement [25 mm prosthesis]/Mitral valve replacement with [place] cord replacement for reinforcement [29 mm bioprosthesis]/ Extensive debridement of mitral annular calcification and patch of the
mitral valve annulus using bovine pericardium/Modified open surgical left atrial maze (encompass RF ablation and cryo ablation)/Left atrial appendage exclusion [35 mm device]/Drainage of right pleural effusion [300 cc], by Dr. Bullock, 12/24/24, pod#3
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
-Paroxysmal atrial fibrillation, new onset
-Severe aortic valve stenosis
-Mitral valve stenosis with severe mitral annular calcification
-LVEF 60-65%
-MRSA
-Class 1 obesity (BMI 30.4)
-Osteoporosis with Left tibial plateau fx as well Left meniscus tear, per MRI 12/23/24
-Former tobacco use (quit 40 years ago)
-Systemic Lupus Erythematosus
-Preop hypokalemia
-Preop thrombocytopenia
-Hypothyroidism
-S/P Thyroidectomy
-Acute postop blood loss/Anemia (stable without transfusion)
-Acute postop atelectasis
-Acute postop hypovolemia with subsequent hypervolemia
-Acute postop temporary pacer dependence d/t bradycardia
-Acute postop RBBB
-Acute postop elevated INR 5.61
-Acute postop SEEMA, 1.4
-Acute postop flat affect/depression
Discussed patient care with: Cardiology, Nursing, Respiratory Therapy, Pharmacy and Care Team
Subjective
Procedure
-S/P Standard sternotomy/Surgical aortic valve replacement [25 mm prosthesis]/Mitral valve replacement with [place] cord replacement for reinforcement [29 mm bioprosthesis]/ Extensive debridement of mitral annular calcification and patch of the
mitral valve annulus using bovine pericardium/Modified open surgical left atrial maze (encompass RF ablation and cryo ablation)/Left atrial appendage exclusion [35 mm device]/Drainage of right pleural effusion [300 cc], by Dr. Bullock, 12/24/24
-
Date of Service: December 27, 2024
Pt c/o mild incisional pain and feeling weak
Objective Data
-
Lab Results
12/27/24 03:35
PT 17.2 Sec (11.4-14.6) H 12/26/24 04:19
INR 1.37 12/26/24 04:19
APTT 37.3 Sec (23.4-35.0) H 12/24/24 11:54
Vital Signs
Vital Signs
Temp Pulse Resp BP Pulse Ox
98.2 F 80 19 108/53 96
12/27/24 01:00 12/27/24 03:00 12/27/24 03:00 12/27/24 03:00 12/27/24 03:00
CT Intake/Output/Weight
12/26/24 12/26/24 12/27/24
06:59 18:59 06:59
Intake Total 1190 / 2438.8 1647.8 / 1907.8 260 / 1907.8
Output Total 1285 / 2065 715 / 890 175 / 890
Balance -95 / 373.8 932.8 / 1017.8 85 / 1017.8
SaO2: 96 (1L)
Physical Exam
-
General: Awake, Oriented and AOx3
Cardiovascular: Regular rate & rhythm, No Murmurs, No Rub and No Gallop
Respiratory: Decreased Breath Sounds (at bases, otherwise clear)
Sternum: Stable
Incision: Clean, Dry, Intact and Dressing Intact
Extremities: Other (+trace edema)
Data Reviewed
-
Lab Results: Results Reviewed
Medications: Active Meds Reviewed
Chest X-Ray: Report Reviewed and Image Reviewed
ECG: Report Reviewed and Image Reviewed
[2024-12-27 04:07] LABS: Lactic Acid 0.7 mmol/L (0.7-2.0)
[2024-12-27 04:08] LABS: Blood Urea Nitrogen 37 mg/dl (7-17); Calcium 7.9 mg/dl (8.4-10.2); Carbon Dioxide 24 mmol/L (22-30); Chloride 102 mmol/L (98-107); Estimated Creatinine Clearance 28 ml/min; Glucose 101 mg/dl (70-99); Magnesium 2.4 mg/dl (1.6-2.3); Potassium 3.8 mmol/L (3.5-5.1); Sodium 135 mmol/L (135-145)
[2024-12-27 04:19] LABS: INR 1.29; PT 16.4 Sec (11.4-14.6)
[2024-12-27 04:32] LABS: Prealbumin (Transthyretin) 9.1 mg/dl (17.6-36.0)
[2024-12-27] MEDS: KCL 40 MEQ PO (04:41)
--- NOTE | 2024-12-27 05:46 | PTCARENOTE ---
Addendum entered by Garrick Barakat RN 12/27/24 05:55:
K repleted with 40 mg PO
Original Note:
Patient reassessed. Remains in SR with long QT BBB PACs. AM labs obtained. AM hygiene care provided. Sacral foam dressing changed for preventative pressure wound care. Dobut tapered to 1.[address] PA[address] Nair lift oob to chair without incident. Call
garay within reach.
--- NOTE | 2024-12-27 05:49 | PTCARENOTE ---
At approx 0220 patient with increasing ectopy in the form of PACs. This RN noticed inappropriate pacing on the surveillance monitor. Sensitivity adjusted but did not stop inappropriate pacing. CT PA notified. CT PA adjusted pacemaker settings to rate 35
and stimulation to 5. Patient otherwise stable.
[2024-12-27] MEDS: SYNTHROID 250 MCG PO (06:10)
[2024-12-27] MEDS: TYLENOL 1000 MG PO ×3 (06:10→21:06)
--- NOTE | 2024-12-27 08:13 | W.PN.CD ---
Today's Communication / Plan
-
Cr continues to worsen despite improved filling pressures and no evidence of hypoperfusion, would d/w nephrology
otherwise progressing appropriately post-op
Impression / Plan
-
Impression/Plan: 74F with severe aortic stenosis hypothyroidism, lupus, and former smoker transferred from [facility] after being admitted for sepsis/MSSA bacteremia, new atrial fibrillation and CVA during that hospitalization, found to have infectious
mitral valve endocarditis, now s/p ARV/MVR/PAMELA clip with Dr. Bullock 12/24/24.
Interval events:
-latest hemos: CI and MVO2 with dobutamine @ 2: CI 2.26, MVO2 62.6%; 24hr u/o 1225 mL; PAD 16, CVP 12
-tele with sinus rhythm
-Cr continues to rise this AM cr 0.6->1.4->1.5->1.9
-chest tube out
#MSSA infectious endocarditis (acute)
-Preoperatively large vegetations on mitral valve with associated mitral regurgitation and patient also with moderate to severe aortic stenosis
-S/P AVR & MVR with PAMELA clip by Dr. Bullock 12/24/2024
-Antibiotics as directed by ID
.
-S/P AVR & MVR with PAMELA clip by Dr. Bullock 12/24/2024
-Patient required pacing postop continue to monitor rhythms postop
-Wean dobutamine as tolerated
-Additional postop treatment as per CT surgery
.
-SEEMA. Creatinine up to 1.9 today. Today's labs pending.
-PAD lower (10) yesterday and given fluids and blood now PAD 16 which seems appropriate; seems unlikely to be cardiorenal
-consider drug toxicity (Nafcillin?) d/w ID and nephrology
#CVA
-Expressive aphasia and word finding difficulty on exam, oriented.
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
#Paroxysmal atrial fibrillation
-New diagnosis at [facility]
-Rate/rhythm control on amiodarone, converted to PO, currently held in setting of prior bradycardia; could reconsider restarting now that in sinus
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 Since patient with endocarditis but now that patient had AVR MVR and had A-fib prior to hospitalization would consider anticoagulation postoperatively when okay from a postoperative standpoint and from a
neurostandpoint
-[id number]: Score at least 4 prior to CVA (HTN, age 74 or more, female gender).
-No thrombus detected in PAMELA appendage preoperatively. Postoperatively patient with left atrial appendage clip 12/24/2024
#Left knee previous aspiration.. See Ortho note
#Hypothyroidism
-Chronic.
-On levothyroxine;
#Lupus
#Former smoker
Primary music ministries director: Yunior Peguero
Data
-MARY shows large vegetation (~1.5 x 2.5 cm) on mitral valve with at least moderate mitral regurgitation; smaller vegetation(s) noted as well.
-TTE: Aortic valve gradients 52/32 mmHg with severe MAC and severe MR (severe precedes bacteremia).
Subjective/Interval History:
Sitting in chair comfortably.
DATA:
Transthoracic echocardiogram, 12/18/2024 ([facility]):
LVEF 45%. Severely dilated LA. Moderate to severe aortic stenosis (peak/mean 52.6/32.3 mmHg).
Severe thickening of the anterior and posterior leaflets of the mitral valve.
Severe mitral annular calcification. Moderate mitral valve regurgitation with centrally directed jet.
Transesophageal Echocardiogram, 12/22/2024:
CONCLUSIONS
-Left ventricular ejection fraction is 60-65%. Normal regional wall motion.
-Normal right ventricular size and function.
-No thrombus detected in the left atrial appendage.
-Thickened mitral valve leaflets and mitral annular calcification with a large,
partially mobile vegetation on the P3 segment of the posterior mitral valve
leaflet measuring approximately 1.5 x 2.5 cm (see below images). There was also
a smaller, highly mobile vegetation on the P1 segment of the mitral valve
leaflet. There also appears to be a small vegetation in the annular region of
the anterior mitral valve leaflet. Mitral valve opens normally.
-Moderate mitral regurgitation (multiple jets).
-Thickened/calcified trileaflet aortic valve with severely reduced leaflet
excursion. Likely severe aortic stenosis; gradients were not obtained.
BACKGROUND:
Yazmin was admitted 12/17/2024 with confusion. She was found on the floor by her son after she did not show up for work. 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 She presented febrile. Blood cultures demonstrated MSSA and she was started on
cefepime. CT of chest/abdomen/pelvis did not show definitive source. She was found to be in atrial fibrillation with rapid ventricular response with incomplete right bundle branch block. She was started on intravenous heparin and amiodarone. On
12/19/2024 a stroke alert was called for right sided facial droop in addition to right upper and lower extremity weakness. Her heparin drip was stopped due to concern for stroke. CT noncontrast on admission showed 2 foci of decreased density in the
right cerebral hemisphere consistent with acute infarct, one in the cerebellum and one in the high frontal lobe. MRI was pending and not completed prior to transfer. She was found to have pain and erythema of the left knee. On 12/20/2024
orthopedic surgery aspirated her knee. Notable labs during her admission included D-dimer of 16.3, HgbA1c 5.0%, troponin T fifth GEN peaked at 315, and CPK 1191.
Physical Exam
Vital Signs/Labs
Vital Signs
Temp Pulse Resp BP Pulse Ox
36.7 C 69 22 104/47 99
12/27/24 07:00 12/27/24 07:00 12/27/24 07:00 12/27/24 07:00 12/27/24 07:00
12/26/24 12/27/24 12/28/24
06:59 06:59 06:59
Actual Weight 88 kg
12/27/24 03:35
12/27/24 03:35
PT 16.4 Sec (11.4-14.6) H 12/27/24 03:35
INR 1.29 12/27/24 03:35
APTT 37.3 Sec (23.4-35.0) H 12/24/24 11:54
Magnesium 2.4 mg/dl (1.6-2.3) H 12/27/24 03:35
TSH 14.60 uIU/ml (0.47-4.68) H 12/22/24 04:26
Physical Exam
Constitutional: No acute distress
Cardiovascular: Rhythm & rate is regular
Respiratory: Respiratory effort normal
Neuro/Psych: AO x 3
Data Reviewed
-
Date of Service: December 27, 2024
Medical Decision Making: Reviewed Test Results
EKG: Report Reviewed by me
Echo: Report Reviewed by me
X-Ray/CT/US/MRI/NUC/PET: Image Personally Visualized and interpreted
Medical Tests (PFT, Pathology etc): Image Personally Visualized and interpreted
Labs: Labs Reviewed by me
--- NOTE | 2024-12-27 08:30 | PTCARENOTE ---
Patient received from shiftman resting oob in chair, states pain controlled, affect flat. NSR via cm, SaO2 @ 98% on 1lnc. RIJ Cordis/[place] catheter, L radial arterial lines present - leveled, flushed, and calibrated w/good waveforms returned.
Epicardial V-wire to pulse generator backup rate 35bpm, no spikes noted. Tran catheter to gravity. All procedural sites stable. Patient updated to plan of care for the day, in agreement. Patient set up for breakfast, assisted to eat, appetite
improved. See work list for full assessment, interventions performed, and intravenous infusions and titrations.
[2024-12-27] MEDS: LIDOCAINE 4% PATCH TOPICAL (09:08)
--- NOTE | 2024-12-27 09:20 | W.PN.ID1 ---
Date of Service
Date of Service: December 27, 2024
Today's Communication
- will switch back to vancomycin to complete the 6 week course
Assessment / Plan
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
MSSA bacteremia - sustained, now cleared
CVA possible septic infarctions
SEEMA
- s/p MAZE, L atrial appendage, AVR, MVR, temp AV pacing wires on 12/24
- MSSA bacteremia at [facility] 12/17 and 12/18; 12/[address] [facility] x2 are both finalized negative
- repeat blood cultures x2 done here on 12/21 are no growth to date
- SEEMA vs AIN
- Cr rise did begin after nafcillin started, unlikely to have had previous exposure however
- no fevers or rash noted
- will check for peripheral and urine eosinophils
- reportedly no significant hypotension intra or post operatively
- follow up nephrology input
- will switch back to vancomycin to complete the 6 week course
- patient is critically ill on minimal pressors
Chief Complaint
-: Bacteremia and Other (endocarditis, cva due to MSSA)
Subjective / Review of Systems
afebrile
remains on minimal pressors
no complaints
Vital Signs / Physical Exam
Vital Signs
Vital Signs
Temp Pulse Resp BP Pulse Ox
98.1 F 63 29 115/57 97
12/27/24 07:00 12/27/24 08:00 12/27/24 08:00 12/27/24 08:00 12/27/24 08:00
Physical Exam
Constitutional: Acutely Ill and Chronically Ill
Cardiovascular: Regular Rate and S1/S2; Negative Murmur or Rub
Pulmonary: Clear and Symmetric; Negative Wheezes or Rales
Gastrointestinal: Soft, Non Tender, Non Distended and Normal Bowel Sounds
Skin: Warm and Dry; Negative Rash or Jaundice
Objective Data
Lab Data
Lab Results
12/27/24 03:35
12/27/24 03:35
ESR 25 mm/hour (0-20) H 12/22/24 13:18
PT 16.4 Sec (11.4-14.6) H 12/27/24 03:35
INR 1.29 12/27/24 03:35
APTT 37.3 Sec (23.4-35.0) H 12/24/24 11:54
Estimated Creat Clear 28 ml/min 12/27/24 03:35
Lactic Acid 0.7 mmol/L (0.7-2.0) 12/27/24 03:30
Total Bilirubin 1.3 mg/dl (0.2-1.3) 12/26/24 12:07
AST 81 U/L (14-36) H 12/26/24 12:07
ALT 11 U/L (0-35) 12/26/24 12:07
Alkaline Phosphatase 47 U/L (38-126) 12/26/24 12:07
C-Reactive Protein 133.00 mg/L (0.0-10.00) H 12/22/24 13:18
Most recent labs reviewed.
Micro Results:
12/23/24 04:29 Blood Culture - Preliminary
Blood/Venous No Growth in 4 days- Final report to follow
12/23/24 03:54 Blood Culture - Preliminary
Blood/Venous No Growth in 4 days- Final report to follow
12/24/24 09:00 Acid Fast Bacilli Smear - Preliminary
Heart Acid Fast Bacilli Culture - Preliminary
12/24/24 09:00 Acid Fast Bacilli Smear - Preliminary
Heart Acid Fast Bacilli Culture - Preliminary
12/21/24 18:00 Blood Culture - Final
Blood/Venous No Growth - Final Report
12/21/24 12:56 Blood Culture - Final
Blood/Venous No Growth - Final Report
12/24/24 09:00 Tissue Culture - Preliminary
Heart No Growth After 48 Hours
Gram Stain - Preliminary
12/24/24 09:00 Tissue Culture - Preliminary
Heart No Growth After 48 Hours
Gram Stain - Preliminary
12/24/24 09:00 Anaerobic Culture - Preliminary
Heart Culture pending. Anaerobic cultures are examined after 3
days incubation. Additional information to follow.
12/24/24 09:00 Anaerobic Culture - Preliminary
Heart Culture pending. Anaerobic cultures are examined after 3
days incubation. Additional information to follow.
12/22/24 12:50 Wound Culture - Final
Knee - Left No growth
Gram Stain - Final
12/24/24 09:00 Fungal Smear - Pending
Heart Fungal Culture - Pending
12/24/24 09:00 Fungal Smear - Pending
Heart Fungal Culture - Pending
12/21/24 17:55 MRSA Screen - Final
Nose No Methicillin Resistant Staphylococcus aureus isolated.
[2024-12-27] MEDS: LASIX 20 MG IV ×3 (09:23→18:07)
[2024-12-27] MEDS: BACTROBAN 2% OINTMENT 1 APPLIC NASAL ×2 (09:23→20:41)
[2024-12-27] MEDS: LOW STRENGTH ASPIRIN 81 MG PO (09:24)
[2024-12-27] MEDS: SENOKOT-S 1 TABLET PO ×2 (09:24→20:41)
[2024-12-27] MEDS: NEURONTIN 100 MG PO ×3 (09:24→21:06)
[2024-12-27] MEDS: PROTONIX 40 MG PO (09:28)
--- NOTE | 2024-12-27 09:53 | PHA.VAN.IN ---
Assessment
- Assessment
Renal Function: Appears elevated from baseline (SCR 1.9 vs ~0.6)
Plan
- Plan
Initial / Loading Dose: 2000mg - administration pending
Maintenance Regimen: dosing by level
Monitoring: random 12/28 599
Pharmacokinetics Vancomycin I
- -
Patient Age: 74
Patient Sex: Female
Vancomycin Day #: 1
Indication: Halal Meat Packer Infection
Requesting Provider: Dr. Toney
Pertinent Antimicrobial Allergies:
NKDA
Height / Weight:
Height 5 ft 5 in
Actual Weight 88 kg
Pertinent Past Medical History: BMI ~32
- Vital Signs / Lab Results
Temp Pulse Resp BP Pulse Ox
98.1 F 57 29 116/49 97
12/27/24 07:00 12/27/24 09:23 12/27/24 08:00 12/27/24 09:23 12/27/24 08:00
Lab Results - Hematology
12/25/24 12/26/24 12/27/24
04:51 04:20 03:35
WBC 8.6 10.7 9.4
Lab Results - Chemistry
12/24/24 12/25/24 12/26/24
11:54 04:51 04:19
BUN 12 16 27 H
Creatinine 0.6 0.6 1.4 H
Estimated Creat Clear 86 89 38
Albumin 2.9 L
12/26/24 12/27/24
12:07 03:35
BUN 31 H 37 H
Creatinine 1.5 H 1.9 H
Estimated Creat Clear 36 28
Albumin 2.7 L
12/27/24
03:30
Lactic Acid 0.7
Microbiology Results
12/24/24 09:00 Tissue Culture - Preliminary
Heart No Growth After 72 Hours
Gram Stain - Preliminary
12/24/24 09:00 Anaerobic Culture - Preliminary
Heart Culture pending. Anaerobic cultures are examined after 3
days incubation. Additional information to follow.
12/24/24 09:00 Tissue Culture - Preliminary
Heart No Growth After 72 Hours
Gram Stain - Preliminary
12/23/24 04:29 Blood Culture - Preliminary
Blood/Venous No Growth in 4 days- Final report to follow
12/23/24 03:54 Blood Culture - Preliminary
Blood/Venous No Growth in 4 days- Final report to follow
12/24/24 09:00 Acid Fast Bacilli Smear - Preliminary
Heart Acid Fast Bacilli Culture - Preliminary
12/24/24 09:00 Acid Fast Bacilli Smear - Preliminary
Heart Acid Fast Bacilli Culture - Preliminary
12/21/24 18:00 Blood Culture - Final
Blood/Venous No Growth - Final Report
12/21/24 12:56 Blood Culture - Final
Blood/Venous No Growth - Final Report
12/24/24 09:00 Anaerobic Culture - Preliminary
Heart Culture pending. Anaerobic cultures are examined after 3
days incubation. Additional information to follow.
[2024-12-27] MEDS: VANCOCIN 540 MG IV (10:20)
[2024-12-27 10:37] LABS: Mixed Venous O2 Saturation 63.2 %
[2024-12-27 10:49] LABS: Urine Albumin 3+ (Neg - Trace); Urine Bilirubin Negative (Negative); Urine Character Cloudy (Clear); Urine Color Yellow; Urine Glucose Negative (Negative); Urine Ketone Negative (Negative); Urine Leukocyte Negative (Negative); Urine Nitrite Negative (Negative); Urine Occult Blood 4+ (Negative); Urine Urobilinogen Negative (Neg - 1+)
[2024-12-27] MEDS: CALCIUM CHLORIDE 10% SYRINGE 1000 MG IV ×2 (11:00→11:44)
[2024-12-27] MEDS: CORDARONE 518 MG IV (11:03)
[2024-12-27 11:13] LABS: Osmolality Urine 319 mOsm/kg (300-900)
--- NOTE | 2024-12-27 11:14 | W.CON.NEPH ---
Consultation
-
Date/Time Consultation Requested: December 27, 2024 at 7 AM
Date/Time Consultation Performed: December 27, 2024 at 10 AM
Requesting Provider: Dr. Anders
Performing Provider: Dr. Carpenter
Reason for Consultation: Acute kidney injury
Medical History
-
Chief Complaint: Acute kidney injury
History of Present Illness:
74yo female with severe aortic stenosis hypothyroidism, lupus, and former smoker transferred from [facility] after being admitted on 12/21/24 for sepsis/MSSA bacteremia, new atrial fibrillation and CVA during that hospitalization, found to have infectious
mitral valve endocarditis. She is status post AVR and MVR on 12/24. She has been on antibiotics and had periods of A-fib and bradycardia. She has had periods of hypotension. She is status post CVA with expressive aphasia and likely embolic.
Renal consult for acute kidney injury. Her creatinine was relatively normal on admission and has been progressively increasing currently at 1.9.
History was obtained in reviewing chart discussion with nurse and discussion with her son who was at the bedside.
Past Medical History
74yo female with severe aortic stenosis hypothyroidism, lupus, endocarditis CVA
Social History
Tobacco: Former Smoker
Alcohol: None
Family History
Family History: Not Pertinent
Allergies / Home Medications
Allergy/AdvReac Type Severity Reaction Status Date / Time
No Known Allergies Allergy Verified 12/21/24 13:23
�Medication �Instructions �Recorded �Confirmed �Type
gabapentin 300 mg PO HS Neurological Condition 12/21/24 12/21/24 History
hydroxychloroquine 200 mg PO Q OTHER DAY Autoimmune 12/21/24 12/21/24 History
Disorder
hydroxychloroquine 400 mg PO Q OTHER DAY Autoimmune 12/21/24 12/21/24 History
Disorder
levothyroxine 250 mcg DAILY Thyroid 12/21/24 12/21/24 History
Review of Systems
-
No chest pain or shortness of breath
All other systems: Negative unless noted
Physical Exam
Vital Signs
Vital Signs
Temp Pulse Resp BP Pulse Ox
98.7 F 58 23 106/52 98
12/27/24 10:00 12/27/24 10:00 12/27/24 10:00 12/27/24 10:00 12/27/24 10:40
Lab Results
WBC 9.4 10^3/uL (4.8-10.8) 12/27/24 03:35
RBC 2.93 10^6/uL (4.20-5.40) L 12/27/24 03:35
Hgb 8.7 g/dL (12.0-16.0) L 12/27/24 03:35
Hct 25.7 % (37.0-47.0) L 12/27/24 03:35
Plt Count 149 10^3/uL (130-400) 12/27/24 03:35
Sodium 135 mmol/L (135-145) 12/27/24 03:35
Potassium 3.8 mmol/L (3.5-5.1) 12/27/24 03:35
Chloride 102 mmol/L (98-107) 12/27/24 03:35
Carbon Dioxide 24 mmol/L (22-30) 12/27/24 03:35
BUN 37 mg/dl (7-17) H 12/27/24 03:35
Creatinine 1.9 mg/dL (0.6-1.0) H 12/27/24 03:35
eGFR 27.20 12/27/24 03:35
Glucose 101 mg/dl (70-99) H 12/27/24 03:35
Calcium 7.9 mg/dl (8.4-10.2) L 12/27/24 03:35
Albumin 2.7 g/dl (3.5-5.0) L 12/26/24 12:07
Physical Exam
General no acute distress
HEENT no cephalic atraumatic extraocular muscle intact no scleral icterus no JVD neck supple
lungs clear to auscultation bilateral
heart regular S1-S2 positive
abdomen soft nontender positive bowel sounds
extremities no edema pulses present bilateral
Skin no lesions no abrasions no petechiae
Psych normal affect no bizarre behavior
Data Reviewed
-
Radiology: Image Personally Visualized and interpreted
Labs: Labs Reviewed by me, Discussed with Nurse and Discussed with Family
Assessment/Plan
-
74yo female with severe aortic stenosis hypothyroidism, lupus, and former smoker transferred from [facility] after being admitted on 12/21/24 for sepsis/MSSA bacteremia, new atrial fibrillation and CVA during that hospitalization, found to have infectious
mitral valve endocarditis. She is status post AVR and MVR on 12/24. She has been on antibiotics and had periods of A-fib and bradycardia. She has had periods of hypotension. She is status post CVA with expressive aphasia and likely embolic.
Renal consult for acute kidney injury. Her creatinine was relatively normal on admission and has been progressively increasing currently at 1.9.
Impression.
Acute kidney injury -cr 0.6->1.4->1.5->1.9-multifactorial suspect ATN from hemodynamic changes moderate hypotension rule out infectious GN
MSSA bacteremia/endocarditis status post AVR/MVR.
Status post acute CVA.
Atrial fibrillation-amnio
Plan.
Awaiting urine indices.
Continue antibiotics.
Status post diuretics�nonoliguric.
Renal dose all medications appropriate for GFR less than 20 until reaches steady state.
Remains on dobutamine= indexes noted
Would hold any further IV fluids at this time.
Total Time Spent with Patient (in minutes): 40
[2024-12-27 11:16] LABS: % Basophils 0.4 % (0-2); % Eosinophils 0.6 % (0-6); % Immature Granulocytes 1.9 % (0-0.5); % Lymphocytes 7.6 % (20.5-51.1); % Monocytes 6.1 % (1.7-9.3); % Neutrophils 83.4 % (42.2-75.2); Absolute Eosinophils 0.1 10^3/uL (0-0.7); Absolute Immature Granulocytes 0.2 10^3/uL (0-0.05); Absolute Lymphocytes 0.7 10^3/uL (1.2-3.4); Absolute Monocytes 0.6 10^3/uL (0.1-0.6); Absolute Neutrophils 7.6 10^3/uL (1.4-6.5); Nucleated Red Blood Cells % 0 %
[2024-12-27 11:30] LABS: Urine Potassium 50.6 mmol/L (30-90)
[2024-12-27 11:33] LABS: Urine Calcium 1.2 mg/dl
[2024-12-27 11:37] LABS: Urine Sodium 52 mmol/L (30-90)
[2024-12-27] MEDS: NSS 500 IV (11:44)
[2024-12-27 11:45] LABS: Urine Amorphous Seen; Urine Urothelial Cell 26-30 /LPF (FEW)
[2024-12-27 11:47] LABS: Urine Bacteria Few (Negative); Urine Yeast Many (Negative)
[2024-12-27 11:48] LABS: Urine Squamous Cell 0-2 /LPF (Few)
[2024-12-27 12:05] LABS: Body Fluid for Eosinophils No Eosinophils seen
--- NOTE | 2024-12-27 12:26 | PTCARENOTE ---
VS obtained, assessment stable. Patient remains oob in chair, dozing. Worked w/PT/OT.
[2024-12-27 14:00] LABS: Urine Protein 128 mg/dl (0-12)
[2024-12-27] MEDS: FERRLECIT 110 MG IV (14:40)
[2024-12-27 15:54] LABS: Blood Urea Nitrogen 41 mg/dl (7-17); Calcium 9.2 mg/dl (8.4-10.2); Carbon Dioxide 21 mmol/L (22-30); Chloride 104 mmol/L (98-107); Estimated Creatinine Clearance 28 ml/min; Glucose 111 mg/dl (70-99); Potassium 4.5 mmol/L (3.5-5.1); Sodium 133 mmol/L (135-145)
--- NOTE | 2024-12-27 16:11 | CM ---
phys therapy is recomm skilled rehab- reviewed chart with Balbir vásquez who is in agreement that acute rehab is too aggressive for the patient at this time. called son, discussed skilled rehabs, he is agreeable to this plan. list of rehabs left at
bedside for son to review with mom and brother this evening. will get back to him tomorrow with list for referrals.
--- NOTE | 2024-12-27 16:22 | W.PN.INTV ---
Addendum entered and electronically signed by Collin Calvert MD 12/31/24 16:13:
Hypotension, post cardiac surgery vasoplegia. On Dobutamine @1. Wean as tolerated.
Original Note:
Today's Communication / Plan
Recommendations
-Wean Dobutamine as tolerated
-Nephrology consult
Assessment
-
Assessment: 74-year-old female former tobacco smoker with a past medical history of SLE, aortic stenosis, and hypothyroidism who presented from outside hospital ([facility]) after initially presenting with AMS. Patient presented to [facility] on 12/17/2024 with
confusion, lethargy, FLOYD + chills. Initial CT imaging showed multiple foci of ischemia with concern for embolic CVA. Blood cultures became positive for MSSA and she also developed new onset A-fib with RVR, requiring amiodarone + IV heparin. Echo
showed moderate to severe aortic stenosis with severe MAC and severe MR. She developed new right-sided facial droop on 12/19 and rapid response was called. CT head showed no significant findings. Patient transferred to [facility] on
12/21/2024 for surgical evaluation of her MSSA [place] mitral and aortic valve endocarditis. On 12/22, orthopedic surgery aspirated 9 cc of bloody fluid from her left knee due to pain and swelling, and there were no crystals seen and cultures have
shown NGTD. Left heart catheterization on 12/23/2024 showed dense calcification of the proximal LAD. Given her aortic + mitral valve endocarditis with septic embolic stroke, cardiothoracic surgical intervention was recommended and patient agreed to
this procedure. On 12/24/2024, patient underwent surgical aortic valve replacement, mitral valve replacement, extensive debridement of the mitral annular calcification and patch of the mitral valve annulus using bovine pericardium, drainage of a
right-sided pleural effusion (drained 300 cc) and a left atrial appendage exclusion. Patient tolerated the procedure well with no immediate complications, and was transferred to the CVICU postoperatively for further care with body worker services
consulted for additional management/recommendations.
Chronic conditions EMT/PARAMEDIC: Severe aortic stenosis, history of lupus, obesity, former tobacco use and hypothyroidism
Impression:
#Bacterial endocarditis of mitral valve with severe aortic valve stenosis, septic emboli with CVA and new onset A-fib with RVR s/p SAVR with 25 mm prosthesis, mitral valve replacement with 29 mm bioprosthesis, extensive debridement of the mitral
annular calcification and patch of the MV annulus using bovine pericardium + left atrial appendage exclusion with 35mm device (POD #2)
#Acute anemia due to above
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
#Paroxysmal A-fib
#Severe aortic valve stenosis
#Mitral valve stenosis with severe mitral annular calcification
#History of SLE
#Former tobacco smoker (quit approximately 40 years ago)
# Shock, currently on Dopamine @ 1
# SEEMA, concern for ATN
Plan:
Patient successfully extubated on 12/24/2024, and is currently breathing comfortably on 2 L/min saturating 98%
Maintain SpO2 >90-94%
prn nebulized bronchodilators - not currently bronchospastic
If patient strong enough, would encourage incentive spirometer use q1hr while awake
Pulmonary artery catheter parameters will be followed
Pressors/antihypertensive/inotropes/diuretics will be provided as needed --> currently on dobutamine at 1 mcg/kg/min
Maintain MAP>65
Replete electrolytes with K>4, Mg>2
Follow-up pathology + cultures obtained from the OR on 12/24/2024
Also pain control from the patient's left knee which was drained on 12/22/2024 with cultures thus far showing NGTD; knee joint fluid was negative for crystals
Monitor hemoglobin
Monitor platelet count and coags
Transfuse blood products as needed to maintain Hb>7g/dL, plt>50k (given post-operative status)
CT surgery managing chest tubes
Monitor blood sugar to maintain euglycemia with goal BG 110-140
Insulin drip is now off
Nephrology consult for SEEMA
Aspiration precautions
DVT prophylaxis
Early nutrition
Early mobilization
Welder Apprentice services will continue to follow along while patient remains in the CVICU.
Critical care statement: A total of 30 minutes of critical care time was provided for this patient today. This includes management of ventilator, spontaneous breathing trial, arterial blood gases, pressors, of unstable vital signs, evaluation of the
patient at bedside, reviewing the patient's pertinent medical records including radiographs, microbiology, laboratory evaluations, and discussion with primary team and critical care nursing.
Subjective Dataa
Subjective Data
Date of Service:
Date of Service: December 27, 2024
Chief Complaint: Welder Apprentice Follow Up
Objective Data
Data Reviewed
Vital Signs / I&O / Oxygen:
Vital Signs
Temp Pulse Resp BP Pulse Ox
99 F 58 33 143/63 98
12/27/24 16:00 12/27/24 16:20 12/27/24 16:00 12/27/24 16:20 12/27/24 16:00
Intake and Output
12/26/24 12/27/24 12/28/24
06:59 06:59 06:59
Intake Total 2413.8 / 2438.8 2412.8 / 2437.8 1166.5 / 1166.5
Output Total 1964 / 2064 960 / 985 840 / 840
Balance 448.8 / 373.8 1452.8 / 1452.8 326.5 / 326.5
SaO2 [SIMV] 94
SaO2 98
Nasal Cannula flow liters per 1
minute
Physical Exam
General: Respiratory Distress (negative), Comfortable, Chills (negative) and Sweats (negative)
HEENT: Normocephalic and Anicteric
Cardiovascular: S1-S2 and Peripheral Edema (Trace lower extremity edema bilaterally)
Respiratory: Wheeze (negative), Rhonchi (negative), Accessory Resp Muscle Use (negative), Stridor (negative), Crepitus and Chest Tube (Mediastinal chest tubes x 2)
GI: Soft, Non Distended, Non Tender and Normal Bowel Sounds
Neurology: Tremors (negative)
Skin: Warm, Dry, Cyanosis (negative) and Jaundice (negative)
Labs/Micro/Reports
Lab Data
12/27/24 03:35
Laboratory Results
12/27/24
03:35
PT 16.4 H
INR 1.29
Microbiology
12/24/24 09:00 Heart Fungal Smear - Final
No yeast or fungal elements seen.
12/24/24 09:00 Heart Fungal Culture - Preliminary
Culture in progress.
Positive cultures are reported as soon as detected.
Final report to follow in four to five weeks.
12/24/24 09:00 Heart Fungal Smear - Final
No yeast or fungal elements seen.
12/24/24 09:00 Heart Fungal Culture - Preliminary
Culture in progress.
Positive cultures are reported as soon as detected.
Final report to follow in four to five weeks.
12/24/24 09:00 Heart Anaerobic Culture - Preliminary
Culture pending. Anaerobic cultures are examined after 3
days incubation. Additional information to follow.
12/24/24 09:00 Heart Anaerobic Culture - Preliminary
Culture pending. Anaerobic cultures are examined after 3
days incubation. Additional information to follow.
12/24/24 09:00 Heart Tissue Culture - Preliminary
No Growth After 72 Hours
12/24/24 09:00 Heart Gram Stain - Preliminary
12/24/24 09:00 Heart Tissue Culture - Preliminary
No Growth After 72 Hours
12/24/24 09:00 Heart Gram Stain - Preliminary
12/23/24 04:29 Blood/Venous Blood Culture - Preliminary
No Growth in 4 days- Final report to follow
12/23/24 03:54 Blood/Venous Blood Culture - Preliminary
No Growth in 4 days- Final report to follow
12/24/24 09:00 Heart Acid Fast Bacilli Smear - Preliminary
12/24/24 09:00 Heart Acid Fast Bacilli Culture - Preliminary
12/24/24 09:00 Heart Acid Fast Bacilli Smear - Preliminary
12/24/24 09:00 Heart Acid Fast Bacilli Culture - Preliminary
12/21/24 18:00 Blood/Venous Blood Culture - Final
No Growth - Final Report
12/21/24 12:56 Blood/Venous Blood Culture - Final
No Growth - Final Report
12/22/24 12:50 Knee - Left Wound Culture - Final
No growth
12/22/24 12:50 Knee - Left Gram Stain - Final
[2024-12-27] MEDS: LIPITOR 40 MG PO (17:26)
--- NOTE | 2024-12-27 21:00 | PTCARENOTE ---
Assumed care of pt from dayshift RN. Walking rounds completed. Pt oriented to person, place, and time. Pt w/ flat affect. Soft/quiet speech. Pt is sinus isreal w/ prolonged QT interval on the tele monitor. HR high 50s. BP 110's-140's/50-60s. PAPs
30s/teens. CVP ~9-11. CI 1.99. B/L DP pulses weak on palpation. B/L radial pulses palpable. +1 hand and LE edema. Pt on 1 L NC. POX 97-99%. Lung sounds diminished throughout. Shallow breathing. IS encouraged. Abdomen soft. +BS. Pt reports poor
appetite. Tran catheter in place and draining clear/yellow urine. Right IJ cordis w/ SWAN intact. Left radial a-line intact. Right PIV x2 intact. All lines leveled, zeroed, and flushed. Pt turned and repositioned in bed as documented in worklist.
All surgical sites stable. Amiodarone and dobutamine infusing as ordered. Labs sent. See worklist for full nursing assessment and interventions. Call garay within reach.
[2024-12-27] MEDS: LASIX 40 MG IV (21:05)
[2024-12-27 21:09] LABS: Mixed Venous O2 Saturation 65.5 %
[2024-12-27 21:27] LABS: Blood Urea Nitrogen 41 mg/dl (7-17); Calcium 8.7 mg/dl (8.4-10.2); Carbon Dioxide 22 mmol/L (22-30); Chloride 102 mmol/L (98-107); Estimated Creatinine Clearance 28 ml/min; Glucose 124 mg/dl (70-99); Magnesium 2.3 mg/dl (1.6-2.3); Potassium 4.2 mmol/L (3.5-5.1); Sodium 133 mmol/L (135-145)
[2024-12-28] VITALS (23 sets, daily range): BP systolic 108–156; BP diastolic 51–86; PULSE 94; O2SAT 96; BMI 32.9
--- NOTE | 2024-12-28 00:04 | PTCARENOTE ---
Pt reassessed. Sinus isreal to sinus rhythm w/ PACs on the tele monitor. HR 50-60s. BP 120s/60s. PAPs 30s/teens. CVP~10. CI: 2.33. Tran catheter C/D/I and draining yellow urine. All lines leveled, zeroed, and flushed. Dobutamine and Amio infusing as
ordered. All surgical sites stable. Call garay within reach.
--- NOTE | 2024-12-28 03:31 | W.PN.CT ---
Today's Communication / Plan
-
Plan:
-No major issues overnight. Hemodynamically and neurologically stable
-Dobutamine weaned to 1mcg/kg/min from 2 mcg/kg/min yesterday
-CI and MVO2 with dobutamine @ 2: CI 1.94, MVO2 65.1%; 24hr u/o 3245 mL
-Current rhythm sinus bradycardia @ 55 bpm with occasional PAC's. Was pacer dependent immediately postop d/t bradycardia and required A/V pacing @ 80 bpm
-Started on Amiodarone gtt yesterday 12/27 given frequent PAC's
-Temporary PW @ backup DDD . Will likely D/C later today vs tomorrow. Will assess HR off dobutamine
-Will discuss initiation of NOAC/DOAC today given hx of PAF S/P MAZE
-Abx per ID, currently on Vancomycin, Nafcillin was d/c'd yesterday 12/27 as may have contributed to SEEMA
-Switched Ancef to Nafcillin on 12/25, given rising INR on Ancef. Received a total of 7.5 po vit K for INR of 5.6, INR is currently 1.29
-Will eventually require PICC Line placement prior to d/c for continuation of abx
-Received 1u PRBC for h/h of 8.7/25.7 yesterday, h/h 10.2/29.9 today
-Pt is receiving IV diuresis with Lasix, will cont.
-Monitor SEEMA, cr 0.6->1.4->1.5->1.9->2.0. Nephrology is following
-Repeat echo yesterday 12/27 showed a well seated bioprosthetic Aortic and Mitral valve with EF 50-55%
-Holding BB while on dobutamine gtt
-Cont. current meds (ASA, Synthroid, Plaquenil, Lipitor; Lopressor placed on hold while on dobutamine gtt)
-Wean dobutamine as tolerated
-D/C swan and a-line when off dobutamine
-D/C kaplan when off dobutamine
-Will transition to tele phase once off dobutamine
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
-Encourage use of IS
-Wean off of O2 as tolerated
-OOB into chair/Ambulate/PT/OT f/u
-Encourage nutritional intake, pre-albumin is low, 8.8->9.1
Assessment / Plan
-
Assessment:
-S/P Standard sternotomy/Surgical aortic valve replacement [25 mm prosthesis]/Mitral valve replacement with [place] cord replacement for reinforcement [29 mm bioprosthesis]/ Extensive debridement of mitral annular calcification and patch of the
mitral valve annulus using bovine pericardium/Modified open surgical left atrial maze (encompass RF ablation and cryo ablation)/Left atrial appendage exclusion [35 mm device]/Drainage of right pleural effusion [300 cc], by Dr. Bullock, 12/24/24, pod#4
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
-Paroxysmal atrial fibrillation, new onset
-Severe aortic valve stenosis
-Mitral valve stenosis with severe mitral annular calcification
-LVEF 60-65%
-MRSA
-Class 1 obesity (BMI 30.4)
-Osteoporosis with Left tibial plateau fx as well Left meniscus tear, per MRI 12/23/24
-Former tobacco use (quit 40 years ago)
-Systemic Lupus Erythematosus
-Preop hypokalemia
-Preop thrombocytopenia
-Hypothyroidism
-S/P Thyroidectomy
-Acute postop blood loss/Anemia (Transfused 2u PRBCs)
-Acute postop atelectasis
-Acute postop hypovolemia with subsequent hypervolemia
-Acute postop temporary pacer dependence d/t bradycardia
-Acute postop RBBB
-Acute postop elevated INR 5.61
-Acute postop SEEMA, 1.9
-Acute postop flat affect/depression
Discussed patient care with: Cardiology, Nursing, Respiratory Therapy, Pharmacy and Care Team
Subjective
Procedure
-S/P Standard sternotomy/Surgical aortic valve replacement [25 mm prosthesis]/Mitral valve replacement with [place] cord replacement for reinforcement [29 mm bioprosthesis]/ Extensive debridement of mitral annular calcification and patch of the
mitral valve annulus using bovine pericardium/Modified open surgical left atrial maze (encompass RF ablation and cryo ablation)/Left atrial appendage exclusion [35 mm device]/Drainage of right pleural effusion [300 cc], by Dr. Bullock, 12/24/24
-
Date of Service: December 28, 2024
Pt c/o feeling weak, otherwise well
Objective Data
-
PT 16.4 Sec (11.4-14.6) H 12/27/24 03:35
INR 1.29 12/27/24 03:35
APTT 37.3 Sec (23.4-35.0) H 12/24/24 11:54
Vital Signs
Vital Signs
Temp Pulse Resp BP Pulse Ox
98.9 F 65 24 134/66 99
12/28/24 03:00 12/28/24 03:00 12/28/24 03:00 12/28/24 03:00 12/28/24 03:00
CT Intake/Output/Weight
12/27/24 12/27/24 12/28/24
06:59 18:59 06:59
Intake Total 765 / 2437.8 1225.7 / 1629.3 403.6 / 1629.3
Output Total 245 / 985 1045 / 3070 2024
Balance 520 / 1452.8 180.7 / -1440.7 -1621.4 / -1440.7
SaO2: 99 (1L)
Physical Exam
-
General: Awake, Oriented and AOx3
Cardiovascular: Regular rate & rhythm, No Murmurs, No Rub and No Gallop
Respiratory: Decreased Breath Sounds (at bases, otherwise clear)
Incision: Clean, Dry, Intact and Dressing Intact
Extremities: Edema +1
Data Reviewed
-
Lab Results: Results Reviewed
Medications: Active Meds Reviewed
Chest X-Ray: Report Reviewed
ECG: Report Reviewed and Image Reviewed
--- NOTE | 2024-12-28 03:33 | PTCARENOTE ---
No acute change in assessment. Pt sinus isreal to sinus rhythm w/ PACs on the monitor. HR 50-60s. BP stable. A-line positional. CVP ~9. PAPs 30s/teens. All lines leveled, zeroed, and flushed. Pt is 98% on 1 L NC. Tran catheter intact and draining
clear/yellow urine. Dobutamine and amiodarone infusing as ordered. Pt w/ small loose BM. Pt repositioned as documented. Labs drawn and sent. Call garay within reach.
[2024-12-28 03:37] LABS: Hematocrit 29.9 % (37.0-47.0); Hemoglobin 10.2 g/dL (12.0-16.0); Mean Corp Hgb Conc. 34.1 g/dL (33.0-37.0); Mean Corpuscular Hgb 29.8 pg (27.0-31.0); Mean Corpuscular Volume 87.4 fL (81.0-99.0); Mean Platelet Volume 10.8 fL (7.4-10.4); Platelet Count 170 10^3/uL (130-400); Red Blood Cell Count 3.42 10^6/uL (4.20-5.40); Red Cell Dist. Width 14.9 % (11.5-14.5); White Blood Cell Count 13.1 10^3/uL (4.8-10.8)
[2024-12-28 03:41] LABS: Mixed Venous O2 Saturation 65.1 %
[2024-12-28 03:44] LABS: Ionized Calcium 1.18 mMOL/L (1.15-1.33)
[2024-12-28 03:54] LABS: Lactic Acid 0.8 mmol/L (0.7-2.0)
[2024-12-28 04:07] LABS: Blood Urea Nitrogen 41 mg/dl (7-17); Calcium 8.7 mg/dl (8.4-10.2); Carbon Dioxide 24 mmol/L (22-30); Chloride 105 mmol/L (98-107); Estimated Creatinine Clearance 27 ml/min; Glucose 102 mg/dl (70-99); Magnesium 2.2 mg/dl (1.6-2.3); Potassium 4.1 mmol/L (3.5-5.1); Sodium 135 mmol/L (135-145); eGFR 25.57
[2024-12-28 04:12] LABS: Vancomycin Random 18.8 ug/ml
--- NOTE | 2024-12-28 07:30 | PTCARENOTE ---
Pt into and out of a-fib on the tele monitor. CTPA aware and at bedside. BP stable. Pt now A/V paced at 70.
[2024-12-28] MEDS: TYLENOL 1000 MG PO ×3 (07:47→22:21)
[2024-12-28] MEDS: SYNTHROID 250 MCG PO (07:47)
--- NOTE | 2024-12-28 08:00 | PTCARENOTE ---
pt received from previous RN, oriented x4, JONATHAN, follows commands. pupils equal and reactive. NIH 12, completed w/ previous RN. pt 100% AV paced on the monitor, A&V wires set to DDD 70/10/10; PAP 20-30s/10s, CI 1.98. SBP 130-140s. palpable pulses. pt
on 1LNC, 97% POX. lungs clear/diminished. shallow breaths, IS encouraged. pt abdomen s/n, denies n/v. pt tolerating diet. incontinent of BM. Tran in place, clear yellow urine. 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 chest tube site c/d/i. RIJ
Cordis/swan maintained. L radial [place] waveform dampened despite positioning, KNITTING MACHINE MECHANIC aware. PIV. amiodarone gtt stopped, dobutamine gtt @1mcg/kg/min, dc'd @0800 per KNITTING MACHINE MECHANIC. PIV. see worklist for VS, I&O, and assessment.
--- NOTE | 2024-12-28 08:46 | PHA.VAN.FU ---
Vancomycin Assessment / Plan
- Assessment
Renal Function: Stable
WBC's are: Trending Up
In the past 24 hrs, patient has been: Afebrile
- Assessment - Therapeutic Drug Monitoring
Random Level: 18.8 - drawn ~16.5H after 2g loading dose
- Dosing Plan
Dosing by Level: Re-dose today (Vanc 1000mg)
Anticipate patient may require prolonged re-dosing interval if SCR does not improve
Given source of infection, will re-dose today with ~11mg/kg (lower end of dosing mg/kg dosing range) to ensure patient maintains level
- Monitoring Plan
Random Level: 12/29 06
- Follow Up
Pharmacy will continue to follow.
Vancomycin Follow UP
- -
Patient Age: 74
Patient Sex: Female
Vancomycin Day #: 2
Indication: Wagon Driller Infection
Requesting Provider: Dr. Toney
Pertinent Antimicrobial Allergies:
NKDA
Height / Weight:
Height 5 ft 5 in
Actual Weight 89.6 kg
Pertinent Past Medical History: BMI ~32
- Vital Signs / Lab Results
Temp Pulse Resp BP Pulse Ox
98.9 F 70 19 148/73 99
12/28/24 08:00 12/28/24 07:40 12/28/24 08:00 12/28/24 07:00 12/28/24 08:00
Lab Results - Hematology
12/26/24 12/27/24 12/28/24
04:20 03:35 03:01
WBC 10.7 9.4 13.1 H
Lab Results - Chemistry
12/26/24 12/26/24 12/27/24
04:19 12:07 03:35
BUN 27 H 31 H 37 H
Creatinine 1.4 H 1.5 H 1.9 H
Estimated Creat Clear 38 36 28
Albumin 2.7 L
12/27/24 12/27/24 12/27/24
12:59 15:33 20:59
BUN Cancelled 41 H 41 H
Creatinine Cancelled 1.9 H 1.9 H
Estimated Creat Clear Cancelled 28 28
Albumin
12/28/24
03:01
BUN 41 H
Creatinine 2.0 H
Estimated Creat Clear 27
Albumin
12/27/24 12/28/24
03:30 03:01
Lactic Acid 0.7 0.8
Lab Results - Urine
12/27/24
09:39
Urine Nitrite Negative
Ur Leukocyte Esterase Negative
Urine WBC 3-5
Ur Squamous Epith Cells 0-2
Urine Bacteria Few A
Microbiology Results
12/23/24 04:29 Blood Culture - Final
Blood/Venous No Growth - Final Report
12/23/24 03:54 Blood Culture - Final
Blood/Venous No Growth - Final Report
12/24/24 09:00 Fungal Smear - Final
Heart No yeast or fungal elements seen.
Fungal Culture - Preliminary
Culture in progress.
Positive cultures are reported as soon as detected.
Final report to follow in four to five weeks.
12/24/24 09:00 Fungal Smear - Final
Heart No yeast or fungal elements seen.
Fungal Culture - Preliminary
Culture in progress.
Positive cultures are reported as soon as detected.
Final report to follow in four to five weeks.
12/24/24 09:00 Anaerobic Culture - Preliminary
Heart Culture pending. Anaerobic cultures are examined after 3
days incubation. Additional information to follow.
12/24/24 09:00 Anaerobic Culture - Preliminary
Heart Culture pending. Anaerobic cultures are examined after 3
days incubation. Additional information to follow.
12/24/24 09:00 Tissue Culture - Preliminary
Heart No Growth After 72 Hours
Gram Stain - Preliminary
12/24/24 09:00 Tissue Culture - Preliminary
Heart No Growth After 72 Hours
Gram Stain - Preliminary
12/24/24 09:00 Acid Fast Bacilli Smear - Preliminary
Heart Acid Fast Bacilli Culture - Preliminary
12/24/24 09:00 Acid Fast Bacilli Smear - Preliminary
Heart Acid Fast Bacilli Culture - Preliminary
12/21/24 18:00 Blood Culture - Final
Blood/Venous No Growth - Final Report
12/21/24 12:56 Blood Culture - Final
Blood/Venous No Growth - Final Report
Therapeutic Drug Monitoring
Random Vancomycin 18.8 ug/ml 12/28/24 03:01
--- NOTE | 2024-12-28 09:21 | CM ---
rosana yanez with pts perscript plan [employer] (id# [id number]) her first month will be $271- she has a remaining deductible of $194- once the deductible is paid her monthly cost is $58/month, until she reaches $2000out of pocket expenses then
she goes into catastrophic phase and all meds are covered.
[2024-12-28] MEDS: NEURONTIN 100 MG PO ×3 (09:34→22:21)
[2024-12-28] MEDS: ELIQUIS 2.5 MG PO ×2 (09:34→10:42)
[2024-12-28] MEDS: PROTONIX 40 MG PO (09:34)
[2024-12-28] MEDS: LOW STRENGTH ASPIRIN 81 MG PO (09:34)
[2024-12-28] MEDS: LASIX 40 MG IV ×2 (09:35→15:09)
[2024-12-28] MEDS: BACTROBAN 2% OINTMENT 1 APPLIC NASAL (09:36)
[2024-12-28] MEDS: SENOKOT-S PO ×2 (09:36→20:21)
--- NOTE | 2024-12-28 10:01 | W.PN.ID1 ---
Date of Service
Date of Service: December 28, 2024
Today's Communication
- will continue vancomycin for present, follow renal function
Assessment / Plan
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
MSSA bacteremia - sustained, now cleared
CVA possible septic infarctions
SEEMA
- s/p MAZE, L atrial appendage, AVR, MVR, temp AV pacing wires on 12/24
- MSSA bacteremia at [facility] 12/17 and 12/18; 12/19 blood cultures at [facility] x2 are both finalized negative
- repeat blood cultures x2 done here on 12/21 are no growth to date
- Cr rise did begin after nafcillin started, unlikely to have had previous exposure however
- no fevers or rash noted, no peripheral or urine eosinophilia
- reportedly no significant hypotension intra or post operatively
- appreciate nephrology input
- will continue vancomycin for present, follow renal function
Chief Complaint
-: Bacteremia and Other (endocarditis, cva due to MSSA)
Subjective / Review of Systems
afebrile
bp stable
no events overnight
note pt has been getting diuresis
Vital Signs / Physical Exam
Vital Signs
Vital Signs
Temp Pulse Resp BP Pulse Ox
98.7 F 70 27 141/78 98
12/28/24 09:18 12/28/24 09:10 12/28/24 09:18 12/28/24 09:00 12/28/24 09:18
Physical Exam
Constitutional: No Acute Distress
Cardiovascular: Regular Rate and S1/S2; Negative Murmur or Rub
Pulmonary: Clear and Symmetric; Negative Wheezes or Rales
Gastrointestinal: Soft, Non Tender, Non Distended and Normal Bowel Sounds
Skin: Warm and Dry; Negative Rash or Jaundice
Objective Data
Lab Data
Lab Results
12/28/24 03:01
12/28/24 03:01
ESR 25 mm/hour (0-20) H 12/22/24 13:18
PT 16.4 Sec (11.4-14.6) H 12/27/24 03:35
INR 1.29 12/27/24 03:35
APTT 37.3 Sec (23.4-35.0) H 12/24/24 11:54
Estimated Creat Clear 27 ml/min 12/28/24 03:01
Lactic Acid 0.8 mmol/L (0.7-2.0) 12/28/24 03:01
Total Bilirubin 1.3 mg/dl (0.2-1.3) 12/26/24 12:07
AST 81 U/L (14-36) H 12/26/24 12:07
ALT 11 U/L (0-35) 12/26/24 12:07
Alkaline Phosphatase 47 U/L (38-126) 12/26/24 12:07
C-Reactive Protein 133.00 mg/L (0.0-10.00) H 12/22/24 13:18
Most recent labs reviewed.
Micro Results:
12/24/24 09:00 Tissue Culture - Preliminary
Heart Staphylococcus aureus
Gram Stain - Preliminary
12/23/24 04:29 Blood Culture - Final
Blood/Venous No Growth - Final Report
12/23/24 03:54 Blood Culture - Final
Blood/Venous No Growth - Final Report
12/24/24 09:00 Fungal Smear - Final
Heart No yeast or fungal elements seen.
Fungal Culture - Preliminary
Culture in progress.
Positive cultures are reported as soon as detected.
Final report to follow in four to five weeks.
12/24/24 09:00 Fungal Smear - Final
Heart No yeast or fungal elements seen.
Fungal Culture - Preliminary
Culture in progress.
Positive cultures are reported as soon as detected.
Final report to follow in four to five weeks.
12/24/24 09:00 Anaerobic Culture - Preliminary
Heart Culture pending. Anaerobic cultures are examined after 3
days incubation. Additional information to follow.
12/24/24 09:00 Anaerobic Culture - Preliminary
Heart Culture pending. Anaerobic cultures are examined after 3
days incubation. Additional information to follow.
12/24/24 09:00 Tissue Culture - Preliminary
Heart No Growth After 72 Hours
Gram Stain - Preliminary
12/24/24 09:00 Acid Fast Bacilli Smear - Preliminary
Heart Acid Fast Bacilli Culture - Preliminary
12/24/24 09:00 Acid Fast Bacilli Smear - Preliminary
Heart Acid Fast Bacilli Culture - Preliminary
12/21/24 18:00 Blood Culture - Final
Blood/Venous No Growth - Final Report
12/21/24 12:56 Blood Culture - Final
Blood/Venous No Growth - Final Report
12/22/24 12:50 Wound Culture - Final
Knee - Left No growth
Gram Stain - Final
12/21/24 17:55 MRSA Screen - Final
Nose No Methicillin Resistant Staphylococcus aureus isolated.
[2024-12-28 10:27] LABS: Mixed Venous O2 Saturation 67.9 %
--- NOTE | 2024-12-28 10:30 | PTCARENOTE ---
Karrie Mcelroy dc'd, dressing c/d/i. BORING MACHINE SET UP OPERATOR JIG aware of CI, MVO2 drawn, BORING MACHINE SET UP OPERATOR JIG aware of results. ADA turcios dc'd, dressing changed, c/d/i. kaplan care performed. denture care performed.
[2024-12-28] MEDS: VANCOCIN 200 IV (10:42)
[2024-12-28] MEDS: NSS 500 IV (12:00)
--- NOTE | 2024-12-28 12:10 | PTCARENOTE ---
pt VSS, OOB to chair max assist w/ Joanie lift.
--- NOTE | 2024-12-28 12:53 | W.PN.NEPH.PH ---
Today's Communication / Plan
-
Continue diuretic/check serologies with hematuria
Assessment/Plan
-
74yo female with severe aortic stenosis hypothyroidism, lupus, and former smoker transferred from [facility] after being admitted on 12/21/24 for sepsis/MSSA bacteremia, new atrial fibrillation and CVA during that hospitalization, found to have infectious
mitral valve endocarditis. She is status post AVR and MVR on 12/24. She has been on antibiotics and had periods of A-fib and bradycardia. She has had periods of hypotension. She is status post CVA with expressive aphasia and likely embolic.
Renal consult for acute kidney injury. Her creatinine was relatively normal on admission and has been progressively increasing currently at 1.9.
Impression.
Acute kidney injury -cr 0.6->1.4->1.5->1.9-multifactorial suspect ATN from hemodynamic changes moderate hypotension rule out infectious GN
MSSA bacteremia/endocarditis status post AVR/MVR.
Status post acute CVA.
Atrial fibrillation-amnio
Plan.
Urinalysis hematuria with 7-10 red blood cells= will check serology
Continue antibiotics.
nonoliguric.
Renal dose all medications appropriate for GFR less than 20 until reaches steady state.
Off dobutamine= indexes noted
As per discussions with cardiology to continue diuresing.
40 mg Lasix twice daily adequate response negative fluid balance. No indication for continuous drip.
Creatinine stable at 2 and seems to be plateauing.
-
-
Date of Service: December 28, 2024
CC / HPI / ROS
-
Chief Complaint:
Infectious endocarditis status post valve
History of Present Illness:
Acute kidney injury normal creatinine for age on admission increased to peak creatinine of 2
Review of Systems:.
Comfortable in the chair no complaints of shortness of breath or chest pain
Labs
-
Labs:
WBC 13.1 10^3/uL (4.8-10.8) H 12/28/24 03:01
RBC 3.42 10^6/uL (4.20-5.40) L 12/28/24 03:01
Hgb 10.2 g/dL (12.0-16.0) L 12/28/24 03:01
Hct 29.9 % (37.0-47.0) L 12/28/24 03:01
Plt Count 170 10^3/uL (130-400) 12/28/24 03:01
Sodium 135 mmol/L (135-145) 12/28/24 03:01
Potassium 4.1 mmol/L (3.5-5.1) 12/28/24 03:01
Chloride 105 mmol/L (98-107) 12/28/24 03:01
Carbon Dioxide 24 mmol/L (22-30) 12/28/24 03:01
BUN 41 mg/dl (7-17) H 12/28/24 03:01
Creatinine 2.0 mg/dL (0.6-1.0) H 12/28/24 03:01
eGFR 25.57 12/28/24 03:01
Glucose 102 mg/dl (70-99) H 12/28/24 03:01
Calcium 8.7 mg/dl (8.4-10.2) 12/28/24 03:01
Albumin 2.7 g/dl (3.5-5.0) L 12/26/24 12:07
Physical Exam
-
Vital Signs:
Vital Signs
Temp Pulse Resp BP Pulse Ox
98.4 F 89 26 130/84 95
12/28/24 10:00 12/28/24 12:00 12/28/24 12:00 12/28/24 12:00 12/28/24 12:31
Respiratory:: Bilateral: Coarse
Lung Excursion:: Normal
Abdomen:: Soft
Bowel Sounds:: Normal
Extremity Edema:: +2: Bilateral:
Tran Catheter: Yes
--- NOTE | 2024-12-28 14:04 | W.PN.INTV ---
Addendum entered and electronically signed by Collin Calvert MD 12/29/24 07:46:
Patient transfered out of CVICU
Case Sealer service will sign off, please call as needed.
Original Note:
Today's Communication / Plan
Recommendations
-Continue to weak Dobutamine
-Increase activity as tolerated
Assessment
-
Assessment: 74-year-old female former tobacco smoker with a past medical history of SLE, aortic stenosis, and hypothyroidism who presented from outside hospital ([facility]) after initially presenting with AMS. Patient presented to [facility] on 12/17/2024 with
confusion, lethargy, FLOYD + chills. Initial CT imaging showed multiple foci of ischemia with concern for embolic CVA. Blood cultures became positive for MSSA and she also developed new onset A-fib with RVR, requiring amiodarone + IV heparin. Echo
showed moderate to severe aortic stenosis with severe MAC and severe MR. She developed new right-sided facial droop on 12/19 and rapid response was called. CT head showed no significant findings. Patient transferred to [facility] on
12/21/2024 for surgical evaluation of her MSSA [place] mitral and aortic valve endocarditis. On 12/22, orthopedic surgery aspirated 9 cc of bloody fluid from her left knee due to pain and swelling, and there were no crystals seen and cultures have
shown NGTD. Left heart catheterization on 12/23/2024 showed dense calcification of the proximal LAD. Given her aortic + mitral valve endocarditis with septic embolic stroke, cardiothoracic surgical intervention was recommended and patient agreed to
this procedure. On 12/24/2024, patient underwent surgical aortic valve replacement, mitral valve replacement, extensive debridement of the mitral annular calcification and patch of the mitral valve annulus using bovine pericardium, drainage of a
right-sided pleural effusion (drained 300 cc) and a left atrial appendage exclusion. Patient tolerated the procedure well with no immediate complications, and was transferred to the CVICU postoperatively for further care with county nurse services
consulted for additional management/recommendations.
Chronic conditions PHARM TECH: Severe aortic stenosis, history of lupus, obesity, former tobacco use and hypothyroidism
Impression:
#Bacterial endocarditis of mitral valve with severe aortic valve stenosis, septic emboli with CVA and new onset A-fib with RVR s/p SAVR with 25 mm prosthesis, mitral valve replacement with 29 mm bioprosthesis, extensive debridement of the mitral
annular calcification and patch of the MV annulus using bovine pericardium + left atrial appendage exclusion with 35mm device (POD #2)
#Acute anemia due to above
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
#Paroxysmal A-fib
#Severe aortic valve stenosis
#Mitral valve stenosis with severe mitral annular calcification
#History of SLE
#Former tobacco smoker (quit approximately 40 years ago)
# Shock, currently on Dopamine @ 1
# SEEMA, concern for ATN
Plan:
Patient successfully extubated on 12/24/2024, and is currently breathing comfortably on 1 L/min saturating 98%
prn nebulized bronchodilators - not currently bronchospastic
If patient strong enough, would encourage incentive spirometer use q1hr while awake
Pulmonary artery catheter parameters reviewed, PA 41/22, CI 1.98
Pressors/antihypertensive/inotropes/diuretics will be provided as needed --> currently being weaned off dobutamine at 1 mcg/kg/min
Maintain MAP>65
Replete electrolytes with K>4, Mg>2
Follow-up pathology + cultures obtained from the OR on 12/24/2024
Also pain control from the patient's left knee which was drained on 12/22/2024 with cultures thus far showing NGTD; knee joint fluid was negative for crystals
s/p PRBC 12/27, Hb improved appropriately
Monitor blood sugar to maintain euglycemia with goal BG 110-140
Nephrology service on case for SEEMA, Cr 2.0 today, stable
Aspiration precautions
DVT prophylaxis
Early nutrition
Early mobilization
Case Sealer services will continue to follow along while patient remains in the CVICU.
Critical care statement: A total of 30 minutes of critical care time was provided for this patient today. This includes management of ventilator, spontaneous breathing trial, arterial blood gases, pressors, of unstable vital signs, evaluation of the
patient at bedside, reviewing the patient's pertinent medical records including radiographs, microbiology, laboratory evaluations, and discussion with primary team and critical care nursing.
Subjective Dataa
Subjective Data
Date of Service:
Date of Service: December 28, 2024
Chief Complaint: Case Sealer Follow Up
Subjective:
Patient more awake, alert and interactuve
Review of Systems
Genitourinary: Other (All 14 systems reviewed and negative except as stated above in the history of present illness. .)
Objective Data
Data Reviewed
Vital Signs / I&O / Oxygen:
Vital Signs
Temp Pulse Resp BP Pulse Ox
98.4 F 89 22 131/61 95
12/28/24 10:00 12/28/24 13:30 12/28/24 13:30 12/28/24 13:00 12/28/24 13:30
Intake and Output
12/27/24 12/28/24 12/29/24
06:59 06:59 06:59
Intake Total 2412.8 / 2437.8 1776.9 / 1799.4 175.0 / 175.0
Output Total 960 / 985 3395 / 3520 1350 / 1350
Balance 1452.8 / 1452.8 -1618.1 / -1720.6 -1175.0 / -1175.0
SaO2 [SIMV] 94
SaO2 95
Nasal Cannula flow liters per 1
minute
Physical Exam
General: Respiratory Distress (negative), Comfortable, Chills (negative) and Sweats (negative)
HEENT: Normocephalic and Anicteric
Cardiovascular: S1-S2 and Peripheral Edema (Trace lower extremity edema bilaterally)
Respiratory: Wheeze (negative), Rhonchi (negative), Accessory Resp Muscle Use (negative), Stridor (negative), Crepitus and Chest Tube (Mediastinal chest tubes x 2)
GI: Soft, Non Distended, Non Tender and Normal Bowel Sounds
Neurology: Tremors (negative)
Skin: Warm, Dry, Cyanosis (negative) and Jaundice (negative)
Labs/Micro/Reports
Lab Data
12/28/24 03:01
12/28/24 03:01
Microbiology
12/24/24 09:00 Heart Anaerobic Culture - Preliminary
NO ANAEROBES ISOLATED
12/24/24 09:00 Heart Anaerobic Culture - Preliminary
NO ANAEROBES ISOLATED
12/24/24 09:00 Heart Tissue Culture - Preliminary
Staphylococcus aureus
12/24/24 09:00 Heart Gram Stain - Preliminary
12/23/24 04:29 Blood/Venous Blood Culture - Final
No Growth - Final Report
12/23/24 03:54 Blood/Venous Blood Culture - Final
No Growth - Final Report
12/24/24 09:00 Heart Fungal Smear - Final
No yeast or fungal elements seen.
12/24/24 09:00 Heart Fungal Culture - Preliminary
Culture in progress.
Positive cultures are reported as soon as detected.
Final report to follow in four to five weeks.
12/24/24 09:00 Heart Fungal Smear - Final
No yeast or fungal elements seen.
12/24/24 09:00 Heart Fungal Culture - Preliminary
Culture in progress.
Positive cultures are reported as soon as detected.
Final report to follow in four to five weeks.
12/24/24 09:00 Heart Tissue Culture - Preliminary
No Growth After 72 Hours
12/24/24 09:00 Heart Gram Stain - Preliminary
12/24/24 09:00 Heart Acid Fast Bacilli Smear - Preliminary
12/24/24 09:00 Heart Acid Fast Bacilli Culture - Preliminary
12/24/24 09:00 Heart Acid Fast Bacilli Smear - Preliminary
12/24/24 09:00 Heart Acid Fast Bacilli Culture - Preliminary
12/21/24 18:00 Blood/Venous Blood Culture - Final
No Growth - Final Report
12/21/24 12:56 Blood/Venous Blood Culture - Final
No Growth - Final Report
--- NOTE | 2024-12-28 14:15 | PTCARENOTE ---
After discussion with Erin Mix, [employer], there is no further need for nursing to continue to document under the NIHSS stroke scale intervention unless a new event were to occur.
--- NOTE | 2024-12-28 15:01 | PN.CDI ---
CDI
- -
CDI:
Physician Documentation Request
Admit Date: 12/21/24 11:19
Dear Doctor Nehal,
Please review the following and provide your response in the progress notes.
Current documentation includes a diagnosis of Shock.
Clinical Indicators:
Pt admitted with septic embolic CVA, bacterial endocarditis, post op SAVR and mitral valve replacement.
12/26 Clay Miller note: 'Pressors/antihypertensive/inotropes/diuretics will be provided as needed --> currently on dobutamine at 4 mcg/kg/min--Maintain MAP>65'
12/26 Cardiology: '-SEEMA. Creatinine up to 1.4 yesterday. Additional IV fluids were given by CT surgery. PA diastolic appears to be about 11 will assess response with fluid.
Patient remains on dobutamine which has been slowly weaned.'
12/27 Nephrology: 'Acute kidney injury -cr 0.6->1.4->1.5->1.9-multifactorial suspect ATN from hemodynamic changes moderate hypotension rule out infectious GN'
12/27 Clay Miller Progress note: ' Shock, currently on Dopamine @ 1'
Please clarify which of the following is the most likely etiology of the above symptoms and treatment rendered:
Septic shock
Cardiogenic shock
Hypovolemic shock - indicate if due to surgery, trauma or other etiology
Shock, unknown type
Postoperative shock, type unknown
Other
Use of terms such as suspected, likely, concern for, or probable (associated with a specific diagnosis that is being evaluated, monitored, or treated as if it exists) are acceptable and can be coded in the inpatient setting, when documented at the
time of discharge.
Thank you,
Claire Waddell RN, BSN
CDI Specialist
[place] [facility]
Please use your independent medical judgment in providing your response.
--- NOTE | 2024-12-28 16:00 | PTCARENOTE ---
pt VSS, OOB in chair. no c/o pain. pt washed w/ CHG wipes, gown changed. face washed, shampoo cap applied.
--- NOTE | 2024-12-28 17:50 | PTCARENOTE ---
pt placed back to bed w/ Joanie lift. +BM, pericare performed. linens changed, sequentials and boots in place.
--- NOTE | 2024-12-28 18:08 | W.PN.CD ---
Today's Communication / Plan
-
progressing appropriately post-op
can consider reinitiation of PO amio closer to discharge with outpatient cardioversion if remains in Afib
monitor on anticoagulation
monitor for Cr improvement with abx transition; unlikely to be cardiorenal in setting of stable hemodynamics and appropriate filling pressures
continue PRN diuresis to maintain euvolemia
Impression / Plan
-
Impression/Plan: 74F with severe aortic stenosis hypothyroidism, lupus, and former smoker transferred from [facility] after being admitted for sepsis/MSSA bacteremia, new atrial fibrillation and CVA during that hospitalization, found to have infectious
mitral valve endocarditis, now s/p ARV/MVR/PAMELA clip with Dr. Bullock 12/24/24.
Interval events:
-latest hemos: CI and MVO2 with dobutamine @ 2: CI 1.94, MVO2 65.1%; 24hr u/o 3245 mL
-Received 1u PRBC for h/h of 8.7/25.7 yesterday, h/h 10.2/29.9 today
-Cr plateauing to rise this AM cr 0.6->1.4->1.5->1.9-->2.0; nephrology following; transitioned nafcillin to vanc
-tele with sinus rhythm, PACs
-amio drip started for PACs
Plan:
#MSSA infectious endocarditis (acute)
-Preoperatively large vegetations on mitral valve with associated mitral regurgitation and patient also with moderate to severe aortic stenosis
-S/P AVR & MVR with PAMELA clip by Dr. Bullock 12/24/2024
-Antibiotics as directed by ID
.
-S/P AVR & MVR with PAMELA clip by Dr. Bullock 12/24/2024
-Patient required pacing postop continue to monitor rhythms postop
-Wean dobutamine as tolerated; restart beta mya once off dobutamine and hemodynamically stable
-Additional postop treatment as per CT surgery
.
-SEEMA. Creatinine up to 2.0 today, hopefully plateauing.
-seems unlikely to be cardiorenal
-nafcillin transitioned to vanc given concerns for renal toxicity
#CVA
-Expressive aphasia and word finding difficulty on exam, oriented.
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
#Paroxysmal atrial fibrillation
-New diagnosis at [facility]
-amio off now in setting of 2.9 second pause, otherwise has appropriate rate response; would consider initiation of low dose PO amio to increase chances of return to sinus rhythm with cardioversion outpatient once amio loaded and recovered
-initiated eliquis
-[id number]: Score at least 4 prior to CVA (HTN, age 74 or more, female gender).
-No thrombus detected in PAMELA appendage preoperatively. Postoperatively patient with left atrial appendage clip 12/24/2024
#Left knee previous aspiration.. See Ortho note
#Hypothyroidism
-Chronic.
-On levothyroxine;
#Lupus
#Former smoker
Primary forest resources professor: Yunior Peguero
Data
-MARY showed large vegetation (~1.5 x 2.5 cm) on mitral valve with at least moderate mitral regurgitation; smaller vegetation(s) noted as well.
-TTE: Aortic valve gradients 52/32 mmHg with severe MAC and severe MR (severe precedes bacteremia).
Subjective/Interval History:
Sitting in chair comfortably.
DATA:
Transthoracic echocardiogram, 12/18/2024 ([facility]):
LVEF 45%. Severely dilated LA. Moderate to severe aortic stenosis (peak/mean 52.6/32.3 mmHg).
Severe thickening of the anterior and posterior leaflets of the mitral valve.
Severe mitral annular calcification. Moderate mitral valve regurgitation with centrally directed jet.
Transesophageal Echocardiogram, 12/22/2024:
CONCLUSIONS
-Left ventricular ejection fraction is 60-65%. Normal regional wall motion.
-Normal right ventricular size and function.
-No thrombus detected in the left atrial appendage.
-Thickened mitral valve leaflets and mitral annular calcification with a large,
partially mobile vegetation on the P3 segment of the posterior mitral valve
leaflet measuring approximately 1.5 x 2.5 cm (see below images). There was also
a smaller, highly mobile vegetation on the P1 segment of the mitral valve
leaflet. There also appears to be a small vegetation in the annular region of
the anterior mitral valve leaflet. Mitral valve opens normally.
-Moderate mitral regurgitation (multiple jets).
-Thickened/calcified trileaflet aortic valve with severely reduced leaflet
excursion. Likely severe aortic stenosis; gradients were not obtained.
TTE 12/27/2024
Normal left ventricular chamber size. Normal left ventricular systolic
function. Mild concentric left ventricular hypertrophy. Normal regional wall
motion. Left ventricular ejection fraction is 50-55%.
Normal right ventricular size and grossly normal function.
Moderately dilated left atrium.
Well seated, normally functioning #29 bioprosthetic mitral valve replacement.
There is an echodensity seen on the posteromedial papillary muscle chordae,
which is seen on the intraoperative transesophageal echocardiogram.
Well seated, normally functioning #25 bioprosthetic aortic valve replacement.
No evidence of pulmonary hypertension.
Compared to prior intraoperative study of 12/24/2024, the bioprosthetic aortic
and mitral valves are well seated and functioning normally. The left
ventricular ejection fraction is 50-55%, compared to 60-65% (though this is
immediately post operative which will significantly alter loading conditions).
BACKGROUND:
Yazmin was admitted 12/17/2024 with confusion. She was found on the floor by her son after she did not show up for work. Last seen normal greater than 24 hours MANAGER STORAGE to ER. She presented febrile. Blood cultures demonstrated MSSA and she was started on
cefepime. CT of chest/abdomen/pelvis did not show definitive source. She was found to be in atrial fibrillation with rapid ventricular response with incomplete right bundle branch block. She was started on intravenous heparin and amiodarone. On
12/19/2024 a stroke alert was called for right sided facial droop in addition to right upper and lower extremity weakness. Her heparin drip was stopped due to concern for stroke. CT noncontrast on admission showed 2 foci of decreased density in the
right cerebral hemisphere consistent with acute infarct, one in the cerebellum and one in the high frontal lobe. MRI was pending and not completed prior to transfer. She was found to have pain and erythema of the left knee. On 12/20/2024
orthopedic surgery aspirated her knee. Notable labs during her admission included D-dimer of 16.3, HgbA1c 5.0%, troponin T fifth GEN peaked at 315, and CPK 1191.
Physical Exam
Vital Signs/Labs
Vital Signs
Temp Pulse Resp BP Pulse Ox
37.2 C 85 26 115/51 96
12/28/24 16:00 12/28/24 17:30 12/28/24 17:30 12/28/24 16:57 12/28/24 14:30
12/27/24 12/28/24 12/29/24
06:59 06:59 06:59
Actual Weight 88 kg 89.6 kg
12/28/24 03:01
12/28/24 03:01
PT 16.4 Sec (11.4-14.6) H 12/27/24 03:35
INR 1.29 12/27/24 03:35
APTT 37.3 Sec (23.4-35.0) H 12/24/24 11:54
Magnesium 2.2 mg/dl (1.6-2.3) 12/28/24 03:01
TSH 14.60 uIU/ml (0.47-4.68) H 12/22/24 04:26
Physical Exam
Constitutional: No acute distress
Cardiovascular: Rhythm/rate is irregular
Respiratory: Respiratory effort normal
Neuro/Psych: AO x 3
Data Reviewed
-
Date of Service: December 28, 2024
Medical Decision Making: External Notes
Echo: Report Reviewed by me
Labs: Labs Reviewed by me
[2024-12-28] MEDS: LIPITOR 40 MG PO (18:22)
[2024-12-28] MEDS: ELIQUIS 5 MG PO (20:21)
--- NOTE | 2024-12-28 21:00 | PTCARENOTE ---
Assumed care of pt from dayshift RN. Walking rounds completed. Pt oriented to person, place, and time. Soft speech. See neurological checks in the worklist. Pt is a-fib on the tele monitor. HR 90s. Temporary epicardial wires intact and set to backup
VVI 40/10. BP stable. B/L DP pulses weak on palpation. B/L radial pulses palpable. +1 generalized anasarca. Pt on RA. POX 95%. Lung sounds diminished throughout. Deep breathing and IS use encouraged. Abdomen round. +BS. Denies nausea/vomiting. Pt
reports decreased appetite. Pt incontinent of stool. Tran catheter C/D/I and draining clear/yellow urine. All surgical sites stable. Right IJ cordis and PIV x2 intact. All surgical sites stable. See worklist for full nursing assessment and
interventions. Call garay within reach.
[2024-12-28 21:20] LABS: 24 Hour Urine Total Volume Random mL; Creatinine, Urine per Volume 54 mg/dL; Phosphorus, Urine 35 mg/dL; Phosphorus/Creatinine Ratio 648 mg/g; Urine Collection Length Random hr
[2024-12-28 21:30] LABS: Blood Urea Nitrogen 45 mg/dl (7-17); Calcium 8.4 mg/dl (8.4-10.2); Carbon Dioxide 29 mmol/L (22-30); Chloride 97 mmol/L (98-107); Estimated Creatinine Clearance 30 ml/min; Glucose 109 mg/dl (70-99); Potassium 3.7 mmol/L (3.5-5.1); Sodium 131 mmol/L (135-145); eGFR 29.02
[2024-12-28] MEDS: MAGNESIUM OXIDE 500 MG PO (22:21)
[2024-12-28] MEDS: CALCIUM GLUCONATE 100 IV (22:22)
[2024-12-28] MEDS: KCL 40 MEQ PO (22:22)
--- NOTE | 2024-12-28 22:45 | PTCARENOTE ---
Ordered lab work drawn and sent. Lytes replaced as ordered by CTPA.
[2024-12-29] VITALS (7 sets, daily range): BP systolic 125–134; BP diastolic 56–71; PULSE 65; O2SAT 96; BMI 32.6
--- NOTE | 2024-12-29 | PTCARENOTE ---
Pt broke out of a-fib into sinus isreal ~2029. Pt now sinus isreal on the tele monitor. HR 50s. BP stable. Pt 95% on RA. All surgical sites stable. Pt repositioned in bed. No c/o pain at this time. Call garay within reach.
--- NOTE | 2024-12-29 04:33 | W.PN.CT ---
Today's Communication / Plan
-
Plan:
-No major issues overnight. Hemodynamically and neurologically stable
-Dobutamine weaned off yesterday 12/28. [place] and a-line d/c'd
-Had some postop bradycardia with 2.9 sec pause as well as a-fib yesterday. Amiodarone gtt was d/c'd yesterday 12/28
-Was NSR overnight, and remains in NSR @ 60 bpm. EKG reads NSR @ 61 bpm with RBBB. PO Amiodarone and BB currently on hold
-Has temporary PW @ backup VVI @ 40 bpm. Will likely keep and cut on discharge
-Started on Eliquis yesterday 12/28
-Diuresing with Lasix 40mg IV BID. 24hr U/O 3160 mL
-SEEMA is improving, cr 0.6->1.4->1.5->1.9->2.0->1.7
-Switched Ancef to Nafcillin on 12/25, given rising INR on Ancef. Received a total of 7.5 po vit K to get INR from 5.6 to 1.29
-Abx per ID, currently on Vancomycin, Nafcillin was d/c'd 12/27 as may have contributed to SEEMA
-Will discuss PICC Line placement today for continuation of abx as an outpt.
-Consider D/C of cordis
-Consider D/C of kaplan catheter
-Encourage nutritional intake, pre-albumin is low, 8.8->9.1-> 10.8
-Encourage use of IS
-OOB into chair/Ambulate/ PT/OT f/u
-Skilled rehab placement in 1-2 days
Assessment / Plan
-
Assessment:
-S/P Standard sternotomy/Surgical aortic valve replacement [25 mm prosthesis]/Mitral valve replacement with [place] cord replacement for reinforcement [29 mm bioprosthesis]/ Extensive debridement of mitral annular calcification and patch of the
mitral valve annulus using bovine pericardium/Modified open surgical left atrial maze (encompass RF ablation and cryo ablation)/Left atrial appendage exclusion [35 mm device]/Drainage of right pleural effusion [300 cc], by Dr. Bullock, 12/24/24, pod#4
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
-Paroxysmal atrial fibrillation, new onset
-Severe aortic valve stenosis
-Mitral valve stenosis with severe mitral annular calcification
-LVEF 60-65%
-MRSA
-Class 1 obesity (BMI 30.4)
-Osteoporosis with Left tibial plateau fx as well Left meniscus tear, per MRI 12/23/24
-Former tobacco use (quit 40 years ago)
-Systemic Lupus Erythematosus
-Preop hypokalemia
-Preop thrombocytopenia
-Hypothyroidism
-S/P Thyroidectomy
-Acute postop blood loss/Anemia (Transfused 2u PRBCs)
-Acute postop atelectasis
-Acute postop hypovolemia with subsequent hypervolemia
-Acute postop temporary pacer dependence d/t bradycardia
-Acute postop RBBB
-Acute postop elevated INR 5.61
-Acute postop SEEMA, 1.9
-Acute postop flat affect/depression
Discussed patient care with: Cardiology, Nursing, Respiratory Therapy, Pharmacy and Care Team
Subjective
Procedure
-S/P Standard sternotomy/Surgical aortic valve replacement [25 mm prosthesis]/Mitral valve replacement with [place] cord replacement for reinforcement [29 mm bioprosthesis]/ Extensive debridement of mitral annular calcification and patch of the
mitral valve annulus using bovine pericardium/Modified open surgical left atrial maze (encompass RF ablation and cryo ablation)/Left atrial appendage exclusion [35 mm device]/Drainage of right pleural effusion [300 cc], by Dr. Bullock, 12/24/24
-
Date of Service: December 29, 2024
Pt appears to be in better spirits, states she feels better today
Objective Data
-
PT 16.4 Sec (11.4-14.6) H 12/27/24 03:35
INR 1.29 12/27/24 03:35
APTT 37.3 Sec (23.4-35.0) H 12/24/24 11:54
Vital Signs
Vital Signs
Temp Pulse Resp BP Pulse Ox
98.2 F 55 16 108/51 95
12/28/24 23:59 12/29/24 00:30 12/29/24 00:30 12/28/24 23:59 12/28/24 23:59
CT Intake/Output/Weight
12/28/24 12/28/24 12/29/24
06:59 18:59 06:59
Intake Total 551.2 / 1799.4 1395.0 / 1455.0 60 / 1455.0
Output Total 2350 / 3520 2300 / 2935 635 / 2935
Balance -1798.8 / -1720.6 -905.0 / -1480.0 -575 / -1480.0
SaO2: 95 (RA)
Physical Exam
-
General: Awake, Oriented and AOx3
Cardiovascular: Regular rate & rhythm, No Murmurs, No Rub and No Gallop
Respiratory: Decreased Breath Sounds (at bases, otherwise clear)
Sternum: Stable
Incision: Clean, Dry, Intact and Dressing Intact
Extremities: Edema +1
Data Reviewed
-
Lab Results: Results Reviewed
Medications: Active Meds Reviewed
Chest X-Ray: Report Reviewed and Image Reviewed
ECG: Report Reviewed and Image Reviewed
[2024-12-29] MEDS: TYLENOL 1000 MG PO ×3 (05:20→23:14)
[2024-12-29] MEDS: SYNTHROID 250 MCG PO (05:20)
[2024-12-29 05:25] LABS: Hematocrit 31.3 % (37.0-47.0); Hemoglobin 10.2 g/dL (12.0-16.0); Mean Corp Hgb Conc. 32.6 g/dL (33.0-37.0); Mean Corpuscular Hgb 29.6 pg (27.0-31.0); Mean Corpuscular Volume 90.7 fL (81.0-99.0); Mean Platelet Volume 10.3 fL (7.4-10.4); Platelet Count 177 10^3/uL (130-400); Red Blood Cell Count 3.45 10^6/uL (4.20-5.40); Red Cell Dist. Width 15.2 % (11.5-14.5); White Blood Cell Count 11.1 10^3/uL (4.8-10.8)
--- NOTE | 2024-12-29 05:30 | PTCARENOTE ---
Pt reassessed. Morning EKG showed SR w/ Right BBB. HR high 50s. BP stable. Pt 92% on RA. All surgical sites stable. Pt turned and repositioned. Pt incontinent of loose stool x2. Tran catheter C/D/I and draining clear/yellow urine. Bed weight
obtained. Labs drawn and sent. Call garay within reach.
[2024-12-29 05:41] LABS: Vancomycin Random 20.1 ug/ml
[2024-12-29 05:45] LABS: Prealbumin (Transthyretin) 10.8 mg/dl (17.6-36.0)
[2024-12-29 05:53] LABS: Blood Urea Nitrogen 44 mg/dl (7-17); Calcium 8.8 mg/dl (8.4-10.2); Carbon Dioxide 28 mmol/L (22-30); Chloride 100 mmol/L (98-107); Estimated Creatinine Clearance 31 ml/min; Glucose 96 mg/dl (70-99); Magnesium 2.1 mg/dl (1.6-2.3); Potassium 4.3 mmol/L (3.5-5.1); Sodium 134 mmol/L (135-145); eGFR 31.08
--- NOTE | 2024-12-29 05:55 | DOWNTIME ---
There was a quickhuddle Client Carding Doubler Downtime on 12/29/2024 from 0100 to 12/30/2023 at 0420 . Downtime documentation of patient's care, including medication administrations, has been reconciled in the electronic record per guidelines. Refer to the
patient's paper chart under the miscellaneous tab to see printed paper medication records and downtime forms.
[2024-12-29] MEDS: SENOKOT-S PO (07:56)
[2024-12-29] MEDS: NSS IV (07:56)
--- NOTE | 2024-12-29 08:00 | PTCARENOTE ---
pt received from previous RN, oriented x4, CASTILLO, follows commands. pupils equal and reactive. pt SB on the monitor, HR 50s. A&V wires set to VVI 40/10; SBP 120s. palpable pulses. pt on RA, 96% POX. lungs clear/diminished. shallow breaths, IS
encouraged. pt abdomen s/n, denies n/v. pt tolerating diet. incontinent of BM. Tran in place, clear yellow urine. 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 chest tube site c/d/i. RIJ Cordis maintained. PIV. see worklist for VS, I&O, and assessment.
--- NOTE | 2024-12-29 08:31 | PHA.VAN.FU ---
Vancomycin Assessment / Plan
- Assessment
Renal Function: SCR Decreasing
WBC's are: Trending Down
In the past 24 hrs, patient has been: Afebrile
- Assessment - Therapeutic Drug Monitoring
Random Level: 20.1 - drawn ~18.5H after previous dose of 1g
- Dosing Plan
Dosing by Level: Hold off on dosing today
- Monitoring Plan
Random Level: 12/30 0600
- Follow Up
Pharmacy will continue to follow.
Vancomycin Follow UP
- -
Patient Age: 74
Patient Sex: Female
Vancomycin Day #: 3
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
Requesting Provider: Dr. Toney
Pertinent Antimicrobial Allergies:
NKDA
Height / Weight:
Height 5 ft 5 in
Actual Weight 88.9 kg
Pertinent Past Medical History: BMI ~32
- Vital Signs / Lab Results
Temp Pulse Resp BP Pulse Ox
98.7 F 58 24 127/64 96
12/29/24 03:51 12/29/24 08:06 12/29/24 08:06 12/29/24 08:06 12/29/24 08:00
Lab Results - Hematology
12/27/24 12/28/24 12/29/24
03:35 03:01 05:11
WBC 9.4 13.1 H 11.1 H
Lab Results - Chemistry
12/26/24 12/27/24 12/27/24
12:07 03:35 12:59
BUN 31 H 37 H Cancelled
Creatinine 1.5 H 1.9 H Cancelled
Estimated Creat Clear 36 28 Cancelled
Albumin 2.7 L
12/27/24 12/27/24 12/28/24
15:33 20:59 03:01
BUN 41 H 41 H 41 H
Creatinine 1.9 H 1.9 H 2.0 H
Estimated Creat Clear 28 28 27
Albumin
12/28/24 12/29/24
21:09 05:11
BUN 45 H 44 H
Creatinine 1.8 H 1.7 H
Estimated Creat Clear 30 31
Albumin
12/27/24 12/28/24 12/28/24
03:30 03:01 21:09
Lactic Acid 0.7 0.8 1.0
12/29/24
06:00
Lactic Acid Cancelled
Microbiology Results
12/24/24 09:00 Tissue Culture - Preliminary
Heart Staphylococcus aureus
Gram Stain - Preliminary
12/24/24 09:00 Anaerobic Culture - Preliminary
Heart NO ANAEROBES ISOLATED
12/24/24 09:00 Anaerobic Culture - Preliminary
Heart NO ANAEROBES ISOLATED
12/23/24 04:29 Blood Culture - Final
Blood/Venous No Growth - Final Report
12/23/24 03:54 Blood Culture - Final
Blood/Venous No Growth - Final Report
12/24/24 09:00 Fungal Smear - Final
Heart No yeast or fungal elements seen.
Fungal Culture - Preliminary
Culture in progress.
Positive cultures are reported as soon as detected.
Final report to follow in four to five weeks.
12/24/24 09:00 Fungal Smear - Final
Heart No yeast or fungal elements seen.
Fungal Culture - Preliminary
Culture in progress.
Positive cultures are reported as soon as detected.
Final report to follow in four to five weeks.
12/24/24 09:00 Tissue Culture - Preliminary
Heart No Growth After 72 Hours
Gram Stain - Preliminary
Therapeutic Drug Monitoring
Random Vancomycin 20.1 ug/ml 12/29/24 05:11
[2024-12-29] MEDS: NEURONTIN 100 MG PO ×3 (08:46→23:14)
[2024-12-29] MEDS: LOW STRENGTH ASPIRIN 81 MG PO (08:46)
[2024-12-29] MEDS: LASIX 40 MG IV ×2 (08:46→15:33)
[2024-12-29] MEDS: PROTONIX 40 MG PO (08:46)
[2024-12-29] MEDS: KCL 20 MEQ PO ×2 (08:46→20:32)
[2024-12-29] MEDS: ELIQUIS 5 MG PO ×2 (08:46→20:32)
--- NOTE | 2024-12-29 08:55 | W.PN.CD ---
Today's Communication / Plan
-
continue current medications
tele monitor
discharge planning.
Impression / Plan
-
Impression/Plan: 74F with severe aortic stenosis hypothyroidism, lupus, and former smoker transferred from [facility] after being admitted for sepsis/MSSA bacteremia, new atrial fibrillation and CVA during that hospitalization, found to have infectious
mitral valve endocarditis, now s/p ARV/MVR/PAMELA clip with Dr. Bullock 12/24/24.
Plan:
#MSSA infectious endocarditis (acute)
-Preoperatively large vegetations on mitral valve with associated mitral regurgitation and patient also with moderate to severe aortic stenosis
-S/P AVR & MVR with PAMELA clip by Dr. Bullock 12/24/2024
-Antibiotics as directed by ID
.
-S/P AVR & MVR with PAMELA clip by Dr. Bullock 12/24/2024
-Patient required pacing postop continue to monitor rhythms postop
-Weanecd off dobutamine as tolerated;BB held for bradycardia and brief pause
-current NSR at 60, will monitor off therapy for now
-Additional postop treatment as per CT surgery
.
-SEEMA. Creatinine improving.
-seems unlikely to be cardiorenal
-nafcillin transitioned to vanc given concerns for renal toxicity
#CVA
-Expressive aphasia and word finding difficulty on exam, oriented.
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
#Paroxysmal atrial fibrillation
-New diagnosis at [facility]
-amio off now in setting of 2.9 second pause, otherwise has appropriate rate response; rates still low with some pauses in sinus, none sx or long enough to warrant ppm
-coninue to monitor off therapy
-initiated eliquis
-[id number]: Score at least 4 prior to CVA (HTN, age 74 or more, female gender).
-No thrombus detected in PAMELA appendage preoperatively. Postoperatively patient with left atrial appendage clip 12/24/2024
#Left knee previous aspiration.. See Ortho note
#Hypothyroidism
-Chronic.
-On levothyroxine;
#Lupus
#Former smoker
Primary [employer] market insights: Yunior Peguero
Data
-MARY showed large vegetation (~1.5 x 2.5 cm) on mitral valve with at least moderate mitral regurgitation; smaller vegetation(s) noted as well.
-TTE: Aortic valve gradients 52/32 mmHg with severe MAC and severe MR (severe precedes bacteremia).
Subjective/Interval History:
Sitting in chair comfortably. Finally less fatigued.
DATA:
Transthoracic echocardiogram, 12/18/2024 ([facility]):
LVEF 45%. Severely dilated LA. Moderate to severe aortic stenosis (peak/mean 52.6/32.3 mmHg).
Severe thickening of the anterior and posterior leaflets of the mitral valve.
Severe mitral annular calcification. Moderate mitral valve regurgitation with centrally directed jet.
Transesophageal Echocardiogram, 12/22/2024:
CONCLUSIONS
-Left ventricular ejection fraction is 60-65%. Normal regional wall motion.
-Normal right ventricular size and function.
-No thrombus detected in the left atrial appendage.
-Thickened mitral valve leaflets and mitral annular calcification with a large,
partially mobile vegetation on the P3 segment of the posterior mitral valve
leaflet measuring approximately 1.5 x 2.5 cm (see below images). There was also
a smaller, highly mobile vegetation on the P1 segment of the mitral valve
leaflet. There also appears to be a small vegetation in the annular region of
the anterior mitral valve leaflet. Mitral valve opens normally.
-Moderate mitral regurgitation (multiple jets).
-Thickened/calcified trileaflet aortic valve with severely reduced leaflet
excursion. Likely severe aortic stenosis; gradients were not obtained.
TTE 12/27/2024
Normal left ventricular chamber size. Normal left ventricular systolic
function. Mild concentric left ventricular hypertrophy. Normal regional wall
motion. Left ventricular ejection fraction is 50-55%.
Normal right ventricular size and grossly normal function.
Moderately dilated left atrium.
Well seated, normally functioning #29 bioprosthetic mitral valve replacement.
There is an echodensity seen on the posteromedial papillary muscle chordae,
which is seen on the intraoperative transesophageal echocardiogram.
Well seated, normally functioning #25 bioprosthetic aortic valve replacement.
No evidence of pulmonary hypertension.
Compared to prior intraoperative study of 12/24/2024, the bioprosthetic aortic
and mitral valves are well seated and functioning normally. The left
ventricular ejection fraction is 50-55%, compared to 60-65% (though this is
immediately post operative which will significantly alter loading conditions).
BACKGROUND:
Yazmin was admitted 12/17/2024 with confusion. She was found on the floor by her son after she did not show up for work. 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 She presented febrile. Blood cultures demonstrated MSSA and she was started on
cefepime. CT of chest/abdomen/pelvis did not show definitive source. She was found to be in atrial fibrillation with rapid ventricular response with incomplete right bundle branch block. She was started on intravenous heparin and amiodarone. On
12/19/2024 a stroke alert was called for right sided facial droop in addition to right upper and lower extremity weakness. Her heparin drip was stopped due to concern for stroke. CT noncontrast on admission showed 2 foci of decreased density in the
right cerebral hemisphere consistent with acute infarct, one in the cerebellum and one in the high frontal lobe. MRI was pending and not completed prior to transfer. She was found to have pain and erythema of the left knee. On 12/20/2024
orthopedic surgery aspirated her knee. Notable labs during her admission included D-dimer of 16.3, HgbA1c 5.0%, troponin T fifth GEN peaked at 315, and CPK 1191.
Physical Exam
Vital Signs/Labs
Vital Signs
Temp Pulse Resp BP Pulse Ox
98.2 F 58 24 127/64 96
12/29/24 08:00 12/29/24 08:06 12/29/24 08:06 12/29/24 08:06 12/29/24 08:00
12/28/24 12/29/24 12/30/24
06:59 06:59 06:59
Actual Weight 88.9 kg
12/29/24 05:11
12/29/24 05:11
PT 16.4 Sec (11.4-14.6) H 12/27/24 03:35
INR 1.29 12/27/24 03:35
APTT 37.3 Sec (23.4-35.0) H 12/24/24 11:54
Magnesium 2.1 mg/dl (1.6-2.3) 12/29/24 05:11
TSH 14.60 uIU/ml (0.47-4.68) H 12/22/24 04:26
Physical Exam
Constitutional: No acute distress
Cardiovascular: Rhythm & rate is regular, Pedal edema is absent, JVD pressure is normal, Systolic murmur absent and Diastolic murmur absent
Respiratory: Respiratory effort normal, Lungs clear to auscul., Wheeze Absent and Crackles Absent
Neuro/Psych: AO x 3
Data Reviewed
-
Date of Service: December 29, 2024
Medical Decision Making: Review of Case with other Provider (D/w CT surgery team, she is doing well, d/c planning)
EKG: Other (sinus, pacs, brief pauses)
[2024-12-29 09:12] LABS: Anti Streptolysin Negative (Negative)
--- NOTE | 2024-12-29 09:22 | W.PN.NEPH.PH ---
Today's Communication / Plan
-
Follow BMP
Assessment/Plan
-
74yo female with severe aortic stenosis hypothyroidism, lupus, and former smoker transferred from [facility] after being admitted on 12/21/24 for sepsis/MSSA bacteremia, new atrial fibrillation and CVA during that hospitalization, found to have infectious
mitral valve endocarditis. She is status post AVR and MVR on 12/24. She has been on antibiotics and had periods of A-fib and bradycardia. She has had periods of hypotension. She is status post CVA with expressive aphasia and likely embolic.
Renal consult for acute kidney injury. Her creatinine was relatively normal on admission and has been progressively increasing currently at 1.9.
Impression.
Acute kidney injury -cr 0.6->1.4->1.5->1.9-multifactorial suspect ATN from hemodynamic changes moderate hypotension rule out infectious GN
MSSA bacteremia/endocarditis status post AVR/MVR.
Status post acute CVA.
Atrial fibrillation-amnio
Plan.
Await serologies given hematuria, proteinuria, infectious endocarditis with SEEMA
Continue antibiotics per primary team
Continue Lasix
Follow BMP
-
-
Date of Service: December 29, 2024
CC / HPI / ROS
-
Chief Complaint:
Infectious endocarditis status post valve
History of Present Illness:
SEEMA/creatinine down to 1.7
BP stable
Hemoglobin stable 10.2
Sodium low stable 134
Review of Systems:.
Comfortable in the chair no complaints of shortness of breath or chest pain
Labs
-
Labs:
WBC 11.1 10^3/uL (4.8-10.8) H 12/29/24 05:11
RBC 3.45 10^6/uL (4.20-5.40) L 12/29/24 05:11
Hgb 10.2 g/dL (12.0-16.0) L 12/29/24 05:11
Hct 31.3 % (37.0-47.0) L 12/29/24 05:11
Plt Count 177 10^3/uL (130-400) 12/29/24 05:11
Sodium 134 mmol/L (135-145) L 12/29/24 05:11
Potassium 4.3 mmol/L (3.5-5.1) 12/29/24 05:11
Chloride 100 mmol/L (98-107) 12/29/24 05:11
Carbon Dioxide 28 mmol/L (22-30) 12/29/24 05:11
BUN 44 mg/dl (7-17) H 12/29/24 05:11
Creatinine 1.7 mg/dL (0.6-1.0) H 12/29/24 05:11
eGFR 31.08 12/29/24 05:11
Glucose 96 mg/dl (70-99) 12/29/24 05:11
Calcium 8.8 mg/dl (8.4-10.2) 12/29/24 05:11
Albumin 2.7 g/dl (3.5-5.0) L 12/26/24 12:07
Physical Exam
-
Vital Signs:
Vital Signs
Temp Pulse Resp BP Pulse Ox
98.2 F 58 24 127/64 96
12/29/24 08:00 12/29/24 08:06 12/29/24 08:06 12/29/24 08:06 12/29/24 08:00
Cardiovascular:: Regular rate and rhythm
Respiratory:: Bilateral: Coarse
Lung Excursion:: Normal
Abdomen:: Nontender and Soft
Bowel Sounds:: Normal
Extremity Edema:: +1: Bilateral:
--- NOTE | 2024-12-29 09:30 | W.PN.ID1 ---
Date of Service
Date of Service: December 29, 2024
Today's Communication
- will follow renal function for stability to assist with vancomycin dosing - anticipate patient being stable for dc from ID perspective friday
Assessment / Plan
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
MSSA bacteremia - sustained, now cleared
CVA possible septic infarctions
SEEMA
- s/p MAZE, L atrial appendage, AVR, MVR, temp AV pacing wires on 12/24
- MSSA bacteremia at [facility] 12/17 and 12/18; 12/19 blood cultures at [facility] x2 are both finalized negative
- repeat blood cultures x2 done here on 12/21 are finalized negative
- OR culture S aureus as expected
- Cr rise did begin after nafcillin started, unlikely to have had previous exposure however
- no fevers or rash noted, no peripheral or urine eosinophilia
- appreciate nephrology input
- will continue vancomycin for present, follow renal function
- will follow renal function for stability to assist with vancomycin dosing - anticipate patient being stable for dc from ID perspective friday
Chief Complaint
-: Bacteremia and Other (endocarditis, cva due to MSSA)
Subjective / Review of Systems
afebrile
bp stable
sinus bradycardia overnight
Vital Signs / Physical Exam
Vital Signs
Vital Signs
Temp Pulse Resp BP Pulse Ox
98.2 F 58 24 127/64 96
12/29/24 08:00 12/29/24 08:06 12/29/24 08:06 12/29/24 08:06 12/29/24 08:00
Physical Exam
Constitutional: No Acute Distress and Chronically Ill
Cardiovascular: Regular Rate and S1/S2; Negative Murmur or Rub
Pulmonary: Clear and Symmetric; Negative Wheezes or Rales
Gastrointestinal: Soft, Non Tender, Non Distended and Normal Bowel Sounds
Musculoskeletal: Joint Effusion (L knee, warmth; much less swollen and tender post arthrocentesis)
Skin: Warm and Dry; Negative Rash or Jaundice
Wound: Other (surgical sites no erythema, warmth tenderness, dehiscence or drainage)
Lines: Other (chest tubes, lines)
Objective Data
Lab Data
Lab Results
12/29/24 05:11
12/29/24 05:11
ESR 25 mm/hour (0-20) H 12/22/24 13:18
PT 16.4 Sec (11.4-14.6) H 12/27/24 03:35
INR 1.29 12/27/24 03:35
APTT 37.3 Sec (23.4-35.0) H 12/24/24 11:54
Estimated Creat Clear 31 ml/min 12/29/24 05:11
Lactic Acid Cancelled 12/29/24 06:00
Total Bilirubin 1.3 mg/dl (0.2-1.3) 12/26/24 12:07
AST 81 U/L (14-36) H 12/26/24 12:07
ALT 11 U/L (0-35) 12/26/24 12:07
Alkaline Phosphatase 47 U/L (38-126) 12/26/24 12:07
C-Reactive Protein 133.00 mg/L (0.0-10.00) H 12/22/24 13:18
Most recent labs reviewed.
Micro Results:
12/24/24 09:00 Tissue Culture - Preliminary
Heart Staphylococcus aureus
Gram Stain - Preliminary
12/24/24 09:00 Anaerobic Culture - Preliminary
Heart NO ANAEROBES ISOLATED
12/24/24 09:00 Anaerobic Culture - Preliminary
Heart NO ANAEROBES ISOLATED
12/23/24 04:29 Blood Culture - Final
Blood/Venous No Growth - Final Report
12/23/24 03:54 Blood Culture - Final
Blood/Venous No Growth - Final Report
12/24/24 09:00 Fungal Smear - Final
Heart No yeast or fungal elements seen.
Fungal Culture - Preliminary
Culture in progress.
Positive cultures are reported as soon as detected.
Final report to follow in four to five weeks.
12/24/24 09:00 Fungal Smear - Final
Heart No yeast or fungal elements seen.
Fungal Culture - Preliminary
Culture in progress.
Positive cultures are reported as soon as detected.
Final report to follow in four to five weeks.
12/24/24 09:00 Tissue Culture - Preliminary
Heart No Growth After 72 Hours
Gram Stain - Preliminary
12/24/24 09:00 Acid Fast Bacilli Smear - Preliminary
Heart Acid Fast Bacilli Culture - Preliminary
12/24/24 09:00 Acid Fast Bacilli Smear - Preliminary
Heart Acid Fast Bacilli Culture - Preliminary
12/21/24 18:00 Blood Culture - Final
Blood/Venous No Growth - Final Report
12/21/24 12:56 Blood Culture - Final
Blood/Venous No Growth - Final Report
12/22/24 12:50 Wound Culture - Final
Knee - Left No growth
Gram Stain - Final
12/21/24 17:55 MRSA Screen - Final
Nose No Methicillin Resistant Staphylococcus aureus isolated.
--- NOTE | 2024-12-29 11:36 | CM ---
Addendum entered by HOLDEN Villanueva 12/29/24 14:52:
Met w/ patient at bedside.
OT was working w/ patient.
We discussed DC plan for SNF placement.
Will follow to coordinate once medically stable.
Original Note:
CM following for DC planning needs.
DC plan is for SNF placement. Pt. would not qualify at this time for acute rehab level of care.
Per family/ patient's preference, referrals made to: [facility], [facility], [facility]. Thus far, bed available at [facility].
Will pursue SNF placement once medically stable.
No authorization required.
Will provide update to pt. and family today.
--- NOTE | 2024-12-29 12:31 | PTCARENOTE ---
pt VSS, OOB for ~1hr via Joanie lift. placed back to bed for PICC placement. ADA Hurst dc'd, dressing c/d/i.
--- NOTE | 2024-12-29 16:00 | PTCARENOTE ---
pt VSS, OOB in chair via lilly. Chelsea guerrero'd, pt voiding via shan hu performed. son at bedside.
[2024-12-29] MEDS: LIPITOR 40 MG PO (17:48)
--- NOTE | 2024-12-29 18:33 | PTCARENOTE ---
pt incontinent of stool and urine, pt placed back to bed via lilly lift. linens and gown changed. pericare performed, Calazime cream applied.
--- NOTE | 2024-12-29 20:00 | PTCARENOTE ---
Assumed care of patient at 1900. Patient found resting in bed at time of assessment. Patient is AOx4, follows commands appropriately, moves all extremities. Lung sounds are diminished throughout, respirations are shallow, saO2 is 96% on RA. Heart
sounds are audible, patient is SR on the monitor, normal palpable pulses, trace generalized anasarca and +1 BLE edema. Patient has active BS in all four quadrants, reports loose BMs during day, and has PW draining yellow cloudy urine with sediment
present. There is a sternal incision approx with surg adhesive CARLOS and ABD dressing over CT wounds that is CDI. There is R PICC line present for intermittent infusion. Call garay within reach.
[2024-12-29] MEDS: SENOKOT-S 1 TABLET PO (20:32)
[2024-12-29 23:23] LABS: Complement C3 100 mg/dl (88-165)
[2024-12-30] VITALS (11 sets, daily range): BP systolic 102–136; BP diastolic 48–103; PULSE 72; O2SAT 93; BMI 31.6
--- NOTE | 2024-12-30 | PTCARENOTE ---
Patient reassessed. Remains SR on the monitor. No c/o pain. Call garay within reach.
[2024-12-30 03:38] LABS: Hematocrit 31.8 % (37.0-47.0); Hemoglobin 10.2 g/dL (12.0-16.0); Mean Corp Hgb Conc. 32.1 g/dL (33.0-37.0); Mean Corpuscular Hgb 29.3 pg (27.0-31.0); Mean Corpuscular Volume 91.4 fL (81.0-99.0); Mean Platelet Volume 9.9 fL (7.4-10.4); Platelet Count 159 10^3/uL (130-400); Red Blood Cell Count 3.48 10^6/uL (4.20-5.40); Red Cell Dist. Width 15.2 % (11.5-14.5); White Blood Cell Count 8.8 10^3/uL (4.8-10.8)
[2024-12-30] MEDS: CORDARONE 103 MG IV (03:40)
[2024-12-30 03:53] LABS: Blood Urea Nitrogen 44 mg/dl (7-17); Calcium 8.6 mg/dl (8.4-10.2); Carbon Dioxide 28 mmol/L (22-30); Chloride 101 mmol/L (98-107); Estimated Creatinine Clearance 33 ml/min; Glucose 95 mg/dl (70-99); Potassium 4.1 mmol/L (3.5-5.1); Sodium 134 mmol/L (135-145); eGFR 33.42
[2024-12-30 03:55] LABS: Vancomycin Random 16.6 ug/ml
--- NOTE | 2024-12-30 04:21 | PTCARENOTE ---
At approx 0300 patient became bradycardic requiring vpacing temporarily. Upon breaking bradycardia patient entered tachycardic atrial fibrillation. Patient remained asymptomatic blood pressure stable. CT PA notified. Received orders to administer
1xamio bolus. Patient NPO for potential PPM. AM hygiene care provided. Patient with incontinence of bowel noted while cleaning patient. PW saturated with fecal matter. Groin noted to red irritated and excoriated. Will forego purewick moving forward.
Sacral foam slightly saturated with stool changed. Noted new sacral wound while changing dressing potentially stage II pressure wound. Wound care consulted. Call garay within reach.
--- NOTE | 2024-12-30 04:58 | W.PN.CT ---
Today's Communication / Plan
-
-pod #6
-an episode of bradycardia overnight with v-pacing @ 40 bpm, followed by a-fib 100-110s- got Amio bolus, converted to nsr @ 5:30am. Will discuss with Cardiology. Pw @ VVI 30 currently
-holding po Amio and BB d/t bradycardia (previously 2.9 sec pause)
-Cr is trending down - 1.6 today (peak 2.0 on 12/28)
-Abx per ID, currently on Vancomycin, Nafcillin was d/c'd 12/27 as may have contributed to SEEMA
-Picc placed 12/29 RUE
-Encourage nutritional intake, pre-albumin is low, 8.8->9.1-> 10.8
-Encourage use of IS
-OOB into chair/Ambulate/ PT/OT f/u
-Skilled rehab placement possibly Friday
-appreciate everyone's input
Assessment / Plan
-
Assessment:
-S/P Standard sternotomy/Surgical aortic valve replacement [25 mm prosthesis]/Mitral valve replacement with Hondo-Triston cord replacement for reinforcement [29 mm bioprosthesis]/ Extensive debridement of mitral annular calcification and patch of the
mitral valve annulus using bovine pericardium/Modified open surgical left atrial maze (encompass RF ablation and cryo ablation)/Left atrial appendage exclusion [35 mm device]/Drainage of right pleural effusion [300 cc], by Dr. Bullock, 12/24/24, pod#6
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
-Paroxysmal atrial fibrillation, new onset
-Severe aortic valve stenosis
-Mitral valve stenosis with severe mitral annular calcification
-LVEF 60-65%
-MRSA
-Class 1 obesity (BMI 30.4)
-Osteoporosis with Left tibial plateau fx as well Left meniscus tear, per MRI 12/23/24
-Former tobacco use (quit 40 years ago)
-Systemic Lupus Erythematosus
-Preop hypokalemia
-Preop thrombocytopenia
-Hypothyroidism
-S/P Thyroidectomy
-Acute postop blood loss/Anemia (Transfused 2u PRBCs)
-Acute postop atelectasis
-Acute postop hypovolemia with subsequent hypervolemia
-Acute postop temporary pacer dependence d/t bradycardia
-Acute postop RBBB
-Acute postop elevated INR 5.61
-Acute postop SEEMA, 2.0- improving
-Acute postop flat affect/depression
-Acute postop a-fib- Eliquis started 12/28/24
-Acute postop bradycardia, requiring v-pacing @ 40 bpm
Discussed patient care with: Nursing and Care Team
Subjective
Procedure
-S/P Standard sternotomy/Surgical aortic valve replacement [25 mm prosthesis]/Mitral valve replacement with Hondo-Triston cord replacement for reinforcement [29 mm bioprosthesis]/ Extensive debridement of mitral annular calcification and patch of the
mitral valve annulus using bovine pericardium/Modified open surgical left atrial maze (encompass RF ablation and cryo ablation)/Left atrial appendage exclusion [35 mm device]/Drainage of right pleural effusion [300 cc], by Dr. Bullock, 12/24/24
-
Date of Service: December 30, 2024
Objective Data
-
Lab Results
12/30/24 03:21
12/30/24 03:21
PT 16.4 Sec (11.4-14.6) H 12/27/24 03:35
INR 1.29 12/27/24 03:35
APTT 37.3 Sec (23.4-35.0) H 12/24/24 11:54
Vital Signs
Vital Signs
Temp Pulse Resp BP Pulse Ox
98.1 F 92 16 109/60 93
12/29/24 23:00 12/30/24 04:00 12/29/24 23:00 12/30/24 03:02 12/30/24 03:30
CT Intake/Output/Weight
12/29/24 12/29/24 12/30/24
06:59 18:59 06:59
Intake Total 110 / 1515.0 60 / 60
Output Total 930 / 3230 1500 / 2200 700 / 2200
Balance -820 / -1715.0 -1440 / -2140 -700 / -2140
SaO2: 93
Physical Exam
-
General: Awake and AOx3
Cardiovascular: Irregular rate & rhythm, No Murmurs and No Rub
Respiratory: Decreased Breath Sounds
Sternum: Stable
Incision: Clean, Dry and Dressing Intact
Extremities: Edema +1
Abdomen: soft, nontender, nondistended, + bowel sounds, + BMs 12/29
Data Reviewed
-
Lab Results: Results Reviewed
Medications: Active Meds Reviewed
Chest X-Ray: Report Reviewed and Image Reviewed
ECG: Report Reviewed and Image Reviewed
[2024-12-30] MEDS: SYNTHROID 250 MCG PO (06:03)
[2024-12-30] MEDS: TYLENOL 1000 MG PO ×2 (07:20→20:07)
--- NOTE | 2024-12-30 07:41 | W.PN.CD ---
Today's Communication / Plan
-
Continue diuresis.
IV abx per ID.
Favor low dose metoprolol (25 mg daily) and avoidance of further amiodarone.
I will discuss PPM need with my EP colleagues.
Incentive spirometry.
Ambulate.
Impression / Plan
-
Impression/Plan: 74F with severe aortic stenosis hypothyroidism, lupus, and former smoker transferred from [facility] after being admitted for sepsis/MSSA bacteremia, new atrial fibrillation and CVA during that hospitalization, found to have infectious
mitral valve endocarditis, now s/p AVR/MVR/PAMELA clip with Dr. Bullock 12/24/24. Hospital course has been complicated by acute kidney injury.
#MSSA infectious endocarditis
-Acute.
-Large vegetations on [place] mitral valve with associated mitral regurgitation and moderate to severe aortic stenosis.
-S/P AVR & MVR with PAMELA clip by Dr. Bullock 12/24/2024 (post op management below).
-Patient developed coagulopathy with cefazolin, prompting switch to nafcillin. SEEMA developed after nafcillin (no clear AIN), so ABX changed to vancomycin.
-Antibiotics as directed by ID, plan for 6 week course.
.
#Severe /MR
-Chronic, progressive.
-S/P #25 Cedeno Inspiris Resilia AVR, #29 Mitris Resilia MVR and #[address] Bullock, 12/24/2024.
-Patient required pacing postop continue to monitor rhythms postop.
-Encourage incentive spirometry.
-Ambulate.
-Monitor telemetry in light of developing rhythm issues.
#Paroxysmal atrial fibrillation
-New diagnosis at [facility].
-Amiodarone discontinued after 2.9 second pause, otherwise has appropriate rate response.
-Rate dropped to paced rate of 40 overnight, followed by AF-RVR to 120's, treated with a bolus amiodarone.
-In the presence of medication, it is difficult to assess for the presence of tachy-isreal syndrome.
-I would favor starting low dose beta mya to avoid the extremes in bradycardia and limit RVR response to AF. Avoid further amiodarone.
-I will discuss PPM with my colleagues.
-[id number]: Score at least 4 prior to CVA (HTN, age 75 or more, female gender).
-Anti-thrombotic therapy with apixaban, s/p LAAE.
#SEEMA
-Creatinine improving.
-Patient is improving with diuresis.
-DDx includes medication toxicity/AIN (i.e. transition from nafcillin to vancomycin), cardiorenal, glomerulonephritis (related to IE).
-Appreciate nephrology's input.
#CVA
-Expressive aphasia and word finding difficulty on exam, oriented.
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
#Hypothyroidism
-Chronic.
-On levothyroxine.
#Lupus
#Former smoker
Primary medical file clerk: Yunior Peguero
Subjective/Interval History:
Weight down an additional 2.7 kg.
Overnight, the patient became bradycardic, pacing at 40 BPM. The patient then lapsed into AF-RVR, treated with a bolus of amiodarone. NSR restored.
Patient has been made NPO for possible PPM.
ASO titer negative.
DATA:
Transthoracic echocardiogram, 12/18/2024 ([facility]):
LVEF 45%. Severely dilated LA. Moderate to severe aortic stenosis (peak/mean 52.6/32.3 mmHg).
Severe thickening of the anterior and posterior leaflets of the mitral valve.
Severe mitral annular calcification. Moderate mitral valve regurgitation with centrally directed jet.
Transesophageal Echocardiogram, 12/22/2024:
CONCLUSIONS
-Left ventricular ejection fraction is 60-65%. Normal regional wall motion.
-Normal right ventricular size and function.
-No thrombus detected in the left atrial appendage.
-Thickened mitral valve leaflets and mitral annular calcification with a large,
partially mobile vegetation on the P3 segment of the posterior mitral valve
leaflet measuring approximately 1.5 x 2.5 cm (see below images). There was also
a smaller, highly mobile vegetation on the P1 segment of the mitral valve
leaflet. There also appears to be a small vegetation in the annular region of
the anterior mitral valve leaflet. Mitral valve opens normally.
-Moderate mitral regurgitation (multiple jets).
-Thickened/calcified trileaflet aortic valve with severely reduced leaflet
excursion. Likely severe aortic stenosis; gradients were not obtained.
TTE 12/27/2024
Normal left ventricular chamber size. Normal left ventricular systolic
function. Mild concentric left ventricular hypertrophy. Normal regional wall
motion. Left ventricular ejection fraction is 50-55%.
Normal right ventricular size and grossly normal function.
Moderately dilated left atrium.
Well seated, normally functioning #29 bioprosthetic mitral valve replacement.
There is an echodensity seen on the posteromedial papillary muscle chordae,
which is seen on the intraoperative transesophageal echocardiogram.
Well seated, normally functioning #25 bioprosthetic aortic valve replacement.
No evidence of pulmonary hypertension.
Compared to prior intraoperative study of 12/24/2024, the bioprosthetic aortic
and mitral valves are well seated and functioning normally. The left
ventricular ejection fraction is 50-55%, compared to 60-65% (though this is
immediately post operative which will significantly alter loading conditions).
BACKGROUND:
Yazmin was admitted 12/17/2024 with confusion. She was found on the floor by her son after she did not show up for work. Last seen normal greater than 24 hours [employer] to ER. She presented febrile. Blood cultures demonstrated MSSA and she was started on
cefepime. CT of chest/abdomen/pelvis did not show definitive source. She was found to be in atrial fibrillation with rapid ventricular response with incomplete right bundle branch block. She was started on intravenous heparin and amiodarone. On
12/19/2024 a stroke alert was called for right sided facial droop in addition to right upper and lower extremity weakness. Her heparin drip was stopped due to concern for stroke. CT noncontrast on admission showed 2 foci of decreased density in the
right cerebral hemisphere consistent with acute infarct, one in the cerebellum and one in the high frontal lobe. MRI was pending and not completed prior to transfer. She was found to have pain and erythema of the left knee. On 12/20/2024
orthopedic surgery aspirated her knee. Notable labs during her admission included D-dimer of 16.3, HgbA1c 5.0%, troponin T fifth GEN peaked at 315, and CPK 1191.
Physical Exam
Vital Signs/Labs
Vital Signs
Temp Pulse Resp BP Pulse Ox
36.9 C 73 18 109/60 97
12/30/24 03:00 12/30/24 07:00 12/30/24 03:00 12/30/24 03:02 12/30/24 05:30
12/28/24 12/29/24 12/30/24
11:59 11:59 11:59
Actual Weight 89.6 kg 88.9 kg 86.2 kg
12/30/24 03:21
12/30/24 03:21
PT 16.4 Sec (11.4-14.6) H 12/27/24 03:35
INR 1.29 12/27/24 03:35
APTT 37.3 Sec (23.4-35.0) H 12/24/24 11:54
Magnesium 2.0 mg/dl (1.6-2.3) 12/30/24 03:21
TSH 14.60 uIU/ml (0.47-4.68) H 12/22/24 04:26
Physical Exam
Constitutional: No acute distress and Comfortable
EENT: Anicteric and Moist mucous membranes
Cardiovascular: Rhythm & rate is regular, Pedal edema is absent, JVD pressure is normal, S1S2 is normal and Murmur/rub/gallop absent
Respiratory: Respiratory effort normal, Lungs clear to auscul., Wheeze Absent, Crackles Absent and Rhonchi Absent
GI: Soft, Distention absent, Flat, Non tender and Normal bowel sounds
Neuro/Psych: AO x 3
Data Reviewed
-
Date of Service: December 30, 2024
Medical Decision Making: Reviewed Test Results, Independent Historian Assessment and Test Interpretation
EKG: Tracing Personally Visualized and interpreted and Report Reviewed by me
Echo: Tracing Personally Visualized and interpreted and Report Reviewed by me
X-Ray/CT/US/MRI/NUC/PET: Image Personally Visualized and interpreted and Report Reviewed by me
Medical Tests (PFT, Pathology etc): Image Personally Visualized and interpreted and Report Reviewed by me
Labs: Labs Reviewed by me
--- NOTE | 2024-12-30 08:13 | PHA.VAN.FU ---
Vancomycin Assessment / Plan
- Assessment
Renal Function: SCR Decreasing (slowly trending down)
WBC's are: WNL
In the past 24 hrs, patient has been: Afebrile
- Assessment - Therapeutic Drug Monitoring
Random Level: 16.6 - drawn ~22H after previous level of 20.1
Calculated ke: 0.0086
Calculated half life (H): 80.3
- Dosing Plan
Dosing by Level: Hold off on dosing today (expected to maintain level > 13 for approximately 28H)
- Monitoring Plan
Random Level: 12/31 0600 to trend level and half-life
- Follow Up
Pharmacy will continue to follow.
Vancomycin Follow UP
- -
Patient Age: 74
Patient Sex: Female
Vancomycin Day #: 4
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
Requesting Provider: Dr. Toney
Pertinent Antimicrobial Allergies:
NKDA
Height / Weight:
Height 5 ft 5 in
Actual Weight 86.2 kg
Pertinent Past Medical History: BMI ~32
- Vital Signs / Lab Results
Temp Pulse Resp BP Pulse Ox
98.5 F 73 18 109/60 97
12/30/24 03:00 12/30/24 07:00 12/30/24 03:00 12/30/24 03:02 12/30/24 05:30
Lab Results - Hematology
12/27/24 12/28/24 12/29/24
03:35 03:01 05:11
WBC 9.4 13.1 H 11.1 H
12/30/24
03:21
WBC 8.8
Lab Results - Chemistry
12/27/24 12/27/24 12/27/24
12:59 15:33 20:59
BUN Cancelled 41 H 41 H
Creatinine Cancelled 1.9 H 1.9 H
Estimated Creat Clear Cancelled
12/28/24 12/28/24 12/29/24
03:01 21:09 05:11
BUN 41 H 45 H 44 H
Creatinine 2.0 H 1.8 H 1.7 H
Estimated Creat Clear 27 30 31
12/30/24
03:21
BUN 44 H
Creatinine 1.6 H
Estimated Creat Clear 33
12/28/24 12/28/24 12/29/24
03:01 21:09 06:00
Lactic Acid 0.8 1.0 Cancelled
Microbiology Results
12/24/24 09:00 Tissue Culture - Final
Heart S aureus-Methicillin Sensitive
Gram Stain - Final
12/24/24 09:00 Anaerobic Culture - Final
Heart NO ANAEROBES ISOLATED
12/24/24 09:00 Tissue Culture - Final
Heart No Growth After 72 Hours
Gram Stain - Final
12/24/24 09:00 Anaerobic Culture - Final
Heart NO ANAEROBES ISOLATED
12/23/24 04:29 Blood Culture - Final
Blood/Venous No Growth - Final Report
12/23/24 03:54 Blood Culture - Final
Blood/Venous No Growth - Final Report
Therapeutic Drug Monitoring
Random Vancomycin 16.6 ug/ml 12/30/24 03:21
--- NOTE | 2024-12-30 08:55 | CON.MD ---
Documented by User: Yari Pettit PA-C 12/30/24 09:31
Consultation - Medical
-
Referring Provider:�Valdez Guzman
Chief Complaint:�Debility, ambulatory dysfunction s/p AVR/MVR
�
History of Present Illness:�74 arnel old female with PMH 0f (severe aortic stenosis hypothyroidism, lupus, and former smoker) transferred from [facility] after being admitted to [facility] on 12/21/24 for sepsis/MSSA bacteremia, new atrial
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 Was initially on Ancef switched to nafcillin on 12/25, given rising INR to 5.6 on Ancef. Received vitamin K p.o. to bring INR to 1.29. She is
status post AVR and MVR on 12/24/2024. She has been on antibiotics and had periods of A-fib-was started on Eliquis and bradycardia requiring pacing and withhold of beta blockers. She has had periods of hypotension. She is status post CVA with
expressive aphasia and likely embolic. Renal consulted for acute kidney injury with progressive increase in creatinine.
Patient also with left knee pain, found on MRI to have osteoporotic insufficiency fracture extending vertically through the anterior tibial plateau surrounded by moderate bone marrow edema and meniscus tear. Ortho recommended toe-touch weightbearing
on the left lower extremity.
�
Past Medical History:�Severe aortic stenosis, hypothyroidism, lupus, former smoker
Procedure History:�s/p AVR, MVR, Thyroidectomy
Family History:�non contributory
�
Social History:�
Functional Level Premorbidly:�Independent with all activities�
Functional Level Currently:�Eating�supervision, grooming�min assist, rolling�max assist, Joanie lift recliner to bed
�
Tobacco:�(Quit 40 years ago)
Alcohol:�Denies�
Drug use:�Denies�
�
Lives with:�Alone, son lives nearby
24-hour assistance available:�
Number of floors:�One-story home
# steps to enter:�With entrance
# steps to second floor:
Potential First floor set up:�Yes
Driving:�Yes
Occupation:�Works full-time
�
�
Allergies:�
Allergy/AdvReac Type Severity Reaction Status Date / Time
No Known Allergies Allergy Verified 12/21/24 13:23
�
Review of Systems:�
Constitutional: (x) Normal _
Eye: (x) Normal _
Ear/Nose/Throat: (x) Normal _
Respiratory: (x) Normal _
Cardiovascular: (x) abNormal _avr, mitral valve replacement, endocarditis, bradycardia, A-fib
Gastrointestinal: (x) Normal _
Genitourinary: (x) abNormal _AKI
Musculoskeletal: (x) Normal _
Integumentary: (x) Normal _
Neurologic: (x) abNormal _cva
Psychiatric: (x) Normal _
Endocrine: (x) Normal _
Hematologic/Lymphatic: (x) abNormal bacterimia
Allergic/Immunologic: (x) Normal _
�
Medications:�
Active Current Visit Medication List
Category Date Time Status
0.9% Sodium Chloride 500 ml [Nss] 500 ml Med 12/24/24 11:08 Active
IV CORDIS
Acetaminophen [Tylenol] Med 12/24/24 14:00 Active
1,000 mg PO TID@0600,1400,2200
Acetaminophen [Tylenol] Med 12/24/24 11:08 Active
650 mg PO Q4HPRN PRN
Albumin Human 5% 250 ml [Albumin 5%] Med 12/24/24 13:28 Active
12.5 grams in 250 ml IV POSTOP-PRN
Amiodarone [Pacerone] Med 12/24/24 16:00 Hold
200 mg PO TID
Apixaban [Eliquis] Med 12/28/24 20:00 Active
5 mg PO BID
Aspirin Chewable [Low Strength Aspirin] Med 12/25/24 08:00 Active
81 mg PO DAILY
Atorvastatin [Lipitor] Med 12/21/24 18:00 Active
40 mg PO QPM
Bisacodyl [Dulcolax] Med 12/24/24 11:08 Active
10 mg RECTAL DAILYPRN PRN
Cyclobenzaprine HCl [Flexeril] Med 12/24/24 11:08 Active
5 mg PO Q8HPRN PRN
Docusate W/Senna [Senokot-S] Med 12/24/24 20:00 Active
1 tablet PO Q12
Flush (0.9% Sodium Chloride) [Flush (Nss)] Med 12/24/24 14:00 Active
See Dose Instructions IV PER PROTOCOL
Furosemide [Lasix] Med 12/28/24 08:00 Active
40 mg IV BID AT 0800,1600
Gabapentin [Neurontin] Med 12/24/24 11:08 Active
100 mg PO TID
Hydroxychloroquine [Plaquenil] Med 12/22/24 08:00 Hold
200 mg PO Q48H
Hydroxychloroquine [Plaquenil] Med 12/23/24 08:00 Hold
400 mg PO Q48H
Levothyroxine [Synthroid] Med 12/22/24 06:00 Active
250 mcg PO DAILY @ 0600
Magnesium Hydroxide [Milk of Magnesia] Med 12/24/24 11:08 Active
30 ml PO BIDPRN PRN
Magnesium Oxide Med 12/25/24 08:00 Hold
500 mg PO BID
Metoprolol [Lopressor] Med 12/25/24 08:00 Hold
12.5 mg PO Q12
Ondansetron Injectable [Zofran] Med 12/24/24 11:08 Active
4 mg IV Q8HPRN PRN
Oxycodone [Roxicodone] Med 12/24/24 11:08 Active
2.5 mg PO Q4HPRN PRN
Oxycodone [Roxicodone] Med 12/24/24 11:08 Active
5 mg PO Q4HPRN PRN
Pantoprazole [Protonix] Med 12/25/24 08:00 Active
40 mg PO DAILY
Potassium Chloride [KCl] Med 12/29/24 08:00 Active
20 meq PO BID
Remove Patch [Remove Lidocaine Patch] Med 12/25/24 20:00 Active
1 patch REMOVE DAILY@1999
VANCOMYCIN Pharmacy to Dose [VANCOCIN Pharmacy to Dose] Med 12/27/24 09:50 Active
1 each
Pharmacy To Prepare [Call Pharmacy To Prepare] 0
ml
IV PER PROTOCOL
Vitals:�
Temp Pulse Resp BP Pulse Ox
98 F 67 20 129/56 95
12/29/24 11:21 12/29/24 14:30 12/29/24 13:30 12/29/24 11:26 12/29/24 11:30
Height 5 ft 5 in
Actual Weight 88.9 kg
Body Mass Index (BMI) 32.6
�
Physical Exam:�
General Appearance/Observation: Well-developed, well-nourished individual in no apparent distress.�
Pain/Comfort Assessment: Denies�
Mood/Affect: Appropriate�
�
Integumentary/Operative Site:�sternal incision, right neck. legs, bruises
�� Pressure Ulcer Evaluation: absent over heels. bunion, hammer toe
��
�� Other Type of Wound: absent�
��
�
Eyes: Conjunctiva/Lids: normal���� Pupils: pupils equal round and reactive to light and Accommodation�
Ears/Nose/Throat: oral mucosa moist,� throat clear.������������ Lips/Teeth/Gums: normal�
Neck: No muscle spasm or tenderness�
Cardiovascular: Heart: regular, no murmur�
Pulses: dorsalis pedis 1+ bilaterally�
Respiratory: Respiratory Effort/Chest Expansion: normal������� Auscultation: diminished BS at bases
Gastrointestinal: abdomen not tender, no distension, normal abdominal bowel sounds
Genitourinary: no kaplan�
Extremities:�Edema: B/L legs , UE Cyanosis: None�Trophic�changes: venous stasis changes LE
�
Neurology Exam:
Orientation: Alert, Oriented to self, Place-DH�
Memory: seems intact for immediate medical concerns
Comprehension: Intact
Two step command: Intact
Naming: Intact
Cranial Nerves:
�� CNII:�Pupillary light reflex: Intact����Visual Field: NT
�� CN III, IV, : Extraocular muscles: Intact�
�� CN V:�Facial Sensation�at�Forehead: Intact,�Maxilla: Intact,�Mandible: Intact
�� CN VII:�Facial movement: Symmetric
�� CN VIII:�Hearing: Normal
�� CN IX/X:�Speech & swallow: low volume�Position of Uvula: Midline
�� CN XI:�Shoulder shrug: Symmetric
�� CN XII:�Tongue protrusion: deviated to
Sensory:
�� Light touch: Intact in bilateral upper and lower extremities
��
�
Reflexes:
�� Biceps: trace bilaterally
�� Brachioradialis: absent bilaterally
�� Triceps: absent bilaterally
�� Patellar: absent bilaterally
�� Achilles: absent bilaterally
�� Babinski: No response bilaterally
�� Clonus: NT
�� Enio: Negative bilaterally�
Cerebellar: Dysmetria/Ataxia: impaired
Musculoskeletal:
Motor: (Manual muscle scale 0-5)�
Muscle SA EF WE EE FF FA HF KE DF EHL PF
Right� >3 >3 >3 4 1 1 3 3 3+
Left >3 >3 >3 4 1 1 4 4 4
�
Tone: Normal in all extremities�
Range of Motion:deferred due to multiple factors
�
Lab Results
Labs
WBC 11.1 10^3/uL (4.8-10.8) H 12/29/24 05:11
RBC 3.45 10^6/uL (4.20-5.40) L 12/29/24 05:11
Hgb 10.2 g/dL (12.0-16.0) L 12/29/24 05:11
Hct 31.3 % (37.0-47.0) L 12/29/24 05:11
MCV 90.7 fL (81.0-99.0) 12/29/24 05:11
MCH 29.6 pg (27.0-31.0) 12/29/24 05:11
MCHC 32.6 g/dL (33.0-37.0) L 12/29/24 05:11
RDW 15.2 % (11.5-14.5) H 12/29/24 05:11
Plt Count 177 10^3/uL (130-400) 12/29/24 05:11
MPV 10.3 fL (7.4-10.4) 12/29/24 05:11
Abs Immat Gran (auto) 0.2 10^3/uL (0-0.05) H 12/27/24 03:35
Absolute Neuts (auto) 7.6 10^3/uL (1.4-6.5) H 12/27/24 03:35
Absolute Lymphs (auto) 0.7 10^3/uL (1.2-3.4) L 12/27/24 03:35
Absolute Monos (auto) 0.6 10^3/uL (0.1-0.6) 12/27/24 03:35
Absolute Eos (auto) 0.1 10^3/uL (0-0.7) 12/27/24 03:35
Absolute Basos (auto) 0.0 10^3/uL (0-0.2) 12/27/24 03:35
Immature Gran % 1.9 % (0-0.5) H 12/27/24 03:35
Neutrophils % 83.4 % (42.2-75.2) H 12/27/24 03:35
Lymphocytes % 7.6 % (20.5-51.1) L 12/27/24 03:35
Monocytes % 6.1 % (1.7-9.3) 12/27/24 03:35
Eosinophils % 0.6 % (0-6) 12/27/24 03:35
Basophils % 0.4 % (0-2) 12/27/24 03:35
Nucleated RBC % 0 % 12/27/24 03:35
ESR 25 mm/hour (0-20) H 12/22/24 13:18
PT 16.4 Sec (11.4-14.6) H 12/27/24 03:35
INR 1.29 12/27/24 03:35
APTT 37.3 Sec (23.4-35.0) H 12/24/24 11:54
pH 7.39 (7.35-7.45) 12/24/24 15:50
pCO2 37 mmHg (32-35) H 12/24/24 15:50
pO2 173 mmHg (83-108) H 12/24/24 15:50
HCO3 22.4 mmol/L (21-28) 12/24/24 15:50
Base Excess -2.3 mmol/L 12/24/24 15:50
ABG O2 Sat (Measured) 99.7 % (94-98) H 12/24/24 15:50
POC ABG O2 Sat (Calc) 99.5 % (94-98) H 12/24/24 15:41
Mixed VBG O2 Saturation 67.9 % 12/28/24 10:16
Sodium 132 mMOL/L (136-145) L 12/24/24 11:54
Potassium 4.7 mMOL/L (3.5-5.1) 12/24/24 15:50
O2 Delivery Level 12/24/24 15:50
Sodium 134 mmol/L (135-145) L 12/29/24 05:11
Potassium 4.3 mmol/L (3.5-5.1) 12/29/24 05:11
Chloride 100 mmol/L (98-107) 12/29/24 05:11
Carbon Dioxide 28 mmol/L (22-30) 12/29/24 05:11
BUN 44 mg/dl (7-17) H 12/29/24 05:11
Creatinine 1.7 mg/dL (0.6-1.0) H 12/29/24 05:11
Estimated Creat Clear 31 ml/min 12/29/24 05:11
eGFR 31.08 12/29/24 05:11
Glucose 96 mg/dl (70-99) 12/29/24 05:11
Hemoglobin A1c 5.2 % (4.0-5.6) 12/22/24 13:18
Lactic Acid Cancelled 12/29/24 06:00
Calcium 8.8 mg/dl (8.4-10.2) 12/29/24 05:11
Ionized Calcium 1.18 mMOL/L (1.15-1.33) 12/28/24 03:01
Magnesium 2.1 mg/dl (1.6-2.3) 12/29/24 05:11
Total Bilirubin 1.3 mg/dl (0.2-1.3) 12/26/24 12:07
Direct Bilirubin 0.1 mg/dl (0.0-0.4) 12/25/24 04:51
AST 81 U/L (14-36) H 12/26/24 12:07
ALT 11 U/L (0-35) 12/26/24 12:07
Alkaline Phosphatase 47 U/L (38-126) 12/26/24 12:07
C-Reactive Protein 133.00 mg/L (0.0-10.00) H 12/22/24 13:18
Total Protein 5.1 g/dl (6.3-8.2) L 12/26/24 12:07
Albumin 2.7 g/dl (3.5-5.0) L 12/26/24 12:07
Prealbumin 10.8 mg/dl (17.6-36.0) L 12/29/24 05:11
TSH 14.60 uIU/ml (0.47-4.68) H 12/22/24 04:26
Urine Color Yellow 12/27/24 09:39
Urine Clarity Cloudy (Clear) 12/27/24 09:39
Urine pH 6.0 (5.0-9.0) 12/27/24 09:39
Ur Specific [place] 1.010 (<1.030) 12/27/24 09:39
Urine Ketones Negative (Negative) 12/27/24 09:39
Urine Occult Blood 4+ (Negative) A 12/27/24 09:39
Ur Occult Blood Reflex Negative (Negative) 12/24/24 07:00
Urine Nitrite Negative (Negative) 12/27/24 09:39
Urine Nitrite (Reflex) Negative (Negative) 12/24/24 07:00
Urine Bilirubin Negative (Negative) 12/27/24 09:39
Urine Urobilinogen Negative (Neg - 1+) 12/27/24 09:39
Ur Leukocyte Esterase Negative (Negative) 12/27/24 09:39
Leukocyte Esterase Rfl Negative (Negative) 12/24/24 07:00
Urine RBC 7-10 /HPF (0-2) A 12/27/24 09:39
Urine WBC 3-5 /HPF (0-5) 12/27/24 09:39
Ur Squamous Epith Cells 0-2 /LPF (Few) 12/27/24 09:39
Ur Urothelial Cells 26-30 /LPF (FEW) 12/27/24 09:39
Amorphous Crystals Seen 12/27/24 09:39
Urine Bacteria Few (Negative) A 12/27/24 09:39
Urine Yeast Many (Negative) A 12/27/24 09:39
Urine Osmolality 319 mOsm/kg (300-900) 12/27/24 09:39
Ur Collection Duration Random hr 12/27/24 09:39
Ur 24 Hour Volume Random mL 12/27/24 09:39
Urine Creatinine 50.500 mg/dl 12/27/24 09:39
Ur Creatinine per Vol 54 mg/dL 12/27/24 09:39
Ur Creatinine mg/24hr Not applicable mg/d (500-1400) 12/27/24 09:39
Urine Sodium 52 mmol/L (30-90) 12/27/24 09:39
Urine Potassium 50.6 mmol/L (30-90) 12/27/24 09:39
Urine Phosphorus 35 mg/dL 12/27/24 09:39
Ur Phosphorus 24 Hr Not applicable mg/d (400-1300) 12/27/24 09:39
U Phosphorus/Creat 648 mg/g 12/27/24 09:39
Urine Glucose Negative (Negative) 12/27/24 09:39
Urine Calcium 1.2 mg/dl 12/27/24 09:39
Urine Total Protein 128 mg/dl (0-12) H 12/27/24 09:39
Urine Albumin 3+ (Neg - Trace) A 12/27/24 09:39
Urine Albumin (Reflex) Negative (Neg - Trace) 12/24/24 07:00
Fluid WBC 3881 /CUMM 12/22/24 12:50
Fluid Eosinophils No eosinophils seen 12/27/24 09:39
Fluid Mononuclear Cell 21.3 % 12/22/24 12:50
Fl Polymorphonucl Cell 78.7 % 12/22/24 12:50
Fluid Other Cells Not Reportable 12/22/24 12:50
Fluid Diff Path Review Not Reportable 12/22/24 12:50
Fluid Crystals 12/22/24 12:50
Random Vancomycin 20.1 ug/ml 12/29/24 05:11
Alcohol, Quantitative Cancelled 12/21/24 11:08
Anti-Streptolysin O Ab Negative (Negative) 12/29/24 05:11
Specimen Type Arterial 12/24/24 15:41
POC pH 7.39 (7.35-7.45) 12/24/24 15:41
POC Base Excess -1.3 mmol/L 12/24/24 15:41
POC pO2 165 mmHg (83-108) H 12/24/24 15:41
POC pCO2 39 mmHg (35-48) 12/24/24 15:41
POC HCO3 23 mmol/L (21-28) 12/24/24 15:41
POC Glucose 94 mg/dl (70-99) 12/25/24 12:15
POC Glucose 124 mg/dl (70-99) H 12/24/24 15:41
POC Sodium 138 mmol/L (136-145) 12/24/24 15:41
POC Potassium 4.6 mmol/L (3.5-5.1) 12/24/24 15:41
POC Chloride 103 mmol/L (96-111) 12/24/24 15:41
POC BUN 13 mg/dl (3-120) 12/24/24 15:41
POC Ionized Calcium 1.23 mmol/L (1.15-1.33) 12/24/24 15:41
POC Lactate 0.84 mmol/L (0.36-0.75) H 12/24/24 15:41
POC Creatinine 0.69 mg/dl (0.3-1.0) 12/24/24 15:41
POC ACT+ 153 Seconds (82-134) H 12/24/24 10:59
POC Hemoglobin Calc 9.6 12/24/24 15:41
POC Hematocrit 28 % PCV (37-47) L 12/24/24 15:41
POC Hemodilution Yes 12/24/24 15:41
Blood Type O POS 12/26/24 04:20
Blood Type Confirm O POS 12/23/24 05:13
Antibody Screen Negative (Negative) 12/26/24 04:20
Crossmatch IS Only See Detail 12/26/24 04:20
�
Diagnostic Results:�as per HPI�
12/29/24 chest xray
Right upper extremity PICC with catheter tip projecting over the superior vena cava. Interval removal of the pulmonary artery catheter.
There is a small right pleural effusion with right basilar atelectasis, slightly increased from prior.
chest xray- 12/27/2024
Interval removal of chest tubes. No pneumothorax. Right basilar opacity again seen suggesting subsegmental atelectasis and small right pleural effusion.
MRI- left Knee - 12/24/2024 -
1. OSTEOPOROTIC INSUFFICIENCY FRACTURE extending vertically through the ANTERIOR TIBIAL PLATEAU surrounded by moderate bone marrow edema.
2. Horizontal tear of the body of the lateral meniscus and vertical tear of the posterior horn of the lateral meniscus. Partial lateral extrusion of the meniscal body.
3. Horizontal tear of the body of the medial meniscus.
4. Severe full-thickness cartilage wear over the lateral patellar facet with moderate subchondral bone marrow edema.
5. Moderate tendinosis and [id number]-[id number] tear of the distal quadriceps tendon.
6. Small to moderate-sized joint effusion.
7. Moderate to severe para-articular muscle atrophy.
Peripheral Venous Ultrasound - left UE-12/23/2024
There is thrombus formation in the proximal left basilic vein and in the entire cephalic vein of the forearm. There is a bandage overlying the distal half of the upper extremity from the shoulder to the antecubital fossa limiting evaluation in this
region.
The left internal jugular, subclavian, and axillary veins are patent and compressible with normal flow except for the subclavian which is not compressible only because of location. The visualized proximal cephalic vein and brachial vein in the upper
extremity and cephalic vein in the forearm are also patent. The PICC line catheter is visualized in the basilic vein.
Thoracic MRI
No MR evidence for spondylodiscitis or epidural abscess.
Multilevel degenerative changes of the thoracic spine as described.
Moderate bilateral pleural effusions.
2.0 cm cystic nodule in the low anterior left neck soft tissues, possibly an exophytic thyroid nodule. Recommend outpatient workup with dedicated thyroid ultrasound if not previously performed.
Assessment:74F with severe aortic stenosis hypothyroidism, lupus, and former smoker transferred from [facility] after being admitted for sepsis/MSSA bacteremia, new atrial fibrillation and CVA during that hospitalization, found to have infectious mitral
valve endocarditis, now s/p ARV/MVR/PAMELA clip with Dr. Bullock 12/24/24.
Plan�
PT/OT to increase independence with ADLs, improve balance, coordination, endurance, strength, mobility, community reintegration, decreased burden of care on others and family education.�
infectious mitral valve endocarditis:Preoperatively large vegetations on mitral valve with associated mitral regurgitation and patient also with moderate to severe aortic stenosis. Nafcillin transitioned to vancomycin 2,000mg IV given concerns for
renal toxicity.
Ambulatory Dysfunction: s/p ARV/MVR/PAMELA clip with Dr. Bullock 12/24/24: required pacing postop continue to monitor rhythms postop. Weaned off dobutamine as tolerated;BB held for bradycardia and brief pause.
CVA: Septic embolic stroke. Head CT�2 small strokes left frontal, 1 in the right frontal and a moderate size wedge in the right cerebellum with no cortical involvement. Per neuro�okay for blood thinners if needed. On Eliquis 5 mg twice daily,
aspirin 81 mg daily statin, and blood pressure control (SBP less than 180 and diastolic less than 100 to participate with therapy for ischemic stroke). Continue to monitor neurologic status.�
Left/right nondominant hemiparesis: High risk for falls and sliding out of chair/bed. Safety reinforced.�
- Avoid using affected arm to help lift or pull patient as this will cause trauma to the shoulder.
Dysarthria: speech evaluation�
Aphasia: speech evaluation-found to have mild expressive/receptive aphasia.
HTN: continue medications, monitor closely�
HLD: Atorvastatin 40 mg
Coronary artery disease�: Aspirin, statin, beta-mya�
Atrial fibrillation:�started on Eliquis 5 mg bid on 12/28 ,amiodarone 200 mg 3 times daily�on hold�, metoprolol 12.5 every 12�on hold, Lasix 40 mg IV twice daily����������������������������������������
Hypothyroidism: levothyroxine� 250 mcg
ESEMA: creatinine down to 1.7. Nephrology consulted-continue Lasix, multifactorial suspect ATN from hemodynamic changes moderate hypotension. Awaiting serologies given hematuria, proteinuria, infectious endocarditis
Anemia: Likely multifactorial.� Continue to monitor.�
Psych: Psychology consult.� Monitor mood, adjust medications as needed.�
Skin: monitor for pressure sores/rashes/lesions.�
Pain: acetaminophen or oxycodone as needed, gabapentin 100 mg 3 times daily
Bowel: Colace and Senna, PRN bisacodyl.�
Bladder/kaplan: To consider d/c kaplan Time void, PVRs, PRN straight cath.�
GI Prophylaxis: Pantoprazole�40 daily
DVT Prophylaxis: Mechanical and Eliquis
Pulmonary: Incentive spirometry�
Safety: Continue to reinforce assistance with all transfers.�
Code Status:� Full code
�
Functional and Medical Goals:�Modified Independent with ADL�s, ambulation, transfers�
�
Discharge Destination:�Patient with complex medical history including cardiac surgery, bradycardia post pacing, embolic stroke, LLE fracture limited to toe touch weightbearing not a candidate for acute inpatient rehabilitation at this time. Would
benefit from [facility] facility when medically stable and may benefit from an acute rehabilitation facility once medically and physically able.
�
�
Thank you for allowing me to care for your patient. Please contact me with any questions or concerns.

Documented by User: Roberto Huggins MD 12/30/24 11:38
Consultation - Medical
-
Referring Provider:�Valdez Guzman
Chief Complaint:�Debility, ambulatory dysfunction s/p AVR/MVR
�
History of Present Illness:�74-year-old old female with PMH (severe aortic stenosis hypothyroidism, lupus, and former smoker) transferred from [facility] after being admitted to [facility] on 12/21/24 for sepsis/MSSA bacteremia, new atrial
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 Was initially on Ancef switched to nafcillin on 12/25, given rising INR to 5.6 on Ancef. Received vitamin K p.o. to bring INR to 1.29. She is
status post AVR and MVR on 12/24/2024. She has been on antibiotics and had periods of A-fib-was started on Eliquis and bradycardia requiring pacing and withhold of beta blockers. She has had periods of hypotension. She is status post CVA with
expressive aphasia and likely embolic. Renal consulted for acute kidney injury with progressive increase in creatinine.
Patient also with left knee pain, found on MRI to have osteoporotic insufficiency fracture extending vertically through the anterior tibial plateau surrounded by moderate bone marrow edema and meniscus tear. Ortho recommended toe-touch weightbearing
on the left lower extremity.
�
Past Medical History:�Severe aortic stenosis, hypothyroidism, lupus, former smoker
Procedure History:�s/p AVR, MVR, Thyroidectomy
Family History:�non contributory
�
Social History:�
Functional Level Premorbidly:�Independent with all activities�
Functional Level Currently:�Eating�supervision, grooming�min assist, rolling�max assist, Joanie lift recliner to bed
�
Tobacco:�(Quit 40 years ago)
Alcohol:�Denies�
Drug use:�Denies�
�
Lives with:�Alone, son lives nearby
24-hour assistance available:�No
Number of floors:�One-story home
# steps to enter:�With entrance
Driving:�Yes
Occupation:�Works full-time
�
�
Allergies:�
Allergy/AdvReac Type Severity Reaction Status Date / Time
No Known Allergies Allergy Verified 12/21/24 13:23
�
Review of Systems:�
Constitutional: (x) abNormal _fatigue
Eye: (x) Normal _
Ear/Nose/Throat: (x) Normal _
Respiratory: (x) Normal _
Cardiovascular: (x) abNormal _avr, mitral valve replacement, endocarditis, bradycardia, A-fib
Gastrointestinal: (x) Normal _
Genitourinary: (x) abNormal _AKI
Musculoskeletal: (x) Normal _
Integumentary: (x) Normal _
Neurologic: (x) abNormal _cva
Psychiatric: (x) Normal _
Endocrine: (x) Normal _
Hematologic/Lymphatic: (x) abNormal bacterimia
Allergic/Immunologic: (x) Normal _
�
Medications:�
Active Current Visit Medication List
Category Date Time Status
0.9% Sodium Chloride 500 ml [Nss] 500 ml Med 12/24/24 11:08 Active
IV CORDIS
Acetaminophen [Tylenol] Med 12/24/24 14:00 Active
1,000 mg PO TID@0600,1400,2200
Acetaminophen [Tylenol] Med 12/24/24 11:08 Active
650 mg PO Q4HPRN PRN
Albumin Human 5% 250 ml [Albumin 5%] Med 12/24/24 13:28 Active
12.5 grams in 250 ml IV POSTOP-PRN
Amiodarone [Pacerone] Med 12/24/24 16:00 Hold
200 mg PO TID
Apixaban [Eliquis] Med 12/28/24 20:00 Active
5 mg PO BID
Aspirin Chewable [Low Strength Aspirin] Med 12/25/24 08:00 Active
81 mg PO DAILY
Atorvastatin [Lipitor] Med 12/21/24 18:00 Active
40 mg PO QPM
Bisacodyl [Dulcolax] Med 12/24/24 11:08 Active
10 mg RECTAL DAILYPRN PRN
Cyclobenzaprine HCl [Flexeril] Med 12/24/24 11:08 Active
5 mg PO Q8HPRN PRN
Docusate W/Senna [Senokot-S] Med 12/24/24 20:00 Active
1 tablet PO Q12
Flush (0.9% Sodium Chloride) [Flush (Nss)] Med 12/24/24 14:00 Active
See Dose Instructions IV PER PROTOCOL
Furosemide [Lasix] Med 12/28/24 08:00 Active
40 mg IV BID AT 0800,1600
Gabapentin [Neurontin] Med 12/24/24 11:08 Active
100 mg PO TID
Hydroxychloroquine [Plaquenil] Med 12/22/24 08:00 Hold
200 mg PO Q48H
Hydroxychloroquine [Plaquenil] Med 12/23/24 08:00 Hold
400 mg PO Q48H
Levothyroxine [Synthroid] Med 12/22/24 06:00 Active
250 mcg PO DAILY @ 0600
Magnesium Hydroxide [Milk of Magnesia] Med 12/24/24 11:08 Active
30 ml PO BIDPRN PRN
Magnesium Oxide Med 12/25/24 08:00 Hold
500 mg PO BID
Metoprolol [Lopressor] Med 12/25/24 08:00 Hold
12.5 mg PO Q12
Ondansetron Injectable [Zofran] Med 12/24/24 11:08 Active
4 mg IV Q8HPRN PRN
Oxycodone [Roxicodone] Med 12/24/24 11:08 Active
2.5 mg PO Q4HPRN PRN
Oxycodone [Roxicodone] Med 12/24/24 11:08 Active
5 mg PO Q4HPRN PRN
Pantoprazole [Protonix] Med 12/25/24 08:00 Active
40 mg PO DAILY
Potassium Chloride [KCl] Med 12/29/24 08:00 Active
20 meq PO BID
Remove Patch [Remove Lidocaine Patch] Med 12/25/24 20:00 Active
1 patch REMOVE DAILY@1999
VANCOMYCIN Pharmacy to Dose [VANCOCIN Pharmacy to Dose] Med 12/27/24 09:50 Active
1 each
Pharmacy To Prepare [Call Pharmacy To Prepare] 0
ml
IV PER PROTOCOL
Vitals:�
Temp Pulse Resp BP Pulse Ox
98 F 67 20 129/56 95
12/29/24 11:21 12/29/24 14:30 12/29/24 13:30 12/29/24 11:26 12/29/24 11:30
Height 5 ft 5 in
Actual Weight 88.9 kg
Body Mass Index (BMI) 32.6
�
Physical Exam:�
General Appearance/Observation: Well-developed, well-nourished female in no apparent distress.�
Pain/Comfort Assessment: Denies�
Mood/Affect: Appropriate�
�
Integumentary/Operative Site:�sternal incision, right neck. legs, bruises
�� Pressure Ulcer Evaluation: absent over heels. bunion, hammer toe
�
Eyes: Conjunctiva/Lids: normal���� Pupils: pupils equal round and reactive to light and Accommodation�
Ears/Nose/Throat: oral mucosa moist,� throat clear.������������ Lips/Teeth/Gums: normal�
Neck: No muscle spasm or tenderness�
Cardiovascular: Heart: regular, no murmur�
Pulses: dorsalis pedis 1+ bilaterally�
Respiratory: Respiratory Effort/Chest Expansion: normal������� Auscultation: diminished BS at bases
Gastrointestinal: abdomen not tender, no distension, normal abdominal bowel sounds
Genitourinary: no kaplan�
Extremities:�Edema: B/L legs , UE Cyanosis: None�Trophic�changes: venous stasis changes LE
�
Neurology Exam:
Orientation: Alert, Oriented to self, Place-DH�
Memory: seems intact for immediate medical concerns
Comprehension: Intact
Two step command: Intact
Naming: Intact
Cranial Nerves:
�� CNII:�Pupillary light reflex: Intact����Visual Field: Intact
�� CN III, IV, : Extraocular muscles: Intact�
�� CN V:�Facial Sensation�at�Forehead: Intact,�Maxilla: Intact,�Mandible: Intact
�� CN VII:�Facial movement: Left facial weakness
�� CN VIII:�Hearing: Normal
�� CN IX/X:�Speech & swallow: low volume, mild dysarthria, mild aphasia�position of Uvula: Midline
�� CN XI:�Shoulder shrug: Symmetric
�� CN XII:�Tongue protrusion: deviated to
Sensory:
�� Light touch: Intact in bilateral upper and lower extremities
��
�
Reflexes:
�� Biceps: trace bilaterally
�� Brachioradialis: absent bilaterally
�� Triceps: absent bilaterally
�� Patellar: absent bilaterally
�� Achilles: absent bilaterally
�� Babinski: No response bilaterally
�� Clonus: NT
�� Enio: Negative bilaterally�
Cerebellar: Dysmetria/Ataxia: impaired on left
Musculoskeletal: Motor: (Manual muscle scale 0-5)�
Muscle SA EF WE EE FF FA HF KE DF EHL PF
Right� >3 >3 >3 4 1 1 3 3 3+
Left >3 >3 >3 4 1 1 4 4 4
-left upper extremity appears to be slightly weaker than right although not fully tested with weightbearing restrictions
Tone: Normal in all extremities�
Range of Motion: Limited evaluation with sternal precautions, functional range of motion bilateral elbows wrists and ankles.
�
Lab Results
Labs
WBC 11.1 10^3/uL (4.8-10.8) H 12/29/24 05:11
RBC 3.45 10^6/uL (4.20-5.40) L 12/29/24 05:11
Hgb 10.2 g/dL (12.0-16.0) L 12/29/24 05:11
Hct 31.3 % (37.0-47.0) L 12/29/24 05:11
MCV 90.7 fL (81.0-99.0) 12/29/24 05:11
MCH 29.6 pg (27.0-31.0) 12/29/24 05:11
MCHC 32.6 g/dL (33.0-37.0) L 12/29/24 05:11
RDW 15.2 % (11.5-14.5) H 12/29/24 05:11
Plt Count 177 10^3/uL (130-400) 12/29/24 05:11
MPV 10.3 fL (7.4-10.4) 12/29/24 05:11
Abs Immat Gran (auto) 0.2 10^3/uL (0-0.05) H 12/27/24 03:35
Absolute Neuts (auto) 7.6 10^3/uL (1.4-6.5) H 12/27/24 03:35
Absolute Lymphs (auto) 0.7 10^3/uL (1.2-3.4) L 12/27/24 03:35
Absolute Monos (auto) 0.6 10^3/uL (0.1-0.6) 12/27/24 03:35
Absolute Eos (auto) 0.1 10^3/uL (0-0.7) 12/27/24 03:35
Absolute Basos (auto) 0.0 10^3/uL (0-0.2) 12/27/24 03:35
Immature Gran % 1.9 % (0-0.5) H 12/27/24 03:35
Neutrophils % 83.4 % (42.2-75.2) H 12/27/24 03:35
Lymphocytes % 7.6 % (20.5-51.1) L 12/27/24 03:35
Monocytes % 6.1 % (1.7-9.3) 12/27/24 03:35
Eosinophils % 0.6 % (0-6) 12/27/24 03:35
Basophils % 0.4 % (0-2) 12/27/24 03:35
Nucleated RBC % 0 % 12/27/24 03:35
ESR 25 mm/hour (0-20) H 12/22/24 13:18
PT 16.4 Sec (11.4-14.6) H 12/27/24 03:35
INR 1.29 12/27/24 03:35
APTT 37.3 Sec (23.4-35.0) H 12/24/24 11:54
pH 7.39 (7.35-7.45) 12/24/24 15:50
pCO2 37 mmHg (32-35) H 12/24/24 15:50
pO2 173 mmHg (83-108) H 12/24/24 15:50
HCO3 22.4 mmol/L (21-28) 03/14/25 15:50
Base Excess -2.3 mmol/L 12/24/24 15:50
ABG O2 Sat (Measured) 99.7 % (94-98) H 12/24/24 15:50
POC ABG O2 Sat (Calc) 99.5 % (94-98) H 12/24/24 15:41
Mixed VBG O2 Saturation 67.9 % 12/28/24 10:16
Sodium 132 mMOL/L (136-145) L 12/24/24 11:54
Potassium 4.7 mMOL/L (3.5-5.1) 12/24/24 15:50
O2 Delivery Level 12/24/24 15:50
Sodium 134 mmol/L (135-145) L 12/29/24 05:11
Potassium 4.3 mmol/L (3.5-5.1) 12/29/24 05:11
Chloride 100 mmol/L (98-107) 12/29/24 05:11
Carbon Dioxide 28 mmol/L (22-30) 12/29/24 05:11
BUN 44 mg/dl (7-17) H 12/29/24 05:11
Creatinine 1.7 mg/dL (0.6-1.0) H 12/29/24 05:11
Estimated Creat Clear 31 ml/min 12/29/24 05:11
eGFR 31.08 12/29/24 05:11
Glucose 96 mg/dl (70-99) 12/29/24 05:11
Hemoglobin A1c 5.2 % (4.0-5.6) 12/22/24 13:18
Lactic Acid Cancelled 12/29/24 06:00
Calcium 8.8 mg/dl (8.4-10.2) 12/29/24 05:11
Ionized Calcium 1.18 mMOL/L (1.15-1.33) 12/28/24 03:01
Magnesium 2.1 mg/dl (1.6-2.3) 12/29/24 05:11
Total Bilirubin 1.3 mg/dl (0.2-1.3) 12/26/24 12:07
Direct Bilirubin 0.1 mg/dl (0.0-0.4) 12/25/24 04:51
AST 81 U/L (14-36) H 12/26/24 12:07
ALT 11 U/L (0-35) 12/26/24 12:07
Alkaline Phosphatase 47 U/L (38-126) 12/26/24 12:07
C-Reactive Protein 133.00 mg/L (0.0-10.00) H 12/22/24 13:18
Total Protein 5.1 g/dl (6.3-8.2) L 12/26/24 12:07
Albumin 2.7 g/dl (3.5-5.0) L 12/26/24 12:07
Prealbumin 10.8 mg/dl (17.6-36.0) L 12/29/24 05:11
TSH 14.60 uIU/ml (0.47-4.68) H 12/22/24 04:26
Urine Color Yellow 12/27/24 09:39
Urine Clarity Cloudy (Clear) 12/27/24 09:39
Urine pH 6.0 (5.0-9.0) 12/27/24 09:39
Ur Specific [place] 1.010 (<1.030) 12/27/24 09:39
Urine Ketones Negative (Negative) 12/27/24 09:39
Urine Occult Blood 4+ (Negative) A 12/27/24 09:39
Ur Occult Blood Reflex Negative (Negative) 12/24/24 07:00
Urine Nitrite Negative (Negative) 12/27/24 09:39
Urine Nitrite (Reflex) Negative (Negative) 12/24/24 07:00
Urine Bilirubin Negative (Negative) 12/27/24 09:39
Urine Urobilinogen Negative (Neg - 1+) 12/27/24 09:39
Ur Leukocyte Esterase Negative (Negative) 12/27/24 09:39
Leukocyte Esterase Rfl Negative (Negative) 12/24/24 07:00
Urine RBC 7-10 /HPF (0-2) A 12/27/24 09:39
Urine WBC 3-5 /HPF (0-5) 12/27/24 09:39
Ur Squamous Epith Cells 0-2 /LPF (Few) 12/27/24 09:39
Ur Urothelial Cells 26-30 /LPF (FEW) 12/27/24 09:39
Amorphous Crystals Seen 12/27/24 09:39
Urine Bacteria Few (Negative) A 12/27/24 09:39
Urine Yeast Many (Negative) A 12/27/24 09:39
Urine Osmolality 319 mOsm/kg (300-900) 12/27/24 09:39
Ur Collection Duration Random hr 12/27/24 09:39
Ur 24 Hour Volume Random mL 12/27/24 09:39
Urine Creatinine 50.500 mg/dl 12/27/24 09:39
Ur Creatinine per Vol 54 mg/dL 12/27/24 09:39
Ur Creatinine mg/24hr Not applicable mg/d (500-1400) 12/27/24 09:39
Urine Sodium 52 mmol/L (30-90) 12/27/24 09:39
Urine Potassium 50.6 mmol/L (30-90) 12/27/24 09:39
Urine Phosphorus 35 mg/dL 12/27/24 09:39
Ur Phosphorus 24 Hr Not applicable mg/d (400-1300) 12/27/24 09:39
U Phosphorus/Creat 648 mg/g 12/27/24 09:39
Urine Glucose Negative (Negative) 12/27/24 09:39
Urine Calcium 1.2 mg/dl 12/27/24 09:39
Urine Total Protein 128 mg/dl (0-12) H 12/27/24 09:39
Urine Albumin 3+ (Neg - Trace) A 12/27/24 09:39
Urine Albumin (Reflex) Negative (Neg - Trace) 12/24/24 07:00
Fluid WBC 3881 /CUMM 12/22/24 12:50
Fluid Eosinophils No eosinophils seen 12/27/24 09:39
Fluid Mononuclear Cell 21.3 % 12/22/24 12:50
Fl Polymorphonucl Cell 78.7 % 12/22/24 12:50
Fluid Other Cells Not Reportable 12/22/24 12:50
Fluid Diff Path Review Not Reportable 12/22/24 12:50
Fluid Crystals 12/22/24 12:50
Random Vancomycin 20.1 ug/ml 12/29/24 05:11
Alcohol, Quantitative Cancelled 12/21/24 11:08
Anti-Streptolysin O Ab Negative (Negative) 12/29/24 05:11
Specimen Type Arterial 12/24/24 15:41
POC pH 7.39 (7.35-7.45) 12/24/24 15:41
POC Base Excess -1.3 mmol/L 12/24/24 15:41
POC pO2 165 mmHg (83-108) H 12/24/24 15:41
POC pCO2 39 mmHg (35-48) 12/24/24 15:41
POC HCO3 23 mmol/L (21-28) 12/24/24 15:41
POC Glucose 94 mg/dl (70-99) 12/25/24 12:15
POC Glucose 124 mg/dl (70-99) H 12/24/24 15:41
POC Sodium 138 mmol/L (136-145) 12/24/24 15:41
POC Potassium 4.6 mmol/L (3.5-5.1) 12/24/24 15:41
POC Chloride 103 mmol/L (96-111) 12/24/24 15:41
POC BUN 13 mg/dl (3-120) 12/24/24 15:41
POC Ionized Calcium 1.23 mmol/L (1.15-1.33) 12/24/24 15:41
POC Lactate 0.84 mmol/L (0.36-0.75) H 12/24/24 15:41
POC Creatinine 0.69 mg/dl (0.3-1.0) 12/24/24 15:41
POC ACT+ 153 Seconds (82-134) H 12/24/24 10:59
POC Hemoglobin Calc 9.6 12/24/24 15:41
POC Hematocrit 28 % PCV (37-47) L 12/24/24 15:41
POC Hemodilution Yes 12/24/24 15:41
Blood Type O POS 12/26/24 04:20
Blood Type Confirm O POS 12/23/24 05:13
Antibody Screen Negative (Negative) 12/26/24 04:20
Crossmatch IS Only See Detail 12/26/24 04:20
�
Diagnostic Results:�as per HPI�
12/29/24 chest xray
Right upper extremity PICC with catheter tip projecting over the superior vena cava. Interval removal of the pulmonary artery catheter.
There is a small right pleural effusion with right basilar atelectasis, slightly increased from prior.
chest xray- 12/27/2024
Interval removal of chest tubes. No pneumothorax. Right basilar opacity again seen suggesting subsegmental atelectasis and small right pleural effusion.
MRI- left Knee - 12/24/2024 -
1. OSTEOPOROTIC INSUFFICIENCY FRACTURE extending vertically through the ANTERIOR TIBIAL PLATEAU surrounded by moderate bone marrow edema.
2. Horizontal tear of the body of the lateral meniscus and vertical tear of the posterior horn of the lateral meniscus. Partial lateral extrusion of the meniscal body.
3. Horizontal tear of the body of the medial meniscus.
4. Severe full-thickness cartilage wear over the lateral patellar facet with moderate subchondral bone marrow edema.
5. Moderate tendinosis and [id number] tear of the distal quadriceps tendon.
6. Small to moderate-sized joint effusion.
7. Moderate to severe para-articular muscle atrophy.
Peripheral Venous Ultrasound - left UE-12/23/2024
There is thrombus formation in the proximal left basilic vein and in the entire cephalic vein of the forearm. There is a bandage overlying the distal half of the upper extremity from the shoulder to the antecubital fossa limiting evaluation in this
region.
The left internal jugular, subclavian, and axillary veins are patent and compressible with normal flow except for the subclavian which is not compressible only because of location. The visualized proximal cephalic vein and brachial vein in the upper
extremity and cephalic vein in the forearm are also patent. The PICC line catheter is visualized in the basilic vein.
Thoracic MRI
No MR evidence for spondylodiscitis or epidural abscess.
Multilevel degenerative changes of the thoracic spine as described.
Moderate bilateral pleural effusions.
2.0 cm cystic nodule in the low anterior left neck soft tissues, possibly an exophytic thyroid nodule. Recommend outpatient workup with dedicated thyroid ultrasound if not previously performed.
Assessment:74F with severe aortic stenosis hypothyroidism, lupus, and former smoker transferred from [facility] after being admitted for sepsis/MSSA bacteremia, new atrial fibrillation and CVA during that hospitalization, found to have infectious mitral
valve endocarditis, now s/p ARV/MVR/PAMELA clip with Dr. Bullock 12/24/24.
Plan�
PT/OT to increase independence with ADLs, improve balance, coordination, endurance, strength, mobility, community reintegration, decreased burden of care on others and family education.�
Infectious mitral valve endocarditis:Preoperatively large vegetations on mitral valve with associated mitral regurgitation and patient also with moderate to severe aortic stenosis. Nafcillin transitioned to vancomycin 2,000mg IV given concerns for
renal toxicity.
Ambulatory Dysfunction: s/p AVR/MVR/PAMELA clip with Dr. Bullock 12/24/24: required pacing postop continue to monitor rhythms postop. Weaned off dobutamine as tolerated;BB held for bradycardia and brief pause.
CVA: Septic embolic stroke. Head CT�2 small strokes left frontal, 1 in the right frontal and a moderate size wedge in the right cerebellum with no cortical involvement. Per neuro�okay for blood thinners if needed. On Eliquis 5 mg twice daily,
aspirin 81 mg daily statin, and blood pressure control (SBP less than 180 and diastolic less than 100 to participate with therapy for ischemic stroke). Continue to monitor neurologic status.�
Left nondominant hemiparesis: High risk for falls and sliding out of chair/bed. Safety reinforced.�
- Avoid using affected arm to help lift or pull patient as this will cause trauma to the shoulder.
Dysarthria: speech�
Aphasia: speech evaluation-found to have mild expressive/receptive aphasia.
Left knee osteoporotic insufficiency fracture: Toe-touch weightbearing per orthopedics, follow-up with orthopedics.
HTN: continue medications, monitor closely�
HLD: Atorvastatin 40 mg
Coronary artery disease�: Aspirin, statin, beta-mya�
Atrial fibrillation:�started on Eliquis 5 mg bid on 12/28 ,amiodarone 200 mg 3 times daily�on hold�, metoprolol 12.5 every 12�on hold, Lasix 40 mg IV twice daily����������������������������������������
Hypothyroidism: levothyroxine� 250 mcg
SEEMA: creatinine down to 1.7. Nephrology consulted-continue Lasix, multifactorial suspect ATN from hemodynamic changes moderate hypotension. Awaiting serologies given hematuria, proteinuria, infectious endocarditis
Anemia: Likely multifactorial.� Continue to monitor.�
Psych: Psychology consult.� Monitor mood, adjust medications as needed.�
Skin: monitor for pressure sores/rashes/lesions.�
Pain: acetaminophen or oxycodone as needed, gabapentin 100 mg 3 times daily
Bowel: Colace and Senna, PRN bisacodyl.�
Bladder/kaplan: To consider d/c kaplan Time void, PVRs, PRN straight cath.�
GI Prophylaxis: Pantoprazole�40 daily
DVT Prophylaxis: Mechanical and Eliquis
Pulmonary: Incentive spirometry�
Safety: Continue to reinforce assistance with all transfers.�
Code Status:� Full code
Functional and Medical Goals:�Modified Independent with ADL�s, ambulation, transfers�
Discharge Destination:�Patient with complex medical history including cardiac surgery, bradycardia post pacing, embolic stroke, LLE fracture limited to toe touch weightbearing not a candidate for acute inpatient rehabilitation at this time given
sternal precautions and limited weightbearing through the upper extremities. Would benefit from [facility] facility when medically stable and may benefit from an acute rehabilitation facility once medically and physically able.
�
Attending Statement: Late entry
I saw and examined the patient 3/19/25. Reviewed care plan with patient, therapy, nursing, and physician senior office assistant. I agree with the above subjective and physical exam, and plan as documented by CASI Pettit with adjustments made as necessary. A
total of 60 minutes were spent with the patient preparing for the evaluation, obtaining history, performing examination and evaluation, counseling, data review, case management, care coordination, court recorder, and EMR documentation.
�
Thank you for allowing me to care for your patient. Please contact me with any questions or concerns.
--- NOTE | 2024-12-30 09:45 | W.PN.NEPH.PH ---
Today's Communication / Plan
-
follow BMP
Assessment/Plan
-
74yo female with severe aortic stenosis hypothyroidism, lupus, and former smoker transferred from [facility] after being admitted on 12/21/24 for sepsis/MSSA bacteremia, new atrial fibrillation and CVA during that hospitalization, found to have infectious
mitral valve endocarditis. She is status post AVR and MVR on 12/24. She has been on antibiotics and had periods of A-fib and bradycardia. She has had periods of hypotension. She is status post CVA with expressive aphasia and likely embolic.
Renal consult for acute kidney injury. Her creatinine was relatively normal on admission and has been progressively increasing currently at 1.9.
Impression.
Acute kidney injury -cr 0.6->1.4->1.5->1.9-multifactorial suspect ATN from hemodynamic changes moderate hypotension rule out infectious GN
MSSA bacteremia/endocarditis status post AVR/MVR.
Status post acute CVA.
Atrial fibrillation-amnio
Probable ATN
Plan.
Await serologies given hematuria, proteinuria, infectious endocarditis with SEEMA, however complements normal suggesting against postinfectious glomerulonephritis
Continue antibiotics per primary team
Continue Lasix daily
Follow BMP
Probable ATN at this time
-
-
Date of Service: December 30, 2024
CC / HPI / ROS
-
Chief Complaint:
Infectious endocarditis status post valve
History of Present Illness:
SEEMA/creatinine down to 1.6
BP stable
Hemoglobin stable 10.2
Sodium low stable 134
Review of Systems:.
Comfortable in the chair no complaints of shortness of breath or chest pain
weak
Labs
-
Labs:
WBC 8.8 10^3/uL (4.8-10.8) 12/30/24 03:21
RBC 3.48 10^6/uL (4.20-5.40) L 12/30/24 03:21
Hgb 10.2 g/dL (12.0-16.0) L 12/30/24 03:21
Hct 31.8 % (37.0-47.0) L 12/30/24 03:21
Plt Count 159 10^3/uL (130-400) 12/30/24 03:21
Sodium 134 mmol/L (135-145) L 12/30/24 03:21
Potassium 4.1 mmol/L (3.5-5.1) 12/30/24 03:21
Chloride 101 mmol/L (98-107) 12/30/24 03:21
Carbon Dioxide 28 mmol/L (22-30) 12/30/24 03:21
BUN 44 mg/dl (7-17) H 12/30/24 03:21
Creatinine 1.6 mg/dL (0.6-1.0) H 12/30/24 03:21
eGFR 33.42 12/30/24 03:21
Glucose 95 mg/dl (70-99) 12/30/24 03:21
Calcium 8.6 mg/dl (8.4-10.2) 12/30/24 03:21
Albumin 2.7 g/dl (3.5-5.0) L 12/26/24 12:07
Physical Exam
-
Vital Signs:
Vital Signs
Temp Pulse Resp BP Pulse Ox
98.5 F 73 18 109/60 97
12/30/24 03:00 12/30/24 07:00 12/30/24 03:00 12/30/24 03:02 12/30/24 05:30
Cardiovascular:: Regular rate and rhythm
Respiratory:: Bilateral: Coarse
Lung Excursion:: Normal
Abdomen:: Nontender and Soft
Bowel Sounds:: Normal
Extremity Edema:: +2: Bilateral:
--- NOTE | 2024-12-30 10:47 | PTCARENOTE ---
assumed care of pt from previous shift RN, pt is oriented, forgetful to time, oriented to situation. sinus rhythm on tele w AV wires set to backup. + peripheral pulses, +1 edema to bilateral lower extremities, lungs diminished, coughing and deep
breathing encouraged. +bs, tolerating PO intake, incont loose BMs, incont yellow urine. PICC flushes easily. Surgical sites stable. Plan of care reviewed w the pt and questions encouraged.
--- NOTE | 2024-12-30 11:14 | W.PN.ID1 ---
Date of Service
Date of Service: December 30, 2024
Today's Communication
- will continue vancomycin for present, follow renal function
- will follow renal function for stability to assist with vancomycin dosing - anticipate patient being stable for dc from ID perspective friday
Assessment / Plan
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
MSSA bacteremia - sustained, now cleared
CVA possible septic infarctions
SEEMA - slowly improving
- s/p MAZE, L atrial appendage, AVR, MVR, temp AV pacing wires on 12/24
- MSSA bacteremia at [facility] 12/17 and 12/18; 12/19 blood cultures at [facility] x2 are both finalized negative
- repeat blood cultures x2 done here on 12/21 are finalized negative
- OR culture S aureus as expected
- will continue vancomycin for present, follow renal function
- will follow renal function for stability to assist with vancomycin dosing - anticipate patient being stable for dc from ID perspective friday
Chief Complaint
-: Bacteremia and Other (endocarditis, cva due to MSSA)
Subjective / Review of Systems
afebrile
bp stable
new sacral wound is noted by nursing staff and wound care consulted
potential PPM
Vital Signs / Physical Exam
Vital Signs
Vital Signs
Temp Pulse Resp BP Pulse Ox
98.2 F 74 16 103/87 96
12/30/24 08:00 12/30/24 10:30 12/30/24 08:00 12/30/24 08:52 12/30/24 11:07
Physical Exam
Constitutional: No Acute Distress and Chronically Ill
Cardiovascular: Regular Rate and S1/S2; Negative Murmur or Rub
Pulmonary: Clear and Symmetric; Negative Wheezes or Rales
Gastrointestinal: Soft, Non Tender, Non Distended and Normal Bowel Sounds
Musculoskeletal: Joint Effusion (L knee, warmth; much less swollen and tender post arthrocentesis)
Skin: Warm and Dry; Negative Rash or Jaundice
Wound: Other (surgical sites no erythema, warmth tenderness, dehiscence or drainage; sacral wound with stage two wound - no surrounding erythema, warmth or drainage)
Lines: Other (chest tubes, lines)
Objective Data
Lab Data
Lab Results
12/30/24 03:21
12/30/24 03:21
ESR 25 mm/hour (0-20) H 12/22/24 13:18
PT 16.4 Sec (11.4-14.6) H 12/27/24 03:35
INR 1.29 12/27/24 03:35
APTT 37.3 Sec (23.4-35.0) H 12/24/24 11:54
Estimated Creat Clear 33 ml/min 12/30/24 03:21
Lactic Acid Cancelled 12/29/24 06:00
Total Bilirubin 1.3 mg/dl (0.2-1.3) 12/26/24 12:07
AST 81 U/L (14-36) H 12/26/24 12:07
ALT 11 U/L (0-35) 12/26/24 12:07
Alkaline Phosphatase 47 U/L (38-126) 12/26/24 12:07
C-Reactive Protein 133.00 mg/L (0.0-10.00) H 12/22/24 13:18
Most recent labs reviewed.
Micro Results:
12/24/24 09:00 Tissue Culture - Final
Heart S aureus-Methicillin Sensitive
Gram Stain - Final
12/24/24 09:00 Anaerobic Culture - Final
Heart NO ANAEROBES ISOLATED
12/24/24 09:00 Tissue Culture - Final
Heart No Growth After 72 Hours
Gram Stain - Final
12/24/24 09:00 Anaerobic Culture - Final
Heart NO ANAEROBES ISOLATED
12/23/24 04:29 Blood Culture - Final
Blood/Venous No Growth - Final Report
12/23/24 03:54 Blood Culture - Final
Blood/Venous No Growth - Final Report
12/24/24 09:00 Fungal Smear - Final
Heart No yeast or fungal elements seen.
Fungal Culture - Preliminary
Culture in progress.
Positive cultures are reported as soon as detected.
Final report to follow in four to five weeks.
12/24/24 09:00 Fungal Smear - Final
Heart No yeast or fungal elements seen.
Fungal Culture - Preliminary
Culture in progress.
Positive cultures are reported as soon as detected.
Final report to follow in four to five weeks.
12/24/24 09:00 Acid Fast Bacilli Smear - Preliminary
Heart Acid Fast Bacilli Culture - Preliminary
12/24/24 09:00 Acid Fast Bacilli Smear - Preliminary
Heart Acid Fast Bacilli Culture - Preliminary
12/21/24 18:00 Blood Culture - Final
Blood/Venous No Growth - Final Report
12/21/24 12:56 Blood Culture - Final
Blood/Venous No Growth - Final Report
12/22/24 12:50 Wound Culture - Final
Knee - Left No growth
Gram Stain - Final
12/21/24 17:55 MRSA Screen - Final
Nose No Methicillin Resistant Staphylococcus aureus isolated.
[2024-12-30] MEDS: FIBERCON 1250 MG PO (11:18)
[2024-12-30] MEDS: KCL 20 MEQ PO ×2 (11:18→20:07)
[2024-12-30] MEDS: LOW STRENGTH ASPIRIN 81 MG PO (11:19)
[2024-12-30] MEDS: PROTONIX 40 MG PO (11:19)
[2024-12-30] MEDS: NEURONTIN 100 MG PO ×3 (11:19→20:07)
[2024-12-30] MEDS: LASIX 40 MG IV ×2 (11:19→17:09)
[2024-12-30] MEDS: ELIQUIS 5 MG PO ×2 (11:19→20:07)
[2024-12-30] MEDS: VISBIOME 2 CAP PO (11:19)
[2024-12-30] MEDS: SENOKOT-S PO ×2 (11:20→20:08)
--- NOTE | 2024-12-30 11:28 | WOUNDNOTE ---
[facility] RN note: Patient admitted with sepsis. Patient transferred from [facility] to [facility] on 12/21.
See H&P for complete history.
PMH: Lupus, aortic stenosis, hypothyroidism,former smoker, ortho following for left knee pain, MSSA bacteremia, infectious mitral valve endocarditis new afib and CVA. Patient has recently been on antibiotics and Eliquis.
Wound Location and type/assessment: Patient with new stage 2 of sacral crease. Upon assessment wound is open and appears to be a stage 2 PI. Wound bed is pink. Wound found to covered with sacral foam dressing with scant serous drainage. Patient
denies pain at sacral site, but reports discomfort of harvinder area and buttocks related to diarrhea and urinary incontinence. Skin is slightly red with MASD but blanchable. Staff have been using Calazime to MASD but patient reports no relief. RN Lois
assessing appropriateness of rectal tube. Heels intact. Patient requires lilly to get in and out of bed and cannot weight bear on left, per Ortho.
Appetite: Per patient, fair
Pressure redistribution devices in place: Centrella Max Air, turning schedule, heels off-loaded with pillows under calves. Air cushion ordered for chair and bariatric air cushion added for additional off-loading while in bed.
Plan: Will confirm honey gel for sacral wound and extra-strength Desitin for harvinder and buttocks skin. Will confirm orders with hospitalist and update nurse. Updated care plan and will follow as needed.
Note to case management of equipment requested for discharge:
Recommend follow up at wound care center upon discharge.
[2024-12-30] MEDS: DESITIN MAXIMUM STRENGTH PASTE 1 APPLIC TOPICAL ×2 (11:53→20:14)
--- NOTE | 2024-12-30 12:04 | PTCARENOTE ---
pt was able to feed herself breakfast, incont care.
[2024-12-30] MEDS: NSS IV (12:52)
--- NOTE | 2024-12-30 14:01 | CM ---
CM following for DC planning needs.
Met w/ patient; son De also present at bedside.
Pt. reports that she is feeling well. Emotional support offered due to lengthy hospitalizations and desire to return home.
We discussed DC plan for SNF placement.
At this time, antic. transfer to SNF on Friday, if stable.
At time of writing, bed avail. at [facility].
No authorization required for transfer.
Will cont. to follow and coordinate SNF placement, likely Fri.
[2024-12-30] MEDS: TYLENOL PO (14:32)
[2024-12-30] MEDS: LIPITOR 40 MG PO (17:09)
--- NOTE | 2024-12-30 17:25 | PTCARENOTE ---
VSS, pt denies complaint
[2024-12-30] MEDS: LOPRESSOR 2.5 MG IV (18:57)
--- NOTE | 2024-12-30 20:00 | PTCARENOTE ---
assumed care of pt from previous RN. pt A&Ox4 at time of assessment. pt CASTILLO. SR on tele-monitor. temp epicardial A/V wires w/ backup settings VVI 30/10/0.8. POX 94% on RA. rectal trumpet in place. purewick in place. all surgical sites stable. RUE
PICC intact. see worklist for complete nursing assessment, interventions, VS, and I&Os.
[2024-12-30] MEDS: LOPRESSOR 12.5 MG PO (20:14)
[2024-12-30 23:48] LABS: ANA, IgG Reflex to HEp-2 Detected (None Detected)
[2024-12-31] VITALS (11 sets, daily range): BP systolic 78–139; BP diastolic 48–98; PULSE 76; O2SAT 95; BMI 31.4
--- NOTE | 2024-12-31 | PTCARENOTE ---
assessment remains unchanged. VSS.
[2024-12-31 03:54] LABS: Hemoglobin 10.1 g/dL (12.0-16.0); Mean Corp Hgb Conc. 33.7 g/dL (33.0-37.0); Mean Corpuscular Hgb 29.9 pg (27.0-31.0); Mean Corpuscular Volume 88.8 fL (81.0-99.0); Mean Platelet Volume 10.3 fL (7.4-10.4); Platelet Count 134 10^3/uL (130-400); Red Blood Cell Count 3.38 10^6/uL (4.20-5.40); Red Cell Dist. Width 15.2 % (11.5-14.5); White Blood Cell Count 7.1 10^3/uL (4.8-10.8)
--- NOTE | 2024-12-31 04:00 | PTCARENOTE ---
no acute changes. VSS. AM labs collected and sent.
[2024-12-31 04:25] LABS: Vancomycin Random 12.3 ug/ml
[2024-12-31 04:25] LABS: Blood Urea Nitrogen 41 mg/dl (7-17); Calcium 8.5 mg/dl (8.4-10.2); Carbon Dioxide 29 mmol/L (22-30); Chloride 98 mmol/L (98-107); Estimated Creatinine Clearance 38 ml/min; Glucose 90 mg/dl (70-99); Magnesium 1.9 mg/dl (1.6-2.3); Potassium 3.8 mmol/L (3.5-5.1); Sodium 133 mmol/L (135-145); eGFR 39.23
--- NOTE | 2024-12-31 06:13 | W.PN.CT ---
Documented by User: Shere Morales PA-C 12/31/24 06:52
Today's Communication / Plan
-
-pod #7
-remained in nsr since about 7 pm 12/30
-no issues overnight. No isreal or pauses
-Lopressor restarted 12/30. Holding Amio. Maintain pw (VVI 30 backup)
-Cr is trending down - 1.4today (peak 2.0 on 12/28)
-Abx per ID, currently on Vancomycin
-Picc placed 12/29 RUE
-urinary and fecal incontinence - rectal trumpet placed 12/30, started on probiotic
-sacral ulcer - wound care following
-continue diuresis
-continue PT/OT
-Skilled rehab placement possibly Friday
-appreciate everyone's input
Assessment / Plan
-
Assessment:
-S/P Standard sternotomy/Surgical aortic valve replacement [25 mm prosthesis]/Mitral valve replacement with Wheelwright-Triston cord replacement for reinforcement [29 mm bioprosthesis]/ Extensive debridement of mitral annular calcification and patch of the
mitral valve annulus using bovine pericardium/Modified open surgical left atrial maze (encompass RF ablation and cryo ablation)/Left atrial appendage exclusion [35 mm device]/Drainage of right pleural effusion [300 cc], by Dr. Bullock, 12/24/24, pod#7
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
-Paroxysmal atrial fibrillation, new onset
-Severe aortic valve stenosis
-Mitral valve stenosis with severe mitral annular calcification
-LVEF 60-65%
-MRSA
-Class 1 obesity (BMI 30.4)
-Osteoporosis with Left tibial plateau fx as well Left meniscus tear, per MRI 12/23/24
-Former tobacco use (quit 40 years ago)
-Systemic Lupus Erythematosus
-Preop hypokalemia
-Preop thrombocytopenia
-Hypothyroidism
-S/P Thyroidectomy
-Acute postop blood loss/Anemia (Transfused 2u PRBCs)
-Acute postop atelectasis
-Acute postop hypovolemia with subsequent hypervolemia
-Acute postop temporary pacer dependence d/t bradycardia
-Acute postop RBBB
-Acute postop elevated INR 5.61
-Acute postop SEEMA, 2.0- improving
-Acute postop flat affect/depression
-Acute postop a-fib- Eliquis started 12/28/24
-Acute postop bradycardia, requiring v-pacing @ 40 bpm
Discussed patient care with: Nursing and Care Team
Subjective
Procedure
-S/P Standard sternotomy/Surgical aortic valve replacement [25 mm prosthesis]/Mitral valve replacement with Wheelwright-Triston cord replacement for reinforcement [29 mm bioprosthesis]/ Extensive debridement of mitral annular calcification and patch of the
mitral valve annulus using bovine pericardium/Modified open surgical left atrial maze (encompass RF ablation and cryo ablation)/Left atrial appendage exclusion [35 mm device]/Drainage of right pleural effusion [300 cc], by Dr. Bullock, 12/24/24
-
Date of Service: December 31, 2024
Objective Data
-
Lab Results
12/31/24 03:47
12/31/24 03:47
PT 16.4 Sec (11.4-14.6) H 12/27/24 03:35
INR 1.29 12/27/24 03:35
APTT 37.3 Sec (23.4-35.0) H 12/24/24 11:54
Vital Signs
Vital Signs
Temp Pulse Resp BP Pulse Ox
98 F 76 18 139/72 96
12/30/24 23:30 12/31/24 04:01 12/31/24 03:45 12/31/24 03:42 12/31/24 03:45
CT Intake/Output/Weight
12/30/24 12/30/24 12/31/24
06:59 18:59 06:59
Intake Total 300 / 300
Output Total 700 / 2200 950 / 1350 400 / 1350
Balance -700 / -2140 -650 / -1050 -400 / -1050
SaO2: 96
Physical Exam
-
General: Awake and AOx3
Cardiovascular: regular rate & rhythm, No Murmurs and No Rub
Respiratory: Decreased Breath Sounds
Sternum: Stable
Incision: Clean, Dry and Dressing Intact
Extremities: Edema +1
Abdomen: soft, nontender, nondistended, + bowel sounds, + BMs 12/29
Data Reviewed
-
Lab Results: Results Reviewed
Medications: Active Meds Reviewed
Chest X-Ray: Report Reviewed and Image Reviewed
ECG: Report Reviewed and Image Reviewed

Documented by User: ISRAEL Ny 12/31/24 09:40
Assessment / Plan
-
Assessment:
-S/P Standard sternotomy/Surgical aortic valve replacement [25 mm prosthesis]/Mitral valve replacement with Wheelwright-Triston cord replacement for reinforcement [29 mm bioprosthesis]/ Extensive debridement of mitral annular calcification and patch of the
mitral valve annulus using bovine pericardium/Modified open surgical left atrial maze (encompass RF ablation and cryo ablation)/Left atrial appendage exclusion [35 mm device]/Drainage of right pleural effusion [300 cc], by Dr. Bullock, 12/24/24, pod#7
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
-Paroxysmal atrial fibrillation, new onset
-Severe aortic valve stenosis
-Mitral valve stenosis with severe mitral annular calcification
-LVEF 60-65%
-MRSA
-Class 1 obesity (BMI 30.4)
-Osteoporosis with Left tibial plateau fx as well Left meniscus tear, per MRI 12/23/24
-Former tobacco use (quit 40 years ago)
-Systemic Lupus Erythematosus
-Preop hypokalemia
-Preop thrombocytopenia
-Hypothyroidism
-S/P Thyroidectomy
-Acute postop blood loss/Anemia (Transfused 2u PRBCs)
-Acute postop atelectasis
-Acute postop hypovolemia with subsequent hypervolemia
-Acute postop temporary pacer dependence d/t bradycardia
-Acute postop RBBB
-Acute postop elevated INR 5.61
-Acute postop SEEMA, 2.0- improving
-Acute postop flat affect/depression
-Acute postop a-fib- Eliquis started 12/28/24
-Acute postop bradycardia, requiring v-pacing @ 40 bpm
-Sacral stage 2 pressure injury
[2024-12-31] MEDS: TYLENOL 1000 MG PO ×2 (06:34→19:28)
[2024-12-31] MEDS: SYNTHROID 250 MCG PO (06:35)
--- NOTE | 2024-12-31 07:26 | W.PN.CD ---
Today's Communication / Plan
-
Transition to metoprolol succinate 25 mg daily.
No role for PPM at this time.
Aggressive wound care.
PT/OT.
ABX per ID (6 week course).
Disposition.
Impression / Plan
-
Impression/Plan: 74F with severe aortic stenosis hypothyroidism, lupus, and former smoker transferred from [facility] after being admitted for sepsis/MSSA bacteremia, new atrial fibrillation and CVA during that hospitalization, found to have infectious
mitral valve endocarditis, now s/p AVR/MVR/PAMELA clip with Dr. Bullock 12/24/24. Hospital course has been complicated by acute kidney injury.
#MSSA infectious endocarditis
-Acute.
-Large vegetations on [place] mitral valve with associated mitral regurgitation and moderate to severe aortic stenosis.
-S/P AVR & MVR with PAMELA clip by Dr. Bullock 12/24/2024 (post op management below).
-Patient developed coagulopathy with cefazolin, prompting switch to nafcillin. SEEMA developed after nafcillin (no clear AIN), so ABX changed to vancomycin.
-Antibiotics as directed by ID, plan for 6 week course.
.
#Severe /MR
-Chronic, progressive.
-S/P #25 Cedeno Inspiris Resilia AVR, #29 Mitris Resilia MVR and #[address] Bullock, 12/24/2024.
-Patient required pacing postop continue to monitor rhythms postop.
-Encourage incentive spirometry.
-Ambulate as possible. She has a vertical osteoporotic insufficiency fracture of the left knee through the anterior tibial plateau and combined medial/lateral menisci tears. Toe tap weight bearing only per ortho.
#Paroxysmal atrial fibrillation
-New diagnosis at [facility].
-Amiodarone discontinued after 2.9 second pause, otherwise has appropriate rate response.
-Rate dropped to paced rate of 40 one night, followed by AF-RVR to 120's, treated with a bolus amiodarone.
-Reviewed with EP. Tolerating low dose beta mya.
-Currently in AF with high normal to mild RVR (100's).
-Transition to metoprolol succinate 25 mg daily, low threshold to increase to 50 mg daily. Avoid further amiodarone.
-[id number]: Score at least 4 prior to CVA (HTN, age 75 or more, female gender).
-Anti-thrombotic therapy with apixaban, s/p LAAE.
#SEEMA
-Creatinine improving.
-Patient is improving with diuresis.
-DDx includes medication toxicity/AIN (i.e. transition from nafcillin to vancomycin), cardiorenal, glomerulonephritis (related to IE vs. SLE).
-PR3/MPA/Anti-GBM pending.
-Appreciate nephrology's input.
#Sacral Wound
-New diagnosis.
-Wound care involved.
#Deconditioning
-Acute (on chronic).
-PT/OT.
-Physiatry involved - evaluating for placement. PMR believes that she will be best served at [facility].
#CVA
-Expressive aphasia and word finding difficulty on exam, oriented.
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
#Hypothyroidism
-Chronic.
-On levothyroxine.
#Lupus
-Chronic.
-STEPHANIE+.
-Role for anti-ds DNA?
#Former smoker
Primary director alumni relations: Yunior Peguero
Subjective/Interval History:
Weight down an additional 0.5 kg from yesterday.
Metoprolol restarted. No further isreal episodes.
Reviewed with EP.
STEPHANIE IgG + (known lupus). PR3, MPA, Anti-GBM remain pending.
Feels tired.
She has a new sacral wound.
DATA:
Transthoracic echocardiogram, 12/18/2024 ([facility]):
LVEF 45%. Severely dilated LA. Moderate to severe aortic stenosis (peak/mean 52.6/32.3 mmHg).
Severe thickening of the anterior and posterior leaflets of the mitral valve.
Severe mitral annular calcification. Moderate mitral valve regurgitation with centrally directed jet.
Transesophageal Echocardiogram, 12/22/2024:
CONCLUSIONS
-Left ventricular ejection fraction is 60-65%. Normal regional wall motion.
-Normal right ventricular size and function.
-No thrombus detected in the left atrial appendage.
-Thickened mitral valve leaflets and mitral annular calcification with a large,
partially mobile vegetation on the P3 segment of the posterior mitral valve
leaflet measuring approximately 1.5 x 2.5 cm (see below images). There was also
a smaller, highly mobile vegetation on the P1 segment of the mitral valve
leaflet. There also appears to be a small vegetation in the annular region of
the anterior mitral valve leaflet. Mitral valve opens normally.
-Moderate mitral regurgitation (multiple jets).
-Thickened/calcified trileaflet aortic valve with severely reduced leaflet
excursion. Likely severe aortic stenosis; gradients were not obtained.
TTE 12/27/2024
Normal left ventricular chamber size. Normal left ventricular systolic
function. Mild concentric left ventricular hypertrophy. Normal regional wall
motion. Left ventricular ejection fraction is 50-55%.
Normal right ventricular size and grossly normal function.
Moderately dilated left atrium.
Well seated, normally functioning #29 bioprosthetic mitral valve replacement.
There is an echodensity seen on the posteromedial papillary muscle chordae,
which is seen on the intraoperative transesophageal echocardiogram.
Well seated, normally functioning #25 bioprosthetic aortic valve replacement.
No evidence of pulmonary hypertension.
Compared to prior intraoperative study of 12/24/2024, the bioprosthetic aortic
and mitral valves are well seated and functioning normally. The left
ventricular ejection fraction is 50-55%, compared to 60-65% (though this is
immediately post operative which will significantly alter loading conditions).
BACKGROUND:
Yazmin was admitted 12/17/2024 with confusion. She was found on the floor by her son after she did not show up for work. Last seen normal greater than 24 hours [employer] to ER. She presented febrile. Blood cultures demonstrated MSSA and she was started on
cefepime. CT of chest/abdomen/pelvis did not show definitive source. She was found to be in atrial fibrillation with rapid ventricular response with incomplete right bundle branch block. She was started on intravenous heparin and amiodarone. On
12/19/2024 a stroke alert was called for right sided facial droop in addition to right upper and lower extremity weakness. Her heparin drip was stopped due to concern for stroke. CT noncontrast on admission showed 2 foci of decreased density in the
right cerebral hemisphere consistent with acute infarct, one in the cerebellum and one in the high frontal lobe. MRI was pending and not completed prior to transfer. She was found to have pain and erythema of the left knee. On 12/20/2024
orthopedic surgery aspirated her knee. Notable labs during her admission included D-dimer of 16.3, HgbA1c 5.0%, troponin T fifth GEN peaked at 315, and CPK 1191.
Physical Exam
Vital Signs/Labs
Vital Signs
Temp Pulse Resp BP Pulse Ox
36.6 C 76 18 139/72 96
12/30/24 23:30 12/31/24 06:00 12/31/24 03:45 12/31/24 03:42 12/31/24 06:26
12/29/24 12/30/24 12/31/24
11:59 11:59 11:59
Actual Weight 88.9 kg 86.2 kg 85.7 kg
12/31/24 03:47
12/31/24 03:47
PT 16.4 Sec (11.4-14.6) H 12/27/24 03:35
INR 1.29 12/27/24 03:35
APTT 37.3 Sec (23.4-35.0) H 12/24/24 11:54
Magnesium 1.9 mg/dl (1.6-2.3) 12/31/24 03:47
TSH 14.60 uIU/ml (0.47-4.68) H 12/22/24 04:26
Physical Exam
Constitutional: No acute distress and Comfortable
EENT: Anicteric and Moist mucous membranes
Cardiovascular: JVD pressure is normal, Rhythm/rate is irregular, Pedal edema present (Improved from yesterday.), S1S2 is normal and Murmur/rub/gallop absent
Respiratory: Respiratory effort normal, Lungs clear to auscul., Wheeze Absent, Crackles Absent and Rhonchi Absent
GI: Soft, Distention absent, Flat, Non tender and Normal bowel sounds
Neuro/Psych: AO x 3
Data Reviewed
-
Date of Service: December 31, 2024
Medical Decision Making: Reviewed Test Results, Independent Historian Assessment and Test Interpretation
EKG: Tracing Personally Visualized and interpreted and Report Reviewed by me
Echo: Tracing Personally Visualized and interpreted and Report Reviewed by me
X-Ray/CT/US/MRI/NUC/PET: Image Personally Visualized and interpreted and Report Reviewed by me
Medical Tests (PFT, Pathology etc): Image Personally Visualized and interpreted and Report Reviewed by me
Labs: Labs Reviewed by me
Old Records: Reviewed
--- NOTE | 2024-12-31 08:58 | PN.CDI ---
CDI
- -
CDI:
Physician Documentation Request
Admit Date: 12/21/24 11:[address] Surgery,
Please review the following and provide your response in the progress notes.
Clinical Indicators:
Pt admitted with septic embolic CVA, bacterial endocarditis, post op SAVR and mitral valve replacement.
12/30 WO RN: 'Patient with new stage 2 of sacral crease. Upon assessment wound is open and appears to be a stage 2 PI.'
Physician documentation of the type and location of wounds is required for compliant documentation. Based on the above clinical findings and your assessment, please provide the following in your progress note:
1. Location of the ulcer/wound, including laterality.
2. Type (etiology) of ulcer/wound:
Sacral stage 2 pressure injury
Sacral non-pressure injury
Other
Use of terms such as suspected, likely, concern for, or probable (associated with a specific diagnosis that is being evaluated, monitored, or treated as if it exists) are acceptable and can be coded in the inpatient setting, when documented at the
time of discharge.
Thank you,
Claire Waddell RN, BSN
CDI Specialist
[place] [employer]
Please use your independent medical judgment in providing your response.
*Source: National Pressure Ulcer Advisory Panel (NPUAP)
[2024-12-31] MEDS: VISBIOME 2 CAP PO (09:09)
[2024-12-31] MEDS: PROTONIX 40 MG PO (09:09)
[2024-12-31] MEDS: FIBERCON 1250 MG PO (09:09)
[2024-12-31] MEDS: KCL 20 MEQ PO ×2 (09:10→19:28)
[2024-12-31] MEDS: NEURONTIN 100 MG PO ×3 (09:10→19:28)
[2024-12-31] MEDS: LOW STRENGTH ASPIRIN 81 MG PO (09:10)
[2024-12-31] MEDS: LASIX 40 MG IV ×2 (09:10→17:29)
[2024-12-31] MEDS: ELIQUIS 5 MG PO ×2 (09:10→19:27)
[2024-12-31] MEDS: PLAQUENIL 400 MG PO (09:11)
[2024-12-31] MEDS: NSS IV (09:11)
[2024-12-31] MEDS: SENOKOT-S PO (09:11)
[2024-12-31] MEDS: LOPRESSOR 12.5 MG PO (09:22)
[2024-12-31] MEDS: DESITIN MAXIMUM STRENGTH PASTE 1 APPLIC TOPICAL ×2 (09:22→19:28)
--- NOTE | 2024-12-31 09:48 | W.PN.ID1 ---
Date of Service
Date of Service: December 31, 2024
Today's Communication
- will continue vancomycin plan for a 6 week total course from clearance of bacteremia 12/21-01/31 , follow renal function
- will follow renal function for stability to assist with vancomycin dosing - anticipate patient being stable for dc from ID perspective friday
Assessment / Plan
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
MSSA bacteremia - sustained, now cleared
CVA possible septic infarctions
SEEMA - slowly improving
- s/p MAZE, L atrial appendage, AVR, MVR, temp AV pacing wires on 12/24
- attribute diarrhea to cathartics, could consider holding scheduled docusate/senna
- MSSA bacteremia at [facility] 12/17 and 12/18; 12/19 blood cultures at [facility] x2 are both finalized negative
- repeat blood cultures x2 done here on 12/21 are finalized negative
- OR culture S aureus as expected
- will continue vancomycin plan for a 6 week total course from clearance of bacteremia 12/21-01/31 , follow renal function
- will follow renal function for stability to assist with vancomycin dosing - anticipate patient being stable for dc from ID perspective friday
Chief Complaint
-: Bacteremia and Other (endocarditis, cva due to MSSA)
Subjective / Review of Systems
afebrile
bp stable
no events overnight
Vital Signs / Physical Exam
Vital Signs
Vital Signs
Temp Pulse Resp BP Pulse Ox
98.2 F 74 16 114/71 96
12/31/24 08:13 12/31/24 09:00 12/31/24 08:13 12/31/24 08:13 12/31/24 08:13
Physical Exam
Constitutional: No Acute Distress, Comfortable and Chronically Ill
Cardiovascular: Regular Rate and S1/S2; Negative Murmur or Rub
Pulmonary: Clear and Symmetric; Negative Wheezes or Rales
Gastrointestinal: Soft, Non Tender, Non Distended and Normal Bowel Sounds
Skin: Warm and Dry; Negative Rash or Jaundice
Wound: Other (surgical sites no erythema, warmth tenderness, dehiscence or drainage)
Objective Data
Lab Data
Lab Results
12/31/24 03:47
12/31/24 03:47
ESR 25 mm/hour (0-20) H 12/22/24 13:18
PT 16.4 Sec (11.4-14.6) H 12/27/24 03:35
INR 1.29 12/27/24 03:35
APTT 37.3 Sec (23.4-35.0) H 12/24/24 11:54
Estimated Creat Clear 38 ml/min 12/31/24 03:47
Lactic Acid Cancelled 12/29/24 06:00
Total Bilirubin 1.3 mg/dl (0.2-1.3) 12/26/24 12:07
AST 81 U/L (14-36) H 12/26/24 12:07
ALT 11 U/L (0-35) 12/26/24 12:07
Alkaline Phosphatase 47 U/L (38-126) 12/26/24 12:07
C-Reactive Protein 133.00 mg/L (0.0-10.00) H 12/22/24 13:18
Most recent labs reviewed.
Micro Results:
12/24/24 09:00 Tissue Culture - Final
Heart S aureus-Methicillin Sensitive
Gram Stain - Final
12/24/24 09:00 Anaerobic Culture - Final
Heart NO ANAEROBES ISOLATED
12/24/24 09:00 Tissue Culture - Final
Heart No Growth After 72 Hours
Gram Stain - Final
12/24/24 09:00 Anaerobic Culture - Final
Heart NO ANAEROBES ISOLATED
12/23/24 04:29 Blood Culture - Final
Blood/Venous No Growth - Final Report
12/23/24 03:54 Blood Culture - Final
Blood/Venous No Growth - Final Report
12/24/24 09:00 Fungal Smear - Final
Heart No yeast or fungal elements seen.
Fungal Culture - Preliminary
Culture in progress.
Positive cultures are reported as soon as detected.
Final report to follow in four to five weeks.
12/24/24 09:00 Fungal Smear - Final
Heart No yeast or fungal elements seen.
Fungal Culture - Preliminary
Culture in progress.
Positive cultures are reported as soon as detected.
Final report to follow in four to five weeks.
12/24/24 09:00 Acid Fast Bacilli Smear - Preliminary
Heart Acid Fast Bacilli Culture - Preliminary
12/24/24 09:00 Acid Fast Bacilli Smear - Preliminary
Heart Acid Fast Bacilli Culture - Preliminary
12/21/24 18:00 Blood Culture - Final
Blood/Venous No Growth - Final Report
12/21/24 12:56 Blood Culture - Final
Blood/Venous No Growth - Final Report
12/22/24 12:50 Wound Culture - Final
Knee - Left No growth
Gram Stain - Final
12/21/24 17:55 MRSA Screen - Final
Nose No Methicillin Resistant Staphylococcus aureus isolated.
--- NOTE | 2024-12-31 09:52 | PTCARENOTE ---
assumed care of pt from previous shift RN, pt is oriented, forgetful to time, oriented to situation. sinus rhythm on tele w AV wires set to backup. + peripheral pulses, +1 edema to bilateral lower extremities, lungs diminished, coughing and deep
breathing encouraged. +bs, tolerating PO intake, incont loose BMs, incont yellow urine. Trumpet placed for stool control, purewick placed for urine. PICC flushes easily. Surgical sites stable. Plan of care reviewed w the pt and questions encouraged.
--- NOTE | 2024-12-31 10:04 | PHA.VAN.FU ---
Vancomycin Assessment / Plan
- Assessment
Renal Function: SCR Decreasing
WBC's are: WNL
In the past 24 hrs, patient has been: Afebrile
- Assessment - Therapeutic Drug Monitoring
Random Level: 12.3 - drawn ~24H after previous dose
Calculated ke: 0.0123
Calculated half life (H): 56.4
Clearance appears to be improving - half-life decreased from 80H to 56H
- Dosing Plan
Dosing by Level: Re-dose today (Vanc 1000mg)
- Monitoring Plan
Random Level: 01/01 06
- Follow Up
Pharmacy will continue to follow.
Vancomycin Follow UP
- -
Patient Age: 74
Patient Sex: Female
Vancomycin Day #: 5
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
Requesting Provider: Dr. Toney
Pertinent Antimicrobial Allergies:
NKDA
Height / Weight:
Height 5 ft 5 in
Actual Weight 85.7 kg
Pertinent Past Medical History: BMI ~32
- Vital Signs / Lab Results
Temp Pulse Resp BP Pulse Ox
98.2 F 79 16 114/71 96
12/31/24 08:13 12/31/24 10:00 12/31/24 08:13 12/31/24 08:13 12/31/24 08:13
Lab Results - Hematology
12/29/24 12/30/24 12/31/24
05:11 03:21 03:47
WBC 11.1 H 8.8 7.1
Lab Results - Chemistry
12/28/24 12/29/24 12/30/24
21:09 05:11 03:21
BUN 45 H 44 H 44 H
Creatinine 1.8 H 1.7 H 1.6 H
Estimated Creat Clear 30 31 33
12/31/24
03:47
BUN 41 H
Creatinine 1.4 H
Estimated Creat Clear 38
12/28/24 12/29/24
21:09 06:00
Lactic Acid 1.0 Cancelled
Microbiology Results
12/24/24 09:00 Tissue Culture - Final
Heart S aureus-Methicillin Sensitive
Gram Stain - Final
12/24/24 09:00 Anaerobic Culture - Final
Heart NO ANAEROBES ISOLATED
12/24/24 09:00 Tissue Culture - Final
Heart No Growth After 72 Hours
Gram Stain - Final
12/24/24 09:00 Anaerobic Culture - Final
Heart NO ANAEROBES ISOLATED
Therapeutic Drug Monitoring
Random Vancomycin 12.3 ug/ml 12/31/24 03:44
[2024-12-31 10:59] LABS: Glomerular Base Membrane Ab 0 AU/mL (0-19); Myeloperoxidase Antibody 0 AU/mL (0-19); Serine Protease-3, IgG 220 AU/mL (0-19)
[2024-12-31] MEDS: TOPROL XL 12.5 MG PO (11:23)
[2024-12-31] MEDS: VANCOCIN 200 IV (11:23)
--- NOTE | 2024-12-31 12:11 | W.PN.NEPH.PH ---
Today's Communication / Plan
-
Continue Lasix
Assessment/Plan
-
74yo female with severe aortic stenosis hypothyroidism, lupus, and former smoker transferred from [facility] after being admitted on 12/21/24 for sepsis/MSSA bacteremia, new atrial fibrillation and CVA during that hospitalization, found to have infectious
mitral valve endocarditis. She is status post AVR and MVR on 12/24. She has been on antibiotics and had periods of A-fib and bradycardia. She has had periods of hypotension. She is status post CVA with expressive aphasia and likely embolic.
Renal consult for acute kidney injury. Her creatinine was relatively normal on admission and has been progressively increasing currently at 1.9.
Impression.
Acute kidney injury -cr 0.6->1.4->1.5->1.9-multifactorial suspect ATN from hemodynamic changes moderate hypotension rule out infectious GN
MSSA bacteremia/endocarditis status post AVR/MVR.
Status post acute CVA.
Atrial fibrillation-amnio
Probable ATN
Plan.
Negative serologies given hematuria, proteinuria, infectious endocarditis with SEEMA, however complements normal suggesting against postinfectious glomerulonephritis
Continue antibiotics per primary team
Continue Lasix daily
Follow BMP
Probable ATN at this time
Renal function improving
Total Time Spent with Patient (in minutes): 31
-
-
Date of Service: December 31, 2024
CC / HPI / ROS
-
Chief Complaint:
Infectious endocarditis status post valve
History of Present Illness:
SEEMA/creatinine down to 1.6
BP stable
Hemoglobin stable 10.2
Sodium low stable 134
Review of Systems:.
Comfortable in the chair no complaints of shortness of breath or chest pain
weak
Labs
-
Labs:
WBC 7.1 10^3/uL (4.8-10.8) 12/31/24 03:47
RBC 3.38 10^6/uL (4.20-5.40) L 12/31/24 03:47
Hgb 10.1 g/dL (12.0-16.0) L 12/31/24 03:47
Hct 30.0 % (37.0-47.0) L 12/31/24 03:47
Plt Count 134 10^3/uL (130-400) 12/31/24 03:47
Sodium 133 mmol/L (135-145) L 12/31/24 03:47
Potassium 3.8 mmol/L (3.5-5.1) 12/31/24 03:47
Chloride 98 mmol/L (98-107) 12/31/24 03:47
Carbon Dioxide 29 mmol/L (22-30) 12/31/24 03:47
BUN 41 mg/dl (7-17) H 12/31/24 03:47
Creatinine 1.4 mg/dL (0.6-1.0) H 12/31/24 03:47
eGFR 39.23 12/31/24 03:47
Glucose 90 mg/dl (70-99) 12/31/24 03:47
Calcium 8.5 mg/dl (8.4-10.2) 12/31/24 03:47
Albumin 2.7 g/dl (3.5-5.0) L 12/26/24 12:07
Physical Exam
-
Vital Signs:
Vital Signs
Temp Pulse Resp BP Pulse Ox
98.2 F 79 16 114/71 95
12/31/24 08:13 12/31/24 10:00 12/31/24 08:13 12/31/24 08:13 12/31/24 10:22
Cardiovascular:: Regular rate and rhythm
Respiratory:: Bilateral: Coarse
Lung Excursion:: Normal
Abdomen:: Nontender and Soft
Bowel Sounds:: Normal
Extremity Edema:: +2: Bilateral:
--- NOTE | 2024-12-31 12:45 | CM ---
CM following for DC planning needs.
Met w/ patient at bedside. Pt. reports that she is doing 'okay'. Observed sitting out of bed.
Emotional support provided.
Plan reviewed for rehab placement. Bed available at [facility] for Friday, if stable. I sent them clinical update today.
Pt. aware, agreeable.
Plan is for SNF placement, ? Friday.
--- NOTE | 2024-12-31 13:17 | PTCARENOTE ---
2 view CXR completed
[2024-12-31] MEDS: TYLENOL PO (15:08)
[2024-12-31] MEDS: LIPITOR 40 MG PO (17:28)
--- NOTE | 2024-12-31 17:44 | PTCARENOTE ---
Joanie lifted oob to chair. VSS, sinus rhythm maintained. Purewick and trumpet maintained.
--- NOTE | 2024-12-31 19:30 | PTCARENOTE ---
assumed care of pt from previous RN. pt assisted back to bed w/ lilly lift by 2 RNs. pt oriented, forgetful at times. pt endorses being very tired at this time. SR on tele-monitor. temp epicardial A/V wires w/ backup settings VVI 30/10/0.8. POX 98%
on RA. +BS. abd s/n. incontinent of loose stool, rectal trumpet for stool control. purewick in place for urine. all surgical sites stable, CDI. MASD in harvinder-area. RUE PICC intact. see worklist for complete nursing assessment, interventions, VS, and
I&Os.
--- NOTE | 2024-12-31 23:45 | PTCARENOTE ---
assessment remains unchanged. POX 90% on RA. pt placed on 2 L NC. POX 96%.
[2025-01-01] VITALS (17 sets, daily range): BP systolic 82–115; BP diastolic 48–67; PULSE 74; O2SAT 97–98; BMI 31.2
--- NOTE | 2025-01-01 04:00 | PTCARENOTE ---
no acute changes. VSS. AM labs collected and sent.
[2025-01-01 04:14] LABS: Hematocrit 28.6 % (37.0-47.0); Hemoglobin 9.7 g/dL (12.0-16.0); Mean Corp Hgb Conc. 33.9 g/dL (33.0-37.0); Mean Corpuscular Hgb 30.2 pg (27.0-31.0); Mean Corpuscular Volume 89.1 fL (81.0-99.0); Mean Platelet Volume 10.6 fL (7.4-10.4); Platelet Count 141 10^3/uL (130-400); Red Blood Cell Count 3.21 10^6/uL (4.20-5.40); Red Cell Dist. Width 15.1 % (11.5-14.5); White Blood Cell Count 6.1 10^3/uL (4.8-10.8)
[2025-01-01 04:23] LABS: Blood Urea Nitrogen 44 mg/dl (7-17); Calcium 8.2 mg/dl (8.4-10.2); Carbon Dioxide 32 mmol/L (22-30); Chloride 96 mmol/L (98-107); Estimated Creatinine Clearance 35 ml/min; Glucose 92 mg/dl (70-99); Sodium 133 mmol/L (135-145); eGFR 36.12
[2025-01-01 04:42] LABS: Vancomycin Random 16.6 ug/ml
[2025-01-01] MEDS: TYLENOL 1000 MG PO ×3 (06:05→20:31)
[2025-01-01] MEDS: SYNTHROID 250 MCG PO (06:06)
--- NOTE | 2025-01-01 07:53 | W.PN.CT ---
Today's Communication / Plan
-
-pod #8
-nsr with episodes of bradycardia and junctional beats overnight (pw @ 30 backup). Currently, on Toprol 25 mg qd. Holding Amio
-low BP overnight, asymptomatic, suspect volume contraction alkalosis (bicarb 32)- decreased Lasix from 40 bid to 20 bid (UO 1000+/3000+ in 12/24 hrs)
-maintain pw (VVI 30)
-on Vanco, dosed by pharmacy. ID following
-Cr plateaued at 1.4-1.5
-Picc placed 12/29 RUE
-urinary and fecal incontinence - rectal trumpet placed 12/30, started on probiotic
-sacral ulcer - wound care following
-continue diuresis
-continue PT/OT
-Skilled rehab placement once Vanco dose is stabilized, possibly Friday
-appreciate everyone's input
Assessment / Plan
-
Assessment:
-S/P Standard sternotomy/Surgical aortic valve replacement [25 mm prosthesis]/Mitral valve replacement with [place] cord replacement for reinforcement [29 mm bioprosthesis]/ Extensive debridement of mitral annular calcification and patch of the
mitral valve annulus using bovine pericardium/Modified open surgical left atrial maze (encompass RF ablation and cryo ablation)/Left atrial appendage exclusion [35 mm device]/Drainage of right pleural effusion [300 cc], by Dr. Bullock, 12/24/24, pod#8
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
-Paroxysmal atrial fibrillation, new onset
-Severe aortic valve stenosis
-Mitral valve stenosis with severe mitral annular calcification
-LVEF 60-65%
-MRSA
-Class 1 obesity (BMI 30.4)
-Osteoporosis with Left tibial plateau fx as well Left meniscus tear, per MRI 12/23/24
-Former tobacco use (quit 40 years ago)
-Systemic Lupus Erythematosus
-Preop hypokalemia
-Preop thrombocytopenia
-Hypothyroidism
-S/P Thyroidectomy
-Acute postop blood loss/Anemia (Transfused 2u PRBCs)
-Acute postop atelectasis
-Acute postop hypovolemia with subsequent hypervolemia
-Acute postop temporary pacer dependence d/t bradycardia
-Acute postop RBBB
-Acute postop elevated INR 5.61
-Acute postop SEEMA, 2.0- improving
-Acute postop flat affect/depression
-Acute postop a-fib- Eliquis started 12/28/24
-Acute postop bradycardia, requiring v-pacing @ 40 bpm
-Sacral stage 2 pressure injury
Discussed patient care with: Nursing and Care Team
Subjective
Procedure
-S/P Standard sternotomy/Surgical aortic valve replacement [25 mm prosthesis]/Mitral valve replacement with [place] cord replacement for reinforcement [29 mm bioprosthesis]/ Extensive debridement of mitral annular calcification and patch of the
mitral valve annulus using bovine pericardium/Modified open surgical left atrial maze (encompass RF ablation and cryo ablation)/Left atrial appendage exclusion [35 mm device]/Drainage of right pleural effusion [300 cc], by Dr. Bullock, 12/24/24
-
Date of Service: January 01, 2025
Objective Data
-
Lab Results
01/01/25 03:51
01/01/25 03:51
PT 16.4 Sec (11.4-14.6) H 12/27/24 03:35
INR 1.29 12/27/24 03:35
APTT 37.3 Sec (23.4-35.0) H 12/24/24 11:54
Vital Signs
Vital Signs
Temp Pulse Resp BP Pulse Ox
98.2 F 79 16 115/67 96
01/01/25 04:15 01/01/25 06:00 01/01/25 04:15 01/01/25 05:48 01/01/25 04:15
CT Intake/Output/Weight
12/31/24 01/01/25 01/01/25
18:59 06:59 18:59
Intake Total 200 / 200
Output Total 2000 / 3000 1000 / 3000
Balance -1800 / -2800 -1000 / -2800
SaO2: 96
Physical Exam
-
General: Awake and AOx3
Cardiovascular: regular rate & rhythm, No Murmurs and No Rub
Respiratory: Decreased Breath Sounds
Sternum: Stable
Incision: Clean, Dry and Dressing Intact
Abdomen: soft, nontender, nondistended, + bowel sounds, + BMs 3/ (rectal trumpet)
Extremities: Edema +1
Data Reviewed
-
Lab Results: Results Reviewed
Medications: Active Meds Reviewed
Chest X-Ray: Report Reviewed and Image Reviewed
ECG: Report Reviewed and Image Reviewed
--- NOTE | 2025-01-01 08:10 | PHA.VAN.FU ---
Vancomycin Assessment / Plan
- Assessment
Renal Function: Stable
WBC's are: WNL
In the past 24 hrs, patient has been: Afebrile
- Assessment - Therapeutic Drug Monitoring
Random Level: 16.6
- Dosing Plan
Dosing by Level: Hold off on dosing today (BUN AND SCR WORSENED)
- Monitoring Plan
Random Level: 01/02 IN AM
- Follow Up
Pharmacy will continue to follow.
Vancomycin Follow UP
- -
Patient Age: 74
Patient Sex: Female
Vancomycin Day #: 6
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
Requesting Provider: Dr. Toney
Pertinent Antimicrobial Allergies:
NKDA
Height / Weight:
Height 5 ft 5 in
Actual Weight 85 kg
Pertinent Past Medical History: BMI ~32
- Vital Signs / Lab Results
Temp Pulse Resp BP Pulse Ox
98.2 F 79 16 115/67 96
01/01/25 04:15 01/01/25 06:00 01/01/25 04:15 01/01/25 05:48 01/01/25 08:00
Lab Results - Hematology
12/30/24 12/31/24 01/01/25
03:21 03:47 03:51
WBC 8.8 7.1 6.1
Lab Results - Chemistry
12/30/24 12/31/24 01/01/25
03:21 03:47 03:51
BUN 44 H 41 H 44 H
Creatinine 1.6 H 1.4 H 1.5 H
Estimated Creat Clear 33 38 35
Therapeutic Drug Monitoring
Random Vancomycin 16.6 ug/ml 01/01/25 03:46
--- NOTE | 2025-01-01 08:41 | PTCARENOTE ---
Patient received oob in chair, sleepy but arousable and appropriate. NSR via cm, SaO2 @ 94% on RA. RUE PICC present. Epicardial A+V wires set to VVI backup 30bpm, no spikes noted. All procedural sites stable. Purewick, fecal management systems in
place. Patient updated to plan of care for the day, in agreement. Assisted to order breakfast. See work list for full assessment and interventions performed.
[2025-01-01] MEDS: LASIX IV ×2 (08:49→16:37)
[2025-01-01] MEDS: NEURONTIN 100 MG PO ×3 (08:59→20:31)
[2025-01-01] MEDS: PROTONIX 40 MG PO (08:59)
[2025-01-01] MEDS: ELIQUIS 5 MG PO ×2 (08:59→20:31)
[2025-01-01] MEDS: TOPROL XL 25 MG PO (08:59)
[2025-01-01] MEDS: LOW STRENGTH ASPIRIN 81 MG PO (08:59)
[2025-01-01] MEDS: VISBIOME 2 CAP PO (09:00)
[2025-01-01] MEDS: NSS IV (09:00)
[2025-01-01] MEDS: PLAQUENIL 200 MG PO (09:00)
--- NOTE | 2025-01-01 10:03 | W.PN.CD ---
Today's Communication / Plan
-
continue eliquis, metoprolol, IV lasix
Impression / Plan
-
Impression/Plan: 74F with severe aortic stenosis hypothyroidism, lupus, and former smoker transferred from [facility] after being admitted for sepsis/MSSA bacteremia, new atrial fibrillation and CVA during that hospitalization, found to have infectious
mitral valve endocarditis, now s/p AVR/MVR/PAMELA clip with Dr. Bullock 12/24/24. Hospital course has been complicated by acute kidney injury.
#MSSA infectious endocarditis
-Large vegetations on grindstone mitral valve with associated mitral regurgitation and moderate to severe aortic stenosis.
-S/P AVR & MVR with PAMELA clip by Dr. Bullock 12/24/2024 (post op management below).
-Patient developed coagulopathy with cefazolin, prompting switch to nafcillin. SEEMA developed after nafcillin (no clear AIN), so ABX changed to vancomycin.
-Antibiotics as directed by ID, plan for 6 week course.
.
#Severe /MR
-Chronic, progressive.
-S/P #25 Cedeno Inspiris Resilia AVR, #29 Mitris Resilia MVR and #[address] Bullock, 12/24/2024.
-Patient required pacing postop continue to monitor rhythms postop.
-Encourage incentive spirometry.
-Ambulate as possible. She has a vertical osteoporotic insufficiency fracture of the left knee through the anterior tibial plateau and combined medial/lateral menisci tears. Toe tap weight bearing only per ortho.
#Paroxysmal atrial fibrillation
-New diagnosis at [facility].
-Amiodarone discontinued after 2.9 second pause, otherwise has appropriate rate response.
-Rate dropped to paced rate of 40 one night, followed by AF-RVR to 120's, treated with a bolus amiodarone.
-amiodarone now on hold
-Reviewed with EP. Tolerating low dose beta mya. Toprol XL 25mg daily.
-[id number]: Score at least 4 prior to CVA (HTN, age 75 or more, female gender).
-Anti-thrombotic therapy with apixaban 5mg bid, s/p LAAE.
#SEEMA, post op volume overload
-Creatinine improved
-Patient is improving with IV diuresis. Close monitoring of labs/tele.
-DDx includes medication toxicity/AIN (i.e. transition from nafcillin to vancomycin), cardiorenal, glomerulonephritis (related to IE vs. SLE).
-PR3/MPA/Anti-GBM pending.
-Appreciate nephrology's input.
#Sacral Wound
-New diagnosis.
-Wound care involved.
#Deconditioning
-Acute (on chronic).
-PT/OT.
-Physiatry involved - evaluating for placement. PMR believes that she will be best served at [facility].
#CVA
-Expressive aphasia and word finding difficulty on exam, oriented.
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
#Hypothyroidism
-Chronic.
-On levothyroxine.
#Lupus
-Chronic.
-STEPHANIE+.
#Former smoker
Primary security messenger: Yunior Peguero
DATA:
Transthoracic echocardiogram, 12/18/2024 ([facility]):
LVEF 45%. Severely dilated LA. Moderate to severe aortic stenosis (peak/mean 52.6/32.3 mmHg).
Severe thickening of the anterior and posterior leaflets of the mitral valve.
Severe mitral annular calcification. Moderate mitral valve regurgitation with centrally directed jet.
Transesophageal Echocardiogram, 12/22/2024:
CONCLUSIONS
-Left ventricular ejection fraction is 60-65%. Normal regional wall motion.
-Normal right ventricular size and function.
-No thrombus detected in the left atrial appendage.
-Thickened mitral valve leaflets and mitral annular calcification with a large,
partially mobile vegetation on the P3 segment of the posterior mitral valve
leaflet measuring approximately 1.5 x 2.5 cm (see below images). There was also
a smaller, highly mobile vegetation on the P1 segment of the mitral valve
leaflet. There also appears to be a small vegetation in the annular region of
the anterior mitral valve leaflet. Mitral valve opens normally.
-Moderate mitral regurgitation (multiple jets).
-Thickened/calcified trileaflet aortic valve with severely reduced leaflet
excursion. Likely severe aortic stenosis; gradients were not obtained.
TTE 12/27/2024
Normal left ventricular chamber size. Normal left ventricular systolic
function. Mild concentric left ventricular hypertrophy. Normal regional wall
motion. Left ventricular ejection fraction is 50-55%.
Normal right ventricular size and grossly normal function.
Moderately dilated left atrium.
Well seated, normally functioning #29 bioprosthetic mitral valve replacement.
There is an echodensity seen on the posteromedial papillary muscle chordae,
which is seen on the intraoperative transesophageal echocardiogram.
Well seated, normally functioning #25 bioprosthetic aortic valve replacement.
No evidence of pulmonary hypertension.
Compared to prior intraoperative study of 12/24/2024, the bioprosthetic aortic
and mitral valves are well seated and functioning normally. The left
ventricular ejection fraction is 50-55%, compared to 60-65% (though this is
immediately post operative which will significantly alter loading conditions).
BACKGROUND:
Yazmin was admitted 12/17/2024 with confusion. She was found on the floor by her son after she did not show up for work. 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 She presented febrile. Blood cultures demonstrated MSSA and she was started on
cefepime. CT of chest/abdomen/pelvis did not show definitive source. She was found to be in atrial fibrillation with rapid ventricular response with incomplete right bundle branch block. She was started on intravenous heparin and amiodarone. On
12/19/2024 a stroke alert was called for right sided facial droop in addition to right upper and lower extremity weakness. Her heparin drip was stopped due to concern for stroke. CT noncontrast on admission showed 2 foci of decreased density in the
right cerebral hemisphere consistent with acute infarct, one in the cerebellum and one in the high frontal lobe. MRI was pending and not completed prior to transfer. She was found to have pain and erythema of the left knee. On 12/20/2024
orthopedic surgery aspirated her knee. Notable labs during her admission included D-dimer of 16.3, HgbA1c 5.0%, troponin T fifth GEN peaked at 315, and CPK 1191.
Physical Exam
Vital Signs/Labs
Vital Signs
Temp Pulse Resp BP Pulse Ox
98 F 76 18 101/66 94
01/01/25 08:27 01/01/25 10:00 01/01/25 08:27 01/01/25 08:59 01/01/25 08:36
12/31/24 01/01/25 01/02/25
06:59 06:59 06:59
Actual Weight 85.7 kg 85 kg
01/01/25 03:51
01/01/25 03:51
PT 16.4 Sec (11.4-14.6) H 12/27/24 03:35
INR 1.29 12/27/24 03:35
APTT 37.3 Sec (23.4-35.0) H 12/24/24 11:54
Magnesium 1.9 mg/dl (1.6-2.3) 12/31/24 03:47
TSH 14.60 uIU/ml (0.47-4.68) H 12/22/24 04:26
Physical Exam
Constitutional: No acute distress
EENT: Moist mucous membranes
Cardiovascular: Rhythm & rate is regular, Systolic murmur absent, Pedal edema present and JVD present
Respiratory: Respiratory effort normal and Lungs clear to auscul.
Neuro/Psych: AO x 3
Data Reviewed
-
Date of Service: January 01, 2025
EKG: Other (Tele: SR, PAC's, HR 70s)
Labs: Labs Reviewed by me
[2025-01-01] MEDS: DESITIN MAXIMUM STRENGTH PASTE 1 APPLIC TOPICAL ×2 (10:34→20:31)
[2025-01-01] MEDS: KCL 20 MEQ PO ×2 (10:34→20:31)
[2025-01-01 11:19] LABS: ANA, HEp-2, IgG Detected (<1:80)
--- NOTE | 2025-01-01 12:14 | PTCARENOTE ---
VS obtained, assessment stable. Patient worked w/PT/OT, now resting in recliner. Denies pain.
--- NOTE | 2025-01-01 12:19 | W.PN.NEPH.PH ---
Today's Communication / Plan
-
Lasix 20 mg twice daily
Assessment/Plan
-
74yo female with severe aortic stenosis hypothyroidism, lupus, and former smoker transferred from [facility] after being admitted on 12/21/24 for sepsis/MSSA bacteremia, new atrial fibrillation and CVA during that hospitalization, found to have infectious
mitral valve endocarditis. She is status post AVR and MVR on 12/24. She has been on antibiotics and had periods of A-fib and bradycardia. She has had periods of hypotension. She is status post CVA with expressive aphasia and likely embolic.
Renal consult for acute kidney injury. Her creatinine was relatively normal on admission and has been progressively increasing currently at 1.9.
Impression.
Acute kidney injury -cr 0.6->1.4->1.5->1.9-multifactorial suspect ATN from hemodynamic changes moderate hypotension rule out infectious GN
MSSA bacteremia/endocarditis status post AVR/MVR.
Status post acute CVA.
Atrial fibrillation-amnio
Probable ATN
Plan.
Negative serologies given hematuria, proteinuria, infectious endocarditis with SEEMA, however complements normal suggesting against postinfectious glomerulonephritis
Continue antibiotics per primary team
Creatinine continues to improve diuresing well Lasix decreased to 20 mg twice daily by cardiology.
Total Time Spent with Patient (in minutes): 31
-
-
Date of Service: January 01, 2025
CC / HPI / ROS
-
Chief Complaint:
Infectious endocarditis status post valve
History of Present Illness:
SEEMA/creatinine down to 1.6
BP stable
Hemoglobin stable 10.2
Sodium low stable 134
Review of Systems:.
Comfortable in the chair no complaints of shortness of breath or chest pain
weak
Labs
-
Labs:
WBC 6.1 10^3/uL (4.8-10.8) 01/01/25 03:51
RBC 3.21 10^6/uL (4.20-5.40) L 01/01/25 03:51
Hgb 9.7 g/dL (12.0-16.0) L 01/01/25 03:51
Hct 28.6 % (37.0-47.0) L 01/01/25 03:51
Plt Count 141 10^3/uL (130-400) 01/01/25 03:51
Sodium 133 mmol/L (135-145) L 01/01/25 03:51
Potassium 4.0 mmol/L (3.5-5.1) 01/01/25 03:51
Chloride 96 mmol/L (98-107) L 01/01/25 03:51
Carbon Dioxide 32 mmol/L (22-30) H 01/01/25 03:51
BUN 44 mg/dl (7-17) H 01/01/25 03:51
Creatinine 1.5 mg/dL (0.6-1.0) H 01/01/25 03:51
eGFR 36.12 01/01/25 03:51
Glucose 92 mg/dl (70-99) 01/01/25 03:51
Calcium 8.2 mg/dl (8.4-10.2) L 01/01/25 03:51
Albumin 2.7 g/dl (3.5-5.0) L 12/26/24 12:07
Physical Exam
-
Vital Signs:
Vital Signs
Temp Pulse Resp BP Pulse Ox
98.3 F 76 17 93/58 95
01/01/25 12:14 01/01/25 12:14 01/01/25 12:14 01/01/25 12:09 01/01/25 12:14
Cardiovascular:: Regular rate and rhythm
Respiratory:: Bilateral: Coarse
Lung Excursion:: Normal
Abdomen:: Nontender and Soft
Bowel Sounds:: Normal
Extremity Edema:: +2: Bilateral:
--- NOTE | 2025-01-01 16:15 | PTCARENOTE ---
VS obtained. BP results conveyed to CASI Kwon. Orders given. Patient denies pain, perusing menu for dinner.
[2025-01-01] MEDS: FLEXBUMIN 50 IV (16:47)
[2025-01-01] MEDS: LIPITOR 40 MG PO (17:34)
--- NOTE | 2025-01-01 20:15 | PTCARENOTE ---
assumed care of pt from previous RN. pt resting in chair at time of assessment. pt A&Ox4. pt assisted back to bed w/ lilly lift by 2 RNs. SR on tele-monitor. temp epicardial A/V wires, plugged into pulse generator w/ backup settings VVI 30/10/0.8.
POX 96% on RA. abd s/n, +BS. incontinent of stool, rectal trumpet in place. incontinent of urine, purewick in place. all surgical sites stable, CDI. RUE PICC intact. see worklist for complete nursing assessment, interventions, VS, and I&Os.
[2025-01-02] VITALS (10 sets, daily range): BP systolic 97–117; BP diastolic 57–70; PULSE 78; O2SAT 94–99; BMI 31.6
--- NOTE | 2025-01-02 | PTCARENOTE ---
assessment remains unchanged. VSS.
--- NOTE | 2025-01-02 03:25 | PTCARENOTE ---
no acute changes. VSS. no U/O. pt bladder scanned. CT MACHINE HAMPER MAKER aware. orders for albumin. see MAR.
[2025-01-02 03:30] LABS: Hematocrit 28.2 % (37.0-47.0); Hemoglobin 9.5 g/dL (12.0-16.0); Mean Corp Hgb Conc. 33.7 g/dL (33.0-37.0); Mean Corpuscular Hgb 30.4 pg (27.0-31.0); Mean Corpuscular Volume 90.1 fL (81.0-99.0); Mean Platelet Volume 10.4 fL (7.4-10.4); Platelet Count 129 10^3/uL (130-400); Red Blood Cell Count 3.13 10^6/uL (4.20-5.40); Red Cell Dist. Width 15.4 % (11.5-14.5); White Blood Cell Count 5.5 10^3/uL (4.8-10.8)
[2025-01-02 03:48] LABS: Vancomycin Random 13.1 ug/ml
[2025-01-02 03:54] LABS: Blood Urea Nitrogen 42 mg/dl (7-17); Carbon Dioxide 29 mmol/L (22-30); Chloride 96 mmol/L (98-107); Estimated Creatinine Clearance 40 ml/min; Glucose 90 mg/dl (70-99); Potassium 4.2 mmol/L (3.5-5.1); Sodium 133 mmol/L (135-145); eGFR 42.88
[2025-01-02] MEDS: ALBUMIN 5% 250 IV (04:07)
--- NOTE | 2025-01-02 04:53 | W.PN.CT ---
Today's Communication / Plan
-
-no further bradycardia overnight (pw @ 30 backup). Currently, on Toprol 25 mg qd. Holding Amio
-BP soft, lasix held and given albumin. all SBP's > 90 since yesterday
-maintain pw (VVI 30)
-on Vanco, dosed by pharmacy. ID following
-Cr plateaued at 1.4-1.5
-Picc placed 12/29 RU
-sacral ulcer - wound care following
-continue PT/OT
-Skilled rehab placement once Vanco dose is stabilized, possibly Friday
-Continue atorvastatin, apixaban, Toprol 25 mg, lasix 20 mg IV BID
-appreciate everyone's input
Assessment / Plan
-
Assessment:
-S/P Standard sternotomy/Surgical aortic valve replacement [25 mm prosthesis]/Mitral valve replacement with [place] cord replacement for reinforcement [29 mm bioprosthesis]/ Extensive debridement of mitral annular calcification and patch of the
mitral valve annulus using bovine pericardium/Modified open surgical left atrial maze (encompass RF ablation and cryo ablation)/Left atrial appendage exclusion [35 mm device]/Drainage of right pleural effusion [300 cc], by Dr. Bullock, 12/24/24, pod#9
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
-Paroxysmal atrial fibrillation, new onset
-Severe aortic valve stenosis
-Mitral valve stenosis with severe mitral annular calcification
-LVEF 60-65%
-MRSA
-Class 1 obesity (BMI 30.4)
-Osteoporosis with Left tibial plateau fx as well Left meniscus tear, per MRI 12/23/24
-Former tobacco use (quit 40 years ago)
-Systemic Lupus Erythematosus
-Preop hypokalemia
-Preop thrombocytopenia
-Hypothyroidism
-S/P Thyroidectomy
-Acute postop blood loss/Anemia (Transfused 2u PRBCs)
-Acute postop atelectasis
-Acute postop hypovolemia with subsequent hypervolemia
-Acute postop temporary pacer dependence d/t bradycardia
-Acute postop RBBB
-Acute postop elevated INR 5.61
-Acute postop SEEMA, 2.0- improving
-Acute postop flat affect/depression
-Acute postop a-fib- Eliquis started 12/28/24
-Acute postop bradycardia, requiring v-pacing @ 40 bpm
-Sacral stage 2 pressure injury
Subjective
Procedure
-S/P Standard sternotomy/Surgical aortic valve replacement [25 mm prosthesis]/Mitral valve replacement with [place] cord replacement for reinforcement [29 mm bioprosthesis]/ Extensive debridement of mitral annular calcification and patch of the
mitral valve annulus using bovine pericardium/Modified open surgical left atrial maze (encompass RF ablation and cryo ablation)/Left atrial appendage exclusion [35 mm device]/Drainage of right pleural effusion [300 cc], by Dr. Bullock, 12/24/24
-
Date of Service: January 02, 2025
Objective Data
-
Lab Results
01/02/25 02:54
01/02/25 02:54
PT 16.4 Sec (11.4-14.6) H 12/27/24 03:35
INR 1.29 12/27/24 03:35
APTT 37.3 Sec (23.4-35.0) H 12/24/24 11:54
Vital Signs
Vital Signs
Temp Pulse Resp BP Pulse Ox
97.9 F 79 16 97/60 96
01/02/25 03:25 01/02/25 03:17 01/02/25 03:25 01/02/25 03:17 01/02/25 03:25
CT Intake/Output/Weight
01/01/25 01/01/25 01/02/25
06:59 18:59 06:59
Intake Total 250 / 250
Output Total 1000 / 3000 450 / 700 250 / 700
Balance -1000 / -2800 -200 / -450 -250 / -450
SaO2: 96
Physical Exam
-
General: Awake, Oriented and AOx3
Cardiovascular: Regular rate & rhythm and No Murmurs
Respiratory: Clear and Equal
Sternum: Stable
Data Reviewed
-
Lab Results: Results Reviewed
Medications: Active Meds Reviewed
Chest X-Ray: Report Reviewed
ECG: Report Reviewed
[2025-01-02] MEDS: SYNTHROID 250 MCG PO (06:41)
[2025-01-02] MEDS: TYLENOL 1000 MG PO ×3 (06:41→20:57)
--- NOTE | 2025-01-02 08:00 | PHA.VAN.FU ---
Vancomycin Assessment / Plan
- Assessment
Renal Function: SCR Decreasing
WBC's are: WNL
In the past 24 hrs, patient has been: Afebrile
- Assessment - Therapeutic Drug Monitoring
Random Level: 13.1
- Dosing Plan
Dosing by Level: Re-dose today (500MG)
- Monitoring Plan
Random Level: 01/03 IN AM
- Follow Up
Pharmacy will continue to follow.
Vancomycin Follow UP
- -
Patient Age: 74
Patient Sex: Female
Vancomycin Day #: 7
Indication: Scrub Technician Infection
Requesting Provider: Dr. Toney
Pertinent Antimicrobial Allergies:
NKDA
Height / Weight:
Height 5 ft 5 in
Actual Weight 86 kg
Pertinent Past Medical History: BMI ~32
- Vital Signs / Lab Results
Temp Pulse Resp BP Pulse Ox
98.2 F 80 16 117/63 97
01/02/25 07:47 01/02/25 07:47 01/02/25 07:47 01/02/25 07:43 01/02/25 07:47
Lab Results - Hematology
12/31/24 01/01/25 01/02/25
03:47 03:51 02:54
WBC 7.1 6.1 5.5
Lab Results - Chemistry
12/31/24 01/01/25 01/02/25
03:47 03:51 02:54
BUN 41 H 44 H 42 H
Creatinine 1.4 H 1.5 H 1.3 H
Estimated Creat Clear 38 35 40
Therapeutic Drug Monitoring
Random Vancomycin 13.1 ug/ml 01/02/25 02:49
[2025-01-02] MEDS: KCL 20 MEQ PO ×2 (08:43→20:57)
[2025-01-02] MEDS: TOPROL XL 25 MG PO (08:43)
[2025-01-02] MEDS: LASIX 20 MG IV (08:43)
[2025-01-02] MEDS: VISBIOME 2 CAP PO (08:43)
[2025-01-02] MEDS: LOW STRENGTH ASPIRIN 81 MG PO (08:44)
[2025-01-02] MEDS: NEURONTIN 100 MG PO ×3 (08:44→20:57)
[2025-01-02] MEDS: PLAQUENIL 400 MG PO (08:44)
[2025-01-02] MEDS: ELIQUIS 5 MG PO ×2 (08:44→20:57)
[2025-01-02] MEDS: PROTONIX 40 MG PO (08:44)
[2025-01-02] MEDS: DESITIN MAXIMUM STRENGTH PASTE 1 APPLIC TOPICAL ×2 (08:46→20:57)
--- NOTE | 2025-01-02 08:55 | PTCARENOTE ---
Patient received from care advocate resting oob in chair, AAO x 3, denies pain at this time. NSR via cm, Sao2 @ 98% on RA. RUE PICC present, flushed. Epicardial A+V wires to pulse generator set to VVI backup 30bpm, no spikes appreciated. Regla,
fecal management systems in place. All procedural sites stable. Patient updated to plan of care for the day, in agreement. See work list for full assessment and interventions performed.
[2025-01-02] MEDS: NSS IV (08:58)
[2025-01-02] MEDS: VANCOCIN HCL 500 MG 100 IV (10:35)
--- NOTE | 2025-01-02 12:00 | PTCARENOTE ---
VS obtained, assessment stable. Patient remains oob in chair, repositioned. Denies pain. Family at bedside for visit.
--- NOTE | 2025-01-02 15:43 | W.PN.NEPH.PH ---
Today's Communication / Plan
-
Continue Lasix
Assessment/Plan
-
74yo female with severe aortic stenosis hypothyroidism, lupus, and former smoker transferred from [facility] after being admitted on 12/21/24 for sepsis/MSSA bacteremia, new atrial fibrillation and CVA during that hospitalization, found to have infectious
mitral valve endocarditis. She is status post AVR and MVR on 12/24. She has been on antibiotics and had periods of A-fib and bradycardia. She has had periods of hypotension. She is status post CVA with expressive aphasia and likely embolic.
Renal consult for acute kidney injury. Her creatinine was relatively normal on admission and has been progressively increasing currently at 1.9.
Impression.
Acute kidney injury -cr 0.6->1.4->1.5->1.9-multifactorial suspect ATN from hemodynamic changes moderate hypotension rule out infectious GN
MSSA bacteremia/endocarditis status post AVR/MVR.
Status post acute CVA.
Atrial fibrillation-amnio
Probable ATN
Plan.
Negative serologies given hematuria, proteinuria, infectious endocarditis with SEEMA, however complements normal suggesting against postinfectious glomerulonephritis
Continue antibiotics per primary team
Creatinine continues to improve diuresing well Lasix decreased to 20 mg twice daily by cardiology.
Creatinine continues to improve with most recent creatinine of 1.3.
Total Time Spent with Patient (in minutes): 31
-
-
Date of Service: January 02, 2025
CC / HPI / ROS
-
Chief Complaint:
Infectious endocarditis status post valve
History of Present Illness:
SEEMA/creatinine down 1.3
BP stable
Review of Systems:.
Comfortable in the chair no complaints of shortness of breath or chest pain
weak
Labs
-
Labs:
WBC 5.5 10^3/uL (4.8-10.8) 01/02/25 02:54
RBC 3.13 10^6/uL (4.20-5.40) L 01/02/25 02:54
Hgb 9.5 g/dL (12.0-16.0) L 01/02/25 02:54
Hct 28.2 % (37.0-47.0) L 01/02/25 02:54
Plt Count 129 10^3/uL (130-400) L 01/02/25 02:54
Sodium 133 mmol/L (135-145) L 01/02/25 02:54
Potassium 4.2 mmol/L (3.5-5.1) 01/02/25 02:54
Chloride 96 mmol/L (98-107) L 01/02/25 02:54
Carbon Dioxide 29 mmol/L (22-30) 01/02/25 02:54
BUN 42 mg/dl (7-17) H 01/02/25 02:54
Creatinine 1.3 mg/dL (0.6-1.0) H 01/02/25 02:54
eGFR 42.88 01/02/25 02:54
Glucose 90 mg/dl (70-99) 01/02/25 02:54
Calcium 8.0 mg/dl (8.4-10.2) L 01/02/25 02:54
Albumin 2.7 g/dl (3.5-5.0) L 12/26/24 12:07
Physical Exam
-
Vital Signs:
Vital Signs
Temp Pulse Resp BP Pulse Ox
98.2 F 80 17 110/61 95
01/02/25 11:50 01/02/25 15:00 01/02/25 11:50 01/02/25 11:47 01/02/25 11:50
Cardiovascular:: Regular rate and rhythm
Respiratory:: Bilateral: Coarse
Lung Excursion:: Normal
Abdomen:: Nontender and Soft
Bowel Sounds:: Normal
Extremity Edema:: +2: Bilateral:
--- NOTE | 2025-01-02 15:49 | W.PN.CD ---
Today's Communication / Plan
-
transition to PO lasix
Impression / Plan
-
Impression/Plan: 74F with severe aortic stenosis hypothyroidism, lupus, and former smoker transferred from [facility] after being admitted for sepsis/MSSA bacteremia, new atrial fibrillation and CVA during that hospitalization, found to have infectious
mitral valve endocarditis, now s/p AVR/MVR/PAMELA clip with Dr. Bullock 12/24/24. Hospital course has been complicated by acute kidney injury.
#MSSA infectious endocarditis
-Large vegetations on [place] mitral valve with associated mitral regurgitation and moderate to severe aortic stenosis.
-S/P AVR & MVR with PAMELA clip by Dr. Bullock 12/24/2024 (post op management below).
-Patient developed coagulopathy with cefazolin, prompting switch to nafcillin. SEEMA developed after nafcillin (no clear AIN), so ABX changed to vancomycin.
-Antibiotics as directed by ID, plan for 6 week course.
.
#Severe /MR
-Chronic, progressive.
-S/P #25 [place]edeno Inspiris Resilia AVR, #29 Mitris Resilia MVR and #[address] Bullock, 12/24/2024.
-Patient required pacing postop continue to monitor rhythms postop.
-Encourage incentive spirometry.
-Ambulate as possible. She has a vertical osteoporotic insufficiency fracture of the left knee through the anterior tibial plateau and combined medial/lateral menisci tears. Toe tap weight bearing only per ortho.
#Paroxysmal atrial fibrillation
-New diagnosis at [facility].
-Amiodarone discontinued after 2.9 second pause, otherwise has appropriate rate response.
-Rate dropped to paced rate of 40 one night, followed by AF-RVR to 120's, treated with a bolus amiodarone.
-amiodarone now on hold
-Reviewed with EP. Tolerating low dose beta mya. Toprol XL 25mg daily.
-[id number]: Score at least 4 prior to CVA (HTN, age 75 or more, female gender).
-Anti-thrombotic therapy with apixaban 5mg bid, s/p LAAE.
#SEEMA, post op volume overload
-Creatinine improved
-transition to PO lasix
-DDx includes medication toxicity/AIN (i.e. transition from nafcillin to vancomycin), cardiorenal, glomerulonephritis (related to IE vs. SLE).
-PR3/MPA/Anti-GBM pending.
-Appreciate nephrology's input.
#Sacral Wound
-New diagnosis.
-Wound care involved.
#Deconditioning
-Acute (on chronic).
-PT/OT.
-Physiatry involved - evaluating for placement. PMR believes that she will be best served at [facility].
#CVA
-Expressive aphasia and word finding difficulty on exam, oriented.
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
#Hypothyroidism
-Chronic.
-On levothyroxine.
#Lupus
-Chronic.
-STEPHANIE+.
#Former smoker
Primary manager medicare: Yunior Peguero
DATA:
Transthoracic echocardiogram, 12/18/2024 ([facility]):
LVEF 45%. Severely dilated LA. Moderate to severe aortic stenosis (peak/mean 52.6/32.3 mmHg).
Severe thickening of the anterior and posterior leaflets of the mitral valve.
Severe mitral annular calcification. Moderate mitral valve regurgitation with centrally directed jet.
Transesophageal Echocardiogram, 12/22/2024:
CONCLUSIONS
-Left ventricular ejection fraction is 60-65%. Normal regional wall motion.
-Normal right ventricular size and function.
-No thrombus detected in the left atrial appendage.
-Thickened mitral valve leaflets and mitral annular calcification with a large,
partially mobile vegetation on the P3 segment of the posterior mitral valve
leaflet measuring approximately 1.5 x 2.5 cm (see below images). There was also
a smaller, highly mobile vegetation on the P1 segment of the mitral valve
leaflet. There also appears to be a small vegetation in the annular region of
the anterior mitral valve leaflet. Mitral valve opens normally.
-Moderate mitral regurgitation (multiple jets).
-Thickened/calcified trileaflet aortic valve with severely reduced leaflet
excursion. Likely severe aortic stenosis; gradients were not obtained.
TTE 12/27/2024
Normal left ventricular chamber size. Normal left ventricular systolic
function. Mild concentric left ventricular hypertrophy. Normal regional wall
motion. Left ventricular ejection fraction is 50-55%.
Normal right ventricular size and grossly normal function.
Moderately dilated left atrium.
Well seated, normally functioning #29 bioprosthetic mitral valve replacement.
There is an echodensity seen on the posteromedial papillary muscle chordae,
which is seen on the intraoperative transesophageal echocardiogram.
Well seated, normally functioning #25 bioprosthetic aortic valve replacement.
No evidence of pulmonary hypertension.
Compared to prior intraoperative study of 12/24/2024, the bioprosthetic aortic
and mitral valves are well seated and functioning normally. The left
ventricular ejection fraction is 50-55%, compared to 60-65% (though this is
immediately post operative which will significantly alter loading conditions).
BACKGROUND:
Yazmin was admitted 12/17/2024 with confusion. She was found on the floor by her son after she did not show up for work. 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 She presented febrile. Blood cultures demonstrated MSSA and she was started on
cefepime. CT of chest/abdomen/pelvis did not show definitive source. She was found to be in atrial fibrillation with rapid ventricular response with incomplete right bundle branch block. She was started on intravenous heparin and amiodarone. On
12/19/2024 a stroke alert was called for right sided facial droop in addition to right upper and lower extremity weakness. Her heparin drip was stopped due to concern for stroke. CT noncontrast on admission showed 2 foci of decreased density in the
right cerebral hemisphere consistent with acute infarct, one in the cerebellum and one in the high frontal lobe. MRI was pending and not completed prior to transfer. She was found to have pain and erythema of the left knee. On 12/20/2024
orthopedic surgery aspirated her knee. Notable labs during her admission included D-dimer of 16.3, HgbA1c 5.0%, troponin T fifth GEN peaked at 315, and CPK 1191.
Physical Exam
Vital Signs/Labs
Vital Signs
Temp Pulse Resp BP Pulse Ox
98.2 F 80 17 110/61 95
01/02/25 11:50 01/02/25 15:00 01/02/25 11:50 01/02/25 11:47 01/02/25 11:50
01/01/25 01/02/25 01/03/25
06:59 06:59 06:59
Actual Weight 85 kg 86 kg
01/02/25 02:54
01/02/25 02:54
PT 16.4 Sec (11.4-14.6) H 12/27/24 03:35
INR 1.29 12/27/24 03:35
APTT 37.3 Sec (23.4-35.0) H 12/24/24 11:54
Magnesium 1.9 mg/dl (1.6-2.3) 12/31/24 03:47
TSH 14.60 uIU/ml (0.47-4.68) H 12/22/24 04:26
Physical Exam
Constitutional: No acute distress and Comfortable
EENT: Moist mucous membranes
Cardiovascular: Rhythm & rate is regular and Pedal edema is absent
Respiratory: Respiratory effort normal
Data Reviewed
-
Date of Service: January 02, 2025
EKG: Other (Tele: SR 70s)
Labs: Labs Reviewed by me
[2025-01-02] MEDS: LASIX 20 MG PO (16:55)
[2025-01-02] MEDS: LIPITOR 40 MG PO (16:55)
--- NOTE | 2025-01-02 17:37 | PTCARENOTE ---
VS obtained, assessment stable. Patient resting comfortably, dozing intermittently. Dinner ordered.
--- NOTE | 2025-01-02 20:15 | PTCARENOTE ---
assumed care of pt from previous RN. pt A&Ox4, resting in chair at time of assessment. SR w/ 1st degree AVB on tele-monitor. temp epicardial A/V wires connected to pulse generator w/ backup settings VVI 30/10/0.8. POX 96% on RA. abd s/n, +BS. fecal
collection device in place. pt incontinent of urine, purewick in place. all surgical sites stable, CDI. RUE PICC intact. see worklist for complete nursing assessment, interventions, VS, and I&Os.
--- NOTE | 2025-01-02 21:15 | PTCARENOTE ---
pt assisted back to bed w/ lilly lift by 2 RNs. fecal collection device fell out. discussed w/ pt and will attempt to manage stool w/ bed hannah as needed. will continue to monitor.
--- NOTE | 2025-01-03 00:15 | PTCARENOTE ---
assessment remains unchanged. VSS. no BM.
[2025-01-03 00:16] VITALS: BP 123/71
[2025-01-03 03:06] VITALS: BP 133/72
--- NOTE | 2025-01-03 03:15 | PTCARENOTE ---
no acute changes. VSS. AM labs collected and sent.
[2025-01-03 03:23] LABS: Hemoglobin 9.6 g/dL (12.0-16.0); Mean Corp Hgb Conc. 33.1 g/dL (33.0-37.0); Mean Corpuscular Hgb 29.6 pg (27.0-31.0); Mean Corpuscular Volume 89.5 fL (81.0-99.0); Mean Platelet Volume 9.8 fL (7.4-10.4); Platelet Count 139 10^3/uL (130-400); Red Blood Cell Count 3.24 10^6/uL (4.20-5.40); Red Cell Dist. Width 15.2 % (11.5-14.5)
[2025-01-03 03:50] LABS: Blood Urea Nitrogen 38 mg/dl (7-17); Calcium 8.2 mg/dl (8.4-10.2); Carbon Dioxide 31 mmol/L (22-30); Chloride 100 mmol/L (98-107); Estimated Creatinine Clearance 44 ml/min; Glucose 99 mg/dl (70-99); Magnesium 1.8 mg/dl (1.6-2.3); Potassium 4.3 mmol/L (3.5-5.1); Sodium 134 mmol/L (135-145); eGFR 47.21
[2025-01-03 03:52] VITALS: BMI 31.4
[2025-01-03 03:56] LABS: Vancomycin Random 12.7 ug/ml
--- NOTE | 2025-01-03 04:55 | W.PN.CT ---
Today's Communication / Plan
-
-no further bradycardia overnight (pw @ 30 backup). Currently, on Toprol 25 mg qd. Holding Amio
-maintain pw (VVI 30)
-on Vanco, dosed by pharmacy. ID following. Plaquenil restarted
-Picc placed 12/29 RU
-sacral ulcer - wound care following
-continue PT/OT
-Skilled rehab placement once Vanco dose is stabilized, possibly Friday
-Continue asa, atorvastatin, apixaban, Toprol 25 mg, lasix 20 mg IV BID
-appreciate everyone's input
Assessment / Plan
-
Assessment:
-S/P Standard sternotomy/Surgical aortic valve replacement [25 mm prosthesis]/Mitral valve replacement with [place] cord replacement for reinforcement [29 mm bioprosthesis]/ Extensive debridement of mitral annular calcification and patch of the
mitral valve annulus using bovine pericardium/Modified open surgical left atrial maze (encompass RF ablation and cryo ablation)/Left atrial appendage exclusion [35 mm device]/Drainage of right pleural effusion [300 cc], by Dr. Bullock, 12/24/24, pod#10
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
-Paroxysmal atrial fibrillation, new onset
-Severe aortic valve stenosis
-Mitral valve stenosis with severe mitral annular calcification
-LVEF 60-65%
-MRSA
-Class 1 obesity (BMI 30.4)
-Osteoporosis with Left tibial plateau fx as well Left meniscus tear, per MRI 12/23/24
-Former tobacco use (quit 40 years ago)
-Systemic Lupus Erythematosus
-Preop hypokalemia
-Preop thrombocytopenia
-Hypothyroidism
-S/P Thyroidectomy
-Acute postop blood loss/Anemia (Transfused 2u PRBCs)
-Acute postop atelectasis
-Acute postop hypovolemia with subsequent hypervolemia
-Acute postop temporary pacer dependence d/t bradycardia
-Acute postop RBBB
-Acute postop elevated INR 5.61
-Acute postop SEEMA, 2.0- improving
-Acute postop flat affect/depression
-Acute postop a-fib- Eliquis started 12/28/24
-Acute postop bradycardia, requiring v-pacing @ 40 bpm
-Sacral stage 2 pressure injury
Subjective
Procedure
-S/P Standard sternotomy/Surgical aortic valve replacement [25 mm prosthesis]/Mitral valve replacement with [place] cord replacement for reinforcement [29 mm bioprosthesis]/ Extensive debridement of mitral annular calcification and patch of the
mitral valve annulus using bovine pericardium/Modified open surgical left atrial maze (encompass RF ablation and cryo ablation)/Left atrial appendage exclusion [35 mm device]/Drainage of right pleural effusion [300 cc], by Dr. Bullock, 12/24/24
-
Date of Service: January 03, 2025
Objective Data
-
Lab Results
01/03/25 03:11
01/03/25 03:11
PT 16.4 Sec (11.4-14.6) H 12/27/24 03:35
INR 1.29 12/27/24 03:35
APTT 37.3 Sec (23.4-35.0) H 12/24/24 11:54
Vital Signs
Vital Signs
Temp Pulse Resp BP Pulse Ox
98.3 F 77 14 133/72 97
01/03/25 03:15 01/03/25 03:06 01/03/25 03:15 01/03/25 03:06 01/03/25 03:15
CT Intake/Output/Weight
01/02/25 01/02/25 01/03/25
06:59 18:59 06:59
Intake Total 790 / 790
Output Total 500 / 950 1400 / 2000 600 / 2000
Balance -500 / -700 -610 / -1210 -600 / -1210
SaO2: 97
Physical Exam
-
General: Awake, Oriented and AOx3
Cardiovascular: Regular rate & rhythm and No Murmurs
Respiratory: Clear and Decreased Breath Sounds
Sternum: Stable
Incision: Clean and Dry
Extremities: Edema +1 and No Erythema
Data Reviewed
-
Lab Results: Results Reviewed
Medications: Active Meds Reviewed
Chest X-Ray: Report Reviewed
ECG: Report Reviewed
[2025-01-03 06:39] LABS: ANA Pattern Speckled
[2025-01-03] MEDS: SYNTHROID 250 MCG PO (07:15)
[2025-01-03] MEDS: TYLENOL 1000 MG PO (07:15)
[2025-01-03 07:23] VITALS: BP 135/79
--- NOTE | 2025-01-03 07:46 | W.PN.CD ---
Today's Communication / Plan
-
monitor on PO lasix for goal negative 500-1000 cc, may need dose adjustment to achieve goal
Impression / Plan
-
Impression/Plan: 74F with severe aortic stenosis hypothyroidism, lupus, and former smoker transferred from [facility] after being admitted for sepsis/MSSA bacteremia, new atrial fibrillation and CVA during that hospitalization, found to have infectious
mitral valve endocarditis, now s/p AVR/MVR/PAMELA clip with Dr. Bullock 12/24/24. Hospital course has been complicated by acute kidney injury.
Interval events:
vitals stable, no O2 requirment
tele with sinus rhythm
Cr improving, H&H stable
CXR with slowly increasing R>L pleural effusion
exam with dec b/l breath sounds, BILL
#MSSA infectious endocarditis
-Large vegetations on [place] mitral valve with associated mitral regurgitation and moderate to severe aortic stenosis.
-S/P AVR & MVR with PAMELA clip by Dr. Bullock 12/24/2024 (post op management below).
-Patient developed coagulopathy with cefazolin, prompting switch to nafcillin. SEEMA developed after nafcillin (no clear AIN), so ABX changed to vancomycin.
-Antibiotics as directed by ID, plan for 6 week course.
.
#Severe /MR
-Chronic, progressive.
-S/P #25 Cedeno Inspiris Resilia AVR, #29 Mitris Resilia MVR and #[address] Bullock, 12/24/2024.
-Patient required pacing postop continue to monitor rhythms postop.
-Encourage incentive spirometry.
-Ambulate as possible. She has a vertical osteoporotic insufficiency fracture of the left knee through the anterior tibial plateau and combined medial/lateral menisci tears. Toe tap weight bearing only per ortho.
#Paroxysmal atrial fibrillation
-New diagnosis at [facility].
-Amiodarone discontinued after 2.9 second pause, otherwise has appropriate rate response.
-Rate dropped to paced rate of 40 one night, followed by AF-RVR to 120's, treated with a bolus amiodarone.
-amiodarone now on hold
-Reviewed with EP. Tolerating low dose beta mya. Toprol XL 25mg daily.
-[id number]: Score at least 4 prior to CVA (HTN, age 75 or more, female gender).
-Anti-thrombotic therapy with apixaban 5mg bid, s/p LAAE.
#SEEMA, post op volume overload
-Creatinine improving
-transition to PO lasix
-DDx includes medication toxicity/AIN (i.e. transition from nafcillin to vancomycin), cardiorenal, glomerulonephritis (related to IE vs. SLE).
-PR3/MPA/Anti-GBM pending.
-Appreciate nephrology's input.
#Sacral Wound
-New diagnosis.
-Wound care involved.
#Deconditioning
-Acute (on chronic).
-PT/OT.
-Physiatry involved - evaluating for placement. PMR believes that she will be best served at [facility].
#CVA
-Expressive aphasia and word finding difficulty on exam, oriented.
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
#Hypothyroidism
-Chronic.
-On levothyroxine.
#Lupus
-Chronic.
-STEPHANIE+.
#Former smoker
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
DATA:
Transthoracic echocardiogram, 12/18/2024 ([facility]):
LVEF 45%. Severely dilated LA. Moderate to severe aortic stenosis (peak/mean 52.6/32.3 mmHg).
Severe thickening of the anterior and posterior leaflets of the mitral valve.
Severe mitral annular calcification. Moderate mitral valve regurgitation with centrally directed jet.
Transesophageal Echocardiogram, 12/22/2024:
CONCLUSIONS
-Left ventricular ejection fraction is 60-65%. Normal regional wall motion.
-Normal right ventricular size and function.
-No thrombus detected in the left atrial appendage.
-Thickened mitral valve leaflets and mitral annular calcification with a large,
partially mobile vegetation on the P3 segment of the posterior mitral valve
leaflet measuring approximately 1.5 x 2.5 cm (see below images). There was also
a smaller, highly mobile vegetation on the P1 segment of the mitral valve
leaflet. There also appears to be a small vegetation in the annular region of
the anterior mitral valve leaflet. Mitral valve opens normally.
-Moderate mitral regurgitation (multiple jets).
-Thickened/calcified trileaflet aortic valve with severely reduced leaflet
excursion. Likely severe aortic stenosis; gradients were not obtained.
TTE 12/27/2024
Normal left ventricular chamber size. Normal left ventricular systolic
function. Mild concentric left ventricular hypertrophy. Normal regional wall
motion. Left ventricular ejection fraction is 50-55%.
Normal right ventricular size and grossly normal function.
Moderately dilated left atrium.
Well seated, normally functioning #29 bioprosthetic mitral valve replacement.
There is an echodensity seen on the posteromedial papillary muscle chordae,
which is seen on the intraoperative transesophageal echocardiogram.
Well seated, normally functioning #25 bioprosthetic aortic valve replacement.
No evidence of pulmonary hypertension.
Compared to prior intraoperative study of 12/24/2024, the bioprosthetic aortic
and mitral valves are well seated and functioning normally. The left
ventricular ejection fraction is 50-55%, compared to 60-65% (though this is
immediately post operative which will significantly alter loading conditions).
BACKGROUND:
Yazmin was admitted 12/17/2024 with confusion. She was found on the floor by her son after she did not show up for work. 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 She presented febrile. Blood cultures demonstrated MSSA and she was started on
cefepime. CT of chest/abdomen/pelvis did not show definitive source. She was found to be in atrial fibrillation with rapid ventricular response with incomplete right bundle branch block. She was started on intravenous heparin and amiodarone. On
12/19/2024 a stroke alert was called for right sided facial droop in addition to right upper and lower extremity weakness. Her heparin drip was stopped due to concern for stroke. CT noncontrast on admission showed 2 foci of decreased density in the
right cerebral hemisphere consistent with acute infarct, one in the cerebellum and one in the high frontal lobe. MRI was pending and not completed prior to transfer. She was found to have pain and erythema of the left knee. On 12/20/2024
orthopedic surgery aspirated her knee. Notable labs during her admission included D-dimer of 16.3, HgbA1c 5.0%, troponin T fifth GEN peaked at 315, and CPK 1191.
Physical Exam
Vital Signs/Labs
Vital Signs
Temp Pulse Resp BP Pulse Ox
36.8 C 77 14 133/72 97
01/03/25 03:15 01/03/25 03:06 01/03/25 03:15 01/03/25 03:06 01/03/25 04:58
01/02/25 01/03/25 01/04/25
06:59 06:59 06:59
Actual Weight 86 kg 85.6 kg
01/03/25 03:11
01/03/25 03:11
PT 16.4 Sec (11.4-14.6) H 12/27/24 03:35
INR 1.29 12/27/24 03:35
APTT 37.3 Sec (23.4-35.0) H 12/24/24 11:54
Magnesium 1.8 mg/dl (1.6-2.3) 01/03/25 03:11
TSH 14.60 uIU/ml (0.47-4.68) H 12/22/24 04:26
Physical Exam
Constitutional: No acute distress
Cardiovascular: Rhythm & rate is regular
Respiratory: Other (decreased at bases)
Neuro/Psych: Alert and Oriented
Data Reviewed
-
Date of Service: January 03, 2025
Medical Decision Making: Reviewed Test Results
EKG: Tracing Personally Visualized and interpreted
Echo: Report Reviewed by me
X-Ray/CT/US/MRI/NUC/PET: Image Personally Visualized and interpreted
Labs: Labs Reviewed by me
[2025-01-03 08:00] VITALS: BMI 31.4
--- NOTE | 2025-01-03 08:00 | PTCARENOTE ---
assumed care of pt from previous RN. walking rounds completed. pt AAOx3. hoyered out of bed into chair with assist x2. NSR w/ 1st degree AVB on monitor. A/V wires with backup VVI 30/10/0.8. POX 96% on RA. +BS. purewick in place. all surgical sites
stable, will continue to monitor.
[2025-01-03 08:34] VITALS: BP 125/64
[2025-01-03 08:55] VITALS: BP 121/71
[2025-01-03 08:57] VITALS: BP 121/71; BP 125/64; PULSE 80; O2SAT 96
--- NOTE | 2025-01-03 09:16 | PHA.VAN.FU ---
Vancomycin Assessment / Plan
- Assessment
Renal Function: SCR Decreasing (renal function improving but SCR remains about double baseline)
WBC's are: WNL
In the past 24 hrs, patient has been: Afebrile
- Assessment - Therapeutic Drug Monitoring
Random Level: 12.7 - drawn ~16.5H after previous dose of 500mg
Date SCR Level Dosing Notes
Friday12/27/24 1.9 2000mg
Friday12/28/24 2.0 18.8 (16.5H) 1000mg
Friday12/29/24 1.7 20.1 (18.5H) x
12/30/24 1.6 16.6
(22H after prior level) x half-life ~ 80.3 H
Friday12/31/24 1.4 12.3
(24.5H after prior level) 1000mg half-life ~56.4 H
Friday01/01/25 1.5 16.6 (16H) x
Friday01/02/25 1.3 13.1
(23H after prior level) 500mg half-life ~67.5H
Friday01/03/25 1.2 12.7 (16.5H)
Level appropriate for re-dosing today but patient only received ~5-6 mg/kg - expect with full dosing, patient will continue to require prolonged dosing interval
- Dosing Plan
Dosing by Level: Re-dose today (Vanc 1000mg)
Recommended outpatient dosing based on anticipation that renal function continues to improve:
Start Vanc 1000mg Q48H on 01/06 (~72H after today's dose).
She will then receive a dose & Fri
Obtain trough level Mon to assess Q48H interval
Aim for trough in 10-16 range - if higher, may be concerned for accumulation
Anticipate that patient likely will require dose adjustment as renal function is not stable
- Monitoring Plan
No level(s) ordered at this time: will re-evaluate if not discharged
- Follow Up
Pharmacy will continue to follow.
Vancomycin Follow UP
- -
Patient Age: 74
Patient Sex: Female
Vancomycin Day #: 8
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
Requesting Provider: Dr. Toney
Pertinent Antimicrobial Allergies:
NKDA
Height / Weight:
Height 5 ft 5 in
Actual Weight 85.6 kg
Pertinent Past Medical History: BMI ~32
- Vital Signs / Lab Results
Temp Pulse Resp BP Pulse Ox
98.3 F 77 14 133/72 97
01/03/25 03:15 01/03/25 03:06 01/03/25 03:15 01/03/25 03:06 01/03/25 04:58
Lab Results - Hematology
01/01/25 01/02/25 01/03/25
03:51 02:54 03:11
WBC 6.1 5.5 5.0
Lab Results - Chemistry
01/01/25 01/02/25 01/03/25
03:51 02:54 03:11
BUN 44 H 42 H 38 H
Creatinine 1.5 H 1.3 H 1.2 H
Estimated Creat Clear 35 40 44
Therapeutic Drug Monitoring
Random Vancomycin 12.7 ug/ml 01/03/25 03:06
[2025-01-03] MEDS: VISBIOME 2 CAP PO (09:34)
[2025-01-03] MEDS: KCL 20 MEQ PO (09:35)
[2025-01-03] MEDS: PROTONIX 40 MG PO (09:35)
[2025-01-03] MEDS: ELIQUIS 5 MG PO (09:35)
[2025-01-03] MEDS: LOW STRENGTH ASPIRIN 81 MG PO (09:35)
[2025-01-03] MEDS: NEURONTIN 100 MG PO (09:35)
[2025-01-03] MEDS: TOPROL XL 25 MG PO (09:35)
[2025-01-03] MEDS: PLAQUENIL 200 MG PO (09:35)
[2025-01-03] MEDS: NSS IV (09:36)
[2025-01-03] MEDS: DESITIN MAXIMUM STRENGTH PASTE 1 APPLIC TOPICAL (09:38)
[2025-01-03] MEDS: LASIX 20 MG PO (10:04)
--- NOTE | 2025-01-03 11:10 | W.PN.ID1 ---
Date of Service
Date of Service: January 03, 2025
Today's Communication
Continue Vancomycin. See below.
Assessment / Plan
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
MSSA bacteremia - sustained, now cleared
CVA possible septic infarctions
SEEMA - slowly improving
- s/p MAZE, L atrial appendage, AVR, MVR, temp AV pacing wires on 12/24
- attribute diarrhea to cathartics, could consider holding scheduled docusate/senna
- MSSA bacteremia at [facility] 12/17 and 12/18; 12/19 blood cultures at [facility] x2 are both finalized negative
- repeat blood cultures x2 done here on 12/21 are finalized negative
- OR culture mitral valve S aureus as expected
- Since OR cx positive, will continue vancomycin plan for a 6 week total course from date of AVR/MVR, 12/24/24-02/05/25.
follow renal function closely, adjust Vanco dosing
- Vancomycin 1000mg IV q48h next dose 01/06/25 @ 8am.
Obtain next Vancomycin trough on Friday01/10/2025
Adjust Vancomycin dosing as needed based on Vanco tough. Target Vancomycin trough between 10 to 16.
Follow Vanco trough twice weekly until level stable and/OR SEEMA resolves, then check Vanco trough weekly.
Weekly CBC with diff, CMP.
-Follow up out to Dr. Leslie Toney, (Infectious Disease): .
Chief Complaint
-: Bacteremia and Other (endocarditis, cva due to MSSA)
Subjective / Review of Systems
Going to Rehab today. No complaints
Vital Signs / Physical Exam
Vital Signs
Vital Signs
Temp Pulse Resp BP Pulse Ox
98.4 F 79 18 121/71 96
01/03/25 08:00 01/03/25 09:35 01/03/25 08:00 01/03/25 09:35 01/03/25 08:00
Physical Exam
Constitutional: No Acute Distress and Comfortable
Cardiovascular: Regular Rate and S1/S2
Pulmonary: Clear
Gastrointestinal: Soft, Non Tender, Non Distended and Normal Bowel Sounds
Wound: Other (Sternum incision close and dry)
Neurological: AO x 3
Lines: PICC (RUE)
Objective Data
Lab Data
Lab Results
01/03/25 03:11
01/03/25 03:11
ESR 25 mm/hour (0-20) H 12/22/24 13:18
PT 16.4 Sec (11.4-14.6) H 12/27/24 03:35
INR 1.29 12/27/24 03:35
APTT 37.3 Sec (23.4-35.0) H 12/24/24 11:54
Estimated Creat Clear 44 ml/min 01/03/25 03:11
Lactic Acid Cancelled 12/29/24 06:00
Total Bilirubin 1.3 mg/dl (0.2-1.3) 12/26/24 12:07
AST 81 U/L (14-36) H 12/26/24 12:07
ALT 11 U/L (0-35) 12/26/24 12:07
Alkaline Phosphatase 47 U/L (38-126) 12/26/24 12:07
C-Reactive Protein 133.00 mg/L (0.0-10.00) H 12/22/24 13:18
Most recent labs reviewed.
Micro Results:
12/24/24 09:00 Tissue Culture - Final
Heart S aureus-Methicillin Sensitive
Gram Stain - Final
12/24/24 09:00 Anaerobic Culture - Final
Heart NO ANAEROBES ISOLATED
12/24/24 09:00 Tissue Culture - Final
Heart No Growth After 72 Hours
Gram Stain - Final
12/24/24 09:00 Anaerobic Culture - Final
Heart NO ANAEROBES ISOLATED
12/23/24 04:29 Blood Culture - Final
Blood/Venous No Growth - Final Report
12/23/24 03:54 Blood Culture - Final
Blood/Venous No Growth - Final Report
12/24/24 09:00 Fungal Smear - Final
Heart No yeast or fungal elements seen.
Fungal Culture - Preliminary
Culture in progress.
Positive cultures are reported as soon as detected.
Final report to follow in four to five weeks.
12/24/24 09:00 Fungal Smear - Final
Heart No yeast or fungal elements seen.
Fungal Culture - Preliminary
Culture in progress.
Positive cultures are reported as soon as detected.
Final report to follow in four to five weeks.
12/24/24 09:00 Acid Fast Bacilli Smear - Preliminary
Heart Acid Fast Bacilli Culture - Preliminary
12/24/24 09:00 Acid Fast Bacilli Smear - Preliminary
Heart Acid Fast Bacilli Culture - Preliminary
12/21/24 18:00 Blood Culture - Final
Blood/Venous No Growth - Final Report
12/21/24 12:56 Blood Culture - Final
Blood/Venous No Growth - Final Report
12/22/24 12:50 Wound Culture - Final
Knee - Left No growth
Gram Stain - Final
12/21/24 17:55 MRSA Screen - Final
Nose No Methicillin Resistant Staphylococcus aureus isolated.
Care Review
Plan reviewed with: Other (Pharmacist Anastacio)
[2025-01-03] MEDS: LASIX PO (11:54)
[2025-01-03] MEDS: VANCOCIN 200 IV (11:56)
--- NOTE | 2025-01-03 12:17 | W.DCSUMMARY ---
Discharge Summary
Discharge Data
Date of Admission: 12/21/24
Date of Discharge: 01/03/25
Total time spent discharging patient (in min): 55
-
Pending Results: No
Hospital Course
Primary care physician:
Dr. Thakkar
Outpatient cognos consultant:
Dr. Champion
Inpatient consultants:
CBC, radiological technician, Anesthesia, Hospitalist, infectious disease, nephrology, neurology, psychology, wound
Procedures:
1. Standard sternotomy/Surgical aortic valve replacement [25 mm prosthesis]/Mitral valve replacement with Wildwood-Triston cord replacement for reinforcement [29 mm bioprosthesis]/ Extensive debridement of mitral annular calcification and patch of the
mitral valve annulus using bovine pericardium/Modified open surgical left atrial maze (encompass RF ablation and cryo ablation)/Left atrial appendage exclusion [35 mm device]/Drainage of right pleural effusion [300 cc], by Dr. Bullock, 12/24/24
Primary Diagnosis:
1. Bacterial endocarditis of the mitral valve, severe aortic valve stenosis, septic embolic stroke, new onset atrial fibrillation with RVR
Secondary Diagnoses:
1. Acute postop a-fib- Eliquis started 12/28/24
2. 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
3. Paroxysmal atrial fibrillation
4. Severe aortic valve stenosis
5. Mitral valve stenosis with severe mitral annular calcification
6. History of MRSA
7. Systemic Lupus Erythematosus
8. Acute postop blood loss anemia
9. Acute postop hypervolemia
10. Acute postop elevated INR secondary to antibiotics
11. Sacral stage II pressure injury
HPI: 74-year-old female who was reportedly doing well up to last week where she was found to be septic and later suffered a embolic stroke x 2. As part of her workup she underwent echocardiography which determined that she had known severe aortic
valve stenosis and positive vegetations on her mitral valve with underlying severe mitral annular calcification. She was transferred over to our facility for further workup. A MARY was performed which demonstrated a 3 cm mobile mass consistent with
a vegetation on her mitral valve with smaller areas of infected anterior leaflet. Given her embolic stroke, size of the mass and its mobility, she was offered expedited surgical intervention in the form of double valve replacement, maze, clip given
her new paroxysmal atrial fibrillation.
Hospital course:
Patient was initially transferred from [facility] after being treated for MSSA bacteremia. She was found to have aortic stenosis/mitral regurgitation secondary to endocarditis. She was also found to have a possible septic knee however that
was drained and it was found that she had a fracture of the left knee. Patient was then transferred to [facility] on 12/21 for continuation of care. Patient's antibiotics at that time was changed from cefepime to cefazolin. On 12/24
patient was taken to the CV OR by Dr. Bullock. Postoperatively she returned to the CVICU on Levophed, dobutamine, Precedex, and insulin infusions. Patient's Precedex was weaned off and patient was extubated by 1545. Due to the patient's hypovolemia
and overall malnutrition she was started on albumin 5% and 25%. Levophed was weaned. Patient's intrinsic rhythm was in the low 50s therefore patient was maintained at an AV paced rate of 80. On 12/25 postoperative day 1 patient's INR was found to
be elevated at 5.6. Vitamin K was dosed twice and after a discussion with infectious disease patient's Ancef was changed to nafcillin. She was also given 1 unit of packed red blood cells followed by 20 mg of IV Lasix. Dobutamine was decreased to
3 mcg/kg/min and left pleural chest tube was removed. On 12/26 postoperative day 2 patient's trial that 2 mcg/kg/minute however cardiac index dropped to 1.8. She was given lactated Ringer's and dobutamine was brought back up to 3 mcg/kg/minute. On
12/27 postoperative day 3 patient's dobutamine was weaned down which she tolerated better. She was diuresed with Lasix 3 times daily. Patient was found at this point to have an elevated creatinine so after discussion with ID patient's nafcillin
was changed to vancomycin. Patient's dobutamine was weaned to 1 and creatinine peaked at 2. Repeat echocardiogram remained stable and she received another unit of packed red blood cells. On 12/28 postoperative day 4 patient's creatinine was 2.0.
Hemoglobin was stable. Patient's heart rate was sinus bradycardia in the 40s and amiodarone was discontinued along with dobutamine. Due to patient's intermittent periods of atrial fibrillation she was started on Eliquis 5 mg twice daily and
patient's arterial line and Alna-Noe catheter was removed. Patient was then diuresed with 40 mg of IV Lasix twice a day. Due to her renal function infectious disease and pharmacy was dosing her vancomycin based on troughs. On 12/29 postoperative
day 5 patient's creatinine down trended to 1.7 she was again diuresed with Lasix 40 mg twice daily and she had a right upper extremity PICC line placed. At that time her Cordis and Tran was removed. On 12/30 postoperative day 6 patient was
diuresed twice daily again creatinine down trended to 1.6. Patient was starting to have multiple episodes of diarrhea and she was started on probiotics. She also started to have more episodes of intermittent atrial fibrillation so she was started
on Lopressor but not amiodarone per cardiology recommendations. On 12/31 postoperative day 7 patient worked with physical therapy and received vancomycin. On 01/01 postoperative day 8 patient was started on 25% albumins and Lasix was temporarily
held. However patient's blood pressure recovered to low 100s to 110s later in the evening. On 01/02 postoperative day 9 patient's vital signs remained stable and she was started on oral Lasix. On 01/03 postoperative day 10 patient creatinine was
1.2. Her Lasix was increased to 40 mg p.o. twice daily and infectious disease has been dosing her Vanco every 48 hours. She was deemed stable for discharge.
Home medication changes:
see below
Discharge Plan
-
Patient Disposition: Care Home/SNF
Discharge Diagnosis/Procedures: Surgical aortic valve replacement [25 mm prosthesis]
Mitral valve replacement with Wildwood-Triston cord replacement for reinforcement [29 mm bioprosthesis]
Condition: Fair
Diet: Low Cholesterol, 2 Gram Sodium, Restrict fluids to 64 oz and Supplements
Additional Diets: toe-touch weightbearing left lower extremity until fracture heals
Activity: As tolerated, No strenuous activity and Other activity
Driving Restrictions: Not until seen by your Dr
Bathing Restrictions: OK to Shower
Blood Work: Weekly CBC with diff, CMP.
Obtain next Vancomycin trough on Friday01/10/2025
Adjust Vancomycin dosing as needed based on Vanco tough. Target Vancomycin trough between 10 to 16.
Other Services: Cardiac Rehab
Specialty Instructions: Weigh Daily- Call MD for wt gain/loss 3 lbs overnight/5 lbs in 1 week
Activity Restrictions/Additional Instructions:
1. Vancomycin IV through 02/03/2025
2. Vancomycin 1000mg IV q48h next dose 01/06/25 @ 8am.
3. Obtain next Vancomycin trough on Friday01/10/2025
4. Adjust Vancomycin dosing as needed based on Vanco tough. Target Vancomycin trough between 10 to 16.
5. Follow Vanco trough twice weekly until level stable and/OR SEEMA resolves, then check Vanco trough weekly.
6. Weekly CBC with diff, CMP.
7. If questions, reach out to Dr. Leslie Toney, (Infectious Diseae): .
Wound Care Instructions Sacral Wound- Clean with normal saline or soap and water. Apply Honey Gel to open wound and cover with silicone border foam OR cover with 4x4 gauze and secure with transparent dressing (Tegaderm). Change Q 48 hours and PRN
if soiled.
Calazime or Extra-strength Desitin to buttocks PRN incontinence care
Air cushion to chair
Bariatric air cushion for additional off-loading
ACTIVITY:
-No strenuous activity: no heavy lifting, pushing, pulling anything over 15 pounds for one month
-continue to use stairs as tolerated
DRIVING RESTRICTIONS:
-No driving for one month or until approved by your surgeon
WOUND CARE:
-Shower daily. Use soap & water.
-No lotions, creams or powders on incision area.
DIET:
-continue a low fat/low cholesterol diet.
-IF you are diabetic, continue carb controlled diet.
CARDIAC REHAB:
-Please make appointment to start in 5-6 weeks with your local hospital program. (See Cardiac Rehabilitation Discharge Booklet).
SPECIALTY INSTRUCTIONS:
-Weigh yourself daily. Call your physician for any weight gain/loss of 3 lbs overnight or 5 lbs in one week.
-REPORT any clicking noise or uneven appearance of your sternum to your surgeon immediately.
-If you smoke, you are instructed to quit. The [facility] smoking hotline phone number is [phone]
Referrals:
Teodora LANCE [Other] - 01/31/25 2:00 pm
CT Transitional Care Nurse [Outside] (The Cardiothoracic Transitional Care Nurse will call you to set up a visit in 1-2 days.)
Cady Sherwood MD [Family Provider] -
Valdez Bullock MD [Active] - 01/25/25 2:00 pm
Leslie Toney MD [Active] - in three to four weeks
Additional Discharge Medication Instructions: Vancomycin 1000mg IV q48h next dose 01/06/25 @ 8am.
Obtain next Vancomycin trough on Friday01/10/2025
Adjust Vancomycin dosing as needed based on Vanco tough. Target Vancomycin trough between 10 to 16.
Follow Vanco trough twice weekly until level stable and/OR SEEMA resolves, then check Vanco trough weekly.
Prescriptions:
New
Eliquis 5 mg Tablet
5 mg PO BID Qty: 0 0RF
atorvastatin 40 mg Tablet
40 mg PO QPM Qty: 0 0RF
acetaminophen 325 mg Tablet
650 mg PO Q4HPRN PRN (Reason: mild pain,headache,temp >101F ) Qty: 0 0RF
potassium chloride 20 mEq Tablet,Er Particles/Crystals
20 meq PO BID Qty: 0 0RF
aspirin 81 mg Tablet,Chewable
81 mg PO DAILY Qty: 0 0RF
furosemide 20 mg Tablet
40 mg PO BID AT 0800,1600 Qty: 0 0RF
metoprolol succinate 25 mg Tablet Extended Release 24 Hr
25 mg PO DAILY Qty: 0 0RF
Lactobac/Bifidobac [Visbiome]
2 cap PO DAILY Qty: 0 0RF
vancomycin 1,000 mg recon soln
1,000 mg IV Q48H Qty: 10 0RF
Rx Instructions:
Vancomycin 1000mg IV q48h next dose 01/06/25 @ 8am.
Continued
hydroxychloroquine
200 mg PO Q OTHER DAY
levothyroxine
250 mcg DAILY
gabapentin
300 mg PO HS
hydroxychloroquine
400 mg PO Q OTHER DAY
Discharge Orders:
Discharge Patient (As Directed); Ordered 01/03/25
Ordered By: Mckenzie Ellis
Care Plan Goals
Care Plan Goals:
Problem: Readiness for enhanced knowledge related to diagnosis and treatment plan
Goal: Understand your diagnosis and treatment plan needs, including medications if applicable.
Instructions: Know your diagnosis, underlying causes and treatment plan options, including medications if applicable. Consult with your health care team to learn about your diagnosis and treatment plan, including medications if applicable.
Discharge Date and Time
Print Language: SETSWANA
--- NOTE | 2025-01-03 12:21 | CM ---
spoke with pt and son, catracho, in room. [facility] has a bed for her today, she is medically cleared for dc. she is agreeable to go via ambul. order picker/assembler sched for 1pm. Lili at [facility] aware.
--- NOTE | 2025-01-03 13:22 | W.PN.NEPH.PH ---
Today's Communication / Plan
-
ok for d/c to rehab
Assessment/Plan
-
74yo female with severe aortic stenosis hypothyroidism, lupus, and former smoker transferred from [facility] after being admitted on 12/21/24 for sepsis/MSSA bacteremia, new atrial fibrillation and CVA during that hospitalization, found to have infectious
mitral valve endocarditis. She is status post AVR and MVR on 12/24. She has been on antibiotics and had periods of A-fib and bradycardia. She has had periods of hypotension. She is status post CVA with expressive aphasia and likely embolic.
Renal consult for acute kidney injury. Her creatinine was relatively normal on admission and has been progressively increasing at 1.9.
Impression.
Acute kidney injury -cr 0.6
MSSA bacteremia/endocarditis status post AVR/MVR.
Status post acute CVA.
Atrial fibrillation-amnio
Probable ATN
Plan.
SEEMA-cr cont to improve 1.2, suspect more related to hemodynamic ATN
STEPHANIE +ve with known lupus, complements are normal unlikely infectious GN, had micro hematuria, proteinuria 1.58gm/gm of cr
she has PR3 +ve too -need f/u
Continue antibiotics per primary team
Creatinine continues to improve diuresing well Lasix decreased to 20 mg twice daily by cardiology.
ok for d/c
she will f/u with her Rheum and PCP -urine labs needed to be followed
-
-
Date of Service: January 03, 2025
CC / HPI / ROS
-
Chief Complaint:
Infectious endocarditis status post valve
History of Present Illness:
SEEMA/creatinine down 1.2, na stable at 134
BP stable
Review of Systems:.
no shortness of breath or chest pain
feels weak
Labs
-
Labs:
WBC 5.0 10^3/uL (4.8-10.8) 01/03/25 03:11
RBC 3.24 10^6/uL (4.20-5.40) L 01/03/25 03:11
Hgb 9.6 g/dL (12.0-16.0) L 01/03/25 03:11
Hct 29.0 % (37.0-47.0) L 01/03/25 03:11
Plt Count 139 10^3/uL (130-400) 01/03/25 03:11
Sodium 134 mmol/L (135-145) L 01/03/25 03:11
Potassium 4.3 mmol/L (3.5-5.1) 01/03/25 03:11
Chloride 100 mmol/L (98-107) 01/03/25 03:11
Carbon Dioxide 31 mmol/L (22-30) H 01/03/25 03:11
BUN 38 mg/dl (7-17) H 01/03/25 03:11
Creatinine 1.2 mg/dL (0.6-1.0) H 01/03/25 03:11
eGFR 47.21 01/03/25 03:11
Glucose 99 mg/dl (70-99) 01/03/25 03:11
Calcium 8.2 mg/dl (8.4-10.2) L 01/03/25 03:11
Albumin 2.7 g/dl (3.5-5.0) L 12/26/24 12:07
Physical Exam
-
Vital Signs:
Vital Signs
Temp Pulse Resp BP Pulse Ox
98.4 F 78 18 121/71 96
01/03/25 08:00 01/03/25 11:00 01/03/25 08:00 01/03/25 09:35 01/03/25 08:00
Cardiovascular:: Regular rate and rhythm
Respiratory:: Bilateral: Coarse
Lung Excursion:: Normal
Abdomen:: Nontender and Soft
Bowel Sounds:: Normal
Extremity Edema:: +1: Bilateral:
Tran Catheter: No
== END 2025-01-03 13:30 | DRG 212 ==
LOC: CVICU 11:19
PROVIDERS: Anesthesiology; Clinical Nurse Specialist Acute Care; Internal Medicine Cardiovascular Disease; Nurse Practitioner; Physician Assistant; ADMITTING PHYSICIAN Thoracic Surgery (Cardiothoracic Vascular Surgery); CONSULT PHYSICIAN Family Medicine; CONSULT PHYSICIAN Internal Medicine Cardiovascular Disease; CONSULT PHYSICIAN Internal Medicine Critical Care Medicine; CONSULT PHYSICIAN Internal Medicine Nephrology; CONSULT PHYSICIAN Physical Medicine & Rehabilitation; CONSULT PHYSICIAN Psychiatry & Neurology Clinical Neurophysiology; FAMILY PHYSICIAN Family Medicine; OTHER PHYSICIAN Orthopaedic Surgery; OTHER PHYSICIAN Psychiatry & Neurology Psychiatry; OTHER PHYSICIAN Student in an Organized Health Care Education/Training Program
PROC: 0S9D3ZZ Drainage of Left Knee Joint, Percutaneous Approach (ICD-10-PCS; 2024-12-22)
PROC: 4A023N7 Measurement of Cardiac Sampling and Pressure, Left Heart, Percutaneous Approach (ICD-10-PCS; 2024-12-23)
PROC: B2111ZZ Fluoroscopy of Multiple Coronary Arteries using Low Osmolar Contrast (ICD-10-PCS; 2024-12-23)
PROC: 02RG08Z Replacement of Mitral Valve with Zooplastic Tissue, Open Approach (ICD-10-PCS; 2024-12-24)
PROC: 02580ZZ Destruction of Conduction Mechanism, Open Approach (ICD-10-PCS; 2024-12-24)
PROC: 02L70CK Occlusion of Left Atrial Appendage with Extraluminal Device, Open Approach (ICD-10-PCS; 2024-12-24)
PROC: 02RF08Z Replacement of Aortic Valve with Zooplastic Tissue, Open Approach (ICD-10-PCS; 2024-12-24)
PROC: B24BZZ4 Ultrasonography of Heart with Aorta, Transesophageal (ICD-10-PCS; 2024-12-24)
PROC: 5A1221Z Performance of Cardiac Output, Continuous (ICD-10-PCS; 2024-12-24)
PROC: 0B9N0ZZ Drainage of Right Pleura, Open Approach (ICD-10-PCS; 2024-12-24)
PROC: 30233N1 Transfusion of Nonautologous Red Blood Cells into Peripheral Vein, Percutaneous Approach (ICD-10-PCS; 2024-12-25)
PROC: 02HV33Z Insertion of Infusion Device into Superior Vena Cava, Percutaneous Approach (ICD-10-PCS; 2024-12-29)
DX: I33.0 Acute and subacute infective endocarditis (principal); I63.449 Cerebral infarction due to embolism of unspecified cerebellar artery; N17.0 Acute kidney failure with tubular necrosis; R47.01 Aphasia; R78.81 Bacteremia; I42.9 Cardiomyopathy, unspecified; I76 Septic arterial embolism; J91.8 Pleural effusion in other conditions classified elsewhere; D62 Acute posthemorrhagic anemia; M80.062A Age-related osteoporosis with current pathological fracture, left lower leg, initial encounter for fracture; G81.94 Hemiplegia, unspecified affecting left nondominant side; E87.1 Hypo-osmolality and hyponatremia; J98.11 Atelectasis; E46 Unspecified protein-calorie malnutrition; B95.61 Methicillin susceptible Staphylococcus aureus infection as the cause of diseases classified elsewhere; I65.23 Occlusion and stenosis of bilateral carotid arteries; E66.811 Obesity, class 1; E89.0 Postprocedural hypothyroidism; M32.9 Systemic lupus erythematosus, unspecified; I35.0 Nonrheumatic aortic (valve) stenosis; I34.0 Nonrheumatic mitral (valve) insufficiency; S83.282A Other tear of lateral meniscus, current injury, left knee, initial encounter; S83.242A Other tear of medial meniscus, current injury, left knee, initial encounter; X58.XXXA Exposure to other specified factors, initial encounter; I48.0 Paroxysmal atrial fibrillation; D69.6 Thrombocytopenia, unspecified; E87.6 Hypokalemia; I34.81 Nonrheumatic mitral (valve) annulus calcification; M17.12 Unilateral primary osteoarthritis, left knee; E78.5 Hyperlipidemia, unspecified; I10 Essential (primary) hypertension; R47.1 Dysarthria and anarthria; R00.1 Bradycardia, unspecified; E87.70 Fluid overload, unspecified; R79.1 Abnormal coagulation profile; I95.81 Postprocedural hypotension; L89.152 Pressure ulcer of sacral region, stage 2; E86.1 Hypovolemia; I45.10 Unspecified right bundle-branch block; F32.A Depression, unspecified; R19.7 Diarrhea, unspecified; I25.10 Atherosclerotic heart disease of native coronary artery without angina pectoris; Z68.31 Body mass index [BMI] 31.0-31.9, adult; Z79.899 Other long term (current) drug therapy; Z87.891 Personal history of nicotine dependence; Z91.81 History of falling; Z86.14 Personal history of Methicillin resistant Staphylococcus aureus infection
CPT/HCPCS: 88305; 88311; 93308; 33259; 70450; 71045; 71046; 72157; 73560; 73721; 80048; 80053; 80202; 81003; 81015; 81099; 82248; 82330; 82340; 82565; 82570; 82805; 82810; 82947; 82962; 83036; 83516; 83605; 83735; 83935; 84105; 84132; 84133; 84134; 84156; 84300; 84302; 84443; 84520; 85014; 85018; 85025; 85027; 85049; 85610; 85652; 85730; 86038; 86039; 86063; 86140; 86160; 86850; 86900; 86901; 86920; 87015; 87040; 87070; 87075; 87102; 87116; 87147; 87176; 87186; 87205; 87206; 89051; 89060; 92507; 92523; 92526; 92610; 93005; 93312; 93320; 93321; 93325; 93458; 93971; 94002; 97110; 97112; 97129; 97163; 97167; 97530; 97535; A9575; C1894; J2916; P9016; P9045; P9047; Q9967

== ENCOUNTER 2025-01-17 16:04 | Inpatient (IN) | payer MEDICARE, OTHER, SELFPAY ==
[2025-01-17 11:52] VITALS: BP 99/62
[2025-01-17 12:33] LABS: % Basophils 0.9 % (0-2); % Eosinophils 12.2 % (0-6); % Immature Granulocytes 2.5 % (0-0.5); % Lymphocytes 10.2 % (20.5-51.1); % Monocytes 5.9 % (1.7-9.3); % Neutrophils 68.3 % (42.2-75.2); Absolute Basophils 0.1 10^3/uL (0-0.2); Absolute Eosinophils 0.7 10^3/uL (0-0.7); Absolute Immature Granulocytes 0.1 10^3/uL (0-0.05); Absolute Lymphocytes 0.6 10^3/uL (1.2-3.4); Absolute Monocytes 0.3 10^3/uL (0.1-0.6); Absolute Neutrophils 3.8 10^3/uL (1.4-6.5); Hematocrit 31.7 % (37.0-47.0); Hemoglobin 10.6 g/dL (12.0-16.0); Mean Corp Hgb Conc. 33.4 g/dL (33.0-37.0); Mean Corpuscular Hgb 29.9 pg (27.0-31.0); Mean Corpuscular Volume 89.5 fL (81.0-99.0); Mean Platelet Volume 10.7 fL (7.4-10.4); Nucleated Red Blood Cells % 0 %; Platelet Count 203 10^3/uL (130-400); Red Blood Cell Count 3.54 10^6/uL (4.20-5.40); White Blood Cell Count 5.6 10^3/uL (4.8-10.8)
[2025-01-17 12:44] LABS: ALT (SGPT) 25 U/L (0-35); AST (SGOT) 30 U/L (14-36); Albumin 3.3 g/dl (3.5-5.0); Alkaline Phosphatase 80 U/L (38-126); Blood Urea Nitrogen 41 mg/dl (7-17); Calcium 8.8 mg/dl (8.4-10.2); Carbon Dioxide 28 mmol/L (22-30); Chloride 105 mmol/L (98-107); Glucose 100 mg/dl (70-99); Potassium 4.2 mmol/L (3.5-5.1); Sodium 139 mmol/L (135-145); Total Bilirubin 0.7 mg/dl (0.2-1.3); Total Protein 6.7 g/dl (6.3-8.2); eGFR 58.75
[2025-01-17 12:49] LABS: Vancomycin Random 13.4 ug/ml
--- NOTE | 2025-01-17 13:07 | CON.ID ---
Consultation
-
Date/Time Consultation Requested: 01/17/25 13:07
Date/Time Consultation Performed: 01/17/25 13:07
Requesting Provider: Delvis LANCE
Performing Provider: Dr Tonye
Reason for Consultation: drug rash
Chief Complaint / Past History
Chief Complaint
rash
History of Present Illness
Ms Montana is a 74 year old female with h/o lupus and recent admission here 12/21-01/03 for endocarditis and probable cerebral emboli due to MSSA, she underwent AVR, MVR MAZE on 12/24, the course was complicated by elevated INR with cefazolin and
possible AIN due to nafcillin vs hypovolemic SEEMA perioperatively. Nephrology felt it was likely that she had hypotension resulting in the SEEMA. Valve tissue cultures resulted with MSSA as expected. She was discharged with vancomycin for a 6 week
course 12/24/24-02/05/25. Starting she developd an erythematous, coalescing, pruritic drug rash, she was started by provider there on prednisone 20 mg PO qday and benadryl. My office was notified by her SNF that she had a possible drug rash
and that vancomycin had been stopped by the provider there, I advised referral to the ER for evaluation and possible admission. Reports no recent lupus flares and that it has been relatively well controlled for years on plaquenil only.
Outpatient vancomycin trough 01/11 was 12.7, cr 1.1, differential with 5% eos AEC 0.2.
Since arrival here she is afebrile, bp stable, wbc 5.6, hgb 10.6, plt 203, cr 1.0, AEC 0.7 with eos percentage 12.2, LFTs wnl, currently on vancomycin, ID is consulted for assistance with management.
Past History
Additional Past Medical History:
hypothyrodism
lupus on plaquenil
Additional Past Surgical History:
as per hpi
Allergy History:
Cefazolin elevated INR
Nafcillin possible AIN vs perioperative hypotension
Medications Reviewed: Yes
Social History
Tobacco: Former Smoker
Alcohol: Occasional
Drug: None
Family History
Family History: Not Pertinent
Review of Systems
Review of Systems
General: Negative Fever or Chills
All systems: All other systems were reviewed and were negative
Vital Signs
Temp Pulse Resp BP
97.6 F 77 18 99/62
01/17/25 11:52 01/17/25 11:52 01/17/25 11:52 01/17/25 11:52
Physical Exam
Physical Exam
Constitutional: No Acute Distress
Cardiovascular: Regular Rate and S1/S2; Negative Murmur or Rub
Pulmonary: Clear and Symmetric; Negative Wheezes, Rales or Rhonchi
Gastrointestinal: Soft, Non Tender, Non Distended and Normal Bowel Sounds
Skin: Warm, Dry and Rash (extensive, coalescing, macular, blanching, erytheamtous rash - generalized; some areas of excoriation; no involvement of the oropharynx or genitals); Negative Jaundice
Neurological: Awake
Psychological: Calm
Lines: PICC (no tenderness or drainage)
Lab / Diagnostic Study Results
01/17/25 12:19
01/17/25 12:19
Abs Immat Gran (auto) 0.1 10^3/uL (0-0.05) H 01/17/25 12:19
Absolute Neuts (auto) 3.8 10^3/uL (1.4-6.5) 01/17/25 12:19
Absolute Lymphs (auto) 0.6 10^3/uL (1.2-3.4) L 01/17/25 12:19
Absolute Monos (auto) 0.3 10^3/uL (0.1-0.6) 01/17/25 12:19
Absolute Basos (auto) 0.1 10^3/uL (0-0.2) 01/17/25 12:19
Immature Gran % 2.5 % (0-0.5) H 01/17/25 12:19
Neutrophils % 68.3 % (42.2-75.2) 01/17/25 12:19
Lymphocytes % 10.2 % (20.5-51.1) L 01/17/25 12:19
Monocytes % 5.9 % (1.7-9.3) 01/17/25 12:19
Eosinophils % 12.2 % (0-6) H 01/17/25 12:19
Basophils % 0.9 % (0-2) 01/17/25 12:19
Assessment / Plan
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
MSSA bacteremia - sustained, now cleared
CVA possible septic infarctions
Eosinophilia
Drug Rash - Possible DRESS
SEEMA - slowly resolving, baseline Cr is 0.6
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
ADR - cefazolin elevated INR
- daily CBC with diff to trend eosinophilia, AEC currently 700, would like to see it drop below 500
- daily BMP
- STEPHANIE titer in the AM, C3, C4, ESR and CRP
- failed 4 day outpatient trial of steroids (prednisone 20 mg po qday)
- start prednisone 40 mg PO qday
- scheduled claritin
- famotidine
- antibiotic options are limited given history
- elevated INR developed promptly with cefazolin, can be reproducible
- SEEMA vs less likely AIN with nafcillin
- eosinophilia and rash about 3 weeks into course of vancomycin - would not reattempt at this time
- limited data for use of daptomycin, linezolid, bactrim with possible cerebral emboli
- given the above considerations feel that nafcillin with close inpatient monitoring is likely the safest next step
- s/p MAZE, L atrial appendage, AVR, MVR, temp AV pacing wires on 12/24
- MSSA bacteremia at [facility] 12/17 and 12/18; 12/19 blood cultures at [facility] x2 are both finalized negative
- repeat blood cultures x2 done here on 12/21 are finalized negative
- OR culture mitral valve S aureus as expected
- plan for a 6 week total course from date of AVR/MVR, 12/24/24-02/05/25
Care Review
Plan reviewed with: Physician (Dr Nicholas - plan)
--- NOTE | 2025-01-17 14:03 | PHANOTE ---
Med Rec Note:
[facility] MAR does not include chronic meds prescribed at discharge including Eliquis, metoprolol, levothyroxine. Per Patient she has been receiving chronic meds.
Left message for nurse electrical manager, waiting a call back for confirmation.
--- NOTE | 2025-01-17 14:11 | HPS.HSE ---
Family Physician
-
Family Physician: Jignesh Calhoun, DO
Chief Complaint
-
Adverse drug reaction
History of Present Illness
Patient is a 74-year-old woman with past medical history significant for bacterial endocarditis of the mitral valve, severe aortic valve stenosis, septic embolic stroke, recent new onset A-fib with RVR, status post surgical aortic valve replacement,
mitral valve replacement using bovine pericardium on December 23, 2024, systemic lupus arrhythmia ptosis, sacral stage II pressure injury, admitted from December 21 through January 03, discharged to senior living facility on IV vancomycin sent in by
infectious disease secondary to adverse drug reaction. She has had drug reactions to cefazolin and possibly nafcillin with concern for rash with eosinophilia. She is being admitted to rechallenge her with nafcillin. She developed an erythematous
and pruritic rash starting . She was started on prednisone 20 mg daily and Benadryl. She had little relief in the rashes on her scalp, her face, bilateral arms, trunk, bilateral legs and feet. It is red pruritic macular and papular. She
denies fevers or chills. She denies chest pain no shortness of breath no evidence for anaphylaxis no evidence for skin sloughing nor petechiae. She is itching the skin as it is pruritic and dry. Labs reviewed WBC 5.6, BUN 41, glucose 100,
hemoglobin 10.6
Medical History
Past Medical History
Past Medical History: Reports Hypothyroidism and Other (lupus, class I obesity)
Past Surgical History: Reports Other (Thyroidectomy)
Social History
Tobacco: Former Smoker (Quit 40 years ago)
Alcohol: Occasional
Drug: None
Personal:
Living: Alone
Employment: Employed
Family History
Family History: Not pertinent
Allergies / Home Medications
Allergies reflects when Allergies were last updated in [facility].
Home Medications with original date entered in [facility]
Allergy/Medication List:
Allergies
Allergy/AdvReac Type Severity Reaction Status Date / Time
vancomycin Allergy Rash Verified 01/17/25 14:16
cefazolin AdvReac Intermediate elevated Verified 01/17/25 13:21
INR
Home Medications
gabapentin 300 mg PO HS Neurological Condition 12/21/24
hydroxychloroquine 200 mg PO Q OTHER DAY Autoimmune Disorder 12/21/24
hydroxychloroquine 400 mg PO Q OTHER DAY Autoimmune Disorder 12/21/24
levothyroxine 250 mcg DAILY Thyroid 12/21/24
Lactobac/Bifidobac [Visbiome] 2 cap PO DAILY Gastrointestinal issue ##0 01/03/25
acetaminophen 325 mg tablet 650 mg (2 x 325 mg) PO Q4HPRN PRN mild pain,headache,temp >101F #0 tabs 01/03/25
apixaban 5 mg tablet (Eliquis) 5 mg PO BID Blood clot prevention/tx #0 tabs 01/03/25
aspirin 81 mg chewable tablet 81 mg PO DAILY #0 tabs 01/03/25
atorvastatin 40 mg tablet 40 mg PO QPM High cholesterol #0 tabs 01/03/25
furosemide 20 mg tablet 40 mg (2 x 20 mg) PO BID AT 0800,1600 Fluid retention/Swelling #0 tabs 01/03/25
metoprolol succinate 25 mg tablet,extended release 24 hr 25 mg PO DAILY Blood pressure #0 tabs 01/03/25
potassium chloride 20 mEq tablet,extended release(part/cryst) 20 meq PO BID Electrolyte Repletion #0 tabs 01/03/25
vancomycin 1,000 mg intravenous injection 1,000 mg IV Q48H Endocarditis #10 ea 01/03/25
diphenhydramine HCl 50 mg capsule 50 mg PO Q48H PRIOR TO VANCOMYCIN 01/17/25
prednisone 20 mg tablet 20 mg PO .DAILY X 4 DAYS 01/17/25
triamcinolone acetonide 0.5 % topical cream 1 applic topical BID THIGH RASH 01/17/25
Review of Systems
-
A 12 point ROS was completed and negative except as noted: Yes
Physical Exam
Vital Signs
Vital Signs
Temp Pulse Resp BP
97.6 F 77 18 99/62
01/17/25 11:52 01/17/25 11:52 01/17/25 11:52 01/17/25 11:52
Physical Exam
General: Appears Chronically Ill
HEENT: Other (Maculopapular rash on her cheeks bilaterally and scalp)
Respiratory: Clear
Cardiac: S1/S2, Regular Rhythm and Other (Recent sternal wound postsurgery is clean dry and intact)
GI: Soft, Non Tender, Non Distended and Normal Bowel Sounds
Musculoskeletal: No Clubbing, No Cyanosis and No Edema
Skin: Other (Maculopapular rash on entire body including the scalp, the face, chest bilateral arms bilateral legs,, extensive coalescing, erythematous with some excoriation on her left leg from itching no involvement of oropharynx nor genitals)
Neuro: AO x 3, No Motor Deficits and Nonfocal/grossly intact
Psych: Calm
Laboratory Results
-
01/17/25 13:12
01/17/25 13:12
Laboratory Results
Total Bilirubin Cancelled 01/17/25 13:12
AST Cancelled 01/17/25 13:12
ALT Cancelled 01/17/25 13:12
Alkaline Phosphatase Cancelled 01/17/25 13:12
Impression/Plan
-
IMPRESSION:
Patient is a 74-year-old woman with past medical history significant for bacterial endocarditis of the mitral valve, severe aortic valve stenosis, septic embolic stroke, recent new onset A-fib with RVR, status post surgical aortic valve replacement,
mitral valve replacement using bovine pericardium on December 23, 2024, systemic lupus arrhythmia ptosis, sacral stage II pressure injury, admitted from December 21 through January 03, discharged to senior living facility on IV vancomycin sent in by
infectious disease secondary to adverse drug reaction. She has had drug reactions to cefazolin and possibly nafcillin with concern for rash with eosinophilia. She is being admitted to rechallenge her with nafcillin. She developed an erythematous
and pruritic rash starting . She was started on prednisone 20 mg daily and Benadryl. She had little relief in the rashes on her scalp, her face, bilateral arms, trunk, bilateral legs and feet. It is red pruritic macular and papular. She
denies fevers or chills. She denies chest pain no shortness of breath no evidence for anaphylaxis no evidence for skin sloughing nor petechiae. She is itching the skin as it is pruritic and dry. Labs reviewed WBC 5.6, BUN 41, glucose 100,
hemoglobin 10.6
# Drug rash with eosinophilia, 3 weeks into the course of vancomycin IV , with concern for DRESS, in the setting of underlying SLE and possible flare
- Infectious disease has seen the patient in the emergency department
- The plan is to continue prednisone and started at 40 mg daily
- Scheduled Claritin
- Famotidine
- Per infectious disease the patient will need IV nafcillin in a close monitored inpatient setting for 3 days, due to high risk for anaphylaxis given prior drug allergies and sensitivities, and close monitoring of rash progression.
# Recent admission for Bacterial endocarditis of the mitral valve, severe aortic valve stenosis, septic embolic stroke, new onset atrial fibrillation with RVR
-1. Standard sternotomy/Surgical aortic valve replacement [25 mm prosthesis]/Mitral valve replacement with Shunk-Triston cord replacement for reinforcement [29 mm bioprosthesis]/ Extensive debridement of mitral annular calcification and patch of the
mitral valve annulus using bovine pericardium/Modified open surgical left atrial maze (encompass RF ablation and cryo ablation)/Left atrial appendage exclusion [35 mm device]/Drainage of right pleural effusion [300 cc], by Dr. Bullock, 12/24/24
# postop a-fib- Eliquis started 12/28/24
# Septic embolic stroke with residual expressive aphasia
# Paroxysmal atrial fibrillation
# Severe aortic valve stenosis
# Mitral valve stenosis with severe mitral annular calcification
# History of MRSA
# Systemic Lupus Erythematosus
# Acute postop blood loss anemia
# Acute postop hypervolemia
# Acute postop elevated INR secondary to antibiotics
# Sacral stage II pressure injury
-wound care
*Awaiting full medication reconciliation from her facility at [facility]
DVT proph
Full Code
--- NOTE | 2025-01-17 14:24 | ED.GENMED ---
History of Present Illness
General
Chief Complaint: Skin Problem
Source: patient, ambulance crew and physician
Exam Limitations: none
Time Seen by Provider: 01/17/25 13:05
Nursing documentation reviewed up to this point in time: agreed with
History of Present Illness
History of Present Illness:
74-year-old female past medical history of A-fib currently on Eliquis, recently treated and currently treated for endocarditis with vancomycin at the nursing facility. Has been having a reaction potentially to the vancomycin with diffuse rash was
sent to the ER. The rash is mainly itchy. Case was being discussed actively with infectious disease team.
Review of Systems
Review of Systems
Allergies reviewed?: Yes
All Other Systems: ROS reviewed and negative except as documented in HPI and ROS
Phy Exam
Physical Exam
Physical Exam:
GENERAL: Alert , in no apparent distress
EYE: pupils equal and reactive
NECK: Supple, no significant adenopathy.
ENT: o/p clr, mmm.
CARDIAC: Regular rate and rhythm .
LUNGS: Clear breath sounds bilaterally, no acute respiratory distress, no wheezes/rales/rhonchi
ABDOMEN: Soft, without focal tenderness, no r/g, no cvat
NEUROLOGICAL: Alert and oriented, no focal neuro deficits
SKIN: Patient with scattered hives throughout the head neck extremities. Warm and dry, skin intact.
MUSCULOSKELETAL: No edema, well perfused.
PSYCH: Normal and appropriate interaction.
Course
Orders/Labs/Results
Orders:
Orders
01/17/25 12:19
Complete Blood Count/With Diff Urgent
Comprehensive Metabolic Panel Urgent
Vancomycin Random Urgent
01/17/25 13:07
INFECTIOUS DISEASE CONSULT Urgent
Consulting Provider: Leslie Toney
Was physician already notified: Yes
01/17/25 13:26
Nafcillin [Nafcil] 2,000 mg 0.9% Sodium Chloride 100 ml [Nss] 100 ml IV NOW
01/17/25 13:28
CXR [CR Chest Portable - 1 View] Urgent
Comment:
Reason For Exam: prehospital picc
Reason Study Needs to be Portable: Unable to Transport
01/17/25 14:00
Nafcillin [Nafcil] 2,000 mg 0.9% Sodium Chloride 100 ml [Nss] 100 ml IV Q4H
01/17/25 14:09
Prednisone [Deltasone] 20 mg PO NOW STA
01/17/25 15:00
Famotidine [Pepcid] 40 mg PO DAILY
Loratadine [Claritin] 10 mg PO DAILY
01/18/25 06:00
STEPHANIE, IgG Reflex to HEp-2 [S] IN AM
BMP [Basic Metabolic Panel] IN AM
CBC/With Diff [Complete Blood Count/With Diff] IN AM
CRP [C-Reactive Protein] IN AM
Complement C3 IN AM
Complement C4 IN AM
ESR [Erythrocyte Sed Rate] IN AM
01/18/25 08:00
Prednisone [Deltasone] 40 mg PO DAILY
01/19/25 06:00
BMP [Basic Metabolic Panel] IN AM
CBC/With Diff [Complete Blood Count/With Diff] IN AM
01/20/25 06:00
BMP [Basic Metabolic Panel] IN AM
CBC/With Diff [Complete Blood Count/With Diff] IN AM
01/21/25 06:00
BMP [Basic Metabolic Panel] IN AM
CBC/With Diff [Complete Blood Count/With Diff] IN AM
01/22/25 06:00
BMP [Basic Metabolic Panel] IN AM
CBC/With Diff [Complete Blood Count/With Diff] IN AM
Abnormal Lab Results
01/17/25
12:19
RBC 3.54 L 10^6/uL
(4.20-5.40)
Hgb 10.6 L g/dL
(12.0-16.0)
Hct 31.7 L %
(37.0-47.0)
RDW 15.0 H %
(11.5-14.5)
MPV 10.7 H fL
(7.4-10.4)
Abs Immat Gran (auto) 0.1 H 10^3/uL
(0-0.05)
Absolute Lymphs (auto) 0.6 L 10^3/uL
(1.2-3.4)
Immature Gran % 2.5 H %
(0-0.5)
Lymphocytes % 10.2 L %
(20.5-51.1)
Eosinophils % 12.2 H %
(0-6)
BUN 41 H mg/dl
(7-17)
Glucose 100 H mg/dl
(70-99)
Albumin 3.3 L g/dl
(3.5-5.0)
01/17/25 13:12
01/17/25 13:12
Vital Signs
Initial and Last Documented VS:
Initial Vital Signs
Temp Pulse Resp BP
97.6 F 77 18 99/62
01/17/25 11:52 01/17/25 11:52 01/17/25 11:52 01/17/25 11:52
Last Documented Vital Signs
Temp Pulse Resp BP
97.6 F 77 18 99/62
01/17/25 11:52 01/17/25 11:52 01/17/25 11:52 01/17/25 11:52
MDM/Problems Addressed
MDM/Problems Addressed:
74-year-old female presenting to the emergency department today with concerns of rash associated with potential IV vancomycin. Upon arrival blood pressure in the 90s over 60s patient in no obvious distress but claims to have itchiness with her
diffuse scattered hives. Labs showing eosinophilia otherwise no emergent findings Case discussed with infectious disease recommending nafcillin admission for further treatment and monitoring.
*Critical Care Note
Total Time (30-74mins, 75-104mins- exclusive of procedures): Not Applicable
ED Attending Note
-
Portions of this chart may have been created with voice recognition software.� Occasional wrong word or��sound alike� substitutions may have occurred due to the inherent limitations of voice recognition software.
Discharge Plan
Departure
Patient Disposition: Admit
Date of Disposition: 01/17/25
Time of Disposition: 14:25
Admit to: Med/Surg
Admit to doctor: Tianna
Presentation/result/management discussed w/ accepting MD/DO: Hospitalist
Patient with high blood pressure during this ER visit?: No
Condition: Good
Covid-19: Not Applicable
Discharge Problem:
Medication reaction
Prescriptions:
No Action
hydroxychloroquine
200 mg PO Q OTHER DAY
levothyroxine
250 mcg DAILY
gabapentin
300 mg PO HS
hydroxychloroquine
400 mg PO Q OTHER DAY
Eliquis 5 mg Tablet
5 mg PO BID Qty: 0 0RF
atorvastatin 40 mg Tablet
40 mg PO QPM Qty: 0 0RF
acetaminophen 325 mg Tablet
650 mg PO Q4HPRN PRN (Reason: mild pain,headache,temp >101F ) Qty: 0 0RF
potassium chloride 20 mEq Tablet,Er Particles/Crystals
20 meq PO BID Qty: 0 0RF
aspirin 81 mg Tablet,Chewable
81 mg PO DAILY Qty: 0 0RF
furosemide 20 mg Tablet
40 mg PO BID AT 0800,1600 Qty: 0 0RF
metoprolol succinate 25 mg Tablet Extended Release 24 Hr
25 mg PO DAILY Qty: 0 0RF
Lactobac/Bifidobac [Visbiome]
2 cap PO DAILY Qty: 0 0RF
vancomycin 1,000 mg recon soln
1,000 mg IV Q48H Qty: 10 0RF
Rx Instructions:
Vancomycin 1000mg IV q48h next dose 01/06/25 @ 8am.
diphenhydramine HCl [Benadryl] 50 mg Capsule
50 mg PO Q48H
triamcinolone acetonide 0.5 % Cream
1 applic TOPICAL BID
prednisone 20 mg Tablet
20 mg PO .DAILY X 4 DAYS
Rx Instructions:
01/13-05/06
Referrals:
Jignesh Calhoun DO [Family Provider] -
Interventions
Interventions:
*Risk Screen - Suicide Last Done: 01/17/25 11:52
*General Assessment Last Done: 01/17/25 11:52
*Neglect/Abuse Screening Last Done: 01/17/25 11:52
*ED COVID-19 Vaccine History Last Done: 01/17/25 11:52
ED-Skin Assessment Last Done: 01/17/25 13:14
Discharge Date and Time
Print Language: [place]
[2025-01-17 15:31] VITALS: BMI 25.7
[2025-01-17 15:32] VITALS: BP 92/67
[2025-01-17] MEDS: DELTASONE 20 MG PO (15:46)
[2025-01-17] MEDS: CLARITIN 10 MG PO (15:46)
[2025-01-17] MEDS: PEPCID 40 MG PO (15:47)
[2025-01-17] MEDS: NAFCIL 108 MG IV ×2 (15:52→20:22)
[2025-01-17 16:15] VITALS: BP 98/55
[2025-01-17 16:55] VITALS: BP 115/65
[2025-01-17 17:08] VITALS: BMI 25.7
[2025-01-17] MEDS: NSS 1000 IV (17:17)
[2025-01-17] MEDS: BENADRYL 25 MG PO (20:38)
[2025-01-17 23:30] VITALS: BP 96/59
--- NOTE | 2025-01-18 | PTCARENOTE ---
Pt rec'd some relief from pruritus following Benadryl earlier. Rash continues to cover entire body as before, but appears to be somewhat faded in areas that were more intense sev hours earier, such as rt lower arm which was bright red previously and
rt knee area. Rt knee area still w/maculopapular rash but slightly faded. Body rash extends to perineum. Nafcillin given and pt monitored carefully - no evidence of adverse reaction.
[2025-01-18] MEDS: NAFCIL 108 MG IV ×7 (00:27→23:48)
[2025-01-18 04:30] VITALS: BP 114/71
[2025-01-18] MEDS: BENADRYL 25 MG PO ×2 (04:53→23:52)
[2025-01-18 05:27] LABS: % Basophils 0.8 % (0-2); % Immature Granulocytes 2.3 % (0-0.5); % Lymphocytes 11.7 % (20.5-51.1); % Monocytes 5.1 % (1.7-9.3); % Neutrophils 72.1 % (42.2-75.2); Absolute Eosinophils 0.4 10^3/uL (0-0.7); Absolute Immature Granulocytes 0.1 10^3/uL (0-0.05); Absolute Lymphocytes 0.6 10^3/uL (1.2-3.4); Absolute Monocytes 0.3 10^3/uL (0.1-0.6); Absolute Neutrophils 3.7 10^3/uL (1.4-6.5); Hematocrit 30.4 % (37.0-47.0); Hemoglobin 10.3 g/dL (12.0-16.0); Mean Corp Hgb Conc. 33.9 g/dL (33.0-37.0); Mean Corpuscular Hgb 30.2 pg (27.0-31.0); Mean Corpuscular Volume 89.1 fL (81.0-99.0); Mean Platelet Volume 10.7 fL (7.4-10.4); Nucleated Red Blood Cells % 0 %; Platelet Count 169 10^3/uL (130-400); Red Blood Cell Count 3.41 10^6/uL (4.20-5.40); Red Cell Dist. Width 14.9 % (11.5-14.5); White Blood Cell Count 5.1 10^3/uL (4.8-10.8)
--- NOTE | 2025-01-18 05:30 | PTCARENOTE ---
Rash & pt monitored closely through the night. Presently rash appears improved in some areas and sl more intense in others. Perineal rash much improved at this time, as well as Rt leg and Rt arm.
[2025-01-18 05:43] LABS: Blood Urea Nitrogen 46 mg/dl (7-17); Calcium 8.3 mg/dl (8.4-10.2); Carbon Dioxide 24 mmol/L (22-30); Chloride 106 mmol/L (98-107); Estimated Creatinine Clearance 43 ml/min; Glucose 90 mg/dl (70-99); Sodium 139 mmol/L (135-145)
[2025-01-18 06:30] LABS: Erythrocyte Sed Rate 31 mm/hour (0-20)
[2025-01-18] MEDS: SYNTHROID 250 MCG PO (06:51)
[2025-01-18 07:58] VITALS: BP 97/58
[2025-01-18] MEDS: DELTASONE 40 MG PO (09:26)
[2025-01-18] MEDS: CLARITIN 10 MG PO (09:27)
[2025-01-18] MEDS: TOPROL XL PO (09:27)
[2025-01-18] MEDS: VISBIOME 2 CAP PO (09:27)
[2025-01-18] MEDS: PEPCID 40 MG PO (09:27)
[2025-01-18] MEDS: LOW STRENGTH ASPIRIN 81 MG PO (09:28)
[2025-01-18] MEDS: ELIQUIS 5 MG PO ×2 (09:28→19:55)
[2025-01-18] MEDS: PLAQUENIL 400 MG PO (09:29)
[2025-01-18] MEDS: TRIAMCINOLONE ACETONIDE 0.5% CREAM 1 APPLIC TOPICAL ×2 (09:31→19:56)
[2025-01-18] MEDS: NSS 1000 IV (09:39)
--- NOTE | 2025-01-18 10:28 | W.PN.ID1 ---
Date of Service
Date of Service: January 18, 2025
Today's Communication
follow Cr and rash another day
Assessment / Plan
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
MSSA bacteremia - sustained, now cleared
CVA possible septic infarctions
Eosinophilia - notably improved
Drug Rash - Possible DRESS
SEEMA - slowly resolving, baseline Cr is 0.6
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
ADR - cefazolin elevated INR
- daily CBC with diff to trend eosinophilia, AEC currently now 400 at goal, trend another day
- daily BMP
- STEPHANIE titer in the AM, C3, C4 - pending
- ESR and CRP - mildly elevated
- failed 4 day outpatient trial of steroids (prednisone 20 mg po qday)
- c/w prednisone 40 mg PO qday
- scheduled claritin
- famotidine
- fine to continue triamcinolone do not apply to face or genitals
- antibiotic options are limited given history
- elevated INR developed promptly with cefazolin, can be reproducible
- SEEMA vs less likely AIN with nafcillin
- eosinophilia and rash about 3 weeks into course of vancomycin - would not reattempt at this time
- limited data for use of daptomycin, linezolid, bactrim with possible cerebral emboli
- continue nafcillin with inpatient monitoring for renal function
- plan for a 6 week total course from date of AVR/MVR, 12/24/24-02/05/25
Chief Complaint
-: Other (Possible DRESS)
Subjective / Review of Systems
remains afebrile
borderline hypotensive this am
some improvement in rash noted
remains pruritic
Vital Signs / Physical Exam
Vital Signs
Vital Signs
Temp Pulse Resp BP Pulse Ox
97.8 F 68 20 97/58 92
01/18/25 07:58 01/18/25 07:58 01/18/25 07:58 01/18/25 09:27 01/18/25 10:25
Physical Exam
Constitutional: No Acute Distress
Cardiovascular: Regular Rate and S1/S2; Negative Murmur or Rub
Pulmonary: Clear and Symmetric; Negative Wheezes or Rales
Gastrointestinal: Soft, Non Tender, Non Distended and Normal Bowel Sounds
Skin: Warm, Dry and Rash (rash is fading, less on the distal extremities and face); Negative Jaundice
Objective Data
Lab Data
Lab Results
01/18/25 05:07
01/18/25 05:08
ESR 31 mm/hour (0-20) H 01/18/25 05:07
Estimated Creat Clear 43 ml/min 01/18/25 05:08
Total Bilirubin Cancelled 01/17/25 13:12
AST Cancelled 01/17/25 13:12
ALT Cancelled 01/17/25 13:12
Alkaline Phosphatase Cancelled 01/17/25 13:12
C-Reactive Protein 11.10 mg/L (0.0-10.00) H 01/18/25 05:07
Most recent labs reviewed.
AEC 0.7 -> 0.4
Laboratory Tests
01/18/25
05:07
STEPHANIE IgG Screen Pending
Complement C3 Pending
Complement C4 Pending
Care Review
Plan reviewed with: Physician (Dr Marlow - renal function)
--- NOTE | 2025-01-18 10:42 | W.PN.HOSP.TC ---
Today's Communication/Plan
-
see plan
Assessment / Plan
Assessment / Plan
Admission summary: 74-year-old woman with past medical history significant for bacterial endocarditis of the mitral valve, severe aortic valve stenosis, septic embolic stroke, recent new onset A-fib with RVR, status post surgical aortic valve
replacement, mitral valve replacement using bovine pericardium on December 23, 2024, systemic lupus arrhythmia ptosis, sacral stage II pressure injury, admitted from December 21 through January 03, discharged to residential facility on IV vancomycin
sent in by infectious disease secondary to adverse drug reaction. She has had drug reactions to cefazolin and possibly nafcillin with concern for rash with eosinophilia. She is being admitted to rechallenge her with nafcillin. She developed an
erythematous and pruritic rash starting . She was started on prednisone 20 mg daily and Benadryl. She had little relief in the rashes on her scalp, her face, bilateral arms, trunk, bilateral legs and feet. It is red pruritic macular and
papular. She denies fevers or chills. She denies chest pain no shortness of breath no evidence for anaphylaxis no evidence for skin sloughing nor petechiae. She is itching the skin as it is pruritic and dry. Labs reviewed WBC 5.6, BUN 41,
glucose 100, hemoglobin 10.6.
Gen: NAD, AAOx3.
Eyes: EOMI, PERRLA, no scleral icterus.
Neck: supple.
CV: RRR, +S1/S2, no m/r/g.
Resp: CTAB, no rales, wheezes, or rhonchi.
Abd: +BS, soft, NT, ND
Skin: Diffuse, confluent, erythematous, macular rash without skin sloughing
Neuro: CN 2-12 intact, non-focal.
Psych: Normal mood and affect.
CXR: Right PICC line with tip in distal SVC. Right basilar opacification at least in part suggesting small right pleural effusion, decreased.
Adverse drug reaction with drug rash with eosinophilia:
-recent admission for Bacterial endocarditis of the mitral valve, severe aortic valve stenosis, septic embolic stroke, new onset atrial fibrillation with RVR
-3 weeks into the course of vancomycin IV , with concern for DRESS, in the setting of underlying SLE and possible flare
-ID following, discussed with ID
-cont Prednisone 40mg daily, Claritin, Pepcid
-rechallenging with Nafcillin
-patient will need IV nafcillin in a close monitored inpatient setting for 3 days, due to high risk for anaphylaxis given prior drug allergies and sensitivities, and close monitoring of rash progression
Other problems:
Recent admission for Bacterial endocarditis of the mitral valve, severe aortic valve stenosis, septic embolic stroke, new onset atrial fibrillation with RVR:
-s/p standard sternotomy/Surgical aortic valve replacement [25 mm prosthesis]/Mitral valve replacement with [place] cord replacement for reinforcement [29 mm bioprosthesis]/ Extensive debridement of mitral annular calcification and patch of the
mitral valve annulus using bovine pericardium/Modified open surgical left atrial maze (encompass RF ablation and cryo ablation)/Left atrial appendage exclusion [35 mm device]/Drainage of right pleural effusion eosinophilia improving, by Dr. Bullock,
12/24/24
PAF: cont Eliquis/BB
Septic embolic stroke with residual expressive aphasia: Cont Eliquis for PAF, currently on abx as above, cont ASA/statin
Severe
h/o MRSA
CKD3a
Systemic Lupus Erythematosus: cont Plaquenil
Sacral stage II PI, POA
Hypothyroidism: Continue Levoxyl
FULL/Eliquis
Total time spent on today's encounter was 50 minutes which included time spent in counseling the patient/family regarding diagnosis and treatment plan as listed above, goals of care, and symptom management. Case was discussed with nursing staff,
specialists, and care coordinators/case management. All labs and imaging personally reviewed by me. Remainder the time spent in detailed review of previous records, lab data, imaging, and other medical provider documentation.
Anticipated Discharge: > 48 hours
Subjective/Interval History
-
Date of Service: January 18, 2025
Pt reports overall she feels improved.
Objective Data
-
Labs:
Laboratory Results
01/18/25 01/18/25
05:07 05:08
WBC 5.1
Hgb 10.3 L
Hct 30.4 L
Plt Count 169
Sodium 139
Potassium 4.0
Chloride 106
Carbon Dioxide 24
BUN 46 H
Creatinine 1.1 H
Glucose 90
Calcium 8.3 L
Vital Signs:
Vital Signs
Temp Pulse Resp BP Pulse Ox
97.8 F 68 20 97/58 92
01/18/25 07:58 01/18/25 07:58 01/18/25 07:58 01/18/25 09:27 01/18/25 10:25
[2025-01-18 15:44] VITALS: BP 94/55
--- NOTE | 2025-01-18 16:37 | CM ---
Alert awake oriented patient who lives alone in a one story home with ramp to enter. She was independent in activates of daily living.Prior to admission she was at [facility] .She requested to return to [facility] at ri. Requested PT OT
garima from .
She has wc cane walker at home.
No VN in past .[facility] hx
Pharmacy [facility]
PCP Dr Calhoun
PLAN PT requested to return to [facility]. CM enter referral after PT OT garima completed.
[2025-01-18] MEDS: LIPITOR 40 MG PO (17:22)
[2025-01-18] MEDS: NEURONTIN 300 MG PO (21:14)
[2025-01-18 23:52] VITALS: BP 109/63
[2025-01-19] MEDS: NAFCIL 108 MG IV ×5 (05:00→19:11)
[2025-01-19] MEDS: SYNTHROID 250 MCG PO (05:05)
[2025-01-19 06:24] LABS: % Basophils 0.6 % (0-2); % Immature Granulocytes 4.2 % (0-0.5); % Lymphocytes 14.7 % (20.5-51.1); % Monocytes 7.8 % (1.7-9.3); % Neutrophils 62.7 % (42.2-75.2); Absolute Eosinophils 0.4 10^3/uL (0-0.7); Absolute Immature Granulocytes 0.2 10^3/uL (0-0.05); Absolute Lymphocytes 0.5 10^3/uL (1.2-3.4); Absolute Monocytes 0.3 10^3/uL (0.1-0.6); Absolute Neutrophils 2.3 10^3/uL (1.4-6.5); Hematocrit 28.1 % (37.0-47.0); Hemoglobin 9.4 g/dL (12.0-16.0); Mean Corp Hgb Conc. 33.5 g/dL (33.0-37.0); Mean Corpuscular Hgb 29.7 pg (27.0-31.0); Mean Corpuscular Volume 88.9 fL (81.0-99.0); Mean Platelet Volume 10.1 fL (7.4-10.4); Nucleated Red Blood Cells % 0 %; Platelet Count 146 10^3/uL (130-400); Red Blood Cell Count 3.16 10^6/uL (4.20-5.40); Red Cell Dist. Width 15.1 % (11.5-14.5); White Blood Cell Count 3.6 10^3/uL (4.8-10.8)
[2025-01-19 06:47] LABS: Blood Urea Nitrogen 42 mg/dl (7-17); Calcium 7.8 mg/dl (8.4-10.2); Carbon Dioxide 24 mmol/L (22-30); Chloride 108 mmol/L (98-107); Estimated Creatinine Clearance 43 ml/min; Glucose 85 mg/dl (70-99); Potassium 3.1 mmol/L (3.5-5.1); Sodium 139 mmol/L (135-145)
[2025-01-19 07:05] VITALS: BP 104/56
[2025-01-19] MEDS: DELTASONE 40 MG PO (08:40)
[2025-01-19] MEDS: BENADRYL 25 MG PO ×2 (08:40→21:31)
[2025-01-19] MEDS: CLARITIN 10 MG PO (08:41)
[2025-01-19] MEDS: VISBIOME 2 CAP PO (08:41)
[2025-01-19] MEDS: ELIQUIS 5 MG PO ×2 (08:41→19:11)
[2025-01-19] MEDS: TOPROL XL 25 MG PO (08:42)
[2025-01-19] MEDS: LOW STRENGTH ASPIRIN 81 MG PO (08:43)
[2025-01-19] MEDS: PEPCID 20 MG PO (08:43)
[2025-01-19] MEDS: TRIAMCINOLONE ACETONIDE 0.5% CREAM 1 APPLIC TOPICAL ×2 (08:43→19:11)
[2025-01-19] MEDS: PLAQUENIL 200 MG PO (08:45)
--- NOTE | 2025-01-19 08:47 | CM ---
Prior to admission pt was at [facility].
Requested order for PT OT from .
After PT OT eval completed will need referral made to [facility] .
PLAN Referral to [facility] requested
[2025-01-19 10:26] VITALS: BP 112/59; PULSE 75
--- NOTE | 2025-01-19 12:03 | W.PN.HOSP.TC ---
Today's Communication/Plan
-
see plan
Assessment / Plan
Assessment / Plan
Admission summary: 74-year-old woman with past medical history significant for bacterial endocarditis of the mitral valve, severe aortic valve stenosis, septic embolic stroke, recent new onset A-fib with RVR, status post surgical aortic valve
replacement, mitral valve replacement using bovine pericardium on December 23, 2024, systemic lupus arrhythmia ptosis, sacral stage II pressure injury, admitted from December 21 through January 03, discharged to [facility] facility on IV vancomycin
sent in by infectious disease secondary to adverse drug reaction. She has had drug reactions to cefazolin and possibly nafcillin with concern for rash with eosinophilia. She is being admitted to rechallenge her with nafcillin. She developed an
erythematous and pruritic rash starting . She was started on prednisone 20 mg daily and Benadryl. She had little relief in the rashes on her scalp, her face, bilateral arms, trunk, bilateral legs and feet. It is red pruritic macular and
papular. She denies fevers or chills. She denies chest pain no shortness of breath no evidence for anaphylaxis no evidence for skin sloughing nor petechiae. She is itching the skin as it is pruritic and dry. Labs reviewed WBC 5.6, BUN 41,
glucose 100, hemoglobin 10.6.
Gen: NAD, Awake and alert
Eyes: EOMI, PERRLA, no scleral icterus.
Neck: supple.
CV: remains RRR, +S1/S2, no m/r/g.
Resp: CTAB, no rales, wheezes, or rhonchi.
Abd: +BS, soft, NT, ND
Skin: Diffuse, confluent, erythematous, macular rash without skin sloughing, significantly improved from yesterday
Neuro: CN 2-12 intact, non-focal.
Psych: Normal mood and affect.
CXR: Right PICC line with tip in distal SVC. Right basilar opacification at least in part suggesting small right pleural effusion, decreased.
Adverse drug reaction with drug rash with eosinophilia:
-recent admission for Bacterial endocarditis of the mitral valve, severe aortic valve stenosis, septic embolic stroke, new onset atrial fibrillation with RVR
-3 weeks into the course of vancomycin IV , with concern for DRESS, in the setting of underlying SLE and possible flare
-ID following
-cont Prednisone 40mg daily, Claritin, Pepcid
-rechallenging with Nafcillin
-patient will need IV nafcillin in a close monitored inpatient setting for 3 days, due to high risk for anaphylaxis given prior drug allergies and sensitivities, and close monitoring of rash progression
Other problems:
Recent admission for Bacterial endocarditis of the mitral valve, severe aortic valve stenosis, septic embolic stroke, new onset atrial fibrillation with RVR:
-s/p standard sternotomy/Surgical aortic valve replacement [25 mm prosthesis]/Mitral valve replacement with [place] cord replacement for reinforcement [29 mm bioprosthesis]/ Extensive debridement of mitral annular calcification and patch of the
mitral valve annulus using bovine pericardium/Modified open surgical left atrial maze (encompass RF ablation and cryo ablation)/Left atrial appendage exclusion [35 mm device]/Drainage of right pleural effusion eosinophilia improving, by Dr. Bullock,
12/24/24
PAF: cont Eliquis/BB
Septic embolic stroke with residual expressive aphasia: Cont Eliquis for PAF, currently on abx as above, cont ASA/statin
Severe
h/o MRSA
CKD3a
Systemic Lupus Erythematosus: cont Plaquenil
Sacral stage II PI, POA
Hypothyroidism: Continue Levoxyl
FULL/Eliquis
Anticipated Discharge: 24 - 48 hours
Subjective/Interval History
-
Date of Service: January 19, 2025
Pt states she feels sleepy. No other complaints.
Objective Data
-
Labs:
Laboratory Results
01/19/25
05:54
WBC 3.6 L
Hgb 9.4 L
Hct 28.1 L
Plt Count 146
Sodium 139
Potassium 3.1 L
Chloride 108 H
Carbon Dioxide 24
BUN 42 H
Creatinine 1.1 H
Glucose 85
Calcium 7.8 L
Vital Signs:
Vital Signs
Temp Pulse Resp BP Pulse Ox
97.4 F 70 16 104/56 100
01/19/25 07:05 01/19/25 07:05 01/19/25 07:05 01/19/25 08:42 01/19/25 09:30
I&O
01/18/25 01/19/25 01/20/25
06:59 06:59 06:59
Intake Total 480 / 480
Output Total 825 / 825
Balance -345 / -345
--- NOTE | 2025-01-19 13:44 | W.PN.ID1 ---
Date of Service
Date of Service: January 19, 2025
Today's Communication
- awaiting STEPHANIE, RF, complements
- c/w prednisone 40 mg PO qday x 7 days then
prednisone 30 mg PO qday x7 days
prednisone 20 mg PO qday x7 days
prednisone 10 mg PO qday x 7 days
prednisone 5 mg PO qday x 7 days
then stop
- observe renal function another day, if stable and no increase in absolute eosinophilia then patient will be stable for dc tomorrow
- plan for a 6 week total course from date of AVR/MVR, 12/24/24-02/05/25
Assessment / Plan
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
MSSA bacteremia - sustained, now cleared
CVA possible septic infarctions
Eosinophilia - notably improved
Drug Rash - Possible DRESS
SEEMA - slowly resolving, baseline Cr is 0.6
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
ADR - cefazolin elevated INR
- daily CBC with diff to trend eosinophilia, AEC currently now 400 at goal, would trend another day
- daily BMP
- STEPHANIE titer in the AM, C3, C4 - pending
- ESR and CRP - mildly elevated
- failed 4 day outpatient trial of steroids (prednisone 20 mg po qday)
- c/w prednisone 40 mg PO qday x 7 days then
prednisone 30 mg PO qday x7 days
prednisone 20 mg PO qday x7 days
prednisone 10 mg PO qday x 7 days
prednisone 5 mg PO qday x 7 days
then stop
- c/w scheduled claritin until rash resolved
- c/w famotidine until rash resolved
- fine to continue triamcinolone PRN - do not apply to face or genitals - until rash resolved
- antibiotic options are limited given history
- elevated INR developed promptly with cefazolin, can be reproducible
- SEEMA vs less likely AIN with nafcillin
- eosinophilia and rash about 3 weeks into course of vancomycin - would not reattempt at this time
- limited data for use of daptomycin, linezolid, bactrim with possible cerebral emboli
- continue nafcillin with inpatient monitoring for renal function
- plan for a 6 week total course from date of AVR/MVR, 12/24/24-02/05/25
- updated script provided to test case developer Svetlana 01/19, copy also on the paper chart
Chief Complaint
-: Other (Possible DRESS)
Subjective / Review of Systems
afebrile
mild hypotension overnight, now resolved
no events overnight
Vital Signs / Physical Exam
Vital Signs
Vital Signs
Temp Pulse Resp BP Pulse Ox
97.4 F 70 16 104/56 100
01/19/25 07:05 01/19/25 07:05 01/19/25 07:05 01/19/25 08:42 01/19/25 09:30
Physical Exam
Constitutional: No Acute Distress and Chronically Ill
Cardiovascular: Regular Rate and S1/S2; Negative Murmur or Rub
Pulmonary: Clear and Symmetric; Negative Wheezes or Rales
Gastrointestinal: Soft, Non Tender, Non Distended and Normal Bowel Sounds
Skin: Warm, Dry and Rash (markedly improved); Negative Jaundice
Objective Data
Lab Data
Lab Results
01/19/25 05:54
01/19/25 05:54
ESR 31 mm/hour (0-20) H 01/18/25 05:07
Estimated Creat Clear 43 ml/min 01/19/25 05:54
Total Bilirubin Cancelled 01/17/25 13:12
AST Cancelled 01/17/25 13:12
ALT Cancelled 01/17/25 13:12
Alkaline Phosphatase Cancelled 01/17/25 13:12
C-Reactive Protein 11.10 mg/L (0.0-10.00) H 01/18/25 05:07
Most recent labs reviewed.
AEC 0.7 -> 0.4 -> 0.4
Cr stable at 1.1
[2025-01-19 15:05] VITALS: BP 99/53
[2025-01-19] MEDS: LIPITOR 40 MG PO (17:07)
[2025-01-19] MEDS: NEURONTIN 300 MG PO (21:31)
[2025-01-19 23:17] VITALS: BP 107/57
[2025-01-19 23:20] LABS: Complement C3 95 mg/dl (88-165)
[2025-01-20] MEDS: NAFCIL 108 MG IV ×5 (00:47→15:56)
[2025-01-20 02:42] LABS: ANA, IgG Reflex to HEp-2 Detected (None Detected)
[2025-01-20] MEDS: SYNTHROID 250 MCG PO (05:04)
[2025-01-20 06:37] LABS: % Basophils 0.9 % (0-2); % Eosinophils 7.9 % (0-6); % Immature Granulocytes 4.7 % (0-0.5); % Lymphocytes 17.1 % (20.5-51.1); % Monocytes 8.4 % (1.7-9.3); Absolute Eosinophils 0.4 10^3/uL (0-0.7); Absolute Immature Granulocytes 0.2 10^3/uL (0-0.05); Absolute Lymphocytes 0.8 10^3/uL (1.2-3.4); Absolute Monocytes 0.4 10^3/uL (0.1-0.6); Absolute Neutrophils 2.9 10^3/uL (1.4-6.5); Hemoglobin 9.7 g/dL (12.0-16.0); Mean Corp Hgb Conc. 32.3 g/dL (33.0-37.0); Mean Corpuscular Hgb 29.3 pg (27.0-31.0); Mean Corpuscular Volume 90.6 fL (81.0-99.0); Mean Platelet Volume 10.5 fL (7.4-10.4); Nucleated Red Blood Cells % 0 %; Platelet Count 170 10^3/uL (130-400); Red Blood Cell Count 3.31 10^6/uL (4.20-5.40); Red Cell Dist. Width 15.7 % (11.5-14.5); White Blood Cell Count 4.7 10^3/uL (4.8-10.8)
[2025-01-20 06:45] LABS: Blood Urea Nitrogen 45 mg/dl (7-17); Carbon Dioxide 26 mmol/L (22-30); Chloride 109 mmol/L (98-107); Estimated Creatinine Clearance 43 ml/min; Glucose 73 mg/dl (70-99); Potassium 3.1 mmol/L (3.5-5.1); Sodium 142 mmol/L (135-145)
[2025-01-20 07:05] VITALS: BP 111/59
[2025-01-20] MEDS: DELTASONE 40 MG PO (09:15)
[2025-01-20] MEDS: ELIQUIS 5 MG PO (09:16)
[2025-01-20] MEDS: PEPCID 20 MG PO (09:16)
[2025-01-20] MEDS: TOPROL XL 25 MG PO (09:16)
[2025-01-20] MEDS: CLARITIN 10 MG PO (09:16)
[2025-01-20] MEDS: VISBIOME 2 CAP PO (09:16)
[2025-01-20] MEDS: LOW STRENGTH ASPIRIN 81 MG PO (09:16)
[2025-01-20] MEDS: PLAQUENIL 400 MG PO (09:17)
[2025-01-20] MEDS: TRIAMCINOLONE ACETONIDE 0.5% CREAM 1 APPLIC TOPICAL (09:17)
--- NOTE | 2025-01-20 10:51 | W.PN.HOSP.TC ---
Addendum entered and electronically signed by Kyle Marlow MD 01/20/25 15:14:
Total time spent on d/c = 40 min. This included today's physical exam, progress note, review of laboratory and diagnostic data, preparation of discharge documents and prescriptions, and discussions about the pt's hospital course and discharge plan
with the patient and other medical housekeeper involved in the patient's care.
Original Note:
Today's Communication/Plan
-
possible d/c later today
Assessment / Plan
Assessment / Plan
Admission summary: 74-year-old woman with past medical history significant for bacterial endocarditis of the mitral valve, severe aortic valve stenosis, septic embolic stroke, recent new onset A-fib with RVR, status post surgical aortic valve
replacement, mitral valve replacement using bovine pericardium on December 23, 2024, systemic lupus arrhythmia ptosis, sacral stage II pressure injury, admitted from December 21 through January 03, [facility]
sent in by infectious disease secondary to adverse drug reaction. She has had drug reactions to cefazolin and possibly nafcillin with concern for rash with eosinophilia. She is being admitted to rechallenge her with nafcillin. She developed an
erythematous and pruritic rash starting . She was started on prednisone 20 mg daily and Benadryl. She had little relief in the rashes on her scalp, her face, bilateral arms, trunk, bilateral legs and feet. It is red pruritic macular and
papular. She denies fevers or chills. She denies chest pain no shortness of breath no evidence for anaphylaxis no evidence for skin sloughing nor petechiae. She is itching the skin as it is pruritic and dry. Labs reviewed WBC 5.6, BUN 41,
glucose 100, hemoglobin 10.6.
Gen: remains NAD, Awake and alert
Eyes: EOMI, PERRLA, no scleral icterus.
Neck: supple.
CV: continues to remain RRR, +S1/S2, no m/r/g.
Resp: CTAB, no rales, wheezes, or rhonchi.
Abd: +BS, soft, NT, ND
Skin: Diffuse, confluent, erythematous, macular rash without skin sloughing, slightly improved from yesterday
Neuro: remains CN 2-12 intact, non-focal.
Psych: Normal mood and affect.
CXR: Right PICC line with tip in distal SVC. Right basilar opacification at least in part suggesting small right pleural effusion, decreased.
Adverse drug reaction with drug rash with eosinophilia:
-recent admission for Bacterial endocarditis of the mitral valve, severe aortic valve stenosis, septic embolic stroke, new onset atrial fibrillation with RVR
-3 weeks into the course of vancomycin IV with concern for DRESS, in the setting of underlying SLE and possible flare
-patient needs IV nafcillin in a close monitored inpatient setting for 3 days (today is day 3), due to high risk for anaphylaxis given prior drug allergies and sensitivities, and close monitoring of rash progression
-ID following
-cont Prednisone 40mg daily (taper on d/c), Claritin, Pepcid
-rechallenging with Nafcillin
-eosinophilia improving
Other problems:
Recent admission for Bacterial endocarditis of the mitral valve, severe aortic valve stenosis, septic embolic stroke, new onset atrial fibrillation with RVR:
-s/p standard sternotomy/Surgical aortic valve replacement [25 mm prosthesis]/Mitral valve replacement with [place] cord replacement for reinforcement [29 mm bioprosthesis]/ Extensive debridement of mitral annular calcification and patch of the
mitral valve annulus using bovine pericardium/Modified open surgical left atrial maze (encompass RF ablation and cryo ablation)/Left atrial appendage exclusion [35 mm device]/Drainage of right pleural effusion eosinophilia improving, by Dr. Bullock,
12/24/24
PAF: cont Eliquis/BB
Septic embolic stroke with residual expressive aphasia: Cont Eliquis for PAF, currently on abx as above, cont ASA/statin
Severe
h/o MRSA
CKD3a
Systemic Lupus Erythematosus: cont Plaquenil
Sacral stage II PI, POA
Hypothyroidism: Continue Levoxyl
Hypokalemia: PO K, check Mg
FULL/Eliquis
Anticipated Discharge: Within 24 hours
Subjective/Interval History
-
Date of Service: January 20, 2025
Objective Data
-
Labs:
Laboratory Results
01/20/25
05:16
WBC 4.7 L
Hgb 9.7 L
Hct 30.0 L
Plt Count 170
Sodium 142
Potassium 3.1 L
Chloride 109 H
Carbon Dioxide 26
BUN 45 H
Creatinine 1.1 H
Glucose 73
Calcium 8.0 L
Vital Signs:
Vital Signs
Temp Pulse Resp BP Pulse Ox
97.5 F 69 16 111/59 99
01/20/25 07:05 01/20/25 09:16 01/20/25 07:05 01/20/25 09:16 01/20/25 09:10
I&O
01/19/25 01/20/25 01/21/25
06:59 06:59 06:59
Intake Total 480 / 480 840 / 840
Output Total 825 / 825
Balance -345 / -345 840 / 840
--- NOTE | 2025-01-20 11:41 | CM ---
Addendum entered by Alicia Mota RN 01/20/25 17:00:
IMM reviewed with pt she agree with dc to [facility] today.IMM signed on chart.
Addendum entered by Alicia Mota RN 01/20/25 16:46:
As per Lili [facility] they can accept her today if antibiotic given at 4 pm before dc.
Antibiotic script and PICC info faxed to [facility].
[place] willl resume antibiotics every 4 hours as ordered.
Ambulance set up for 6:15 pm .
Addendum entered by Alicia Mota RN 01/20/25 13:15:
Sent PICC line and Antibiotic script information to [facility] .
LM with Lili.
Original Note:
Spoke with Lili [phone] at [facility].
Pt accepted to [facility] private room .
Lili notified of IV antibiotic need. ID provided IV abx script that was faxed to [phone]
Will need to provide PICC and CXR also.
[facility]
report [phone]
fax [phone]
PLAN To [facility] for rehab and IV abx
[2025-01-20] MEDS: KCL 40 MEQ PO ×2 (12:34→15:56)
[2025-01-20 13:32] LABS: Magnesium 1.8 mg/dl (1.6-2.3)
--- NOTE | 2025-01-20 13:57 | W.PN.ID1 ---
Date of Service
Date of Service: January 20, 2025
Today's Communication
- c/w prednisone 40 mg PO qday x 7 days then
prednisone 30 mg PO qday x7 days
prednisone 20 mg PO qday x7 days
prednisone 10 mg PO qday x 7 days
prednisone 5 mg PO qday x 7 days
then stop
- continue nafcillin to complete the planned course - plan for a 6 week total course from date of AVR/MVR, 12/24/24-02/05/25
stable for dc from ID perspective
Assessment / Plan
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
MSSA bacteremia - sustained, now cleared
CVA possible septic infarctions
Eosinophilia - notably improved
Drug Rash - Possible DRESS - markedly improved
SEEMA - slowly resolving, baseline Cr is 0.6
Possible Lupus Flare; less likely - no recent flares, on plaquenil only at baseline; pending STEPHANIE titers, complements are wnl
ADR - cefazolin elevated INR
- daily CBC with diff to trend eosinophilia, AEC currently now 400 at goal, would trend another day
- daily BMP
- STEPHANIE titer in the AM, C3, C4 - pending
- ESR and CRP - mildly elevated
- failed 4 day outpatient trial of steroids (prednisone 20 mg po qday)
- c/w prednisone 40 mg PO qday x 7 days then
prednisone 30 mg PO qday x7 days
prednisone 20 mg PO qday x7 days
prednisone 10 mg PO qday x 7 days
prednisone 5 mg PO qday x 7 days
then stop
- c/w scheduled claritin until rash resolved
- c/w famotidine until rash resolved
- fine to continue triamcinolone PRN - do not apply to face or genitals - until rash resolved
- antibiotic options are limited given history
- elevated INR developed promptly with cefazolin, can be reproducible
- SEEMA vs less likely AIN with nafcillin
- eosinophilia and rash about 3 weeks into course of vancomycin - would not reattempt at this time
- limited data for use of daptomycin, linezolid, bactrim with possible cerebral emboli
- continue nafcillin to complete the planned course - plan for a 6 week total course from date of AVR/MVR, 12/24/24-02/05/25
- updated script provided to employment case manager Svetlana 01/19, copy also on the paper chart
Chief Complaint
-: Other (Possible DRESS)
Subjective / Review of Systems
afebrile
bp stable
rash essentially resolved
Vital Signs / Physical Exam
Vital Signs
Vital Signs
Temp Pulse Resp BP Pulse Ox
97.5 F 69 16 111/59 99
01/20/25 07:05 01/20/25 09:16 01/20/25 07:05 01/20/25 09:16 01/20/25 09:10
Physical Exam
Constitutional: No Acute Distress
Cardiovascular: Regular Rate and S1/S2; Negative Murmur or Rub
Pulmonary: Clear and Symmetric; Negative Wheezes or Rales
Gastrointestinal: Soft, Non Tender, Non Distended and Normal Bowel Sounds
Skin: Warm, Dry and Rash (essentially resolved, few scattered, pale patches remain); Negative Jaundice
Objective Data
Lab Data
Lab Results
01/20/25 05:16
01/20/25 05:16
ESR 31 mm/hour (0-20) H 01/18/25 05:07
Estimated Creat Clear 43 ml/min 01/20/25 05:16
Total Bilirubin Cancelled 01/17/25 13:12
AST Cancelled 01/17/25 13:12
ALT Cancelled 01/17/25 13:12
Alkaline Phosphatase Cancelled 01/17/25 13:12
C-Reactive Protein 11.10 mg/L (0.0-10.00) H 01/18/25 05:07
Most recent labs reviewed.
Care Review
Plan reviewed with: Physician (Dr Kashmir salazar)
--- NOTE | 2025-01-20 14:57 | W.DCSUMMARY ---
Discharge Summary
Discharge Data
Date of Admission: 01/17/25
Date of Discharge: 01/20/25
-
Pending Results: Yes
Additional Pending Results:
STEPHANIE titer
Hospital Course
Primary diagnoses:
Drug rash with eosinophilia and systemic symptoms due to vancomycin
Secondary diagnoses:
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
-s/p standard sternotomy/Surgical aortic valve replacement [25 mm prosthesis]/Mitral valve replacement with [place] cord replacement for reinforcement [29 mm bioprosthesis]/ Extensive debridement of mitral annular calcification and patch of the
mitral valve annulus using bovine pericardium/Modified open surgical left atrial maze (encompass RF ablation and cryo ablation)/Left atrial appendage exclusion [35 mm device]/Drainage of right pleural effusion eosinophilia improving, by Dr. Bullock,
12/24/24
Paroxysmal atrial fibrillation
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
Severe aortic stenosis
Chronic kidney disease stage 3a
Systemic Lupus Erythematosus
Sacral stage II pressure injury
Hypothyroidism
Hypokalemia
Consultants:
Infectious disease
Imaging:
CXR: Right PICC line with tip in distal SVC. Right basilar opacification at least in part suggesting small right pleural effusion, decreased.
Hospital course: 74-year-old female who was discharged to assisted facility on IV vancomycin who was sent in by infectious disease secondary to adverse drug reaction. She has had drug reactions to cefazolin and possibly nafcillin with
concern for rash with eosinophilia. She was admitted to rechallenge her with nafcillin. She developed an erythematous and pruritic rash starting 01/13/25. She was started on prednisone 20 mg daily and Benadryl. She had little relief in the rashes
on her scalp, her face, bilateral arms, trunk, bilateral legs and feet. The patient was challenged on nafcillin for 3 days. She was also given prednisone, Claritin, Pepcid. Her eosinophilia and rash improved. Her renal function remained stable.
She was hemodynamically stable. She was discharged on nafcillin through 02/05/25 as well as a long prednisone taper in medically stable condition
Discharge Plan
-
Patient Disposition: Custodial/SNF
Discharge Diagnosis/Procedures: Drug rash with eosinophilia and systemic symptoms due to vancomycin
Condition: Good
Diet: Low Cholesterol
Activity: With assistance
Driving Restrictions: Not until seen by your Dr
Referrals:
Jignesh Calhoun DO [Family Provider] - in less than 1 week
Prescriptions:
New
famotidine 20 mg Tablet
20 mg PO DAILY Qty: 0 0RF
loratadine 10 mg Tablet
10 mg PO DAILY Qty: 0 0RF
Nafcillin [Nafcil] 2000 MG
0.9% Sodium Chloride 100 ml [Nss] 100 ML
108 mls/hr IV Q4H
Last day 02/05/25
Ordered By: Kyle Marlow MD
Last Taken: 01/20/25 11:58 108 mls
prednisone 10 mg tablet
10 mg PO DAILY Qty: 1 0RF
Rx Instructions:
Taper: 40mg daily x 7 days, 30mg daily x 7 days, 20mg daily x 7 days, 10mg daily x 7 days, 5mg daily x 7 days, then stop.
Continued
hydroxychloroquine
200 mg PO Q OTHER DAY
levothyroxine
250 mcg DAILY
gabapentin
300 mg PO HS
hydroxychloroquine
400 mg PO Q OTHER DAY
Eliquis 5 mg Tablet
5 mg PO BID Qty: 0 0RF
atorvastatin 40 mg Tablet
40 mg PO QPM Qty: 0 0RF
acetaminophen 325 mg Tablet
650 mg PO Q4HPRN PRN (Reason: mild pain,headache,temp >101F ) Qty: 0 0RF
potassium chloride 20 mEq Tablet,Er Particles/Crystals
20 meq PO BID Qty: 0 0RF
aspirin 81 mg Tablet,Chewable
81 mg PO DAILY Qty: 0 0RF
furosemide 20 mg Tablet
40 mg PO BID AT 0800,1600 Qty: 0 0RF
metoprolol succinate 25 mg Tablet Extended Release 24 Hr
25 mg PO DAILY Qty: 0 0RF
Lactobac/Bifidobac [Visbiome]
2 cap PO DAILY Qty: 0 0RF
diphenhydramine HCl 50 mg Capsule
50 mg PO Q48H
triamcinolone acetonide 0.5 % Cream
1 applic TOPICAL BID
Discontinued
vancomycin 1,000 mg recon soln
1,000 mg IV Q48H Qty: 10 0RF
Rx Instructions:
Vancomycin 1000mg IV q48h next dose 01/06/25 @ 8am.
prednisone 20 mg Tablet
20 mg PO .DAILY X 4 DAYS
Rx Instructions:
01/13-05/06
Discharge Orders:
Discharge Patient (As Directed); Ordered 01/20/25
Ordered By: Kyle Marlow
Discharge Date and Time
Print Language: NORWEGIAN
[2025-01-20 15:05] VITALS: BP 101/60
[2025-01-20] MEDS: LIPITOR 40 MG PO (17:00)
[2025-01-21 01:12] LABS: ANA, HEp-2, IgG Detected (<1:80)
== END 2025-01-20 20:13 | DRG 815 ==
LOC: 4 EAST ACU 16:04
PROVIDERS: Radiology Diagnostic Radiology; ADMITTING PHYSICIAN Internal Medicine; ATTENDING PHYSICIAN Internal Medicine; CONSULT PHYSICIAN Student in an Organized Health Care Education/Training Program; EMERGENCY PHYSICIAN Emergency Medicine; FAMILY PHYSICIAN Internal Medicine
PROC: 02HV33Z Insertion of Infusion Device into Superior Vena Cava, Percutaneous Approach (ICD-10-PCS; 2025-01-17)
DX: D72.12 Drug rash with eosinophilia and systemic symptoms syndrome (principal); N17.9 Acute kidney failure, unspecified; T36.8X5A Adverse effect of other systemic antibiotics, initial encounter; R21 Rash and other nonspecific skin eruption; I48.0 Paroxysmal atrial fibrillation; M32.9 Systemic lupus erythematosus, unspecified; L29.9 Pruritus, unspecified; L89.152 Pressure ulcer of sacral region, stage 2; R79.1 Abnormal coagulation profile; N18.31 Chronic kidney disease, stage 3a; E87.6 Hypokalemia; I08.0 Rheumatic disorders of both mitral and aortic valves; E89.0 Postprocedural hypothyroidism; Y92.9 Unspecified place or not applicable; Z60.2 Problems related to living alone; I69.320 Aphasia following cerebral infarction; Z95.3 Presence of xenogenic heart valve; Z79.01 Long term (current) use of anticoagulants; Z79.82 Long term (current) use of aspirin; Z79.52 Long term (current) use of systemic steroids; Z87.891 Personal history of nicotine dependence; Z88.1 Allergy status to other antibiotic agents; Z86.14 Personal history of Methicillin resistant Staphylococcus aureus infection
CPT/HCPCS: 71045; 80048; 80053; 80202; 83735; 85025; 85652; 86038; 86039; 86140; 86160; 97110; 97163; 97167; 99285

== ENCOUNTER 2025-03-03 22:07 | Inpatient (IN) | payer MEDICARE, OTHER, SELFPAY ==
[2025-03-03 22:12] VITALS: BP 98/65
[2025-03-03 22:24] VITALS: BP 110/97
[2025-03-03 22:27] VITALS: PULSE 2
[2025-03-03 22:34] LABS: Glucose - Point of Care 101 mg/dl (70-99)
--- NOTE | 2025-03-03 22:38 | PTCARENOTE ---
admitted pt into 2263. Pt AAOx4, VSS, NSR per tele monitor HR 90s. b/l LE edema noted. pox 100% on Bipap 07/17. lungs diminished. +bs. Purewick hooked to suction. skin intact. piv x2 intact. call garay within reach plan of care discussed questions
encouraged.
[2025-03-03 22:48] LABS: Ionized Calcium 1.15 mMOL/L (1.15-1.33)
[2025-03-03 22:49] LABS: % Basophils 0.7 % (0-2); % Eosinophils 0.1 % (0-6); % Immature Granulocytes 0.6 % (0-0.5); % Lymphocytes 16.7 % (20.5-51.1); % Monocytes 7.7 % (1.7-9.3); % Neutrophils 74.2 % (42.2-75.2); Absolute Basophils 0.1 10^3/uL (0-0.2); Absolute Immature Granulocytes 0.1 10^3/uL (0-0.05); Absolute Lymphocytes 1.6 10^3/uL (1.2-3.4); Absolute Monocytes 0.8 10^3/uL (0.1-0.6); Absolute Neutrophils 7.2 10^3/uL (1.4-6.5); Hematocrit 30.4 % (37.0-47.0); Hemoglobin 9.9 g/dL (12.0-16.0); Mean Corp Hgb Conc. 32.6 g/dL (33.0-37.0); Mean Corpuscular Hgb 31.1 pg (27.0-31.0); Mean Corpuscular Volume 95.6 fL (81.0-99.0); Mean Platelet Volume 11.7 fL (7.4-10.4); Nucleated Red Blood Cells % 0 %; Platelet Count 242 10^3/uL (130-400); Red Blood Cell Count 3.18 10^6/uL (4.20-5.40); Red Cell Dist. Width 15.6 % (11.5-14.5); White Blood Cell Count 9.7 10^3/uL (4.8-10.8)
[2025-03-03 22:54] VITALS: BP 96/60
[2025-03-03 23:00] VITALS: BP 97/72
[2025-03-03 23:00] LABS: INR 2.83; Lactic Acid 1.7 mmol/L (0.7-2.0); PT 30.1 Sec (11.4-14.6)
[2025-03-03 23:01] LABS: ALT (SGPT) 25 U/L (0-35); APTT 35.2 Sec (23.4-35.0); AST (SGOT) 28 U/L (14-36); Albumin 3.4 g/dl (3.5-5.0); Alkaline Phosphatase 70 U/L (38-126); Blood Urea Nitrogen 40 mg/dl (7-17); Calcium 9.2 mg/dl (8.4-10.2); Carbon Dioxide 24 mmol/L (22-30); Chloride 106 mmol/L (98-107); Glucose 100 mg/dl (70-99); Magnesium 2.7 mg/dl (1.6-2.3); Sodium 137 mmol/L (135-145); Total Protein 6.8 g/dl (6.3-8.2); eGFR 39.23
[2025-03-04] VITALS (63 sets, daily range): BP systolic 72–123; BP diastolic 51–90; PULSE 2–95
--- NOTE | 2025-03-04 00:10 | HPS.HSE ---
Family Physician
-
Family Physician: Yari Walsh
Outpatient Hot Shot: Dr. Champion
Chief Complaint
-
-transferred from [facility] on 03/03 for further evaluation of MV and SOB
History of Present Illness
-Ms Montana is a very pleasant lady with complicated medical history. She has been at rehab since 01/03/25 recovering after her surgery of Aortic valve replacement [25 mm prosthesis] and Mitral valve replacement [29 mm bio prosthesis], extensive
debridement of mitral annular calcification and patch of the mitral valve annulus using bovine pericardium, as well as, modified open surgical left atrial maze (encompass RF ablation and cryo ablation), Left atrial appendage exclusion [35 mm device]
and drainage of R pleural effusion [300cc] by Dr. Bullock on 12/24/24. She is on Eliquis for paroxysmal a-fib.
-She presented to [facility] ED on 03/02/25 for SOB and hypoxia. Recent CXR revealed possible pneumonia or pneumonitis and she was treated with Cefuroxime and Doxicycline prior to admission. When EMS arrived, she was saturating in the 80s. She
was slightly tachycardic and tachypneic at 30 respirations per minute. Pt denies having any fever or chest pain. She states having SOB for about 1 week. Ms [place] was noted to be volume overloaded with increased leg edema, pBNP greater than 26K,
elevated highly sensitive trop 101 and elevated lactic acid 4.9. CXR showed R pleural effusion and bilateral pulmonary edema. Chest CT revealed no PE, no aortic dissection, multifocal opacities secondary to infiltrates versus edema, moderate
bilateral pleural effusions with atelectasis of the bilateral lower lobes. She was diuresed with 40 iv bid Lasix and required bipap.
-Pt was transferred to on 03/03 on very low dose of Levophed and bipap 10/5 with 6L O2. She is not in any distress, A&O and is hemodynamically stable. pOx 99% on 6L. Plan is for chest CT in am with 3D reconstruction to rule-out pseudo aneurysm at
LA/LV and possibly MARY to evaluate valves. Will leave NPO.
-Of note, her PMH includes admission to [facility] on 12/17/24 for confusion, rapid a-fib, MSSA endocarditis/bacteremia with CVA x2 d/t septic emboli with R facial droop (resolved) and remaining expressive aphasia. At that time, she was also found to have
possible septic knee; however, it was drained and found that she had fracture of the L knee. She was transferred to [facility] AVR/MVR/maze/clip surgery on 12/24/24. Per MT, she completed iv Nafcillin 02/05 and oral Doxycycline
02/25.
-she also has hx Systemic Lupus Erythematosus, autoimmune disorder (1993), hypothyroidism, a-fib, R leg cellulitis, generalized muscle weakness, SEEMA.
Medical History
Past Medical History
Past Medical History: Reports Arrhythmia (paroxysmal a-fib), CHF, CVA (d/t septic emboli with R sided deficit and expressive aphasia), HTN, Hypercholesterolemia and Hypothyroidism
Additional Past Medical History:
MSSA endocarditis, SEEMA, Autoimmune disease 1993, SLE (on Plaquenil), L knee fx, R leg cellulitis, stage II pressure ulcer (12/2024), hx MRSA
Past Surgical History: Reports Cardiac
Additional Past Surgical History:
-bioprosthetic AVR and MVR with Left atrial maze and Left atrial appendage exclusion on 12/24/24
-carpal tunnel release
-thyroidectomy
-tubal ligation
Social History
Tobacco: Former Smoker (quit 1977)
Alcohol: None
Drug: None
Employment: Retired
Family History
Family History: Not pertinent
Allergies / Home Medications
Allergies reflects when Allergies were last updated in [employer].
Home Medications with original date entered in [employer]
Allergy/Medication List:
Allergies
Allergy/AdvReac Type Severity Reaction Status Date / Time
vancomycin Allergy Rash, Verified 01/19/25 14:07
Eosinophilia
cefazolin AdvReac Intermediate elevated Verified 01/17/25 13:21
INR
Home meds:
-Albuterol 2.5 mg/3 ml neb q6h prn
-Apixaban (Eliquis) 5 mg bid
-ASA 81 mg qd
-Lipitor 40 mg qd
-Cymbalta 20 mg qd
-Pepcid 20 mg bid
-Lasix 20 mg bid
-Gabapentin 300 mg qhs
-Plaquenil 600 mg every other day
-Duo-neb 3 ml q6 prn
-Synthroid 250 mcg qd
-Claritin 10 mg qd
-Lopressor 12.5 mg bid
-Klor-con 20 meq bid
-Folvite 1 mg qd
-MVI qd
-[place]and 3 fish oil 1000 mg qd
Review of Systems
-
History Source: Patient and Transfer Record
A 12 point ROS was completed and negative except as noted: Yes
Constitutional: Reports No Symptoms
EENT: Reports No Symptoms
Respiratory: Reports Other (SOB)
Cardiac: Reports No Symptoms
Abdomen/GI: Reports No Symptoms
: Reports No Symptoms
Musculoskeletal: Reports Other (generalized muscle weakness)
Skin: Reports No Symptoms
Neurological: Reports Other (has residual expressive aphasia. No new neuro sxs)
Endocrine: Reports No Symptoms
Hematologic/Lymphatic: Reports No Symptoms
Psych: Reports No Symptoms
Physical Exam
Vital Signs
Vital Signs
Pulse Resp BP Pulse Ox
90 20 97/72 98
03/03/25 23:25 03/03/25 22:26 03/03/25 23:00 03/03/25 23:25
Physical Exam
General: Well Developed, No Apparent Distress and Conversant
HEENT: NormoCephalic, Anicteric, Moist mucous membranes, Atraumatic and PERRLA
Respiratory: Decreased Breath Sounds (at bases b/l. Few rales at R base. No wheeze)
Cardiac: S1/S2, Murmur (2/6 holocystolic @ L sternal border and L mid clavicular area) and Peripheral Edema (1+ with chronic skin changes b/l)
GI: Soft, Non Tender, Non Distended and Normal Bowel Sounds
Musculoskeletal: No Clubbing and No Cyanosis
Skin: Warm and Dry
Neuro: Awake and AO x 3
Psych: Calm
Laboratory Results
-
03/03/25 22:35
03/03/25 22:35
PT 30.1 Sec (11.4-14.6) H 03/03/25 22:35
INR 2.83 03/03/25 22:35
APTT 35.2 Sec (23.4-35.0) H 03/03/25 22:35
Magnesium 2.7 mg/dl (1.6-2.3) H 03/03/25 22:35
Laboratory Results
PT 30.1 Sec (11.4-14.6) H 03/03/25 22:35
INR 2.83 03/03/25 22:35
APTT 35.2 Sec (23.4-35.0) H 03/03/25 22:35
Lactic Acid 1.7 mmol/L (0.7-2.0) 03/03/25 22:35
Total Bilirubin 1.0 mg/dl (0.2-1.3) 03/03/25 22:35
AST 28 U/L (14-36) 03/03/25 22:35
ALT 25 U/L (0-35) 03/03/25 22:35
Alkaline Phosphatase 70 U/L (38-126) 03/03/25 22:35
Data Reviewed
-
Critical Care Time (in minutes): 45 minutes, includ. discussion with patient, exam, review of prior records
Diagnostic Radiology: Report Reviewed by me
CT Scan: Report Reviewed by me
Lab Data: Labs Reviewed by me
Old Records: Reviewed
Impression/Plan
-
IMPRESSION:
-Admission to [facility] 03/02/25 for hypoxia/acute pulmonary failure
-Acute on chronic diastolic CHF, pBNP >72145
-Elevated HS trop - likely type II d/t hypoxia, CHF, SEEMA
-S/P Standard sternotomy/Surgical aortic valve replacement [25 mm prosthesis]/Mitral valve replacement with [place] cord replacement for reinforcement [29 mm bioprosthesis]/ Extensive debridement of mitral annular calcification and patch of the
mitral valve annulus using bovine pericardium/Modified open surgical left atrial maze (encompass RF ablation and cryo ablation)/Left atrial appendage exclusion [35 mm device]/Drainage of right pleural effusion [300 cc], by Dr. Bullock, 12/24/24
-moderate bilateral pleural effusions with atelectasis
-elevated lactate - resolved
-Chronic RBBB
-SEEMA on CKD
-EF 50-55% (Echo 12/27/24)
-Paroxysmal a-fib - on Eliquis (last dose 03/03 at 9am)
-SLE
-Hypothyroidism
-Embolic CVA with R -sided deficit and expressive aphasia
-MSSA bacteremia/encocarditis 12/2024
-L knee fx
-Autoimmune disorder
-hx R leg cellulitis
-Pressure ulcer 12/2024
PLAN:
-will get chest CT with 3D reconstruction and MARY on 03/04 to r/o MV pseudoaneurysm. NPO
-continue iv Lasix bid, BiPAP prn
-holding Eliquis (currently in nsr)
-follow blood cx
-continue ASA, Lipitor, Gabapentin, Plaquenil, Cymbalta, Pepcid, Synthroid. On low-dose Levo - will hold Lopressor
-will consult Cardiology
-will review findings with Dr. Bullock
[2025-03-04] MEDS: CALCIUM GLUCONATE 100 IV (00:46)
[2025-03-04] MEDS: LEVOPHED 250 IV (00:58)
--- NOTE | 2025-03-04 03:27 | PTCARENOTE ---
VSS, pt awoke confused and stated that she 'was scared and did not know where she was' pt easily reoriented, otherwise assessment remains unchanged
[2025-03-04 05:38] LABS: Hematocrit 28.5 % (37.0-47.0); Hemoglobin 9.3 g/dL (12.0-16.0); Mean Corp Hgb Conc. 32.6 g/dL (33.0-37.0); Mean Corpuscular Hgb 31.4 pg (27.0-31.0); Mean Corpuscular Volume 96.3 fL (81.0-99.0); Mean Platelet Volume 11.9 fL (7.4-10.4); Platelet Count 217 10^3/uL (130-400); Red Blood Cell Count 2.96 10^6/uL (4.20-5.40); Red Cell Dist. Width 15.6 % (11.5-14.5); White Blood Cell Count 9.4 10^3/uL (4.8-10.8)
[2025-03-04 05:46] LABS: Lactic Acid 1.2 mmol/L (0.7-2.0)
[2025-03-04 05:48] LABS: Blood Urea Nitrogen 44 mg/dl (7-17); Calcium 9.2 mg/dl (8.4-10.2); Carbon Dioxide 22 mmol/L (22-30); Chloride 108 mmol/L (98-107); Glucose 95 mg/dl (70-99); Sodium 136 mmol/L (135-145); eGFR 42.88
[2025-03-04] MEDS: SYNTHROID 250 MCG PO (06:28)
--- NOTE | 2025-03-04 06:37 | CON.CAR ---
Consultation
Consultation Request
Date/Time Consultation Requested: 03/04/2025
Date/Time Consultation Performed: 03/04/2560 mg
Requesting Provider: Dr. Bullock
Performing Provider: Dr. Benavides
Reason for Consultation: Left heart failure
Medical History
-
History of Present Illness:
Ext Js Developer Dr. Peguero
74-year-old woman who had a complex hospitalization in December with endocarditis. Patient had presented with sepsis/MSSA bacteremia and had embolic stroke x 2. She also had new A-fib she had known severe aortic valve stenosis and had large
vegetation on mitral valve . She ultimately underwent surgery by Dr. Bullock.
Aortic valve replacement/bioprosthetic and mitral valve replacement. Extensive debridement of mitral annular calcification and patch of the mitral valve annulus using bovine pericardium, modified open surgical left atrial maze and cryoablation and
left atrial appendage exclusion 12/24/2024
She was admitted to [facility] on 03/02/2025 presenting with shortness of breath and hypoxemia chest x-ray with possible pneumonia pneumonitis treated with cefuroxime and doxycycline prior to admission CTA negative for pulmonary embolism or
dissection it reportedly showed multifocal opacities infiltrate versus edema and moderate bilateral effusions. Diuresed with IV Lasix. Patient had echocardiogram which reportedly raise concern regarding mitral valve with assistance or mitral
annular disruption with concern for pseudoaneurysm. Issues communicated with Dr. Bullock who accepted patient in transfer
Patient provides limited details of history currently without complaints of shortness of breath maintained on 6 L nasal cannula. Patient also is on levo at 1 which she was on on transfer.
Echocardiogram at [facility] 03/03/2025 technically fair preserved left ventricular function ejection fraction 60% bioprosthetic mitral valve replacement moderate to severe mitral regurgitation. 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
ventricular pseudoaneurysm, posterior wall, beneath mitral valve plane with prominent jet extending into what appears to be pericardial space bioprosthetic aortic valve no abnormalities reported PA pressure 50 mmHg
Past medical history
Endocarditis 12/2023 with mitral valve vegetation and AVR and MVR 12/24/2024
Paroxysmal atrial fibrillation
SLE
History of MRSA
Hospitalization with rash and eosinophilia suspected related to vancomycin
Hypothyroidism
Past Medical History
Past Medical History: Other (As above)
Social History
Tobacco: Non-Smoker
Family History
Family History: Reviewed & Not Pertinent
Allergies / Home Medications
Allergy/AdvReac Type Severity Reaction Status Date / Time
vancomycin Allergy Rash, Verified 01/19/25 14:07
Eosinophilia
cefazolin AdvReac Intermediate elevated Verified 01/17/25 13:21
INR
�Medication �Instructions �Recorded �Confirmed �Type
gabapentin 300 mg PO HS Neurological Condition 12/21/24 01/18/25 History
hydroxychloroquine 200 mg PO Q OTHER DAY Autoimmune 12/21/24 01/18/25 History
Disorder
hydroxychloroquine 400 mg PO Q OTHER DAY Autoimmune 12/21/24 01/18/25 History
Disorder
levothyroxine 250 mcg DAILY Thyroid 12/21/24 01/18/25 History
Lactobac/Bifidobac [Visbiome] 2 cap PO DAILY Gastrointestinal 01/03/25 01/18/25 Rx
issue ##0
acetaminophen 325 mg tablet 650 mg (2 x 325 mg) PO Q4HPRN PRN 01/03/25 01/18/25 Rx
mild pain,headache,temp >101F #0
tabs
apixaban 5 mg tablet (Eliquis) 5 mg PO BID Blood clot 01/03/25 01/18/25 Rx
prevention/tx #0 tabs
aspirin 81 mg chewable tablet 81 mg PO DAILY #0 tabs 01/03/25 01/18/25 Rx
atorvastatin 40 mg tablet 40 mg PO QPM High cholesterol #0 01/03/25 01/18/25 Rx
tabs
furosemide 20 mg tablet 40 mg (2 x 20 mg) PO BID AT 01/03/25 01/17/25 Rx
0800,1600 Fluid retention/Swelling
#0 tabs
metoprolol succinate 25 mg 25 mg PO DAILY Blood pressure #0 03/24/25 04/08/25 Rx
tablet,extended release 24 hr tabs
potassium chloride 20 mEq 20 meq PO BID Electrolyte 01/03/25 01/18/25 Rx
tablet,extended release(part/cryst) Repletion #0 tabs
diphenhydramine HCl 50 mg capsule 50 mg PO Q48H PRIOR TO VANCOMYCIN 01/17/25 01/17/25 History
triamcinolone acetonide 0.5 % 1 applic topical BID THIGH RASH 01/17/25 01/17/25 History
topical cream
Nafcillin [Nafcil] 2,000 mg 108 mls/hr IV Q4H 01/20/25 Rx
famotidine 20 mg tablet 20 mg PO DAILY #0 tabs 01/20/25 Rx
loratadine 10 mg tablet 10 mg PO DAILY #0 tabs 01/20/25 Rx
prednisone 10 mg tablet 10 mg PO DAILY #1 tab 01/20/25 Rx
Review of Systems
-
All other systems: Negative unless noted
Physical Exam
Vital Signs
Temp Pulse Resp BP Pulse Ox
99.0 F 92 23 94/67 98
03/04/25 02:47 03/04/25 06:30 03/04/25 06:30 03/04/25 06:00 03/04/25 06:30
Lab Results
03/04/25 05:25
03/04/25 05:25
Physical Exam
General: No Apparent Distress
HEENT: Normocephalic and Other (No bruit without clear evidence of JVD)
Respiratory: Other (No wheezes rales or rhonchi. Decreased at bases)
Cardiac: Regular Rhythm and Other (2/6 systolic murmur)
GI: Soft, Non Tender, Non Distended and Other (No mass)
Musculoskeletal: No Clubbing, No Cyanosis and No Edema
Neuro: Awake and Alert
Psych: Calm
Impression / Plan
-
.
74-year-old woman with a complex medical history with endocarditis, embolic stroke and A-fib on admission in December 2024 who subsequently underwent bioprosthetic AVR and MVR. Patient now presents in transfer after admission to [facility] with
shortness of breath/hypoxemia/CHF/pleural effusions and abnormalities on echocardiogram with moderate to severe mitral regurgitation and concern for mitral annular disruption and pseudoaneurysm.
MVR/mitral regurgitation/abnormal echo with concern for mitral annular disruption and pseudoaneurysm
- Monitor cultures
- Reviewed with CT surgery will obtain additional imaging to further define abnormality.
- Review of transthoracic imaging
CT angio/CT TAVR protocol ordered
Also will consider MARY. Patient kept NPO. Reviewed with patient who is in agreement. Also made patient aware she would be higher risk for MARY considering issues with heart failure, hypoxemia and hypotension. Currently respiratory status
stable on 6 L and blood pressure stable on low-dose Levophed
.
Left heart failure.
- Continue assessment as noted above
- Will await results of CT if there is additional delay would repeat chest x-ray
.
History of AVR. Reported to be stable by last echo but will also need to be reassessed with additional imaging.
.
PAF. Stable in sinus rhythm
Anemia.-Continue to monitor
History of CVA
SLE
Data Reviewed
-
EKG: Report Reviewed by me
Medical Tests (Nuc Med, Echo etc): Report Reviewed by me
Labs: Labs Reviewed by me and Discussed with Physician
[2025-03-04 08:18] LABS: Urine Albumin 1+ (Neg - Trace); Urine Bilirubin Negative (Negative); Urine Character Clear (Clear); Urine Color Yellow; Urine Glucose Negative (Negative); Urine Ketone Negative (Negative); Urine Leukocyte 2+ (Negative); Urine Nitrite Negative (Negative); Urine Occult Blood Negative (Negative); Urine Urobilinogen Negative (Neg - 1+)
[2025-03-04 08:52] LABS: Urine Bacteria Few (Negative); Urine Red Blood Cell 0-2 /HPF (0-2); Urine White Cell 16-20 /HPF (0-5)
--- NOTE | 2025-03-04 10:01 | PTCARENOTE ---
Pt having MARY at bedside. See [facility] for staff. time out at 1008. pt positioned on left side and went into SVT, HR 140-150s. procedure on hold. pt to be given Amiodarone and reassessed. Forklift Truck Mechanic and anesthesia at bedside. Procedure canceled.
Pt too unstable.
[2025-03-04] MEDS: CORDARONE 103 MG IV ×2 (10:27→11:35)
[2025-03-04] MEDS: LASIX 40 MG IV ×2 (10:45→16:10)
[2025-03-04] MEDS: PEPCID 20 MG PO (10:45)
[2025-03-04] MEDS: PLAQUENIL 200 MG PO (10:45)
[2025-03-04] MEDS: ASPIR LOW (ENTERIC COATED) 81 MG PO (10:45)
[2025-03-04] MEDS: CLARITIN 10 MG PO (10:45)
[2025-03-04] MEDS: CYMBALTA DELAYED RELEASE 20 MG PO (10:45)
--- NOTE | 2025-03-04 13:02 | W.PN.UPDATE ---
Update Note
Progress Note Update
- Prior to attempting MARY, patient became more clinically unstable, whereby she went into SVT with heart rates to 160s and her blood pressure began to drop.
- Currently on 2 mcg of Levophed.
- Patient will be given MV Amio bolus and then started on an amiodarone drip.
- Case discussed with CT Surgery attending.
- Patient is at too high risk for for MARY (or any other procedures).
- Plan for conservative/palliative measures at this point.
- Anesthesiology, CT Surgery attending/team, and nursing staff were all -present at bedside.
- CT Surgery attending personally pdating patient's family who are at bedside now.
CCT 65 minutes
[2025-03-04] MEDS: CORDARONE 518 MG IV (13:37)
--- NOTE | 2025-03-04 13:38 | HPS.HSE ---
Addendum entered and electronically signed by Pasha Blackmon MD 03/05/25 10:12:
NAD
Scleral Anicteric
MMM
Noted some crackles at base, no wheezing
RRR, S1/S2, holosystolic murmur at the apex of the heart
Soft, NT, ND, BS+
Warm, Dry
AAOx3
Calm
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
Not a candidate for surgical repair in the setting of hemodynamic instability and generalized deconditioning
On Levophed need to wean as tolerated
Cardiothoracic surgery had discussion about hospice versus palliative care at this time
The palliative care
Acute hypoxemic respiratory failure secondary to valvular heart disease
Wean oxygen as tolerated
Acute left-sided heart failure secondary to severe MR/valve dehiscence/pseudoaneurysm
Continue with current diuretic dosing
Cardiology following
SVT
Plan for MARY however or aborted due to hemodynamic instability
IV amiodarone currently in sinus
Likely able to transition to oral amnio in the next 24 hours per cardiologyg
Original Note:
Family Physician
-
Family Physician: Yari Walsh
Chief Complaint
-
Transferred from [facility] on 03/03 for further evaluation of MV and SOB
History of Present Illness
Patient is a 74-year-old female, with cardiac history, with complex hospitalization in December with endocarditis, sepsis/MSSA bacteremia and embolic stroke twice. She had a new A-fib and had known aortic valve stenosis and large vegetation on mitral
valve, underwent surgery by Dr. Bullock. She was at a rehab for recovery.
On March 02, 2025 she was admitted to [facility] with shortness of breath and hypoxemia, based on evaluation and chest x-ray she was treated with cefuroxime and doxycycline for pneumonia/pneumonitis. Prior to admission CTA was negative for
pulmonary embolism or dissection but showed multifocal opacities infiltrate versus edema and moderate bilateral pleural effusions. He was diuresed with IV Lasix. An echocardiogram was done which raised concern for mitral annular disruption with
concern for pseudoaneurysm Dr. Bullock accepted the transfer.
As part of her workup at [facility], CTA of chest was obtained which showed AV groove dehiscence. MARY was aborted due to hemodynamic instability and overall patient decompensation. Hospitalist team was contacted because she is not an appropriate
candidate for operating due to survival chances, she changed her CODE STATUS to DNI/DNR with plan to transition to comfort care.
Currently patient has supraventricular tachycardia with heart rate ranging in 160s, she is on Levophed and is breathing on 6 L of oxygen.
Hospice services were called, but patient denied to do hospice at this time.
Medical History
Past Medical History
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
with right-sided deficit and expressive aphasia)
Past Surgical History: Reports Cardiac (Bioprosthetic AVR and MVR with left atrial maze and left atrial appendage exclusion on 12/24/2024), Orthopedic (Carpal tunnel release) and Other (Thyroidectomy, tubal ligation)
Social History
Tobacco: Former Smoker (Quit in 1977)
Alcohol: None
Drug: None
Employment: Retired
Family History
Family History: Not pertinent
Allergies / Home Medications
Allergies reflects when Allergies were last updated in [employer].
Home Medications with original date entered in [employer]
Allergy/Medication List:
Allergies
Allergy/AdvReac Type Severity Reaction Status Date / Time
vancomycin Allergy Rash, Verified 01/19/25 14:07
Eosinophilia
cefazolin AdvReac Intermediate elevated Verified 01/17/25 13:21
INR
Home Medications
gabapentin 300 mg PO HS Neurological Condition 12/21/24
hydroxychloroquine 200 mg PO Q OTHER DAY Autoimmune Disorder 12/21/24
hydroxychloroquine 400 mg PO Q OTHER DAY Autoimmune Disorder 12/21/24
levothyroxine 250 mcg DAILY Thyroid 12/21/24
Lactobac/Bifidobac [Visbiome] 2 cap PO DAILY Gastrointestinal issue ##0 01/03/25
acetaminophen 325 mg tablet 650 mg (2 x 325 mg) PO Q4HPRN PRN mild pain,headache,temp >101F #0 tabs 01/03/25
apixaban 5 mg tablet (Eliquis) 5 mg PO BID Blood clot prevention/tx #0 tabs 01/03/25
aspirin 81 mg chewable tablet 81 mg PO DAILY #0 tabs 01/03/25
atorvastatin 40 mg tablet 40 mg PO QPM High cholesterol #0 tabs 01/03/25
furosemide 20 mg tablet 40 mg (2 x 20 mg) PO BID AT 0800,1600 Fluid retention/Swelling #0 tabs 01/03/25
metoprolol succinate 25 mg tablet,extended release 24 hr 25 mg PO DAILY Blood pressure #0 tabs 01/03/25
potassium chloride 20 mEq tablet,extended release(part/cryst) 20 meq PO BID Electrolyte Repletion #0 tabs 01/03/25
diphenhydramine HCl 50 mg capsule 50 mg PO Q48H PRIOR TO VANCOMYCIN 01/17/25
triamcinolone acetonide 0.5 % topical cream 1 applic topical BID THIGH RASH 01/17/25
Nafcillin [Nafcil] 2,000 mg 108 mls/hr IV Q4H 01/20/25
famotidine 20 mg tablet 20 mg PO DAILY #0 tabs 01/20/25
loratadine 10 mg tablet 10 mg PO DAILY #0 tabs 01/20/25
prednisone 10 mg tablet 10 mg PO DAILY #1 tab 01/20/25
Review of Systems
-
A 12 point ROS was completed and negative except as noted: Yes
Physical Exam
Vital Signs
Vital Signs
Temp Pulse Resp BP Pulse Ox
98.9 F 98 23 85/67 79
03/04/25 09:00 03/04/25 13:31 03/04/25 13:30 03/04/25 12:47 03/04/25 10:30
Physical Exam
General: Other (Very weak and fragile, breathing on 5 L of oxygen,)
Respiratory: Clear; No Wheezes, Rales or Rhonchi
Cardiac: S1/S2, Regular Rhythm and Murmur (2/6 systolic murmur at left lower sternal border)
GI: Soft, Non Tender, Non Distended and Normal Bowel Sounds
Musculoskeletal: No Clubbing, No Cyanosis and No Edema
Skin: Warm and Dry
Neuro: Awake, Alert and AO x 3
Psych: Calm
Laboratory Results
-
03/04/25 05:25
03/04/25 05:25
Laboratory Results
PT 30.1 Sec (11.4-14.6) H 03/03/25 22:35
INR 2.83 03/03/25 22:35
APTT 35.2 Sec (23.4-35.0) H 03/03/25 22:35
Lactic Acid 1.2 mmol/L (0.7-2.0) 03/04/25 05:25
Total Bilirubin 1.0 mg/dl (0.2-1.3) 03/03/25 22:35
AST 28 U/L (14-36) 03/03/25 22:35
ALT 25 U/L (0-35) 03/03/25 22:35
Alkaline Phosphatase 70 U/L (38-126) 03/03/25 22:35
Impression/Plan
-
IMPRESSION:
Patient is a 74-year-old female, 2-month postop AVR/MVR, past history of CVA secondary to septic emboli from endocarditis in 12/2023. Transferred from [facility] with acute shortness of breath and hypoxemia. TTE showed mitral valve
pseudoaneurysm for which she was transferred to [facility] for workup. CTA was obtained that showed AV groove dehiscence, MARY was attempted but aborted due to hemodynamic instability. Hospitalist team consulted to admit the patient under hospital
medicine since she is unlikely to survive any further operative procedure. Her CODE STATUS has been changed to DNI/DNR after discussion with the family. Plans to transfer on hospice but is not ready yet.
ASSESSMENT/PLAN:
#MVR/mitral regurgitation/abnormal echo with concern for mitral annular disruption and pseudoaneurysm
Not a candidate for any surgical procedure due to general deconditioning and hemodynamic instability
Currently on Levophed and 5 L of oxygen
Considering comfort care, hospice had a conversation with her, she does not feel ready yet
Transferred to IMU
Manage symptomatically
# Acute hypoxic respiratory failure
Fluctuating oxygen saturation, currently on 6 L of oxygen
Patient is DNR/DNI
Manage symptomatically
# Supraventricular tachycardia
Heart rate above 150
Regular rhythm,Patient is on amiodarone infusion per protocol
Defer recommendations to cardiology
# Left heart failure-defer recommendations to cardiology
#History of AVR
#Paroxysmal atrial fibrillation
#History of CVA with septic emboli
#History of endocarditis
#SLE-continue hydroxychloroquine
CODE STATUS-DNR/DNI
DVT prophylaxis-SCDs
--- NOTE | 2025-03-04 13:40 | HOSPNOTE ---
Spoke with patient and family at bedside, I explained hospice and making very difficult end of life decisions. Explained that the elevated heartrate and low blood pressure and shortness of breath with all of those factors patient would remain
inpatient hospice. I explained inpatient hospice and symptom management. The patient stated that her son was coming tomorrow and she did not wish for hospice at this time. I told patient I do not want her to suffer and that medication may be needed
to help shortness of breath and that we would make sure that medications are available when needed. We will continue to follow.
--- NOTE | 2025-03-04 14:00 | W.PN.UPDATE ---
Update Note
Progress Note Update
Yazmin Montana Is well-known to me. She was back in December 2024 where she was transferred to us with mitral valve endocarditis with CVA x 2 with speech deficits. She had a 2.5 cm mobile vegetation along the P2 P3 aspect of the valve as well as
severe mitral valve annular calcification. Intraoperatively the vegetation and endocarditis had essentially destroyed this area of the annulus and so in order to place a valve, this was debrided aggressively and patched with a bovine pericardium.
She did well postoperatively ultimately went to SNF however she did have pneumonia postoperatively and then developed hypoxia and heart failure. Over at [facility] she was found to have dehiscence of the ring at the P2 P3 origin as well as
likely a pseudoaneurysm which essentially is a delayed AV groove disruption. She is too high risk for any operative intervention with would not survive. She is being worked up with a MARY and CTA however she was too unstable to the MARY and this was
aborted. Goals of care were discussed with the patient and she did not desire any extraordinary measures so her CODE STATUS changed to DO NOT RESUSCITATE. Palliative care was consulted.
--- NOTE | 2025-03-04 14:03 | W.PN.UPDATE ---
Update Note
Progress Note Update
Patient was unable to tolerate MARY and prior to attempt patient went into a afib with rvr/SVT with heart rate in the 160s. I personally updated the patient on her clinical status and explained her situation. The decision was made to make her a DNR
and inpatient hospice was consulted. Patient was deemed NOT a surgical candidate. Patient will be transferred to hospitalist team for the remainder of her care.
--- NOTE | 2025-03-04 15:30 | PTCARENOTE ---
patient and family agreeable to making patient DNR with Nataliia HERNANDEZ and Dr Bullock at bedside after explaining situation and her medical options. Not agreeable to hospice but says she understand she will not live through this situation.
--- NOTE | 2025-03-04 15:37 | CM ---
Reviewed chart. Met with Mrs. Montana to review discharge plans. She states prior to admission she resides alone in a one story home. She states prior to coming here she was a [facility] for SNF/Rehab. She states she has been there for
about a month. She states she was told by the medical team that they can not operate. We reviewed Hospice and Palliative care. She states she in not ready for hospice yet. Received consult for inpatient hospice. Referral sent to [facility]. [facility] saw the patient and she is not ready for hospice. Case management will continue to follow to confirm discharge plans. Medical work-up in progress. The discharge plan is to return to [facility] if approved for
admission versus inpatient hospice if she is agreeable and appropriate.
--- NOTE | 2025-03-04 16:30 | PTCARENOTE ---
lasix IV given palliatively.
--- NOTE | 2025-03-04 18:28 | PTCARENOTE ---
stable on 3mcg Levo and amio gtt. ST HR 101. 6L nc for comfort. family at bedside. no additional changes in assessment at this time.
[2025-03-04] MEDS: LIPITOR 40 MG PO (18:38)
--- NOTE | 2025-03-04 21:30 | PTCARENOTE ---
Addendum entered by Amandeep James RN 03/05/25 04:03:
Denies pain, denies dyspnea at present time.
Original Note:
Report received from RUMA Sandoval. Pt awake, alert, oriented x 4. Speech clear. Flat affect. On 6L/NC. Sats 94-97%. BBS present. Decreased B bases. CDB encouraged. Pt in SR. Normotensive. Levo gtt at 2 mcg/min. Amiodarone gtt at 1 mg/min. IV checks per
protocol. For pulse and wound assessments, see flowsheet. Belly soft, nontender. Normoactive bs x 4. Selective appetite. No BM yet. Purewick in use. Clear, toro urine. Multiple family present. Onje family member staying the night. Pt refuses
evening CHG bath. States she would rather sleep. Ongoing plan of care.
[2025-03-04] MEDS: NEURONTIN 300 MG PO (22:33)
--- NOTE | 2025-03-04 23:15 | PTCARENOTE ---
Amiodarone gtt decreased to 0.5 mg/min as ordered. Discussed with PA. Pt remains in SR, rate 90's. Normotensive of Levo gtt.
[2025-03-05] VITALS (39 sets, daily range): BP systolic 83–125; BP diastolic 54–112
--- NOTE | 2025-03-05 00:15 | PTCARENOTE ---
Pt reassessed. No c/o pain, no c/o dyspnea.
[2025-03-05] MEDS: LEVOPHED 250 IV (04:26)
--- NOTE | 2025-03-05 05:25 | PTCARENOTE ---
Labs drawn and sent. Pt without c/o pain, dyspnea.
[2025-03-05] MEDS: SYNTHROID 250 MCG PO (05:36)
[2025-03-05 05:42] LABS: Hematocrit 30.5 % (37.0-47.0); Hemoglobin 9.9 g/dL (12.0-16.0); Mean Corp Hgb Conc. 32.5 g/dL (33.0-37.0); Mean Corpuscular Hgb 30.8 pg (27.0-31.0); Mean Platelet Volume 11.8 fL (7.4-10.4); Platelet Count 229 10^3/uL (130-400); Red Blood Cell Count 3.21 10^6/uL (4.20-5.40); Red Cell Dist. Width 15.3 % (11.5-14.5); White Blood Cell Count 7.5 10^3/uL (4.8-10.8)
[2025-03-05 05:49] LABS: Blood Urea Nitrogen 46 mg/dl (7-17); Calcium 8.7 mg/dl (8.4-10.2); Carbon Dioxide 23 mmol/L (22-30); Chloride 104 mmol/L (98-107); Glucose 115 mg/dl (70-99); Potassium 4.5 mmol/L (3.5-5.1); Sodium 133 mmol/L (135-145); eGFR 39.23
--- NOTE | 2025-03-05 07:00 | PTCARENOTE ---
report received from previous RN. walking rounds completed. Pt resting in bed, AAOX3. forgetful at times. generalized weakness. pt denies pain. SR on telemetry heart rate in 90s. pulses palpable. pt on 6L nasal cannula, sat 98% lung sounds
diminished in bases. active bowel sounds. poor appetite. purewick in place, incontinent of urine. see worklist for full nursing assessment and interventions. pt and family updated on plan of care.
[2025-03-05] MEDS: PLAQUENIL 400 MG PO (08:03)
[2025-03-05] MEDS: CLARITIN 10 MG PO (08:03)
[2025-03-05] MEDS: CYMBALTA DELAYED RELEASE 20 MG PO (08:03)
[2025-03-05] MEDS: ASPIR LOW (ENTERIC COATED) 81 MG PO (08:03)
[2025-03-05] MEDS: LASIX 40 MG IV ×2 (08:04→16:26)
[2025-03-05] MEDS: PEPCID 20 MG PO (08:04)
--- NOTE | 2025-03-05 09:03 | W.PN.CD ---
Today's Communication / Plan
-
Patient currently comfortable on 6 L nasal cannula and remains on low-dose Levophed at 1 mcg.
Blood pressure currently stable on low-dose Levophed can slowly wean if tolerated
Continue Lasix as prescribed
IV amiodarone is nearly a 24-hour obed can transition to oral and monitor rhythms closely
Currently plan is palliative care. Goals of care can continue to be discussed between CT surgery and patient. Possible transition to hospice in future
Impression / Plan
-
.
74-year-old woman with a complex medical history with endocarditis, embolic stroke and A-fib on admission in December 2024 who subsequently underwent bioprosthetic AVR and MVR. Patient now presents in transfer after admission to [facility] with
shortness of breath/hypoxemia/CHF/pleural effusions and abnormalities on echocardiogram with moderate to severe mitral regurgitation and concern for mitral annular disruption and pseudoaneurysm.
MVR 12/2023 -now patient with valve dehiscence/pseudoaneurysm and severe mitral regurgitation.
- Findings on echocardiogram and CT consistent with echo at [facility].
- Issues reviewed with Dr. Bullock who also had discussion with patient. Patient felt not to be operative candidate
- Plan for palliative care
.
Acute left heart failure. Secondary to severe MR/ valve dehiscence and pseudoaneurysm
- Remains on low-dose levo can try to wean if tolerated
- Continue with current diuretic dosing
- On 6 L with 100% saturation can wean O2 as tolerated
.
Hypotension can cautiously wean Levophed as tolerated
.
SVT. Patient reported to have rapid SVT after patient rolled on her side when they were planning for a MARY. Plans for MARY were aborted due to hemodynamic instability. Patient placed on IV amiodarone and is currently sinus rhythm
-Continue IV amiodarone through 24 hours(peripheral IV) and then transition to oral
.
.
History of AVR. Stable by prior echo report done on 03/03/2025 Limited images on yesterday's echo. Overall appears stable
.
PAF. Stable in sinus rhythm
Anemia.-Continue to monitor
History of CVA
SLE
Physical Exam
Vital Signs/Labs
Vital Signs
Temp Pulse Resp BP Pulse Ox
98.1 F 94 30 113/78 100
03/05/25 05:30 03/05/25 08:04 03/05/25 05:30 03/05/25 08:04 03/05/25 05:30
03/04/25 03/05/25 03/06/25
06:59 06:59 06:59
Actual Weight 73.2 kg
03/05/25 05:21
03/05/25 05:21
PT 30.1 Sec (11.4-14.6) H 03/03/25 22:35
INR 2.83 03/03/25 22:35
APTT 35.2 Sec (23.4-35.0) H 03/03/25 22:35
Magnesium 2.7 mg/dl (1.6-2.3) H 03/03/25 22:35
Physical Exam
Constitutional: No acute distress
Cardiovascular: Rhythm & rate is regular and Other (Holosystolic murmur)
Respiratory: Wheeze Absent, Rhonchi Absent and Other (Rare crackle at base)
GI: Soft and Non tender
Other: Other (No edema)
Data Reviewed
-
Date of Service: March 05, 2025
Medical Decision Making: Reviewed Test Results
Echo: Report Reviewed by me
Medical Tests (PFT, Pathology etc): Report Reviewed by me
Labs: Labs Reviewed by me
--- NOTE | 2025-03-05 10:07 | W.PN.HOSP.TC ---
Today's Communication/Plan
-
Assessment / Plan
Assessment / Plan
NAD
Scleral Anicteric
MMM
Noted some crackles at base, no wheezing
RRR, S1/S2, holosystolic murmur at the apex of the heart
Soft, NT, ND, BS+
Warm, Dry
AAOx3
Calm
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
Not a candidate for surgical repair in the setting of hemodynamic instability and generalized deconditioning
On Levophed need to wean as tolerated
Cardiothoracic surgery had discussion about hospice versus palliative care at this time
The palliative care
Acute hypoxemic respiratory failure secondary to valvular heart disease
Wean oxygen as tolerated
Acute left-sided heart failure secondary to severe MR/valve dehiscence/pseudoaneurysm
Continue with current diuretic dosing
Cardiology following
SVT
Plan for MARY however or aborted due to hemodynamic instability
IV amiodarone currently in sinus
Likely able to transition to oral amnio in the next 24 hours per cardiology
Anticipated Discharge: > 48 hours
Subjective/Interval History
-
Date of Service: March 05, 2025
Seen and examined. Sleeping comfortably in bed. Remains on Levophed.
Objective Data
-
Labs:
Laboratory Results
03/05/25
05:21
WBC 7.5
Hgb 9.9 L
Hct 30.5 L
Plt Count 229
Sodium 133 L
Potassium 4.5
Chloride 104
Carbon Dioxide 23
BUN 46 H
Creatinine 1.4 H
Glucose 115 H
Calcium 8.7
Vital Signs:
Vital Signs
Temp Pulse Resp BP Pulse Ox
98.1 F 94 30 113/78 100
03/05/25 05:30 03/05/25 08:04 03/05/25 05:30 03/05/25 08:04 03/05/25 05:30
I&O
03/04/25 03/05/25 03/06/25
06:59 06:59 06:59
Intake Total 126.6 / 126.6 631.0 / 631.0
Output Total 1000 / 1000
Balance 126.6 / 126.6 -369.0 / -369.0
--- NOTE | 2025-03-05 12:00 | PTCARENOTE ---
vital signs stable. weaned off levophed. pt resting in bed. denies pain. SR on telemetry heart rate in 90s. no changes in assessment noted.
--- NOTE | 2025-03-05 12:02 | W.PN.UPDATE ---
Update Note
Progress Note Update
Amiodarone infusion discontinued and oral Amiodarone 400mg BID ordered
[2025-03-05] MEDS: LIPITOR 40 MG PO (16:26)
--- NOTE | 2025-03-05 18:08 | PTCARENOTE ---
Rec'd pt from CVICU. Pt with poor circulation and discolored hands making pulse Ox assessment difficult. Able to obtain some readings from right ear. Pt very easily becomes short of breath. family at bedside.
[2025-03-05] MEDS: NEURONTIN 300 MG PO (21:17)
[2025-03-05] MEDS: PACERONE 400 MG PO (21:17)
[2025-03-06] VITALS (12 sets, daily range): BP systolic 94–109; BP diastolic 67–76
--- NOTE | 2025-03-06 04:32 | PTCARENOTE ---
Received pt from jamal HENDRIX. Pt aaox3, flat. Very BARNETT, especially when changing positions in bed. Currently on 4LNC, SaO2 96%. Incontinent of urine. Full bed change. Purwick exchanged. Pt resting comfortably in bed at this time. Care ongoing.
[2025-03-06] MEDS: SYNTHROID 250 MCG PO (05:09)
[2025-03-06] MEDS: CLARITIN 10 MG PO (08:20)
[2025-03-06] MEDS: PEPCID 20 MG PO (08:20)
[2025-03-06] MEDS: ASPIR LOW (ENTERIC COATED) 81 MG PO (08:20)
[2025-03-06] MEDS: CYMBALTA DELAYED RELEASE 20 MG PO (08:20)
[2025-03-06] MEDS: PACERONE 400 MG PO ×2 (08:20→19:27)
[2025-03-06] MEDS: PLAQUENIL 200 MG PO (08:21)
[2025-03-06] MEDS: LASIX 40 MG IV ×2 (08:21→15:42)
--- NOTE | 2025-03-06 09:19 | W.PN.CD ---
Today's Communication / Plan
-
.
Patient now off Levophed. Remains in sinus rhythm. O2 requirements from 6 L to 4 L.
Continued supportive care and medically treatment for heart failure. Plan for palliative care as previously outlined by Dr. Bullock
Can continue diuretic with Lasix and try to wean O2 as tolerated
Continue amiodarone as prescribed
Impression / Plan
-
.
74-year-old woman with a complex medical history with endocarditis, embolic stroke and A-fib on admission in December 2024 who subsequently underwent bioprosthetic AVR and MVR. Patient now presents in transfer after admission to [facility] with
shortness of breath/hypoxemia/CHF/pleural effusions and abnormalities on echocardiogram with moderate to severe mitral regurgitation and concern for mitral annular disruption and pseudoaneurysm.
MVR 12/2023 -now patient with valve dehiscence/pseudoaneurysm and severe mitral regurgitation.
- Findings on echocardiogram and CT consistent with echo at [facility].
- Issues reviewed with Dr. Bullock who also had discussion with patient. Patient felt not to be operative candidate
- Plan for palliative care
.
Acute left heart failure. Secondary to severe MR/ valve dehiscence and pseudoaneurysm
- Levophed has been weaned off
- O2 weaned from 6 L to 4 L. Continue to wean as tolerated
- Continue Lasix.
-Will continue to medically treat heart failure.
.
Hypotension patient was on Levophed on presentation. Hypotension improved. Levophed off
.
SVT. Patient reported to have rapid SVT after patient rolled on her side when they were planning for a MARY. Plans for MARY were aborted due to hemodynamic instability. Patient placed on IV amiodarone and is currently sinus rhythm
- IV amiodarone transition to oral on 03/05/2025
.
.
History of AVR. Stable by prior echo report done on 03/03/2025 Limited images on yesterday's echo. Overall appears stable
.
PAF. Stable in sinus rhythm
Anemia.-Continue to monitor
History of CVA
SLE
Physical Exam
Vital Signs/Labs
Vital Signs
Temp Pulse Resp BP Pulse Ox
97.6 F 95 24 109/70 96
03/06/25 07:05 03/06/25 08:21 03/06/25 06:00 03/06/25 08:21 03/06/25 04:00
03/05/25 03/06/25 03/07/25
06:59 06:59 06:59
Actual Weight 73.17 kg
03/05/25 05:21
03/05/25 05:21
PT 30.1 Sec (11.4-14.6) H 03/03/25 22:35
INR 2.83 03/03/25 22:35
APTT 35.2 Sec (23.4-35.0) H 03/03/25 22:35
Magnesium 2.7 mg/dl (1.6-2.3) H 03/03/25 22:35
Physical Exam
Constitutional: No acute distress
Cardiovascular: Rhythm & rate is regular and Systolic murmur present
Respiratory: Wheeze Absent and Rhonchi Absent
GI: Soft
Neuro/Psych: Alert
Data Reviewed
-
Date of Service: March 06, 2025
Medical Decision Making: Reviewed Test Results
EKG: Other (Telemetry sinus rhythm)
Medical Tests (PFT, Pathology etc): Report Reviewed by me
Labs: Labs Reviewed by me
--- NOTE | 2025-03-06 10:49 | W.PN.HOSP.TC ---
Today's Communication/Plan
-
Assessment / Plan
Assessment / Plan
NAD
Scleral Anicteric
MMM
Noted some crackles at base, no wheezing
RRR, S1/S2, holosystolic murmur at the apex of the heart
Soft, NT, ND, BS+
Warm, Dry
AAOx3
Calm
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
Not a candidate for surgical repair in the setting of hemodynamic instability and generalized deconditioning
On Levophed need to wean as tolerated
Cardiothoracic surgery had discussion about hospice versus palliative care at this time
The palliative care
Acute hypoxemic respiratory failure secondary to valvular heart disease
Wean oxygen as tolerated
Acute left-sided heart failure secondary to severe MR/valve dehiscence/pseudoaneurysm
Continue with current diuretic dosing
Cardiology following
SVT
Plan for MARY however or aborted due to hemodynamic instability
IV amiodarone currently in sinus
Likely able to transition to oral amnio in the next 24 hours per cardiology
Need to conitnue to disucss dispo and hospice.
Anticipated Discharge: > 48 hours
Subjective/Interval History
-
Date of Service: March 06, 2025
Seen and examined. No new complaints. No acute overnight events.
Off of Levophed
Objective Data
-
Vital Signs:
Vital Signs
Temp Pulse Resp BP Pulse Ox
97.6 F 95 28 109/70 97
03/06/25 07:05 03/06/25 08:21 03/06/25 08:00 03/06/25 08:21 03/06/25 09:51
I&O
03/05/25 03/06/25 03/07/25
06:59 06:59 06:59
Intake Total 631.0 / 655.2 862.9 / 862.9
Output Total 1000 / 1000 200 / 200
Balance -369.0 / -344.8 662.9 / 662.9
[2025-03-06] MEDS: LIPITOR 40 MG PO (17:44)
[2025-03-06] MEDS: NEURONTIN 300 MG PO (19:27)
--- NOTE | 2025-03-06 23:14 | PTCARENOTE ---
Received patient aaox3, affect flat, withdrawn. Family at bedside at start of shift. Patient denies pain, but verbalized discomfort with positioning at that time. Patient repositioned for pressure relief and comfort. NSR on the monitor, 95% on 4L o2
nc. Lung sounds diminished throughout, BARNETT noted. BS hypoactive x4, purewick intact and continuing to drain yellow urine. Call garay within reach, will continue to monitor patient closely.
[2025-03-07] VITALS (12 sets, daily range): BP systolic 96–108; BP diastolic 66–87
--- NOTE | 2025-03-07 01:03 | PTCARENOTE ---
Patient declines repositioning at this time stating, 'I'm comfortable, if I need to move, I just move'. Call garay within reach, will continue to monitor.
[2025-03-07] MEDS: SYNTHROID 250 MCG PO (04:49)
[2025-03-07] MEDS: SENOKOT-S 1 TABLET PO (07:57)
[2025-03-07] MEDS: CYMBALTA DELAYED RELEASE 20 MG PO (07:57)
[2025-03-07] MEDS: ASPIR LOW (ENTERIC COATED) 81 MG PO (07:58)
[2025-03-07] MEDS: CLARITIN 10 MG PO (07:58)
[2025-03-07] MEDS: PEPCID 20 MG PO (07:58)
[2025-03-07] MEDS: PLAQUENIL 400 MG PO (07:58)
[2025-03-07] MEDS: PACERONE 400 MG PO (07:58)
[2025-03-07] MEDS: LASIX 40 MG IV (07:59)
--- NOTE | 2025-03-07 08:22 | W.PN.CD ---
Today's Communication / Plan
-
- Start metoprolol 25 mg twice a day and continue amiodarone 400 twice a day
- Palliative care consult.
Impression / Plan
-
.
74-year-old woman with a complex medical history with endocarditis, embolic stroke and A-fib on admission in December 2024 who subsequently underwent bioprosthetic AVR and MVR. Patient now presents in transfer after admission to [facility] with
shortness of breath/hypoxemia/CHF/pleural effusions and abnormalities on echocardiogram with moderate to severe mitral regurgitation and concern for mitral annular disruption and pseudoaneurysm.
MVR 12/2023 -now patient with valve dehiscence/pseudoaneurysm and severe mitral regurgitation.
- Findings on echocardiogram and CT consistent with echo at [facility].
- Issues reviewed with Dr. Bullock who also had discussion with patient. Patient felt not to be operative candidate
- Plan for palliative care
-Rate controlled with amiodarone and add metoprolol.
.
Acute left heart failure. Secondary to severe MR/ valve dehiscence and pseudoaneurysm
- Levophed has been weaned off
- O2 weaned from 6 L to 4 L. Continue to wean as tolerated
- Continue Lasix.
- Will continue to medically treat heart failure.
.
Hypotension patient was on Levophed on presentation. Hypotension improved. Levophed off
.
SVT.
- Patient reported to have rapid SVT after patient rolled on her side when they were planning for a MARY. Plans for MARY were aborted due to hemodynamic instability. Patient placed on IV amiodarone.
- IV amiodarone transition to oral on 03/05/2025
- Tachycardia -improved the rate with start of metoprolol along with amiodarone.
-Start metoprolol 25 mg twice a day and continue amiodarone 400 twice a day
.
.
History of AVR. Stable by prior echo report done on 03/03/2025 Limited images on yesterday's echo. Overall appears stable
.
PAF. Stable in sinus rhythm
Anemia.-Continue to monitor
History of CVA
SLE
Physical Exam
Vital Signs/Labs
Vital Signs
Temp Pulse Resp BP Pulse Ox
97.6 F 102 34 107/83 91
03/07/25 03:00 03/07/25 07:59 03/07/25 06:00 03/07/25 07:59 03/07/25 06:00
03/06/25 03/07/25 03/08/25
06:59 06:59 06:59
Actual Weight 73.17 kg 73.7 kg
03/05/25 05:21
03/05/25 05:21
PT 30.1 Sec (11.4-14.6) H 03/03/25 22:35
INR 2.83 03/03/25 22:35
APTT 35.2 Sec (23.4-35.0) H 03/03/25 22:35
Magnesium 2.7 mg/dl (1.6-2.3) H 03/03/25 22:35
Physical Exam
Constitutional: No acute distress and Comfortable
EENT: Anicteric and Moist mucous membranes
Cardiovascular: Rhythm & rate is regular, JVD present, Systolic murmur present and Diastolic murmur present
Respiratory: Respiratory effort normal, Wheeze Absent and Crackles Absent
GI: Soft, Non tender and Normal bowel sounds
Neuro/Psych: Alert, Oriented and AO x 3
Data Reviewed
-
Date of Service: March 07, 2025
Medical Decision Making: Reviewed Test Results, Test Interpretation and Review of Case with other Provider
EKG: Tracing Personally Visualized and interpreted
Echo: Report Reviewed by me
Labs: Labs Reviewed by me
Old Records: Reviewed
--- NOTE | 2025-03-07 08:35 | W.PN.HOSP.TC ---
Today's Communication/Plan
-
Discussed hospice with patient and family
Assessment / Plan
Assessment / Plan
Impression
Patient is a 74-year-old female, 2-month postop AVR/MVR, past history of CVA secondary to septic emboli from endocarditis device in 12/2023. She had vegetations on the mitral valve with calcifications, intraoperatively and the annulus of the valve
was aggressively debrided and patched with a bovine pericardium. Postoperatively he ultimately went to SNF, developed pneumonia and then developed hypoxia and heart failure. Went to [facility], referred to Dr. Bullock due to development of
pseudoaneurysm at the atrioventricular groove. Evaluated with MARY and CTA, and stable to the MARY, aborted. Deemed not a surgical candidate, CODE STATUS changed to DNR after discussion with the patient. Patient discussing hospice/palliative care
so care transferred to hospital medicine,discussion ongoing
Assessment/plan
#MVR/mitral regurgitation with mitral annular disruption/pseudoaneurysm
Not a candidate for surgical repair in the setting of hemodynamic instability and generalized deconditioning
Cardiothoracic surgery had discussion about hospice versus palliative care
Currently on 4 to 6 L of oxygen
Off Levophed
#Acute hypoxemic respiratory failure secondary to valvular heart disease
Wean oxygen as tolerated
#Acute left-sided heart failure secondary to severe MR/valve dehiscence/pseudoaneurysm
Continue with current diuretic dosing-40 mg IV twice daily
Cardiology following
#SVT
On oral amiodarone 400 mg twice daily
#SLE on hydroxychloroquine
#Hypothyroidism-to 50 mcg daily thyroxine
Need to conitnue to disucss dispo and hospice.
DVT prophylaxis-SCDs
CODE STATUS-DNR
Anticipated Discharge: 24 - 48 hours
Subjective/Interval History
-
Date of Service: March 07, 2025
complains of dry mouth and discomfort in mouth
Objective Data
-
Vital Signs:
Vital Signs
Temp Pulse Resp BP Pulse Ox
97.9 F 102 34 107/83 91
03/07/25 08:31 03/07/25 07:59 03/07/25 06:00 03/07/25 07:59 03/07/25 06:00
I&O
03/06/25 03/07/25 03/08/25
06:59 06:59 06:59
Intake Total 862.9 / 862.9
Output Total 200 / 200 775 / 775
Balance 662.9 / 662.9 -775 / -775
Review of Systems
-
All other systems: Reviewed and negative
Physical Exam
-
General: No Apparent Distress
HEENT: Moist Mucous Membranes and Anicteric
Respiratory: Crackles (At lung bases)
Cardiac: Regular Rhythm, S1/S2 and Murmur (Holosystolic at apex of heart)
GI: Soft, Nontender, Nondistended and Normal Bowel Sounds
Musculoskeletal: No Clubbing, No Cyanosis and No Edema
Skin: Warm and Dry
Neuro: Awake and Oriented
Psych: Calm
--- NOTE | 2025-03-07 10:31 | PTCARENOTE ---
Assumed care of patient this morning. She is aaox3, but flat. She does not offer much conversation. Pt appears to be more short of breath, labored and moaning at times. Pt states at times she feels more short of breath but she is okay at the time of
my eval. and residents at bedside to evaluate. Portable CXR ordered. Pt denied any pain and is comfortable. Assessment, care and VS as charted.
[2025-03-07] MEDS: MYCOSTATIN ORAL SUSPENSION 5 ML PO (12:15)
[2025-03-07] MEDS: TOPROL XL 25 MG PO (12:15)
[2025-03-07] MEDS: TYLENOL 650 MG PO (12:58)
--- NOTE | 2025-03-07 13:58 | W.PN.UPDATE ---
Update Note
Progress Note Update
Seen and examined by me independently in collaboration with the medical underwriter.
Lab data and imaging data reviewed.
Addendum as below :
Complains of dry mouth and some discomfort. She has thrush in her oral cavity. Ordered nystatin.
Still requiring oxygen via nasal cannula. Obtain a chest x-ray.
Hemodynamically stable and off of vasopressors.
CT surgery recommended palliative care at this time.
[2025-03-07] MEDS: DILAUDID 0.5 MG IV (14:37)
--- NOTE | 2025-03-07 15:31 | PTCARENOTE ---
Patient and family are in agreement that that she does not want to be in pain anymore. I advised next steps would likely be comfort care and family was agreeable. TT to and resident to make aware.
[2025-03-07] MEDS: LASIX IV (17:48)
[2025-03-07] MEDS: LIPITOR PO (17:49)
[2025-03-07] MEDS: MYCOSTATIN ORAL SUSPENSION PO (17:49)
--- NOTE | 2025-03-07 18:18 | W.PN.UPDATE ---
Addendum entered and electronically signed by Allan Morales MD 03/08/25 13:35:
Discussed with patient's son Ed last evening on phone.
He said is the point person for family . He has 3 other brothers. One brother was away on vacation and has arrived over the weekend and saw mom.
He understands the critical nature of illness with critical severity of her medical condition without another major surgery. He had discussions earlier with cardiothoracic surgery who are recommending palliative care at this point.
He sees mom to have a little struggle with the breathing and with poor prognosis he had a child with mom and 3 brothers and he felt and comfort should be the goal.
So that was not immediately impending but without medical treatments it could be. Their goal is not to prolong things for mom and wishes comfort only at this point. We discussed about discontinuing medications except for comfort and they are
agreeable.
Discussions happened over the phone and I was not able to speak with the patient herself ; my resident was there in person for the family meeting.
Comfort only measures per [facility].
Original Note:
Update Note
Progress Note Update
I spoke to Yazmin's son Ed and reviewed the poor prognosis as discussed by CT surgery and cardiology, discussed that with the patient's son Ed, who then decided to shift the patient to comfort measures. I also explained that once we start the
comfort measures, we will stop all therapeutic medications and try to keep the patient as comfortable as we can. She will receive pain medications and symptomatic care with dignity. The son demonstrated understanding and agreed that he would like
his mother to be as comfortable as she can and make sure she does not experience any symptoms.
Reviewed it with my terminal operations supervisor attending Dr. Morales who spoke to the patient over phone and explained it to the patient that the comfort measures would keep the patient comfortable and she will not receive any further life-prolonging medications.
[2025-03-07] MEDS: MORPHINE SULFATE 1 MG IV ×3 (20:16→23:10)
[2025-03-08] VITALS: BP 95/75
[2025-03-08] MEDS: MORPHINE SULFATE 1 MG IV ×4 (00:46→07:04)
[2025-03-08] MEDS: NSS (PRESERVATIVE FREE) 10 ML IV (00:46)
[2025-03-08] MEDS: ATIVAN 0.5 MG IV ×2 (00:46→06:26)
[2025-03-08 02:00] VITALS: BP 97/74
[2025-03-08 04:00] VITALS: BP 101/78
--- NOTE | 2025-03-08 04:54 | PTCARENOTE ---
Patient appeared comfortable throughout the night. PRN morphine and ativan given for comfort. Family at bedside
[2025-03-08 06:00] VITALS: BP 91/63
--- NOTE | 2025-03-08 08:37 | W.PN.DEATH ---
Pronouncement of
-
Called to see patient to pronounce.
No spontaneous heart tones or respirations noted.
Patient not responsive to verbal stimuli.
Patient is pronounced .
Time of : 08:20
Date of : 03/08/25
Cause of : Mitral valve dehiscence and pseudoaneurysm
Family Notified: Yes
--- NOTE | 2025-03-08 09:30 | PTCARENOTE ---
Patient passed around 0820 this morning. Family at bedside during passing. Post-mortem care performed.
--- NOTE | 2025-03-08 10:59 | CM ---
CM reviewed chart and reviewed patient with nursing. She this morning.
--- NOTE | 2025-03-08 12:03 | W.DCSUMMARY ---
Documented by User: Олег Zimmerman MD, Resident 03/08/25 12:22
Discharge Summary
Discharge Data
Date of Admission: 03/03/25
Date of Discharge: 03/08/25
-
Pending Results: No
Hospital Course
Discharging Physician :
Allan Morales
Disposition :
Primary care physician :
Yari Walsh
Principal Discharge diagnosis :
Mitral valve dehiscence and pseudoaneurysm
Chronic Discharge diagnosis :
Paroxysmal atrial fibrillation, hypothyroidism, history of MRSA, SLE, endocarditis, SEEMA, right leg cellulitis, history of heart failure, CVA secondary to septic emboli from endocarditis with right-sided deficit and expressive aphasia
Bioprosthetic AVR and MVR with left atrial maze and left atrial appendage exclusion on 12/24/2024, carpal tunnel release, thyroidectomy, tubal ligation
Hospital Course :
Patient was a 74-year-old female, with extensive past medical history, she had mitral valve endocarditis with CVA x 2 with speech deficits in December 2024. She had a 2.5 cm mobile vegetation along the P2 P3 aspect of the valve as well as several
mitral valve annular calcifications. Intraoperatively the vegetation and endocarditis had essentially destroyed the annulus and so in order to place a valve it was aggressively debrided and passed with a bovine pericardium. She did well
postoperatively and went to SNF, had pneumonia postoperatively and then developed hypoxia and heart failure. She was at [facility] and was found to have dehiscence of the ring at the P2 P3 origin as well as likely a pseudoaneurysm which
essentially was a delayed AV groove disruption. She was too high risk for any operative intervention, workup was initialized with a MARY and CTA however she was too unstable to the MARY and this was aborted. Goals of care were discussed by Dr. Bullock,
[place] with the patient and she did not desire any extraordinary measures so her CODE STATUS was changed to DNR and she was shifted to hospital medicine for comfort measures.
On 03/07, the patient's son Ed, decided that he wanted to talk about comfort measures as he could not see his mother suffering from pain silently. Poor prognosis provided by CT surgery and cardiology was reviewed with the son and he opted for
comfort measures for his mother with dignity.
On 03/08, received a message from the nurse that the patient was pulseless. On evaluation, her pupils were dilated and nonresponsive to light, carotids were absent, heart sounds were absent, she did not respond to deep pain stimuli. Time of
08: 20 a.m. was pronounced.
Coronary angiography CT 03/04/2025
IMPRESSION:
Findings of likely contained rupture/pseudoaneurysm with disruption of the posteromedial mitral annulus and subvalvular basal inferior left ventricular wall. The pseudoaneurysm measures approximately 3.9 x 3.4 cm.
Moderate right and small left pleural effusions with adjacent atelectasis. There are scattered groundglass opacities most pronounced in the right upper lobe which may represent asymmetric edema/atelectasis although pneumonia is possible.
1.8 cm complex cystic lesion along the medial aspect of the superior pole the right kidney which may represent hemorrhagic cyst or renal neoplasm. Recommend correlation with prior examination.
Discharge Plan
-
Patient Disposition:
Date/Time
Date/Time: 03/08/25 08:20
Discharge Date and Time
Discharge Date/Time: 03/08/25 08:20
Print Language: INDONESIAN

Documented by User: Allan Morales MD 03/08/25 13:37
Discharge Summary
Discharge Data
Date of Admission: 03/03/25
Date of Discharge: 03/08/25
Discharge Plan
-
Patient Disposition:
Date/Time
Date/Time: 03/08/25 08:20
Discharge Date and Time
Discharge Date/Time: 03/08/25 08:20
Print Language: INDONESIAN
== END 2025-03-08 08:20 | disposition expired | DRG 314 ==
LOC: IMU 22:07
PROVIDERS: Clinical Nurse Specialist Acute Care; Physician Assistant Medical; Student in an Organized Health Care Education/Training Program; ADMITTING PHYSICIAN Thoracic Surgery (Cardiothoracic Vascular Surgery); ATTENDING PHYSICIAN Internal Medicine; CONSULT PHYSICIAN Internal Medicine Cardiovascular Disease; FAMILY PHYSICIAN Family Medicine
PROC: 5A09357 Assistance with Respiratory Ventilation, Less than 24 Consecutive Hours, Continuous Positive Airway Pressure (ICD-10-PCS; 2025-03-03)
DX: T82.6XXA Infection and inflammatory reaction due to cardiac valve prosthesis, initial encounter (principal); I50.33 Acute on chronic diastolic (congestive) heart failure; J96.01 Acute respiratory failure with hypoxia; J98.11 Atelectasis; N17.9 Acute kidney failure, unspecified; I13.0 Hypertensive heart and chronic kidney disease with heart failure and stage 1 through stage 4 chronic kidney disease, or unspecified chronic kidney disease; I47.10 Supraventricular tachycardia, unspecified; E87.20 Acidosis, unspecified; Z66 Do not resuscitate; Z51.5 Encounter for palliative care; I48.0 Paroxysmal atrial fibrillation; I05.8 Other rheumatic mitral valve diseases; M32.9 Systemic lupus erythematosus, unspecified; I45.10 Unspecified right bundle-branch block; Y83.8 Other surgical procedures as the cause of abnormal reaction of the patient, or of later complication, without mention of misadventure at the time of the procedure; Y92.129 Unspecified place in nursing home as the place of occurrence of the external cause; D64.9 Anemia, unspecified; E89.0 Postprocedural hypothyroidism; I95.9 Hypotension, unspecified; E78.00 Pure hypercholesterolemia, unspecified; D72.10 Eosinophilia, unspecified; N18.9 Chronic kidney disease, unspecified; Z60.2 Problems related to living alone; Z53.09 Procedure and treatment not carried out because of other contraindication; Z87.891 Personal history of nicotine dependence; Z98.51 Tubal ligation status; Z95.3 Presence of xenogenic heart valve; Z79.01 Long term (current) use of anticoagulants; Z86.73 Personal history of transient ischemic attack (TIA), and cerebral infarction without residual deficits; Z88.1 Allergy status to other antibiotic agents; Z86.14 Personal history of Methicillin resistant Staphylococcus aureus infection; Z86.79 Personal history of other diseases of the circulatory system; Z79.890 Hormone replacement therapy; Z79.82 Long term (current) use of aspirin
CPT/HCPCS: 93308; 75572; 80048; 80053; 81003; 81015; 82330; 82962; 83605; 83735; 85025; 85027; 85610; 85730; 86850; 86900; 86901; 87040; 87070; 87086; 87147; 93005; 93321; 93325; 94660; Q9967